=== PATIENT | female | born 1935 | race Caucasian/White ===

== ENCOUNTER 2019-05-20 12:51 | Inpatient (IN) | payer OTHER ==
--- NOTE | 2019-05-20 14:21 | PDOC ---
History of Present Illness - General Chief Complaint: Respiratory Stated Complaint: COUGH Time Seen by Provider: 05/20/19 13:17 History Source: Intermediate Records - History of Present Illness Initial Comments: 05/20/19 16:15 Ms. Valencia is an 83 y/o woman with hx DM, alzheimers, schizophrenia, HTN, CAD, p/ w altered mental status from [facility]. She is unable to contribute to history due to altered mental status. They report that for the last 3 days she has had a cough, and intermittent confusion. They report that she has been intermittently disoriented to time and persons. They deny any measured fevers in the [facility], and send her for evaluation of confusion and cough with concern for pneumonia. --- Initial POC glucose - >600 Past History - Past Medical History Allergies/Adverse Reactions: Allergies Allergy/AdvReac Type Severity Reaction Status Date / Time No Known Allergies Allergy Verified 05/20/19 13:13 Home Medications: Ambulatory Orders Atorvastatin Ca [Lipitor] 40 mg PO HS #0 01/12/16 Amlodipine Besylate [Norvasc -] 5 mg PO DAILY 05/20/19 Brimonidine Tartrate [Alphagan 0.15% -] 1 drop OU BID 05/20/19 Dorzolamide HCl/Pf [Dorzolamide 2% Eye Drop] 1 drop OU BID 05/20/19 Duloxetine HCl [Cymbalta -] 30 mg PO DAILY 05/20/19 Empagliflozin [Jardiance] 10 mg PO DAILY 05/20/19 Ergocalciferol [Vitamin D2] 50,000 unit PO Q7D@1000 05/20/19 Levothyroxine Sodium 50 mcg PO DAILY 05/20/19 Losartan Potassium [Cozaar] 100 mg PO DAILY 05/20/19 Memantine HCl [Namenda -] 5 mg PO DAILY 05/20/19 Polyvinyl Alcohol [Artificial Tears] 1 drop OU BID 05/20/19 Risperidone [Risperdal -] 0.5 mg PO HS 05/20/19 metFORMIN HCL [Glucophage -] 1,000 mg PO BID 05/20/19 COPD: No Diabetes: Yes HTN: Yes Psychiatric Problems: Yes Thyroid Disease: Yes (hypo) - Psycho Social/Smoking Cessation Hx Smoking History: Never smoked Have you smoked in the past 12 months: No Hx Alcohol Use: No Drug/Substance Use Hx: No Substance Use Type: None Review of Systems - Review of Systems Able to Perform ROS?: No (AMS) *Physical Exam - Vital Signs Last Vital Signs Temp Pulse Resp BP Pulse Ox 98.2 F 87 28 H 129/66 94 L 05/20/19 13:27 05/20/19 13:04 05/20/19 13:04 05/20/19 13:04 05/20/19 13:04 - Physical Exam 05/20/19 19:57 PE: GENERAL: Disoriented, verbally responsive HEAD: No signs of trauma, normocephalic, atraumatic EYES: PERRLA, EOMI, sclera anicteric, conjunctiva clear ENT: Auricles normal inspection, hearing grossly normal, nares patent, oropharynx clear without exudates. Moist mucosa NECK: Normal ROM, supple, no lymphadenopathy, JVD, or masses LUNGS: No distress, clear to auscultation bilaterally HEART: Regular rate and rhythm, normal S1 and S2, no murmurs, rubs or gallops, peripheral pulses normal and equal bilaterally. ABDOMEN: Soft, nontender, normoactive bowel sounds. No guarding, no rebound. No masses EXTREMITIES : Normal inspection, Normal range of motion, no edema. No clubbing or cyanosis SKIN: Warm, Dry, normal turgor, no rashes or lesions noted ED Treatment Course - LABORATORY CBC & Chemistry Diagram: 05/20/19 14:55 05/20/19 14:55 - RADIOLOGY Radiology Studies Ordered: Category Date Time Status CHEST X-RAY PORTABLE* [RAD] Stat Radiology 05/20/19 14:13 Ordered Medical Decision Making - Medical Decision Making 83F w hx DM, HTN, alzheimers dementia, p/w altered mental status, POC glucose > 600 w/gap on ABG c/w DKA. Plan: CBC CMP Troponin ABG 1L IV NS EKG CXR CT Head Insulin drip pending K level KCl addition to fluid bolus pending K level ICU consult UA Urine culture Dispo: Admit, ICU 05/20/19 15:52 Finger stick glucose - "High" (unreadable) --- Blood sugar - 682 CMP resulted, K 5.4 Plan for Insulin drip 0.1mg/kg --- ABG - 7.15 pH, 7.9 HCO3 --- Case discussed with ICU team, plan for admission to ICU --- Repeat ABG - 7.15, HCO3 6.6 Discharge - Discharge Information Problems reviewed: Yes Clinical Impression/Diagnosis: DKA (diabetic ketoacidoses) Qualifiers: Diabetes mellitus type: other specified (including ANGELITO) Diabetes mellitus complication detail: without coma Qualified Code(s): E13.10 - Other specified diabetes mellitus with ketoacidosis without coma Condition: Guarded - Admission Yes - Follow up/Referral - Patient Discharge Instructions - Post Discharge Activity
[2019-05-20 14:59] LABS: BASO % 0.1 % (0-2.0); HEMATOCRIT 30.1 % (32.4-45.2); HEMOGLOBIN 9.5 GM/dL (10.7-15.3); LYMPH % 10.7 % (8-40); MCHC 31.7 g/dl (32.0-36.0); MEAN CELL VOLUME 91.4 fl (80-96); MEAN PLT VOLUME 9.2 fl (7.5-11.1); MONO % 9.6 % (3.8-10.2); NEUT % 79.6 % (42.8-82.8); PLATELET COUNT 217 K/MM3 (134-434); RBC 3.29 M/mm3 (3.60-5.2); RDW 15.5 % (11.6-15.6); WHITE BLOOD COUNT 10.1 K/mm3 (4.0-10.0)
[2019-05-20 15:22] LABS: ACTIVATED PTT 29.9 SECONDS (25.2-36.5)
[2019-05-20 15:24] LABS: ARTERIAL BLD GAS O2 SATURATION 93.8 % (95-98); ARTERIAL BLOOD GAS BASE EXCESS -19.3 meq/l (-2-2); ARTERIAL BLOOD GAS PCO2 22.2 mmHg (35-45); ARTERIAL BLOOD GAS PO2 88.1 mmHg (80-100); CARBOXYHEMOGLOBIN 1.1 % (0-2)
[2019-05-20 15:26] LABS: ARTERIAL BLOOD GAS pH 7.17 (7.35-7.45)
[2019-05-20 15:49] LABS: INR 0.87 (0.83-1.09); PROTHROMBIN TIME (PATIENT) 10.3 SEC (9.7-13.0)
[2019-05-20 15:52] LABS: BILIRUBIN,TOTAL 0.6 mg/dL (0.2-1); BLOOD UREA NITROGEN 47.9 mg/dL (7-18); CALCIUM 9.3 mg/dL (8.5-10.1); CREATININE 2.7 mg/dL (0.55-1.3); POTASSIUM 5.4 mmol/L (3.5-5.1); TOT PROT 7.6 g/dl (6.4-8.2)
[2019-05-20] MEDS ORDERED: LACTATED RINGERS SOLUTION 1000 ML INFUS.BAG IV ONE (15:52)
[2019-05-20] MEDS ORDERED: POTASSIUM CHLORIDE 20 MEQ PREMIX IVPB 100 ML IVPB ONE (15:57)
[2019-05-20] MEDS ORDERED: INSULIN REGULAR 100 UNITS in SODIUM CHLORIDE 99 ML IVPB SCH (16:00)
[2019-05-20 17:00] LABS: PHOSPHOROUS 6.8 mg/dL (2.5-4.9)
[2019-05-20 17:01] LABS: MAGNESIUM 2.2 mg/dL (1.8-2.4)
[2019-05-20] MEDS ORDERED: SODIUM CHLORIDE 0.45% 1,000 ML IV SCH (17:15)
--- NOTE | 2019-05-20 17:22 | HP ---
CHIEF COMPLAINT: PCP: HISTORY OF PRESENT ILLNESS: ER course was notable for: (1) (2) (3) Recent Travel: PAST MEDICAL HISTORY: PAST SURGICAL HISTORY: Social History: Smoking: Alcohol: Drugs: Allergies No Known Allergies Allergy (Verified 05/20/19 13:13) HOME MEDICATIONS: Home Medications Medication Instructions Recorded Atorvastatin Ca [Lipitor] 40 mg PO HS #0 01/12/16 Amlodipine Besylate [Norvasc -] 5 mg PO DAILY 05/20/19 Brimonidine Tartrate [Alphagan 1 drop OU BID 05/20/19 0.15% -] Dorzolamide HCl/Pf [Dorzolamide 2% 1 drop OU BID 05/20/19 Eye Drop] Duloxetine HCl [Cymbalta -] 30 mg PO DAILY 05/20/19 Empagliflozin [Jardiance] 10 mg PO DAILY 05/20/19 Ergocalciferol [Vitamin D2] 50,000 unit PO Q7D@1000 05/20/19 Levothyroxine Sodium 50 mcg PO DAILY 05/20/19 Losartan Potassium [Cozaar] 100 mg PO DAILY 05/20/19 Memantine HCl [Namenda -] 5 mg PO DAILY 05/20/19 Polyvinyl Alcohol [Artificial 1 drop OU BID 05/20/19 Tears] Risperidone [Risperdal -] 0.5 mg PO HS 05/20/19 metFORMIN HCL [Glucophage -] 1,000 mg PO BID 05/20/19 REVIEW OF SYSTEMS CONSTITUTIONAL: Absent: fever, chills, diaphoresis, generalized weakness, malaise, loss of appetite, weight change HEENT: Absent: rhinorrhea, nasal congestion, throat pain, throat swelling, difficulty swallowing, mouth swelling, ear pain, eye pain, visual changes CARDIOVASCULAR: Absent: chest pain, syncope, palpitations, irregular heart rate, lightheadedness , peripheral edema RESPIRATORY: Absent: cough, shortness of breath, dyspnea with exertion, orthopnea, wheezing, stridor, hemoptysis GASTROINTESTINAL: Absent: abdominal pain, abdominal distension, nausea, vomiting, diarrhea, constipation, melena, hematochezia GENITOURINARY: Absent: dysuria, frequency, urgency, hesitancy, hematuria, flank pain, genital pain MUSCULOSKELETAL: Absent: myalgia, arthralgia, joint swelling, back pain, neck pain SKIN: Absent: rash, itching, pallor HEMATOLOGIC/IMMUNOLOGIC: Absent: easy bleeding, easy bruising, lymphadenopathy, frequent infections ENDOCRINE: Absent: unexplained weight gain, unexplained weight loss, heat intolerance, cold intolerance NEUROLOGIC: Absent: headache, focal weakness or paresthesias, dizziness, unsteady gait, seizure, mental status changes, bladder or bowel incontinence PSYCHIATRIC: Absent: anxiety, depression, suicidal or homicidal ideation, hallucinations. PHYSICAL EXAMINATION Vital Signs - 24 hr 05/20/19 05/20/19 05/20/19 13:04 13:27 15:51 Temperature 98.2 F 98.8 F Pulse Rate 87 Respiratory 28 H Rate Blood Pressure 129/66 O2 Sat by Pulse 94 L Oximetry (%) GENERAL: Awake, alert, and fully oriented, in no acute distress. HEAD: Normal with no signs of trauma. EYES: Pupils equal, round and reactive to light, extraocular movements intact, sclera anicteric, conjunctiva clear. No lid lag. EARS, NOSE, THROAT: Ears normal, nares patent, oropharynx clear without exudates. Moist mucous membranes. NECK: Normal range of motion, supple without lymphadenopathy, JVD, or masses. LUNGS: Breath sounds equal, clear to auscultation bilaterally. No wheezes, and no crackles. No accessory muscle use. HEART: Regular rate and rhythm, normal S1 and S2 without murmur, rub or gallop. ABDOMEN: Soft, nontender, not distended, normoactive bowel sounds, no guarding, no rebound, no masses. No hepatomegaly or splenomegaly. MUSCULOSKELETAL: Normal range of motion at all joints. No bony deformities or tenderness. No CVA tenderness. UPPER EXTREMITIES: 2+ pulses, warm, well-perfused. No cyanosis. No clubbing. No peripheral edema. LOWER EXTREMITIES: 2+ pulses, warm, well-perfused. No calf tenderness. No peripheral edema. NEUROLOGICAL: Cranial nerves II-XII intact. Normal speech. Normal gait. PSYCHIATRIC: Cooperative. Good eye contact. Appropriate mood and affect. SKIN: Warm, dry, normal turgor, no rashes or lesions noted, normal capillary refill. Laboratory Results - last 24 hr 05/20/19 05/20/19 05/20/19 13:30 14:55 14:55 WBC 10.1 H RBC 3.29 L Hgb 9.5 L Hct 30.1 L MCV 91.4 MCH 29.0 MCHC 31.7 L RDW 15.5 Plt Count 217 MPV 9.2 D Absolute Neuts (auto) 8.0 Neutrophils % 79.6 Lymphocytes % 10.7 D Monocytes % 9.6 Eosinophils % 0.0 D Basophils % 0.1 Nucleated RBC % 0 PT with INR INR PTT (Actin FS) Anticoagulation Therapy Puncture Site ABG pH ABG pCO2 at Pt Temp ABG pO2 at Pt Temp ABG HCO3 ABG O2 Sat (Measured) ABG O2 Content ABG Base Excess Néstor Test Carboxyhemoglobin Methemoglobin O2 Delivery Device Oxygen Flow Rate Vent Mode Vent Rate Mechanical Rate Pressure Support Vent Sodium Potassium Chloride Carbon Dioxide Anion Gap BUN Creatinine Est GFR (CKD-EPI)AfAm Est GFR (CKD-EPI)NonAf POC Glucometer Random Glucose Lactic Acid Calcium Phosphorus Magnesium Total Bilirubin AST ALT Alkaline Phosphatase Creatine Kinase 172 Creatine Kinase Index 1.5 CK-MB (CK-2) 2.7 Troponin I < 0.02 Total Protein Albumin Beta-Hydroxybutyrate Influenza A (Rapid) Negative Influenza B (Rapid) Negative 05/20/19 05/20/19 05/20/19 14:55 15:00 15:00 WBC RBC Hgb Hct MCV MCH MCHC RDW Plt Count MPV Absolute Neuts (auto) Neutrophils % Lymphocytes % Monocytes % Eosinophils % Basophils % Nucleated RBC % PT with INR 10.30 INR 0.87 PTT (Actin FS) 29.9 Anticoagulation Therapy No Result Required. Puncture Site No Result Required. ABG pH 7.17 L* ABG pCO2 at Pt Temp 22.2 L ABG pO2 at Pt Temp 88.1 ABG HCO3 7.8 L ABG O2 Sat (Measured) 93.8 L ABG O2 Content 12.3 ABG Base Excess -19.3 L Néstor Test No Result Required. Carboxyhemoglobin 1.1 Methemoglobin < 1.0 O2 Delivery Device No Result Required. Oxygen Flow Rate No Result Required. Vent Mode No Result Required. Vent Rate No Result Required. Mechanical Rate No Result Required. Pressure Support Vent No Result Required. Sodium 132 L Potassium 5.4 H Chloride 98 Carbon Dioxide 9 L Anion Gap 25 H BUN 47.9 H Creatinine 2.7 H Est GFR (CKD-EPI)AfAm 18.41 Est GFR (CKD-EPI)NonAf 15.89 POC Glucometer Random Glucose 682 H* Lactic Acid Calcium 9.3 Phosphorus 6.8 H Magnesium 2.2 Total Bilirubin 0.6 AST 25 ALT 22 Alkaline Phosphatase 68 Creatine Kinase Creatine Kinase Index CK-MB (CK-2) Troponin I Total Protein 7.6 Albumin 3.0 L Beta-Hydroxybutyrate 100.7 H Influenza A (Rapid) Influenza B (Rapid) 05/20/19 05/20/19 15:00 15:47 WBC RBC Hgb Hct MCV MCH MCHC RDW Plt Count MPV Absolute Neuts (auto) Neutrophils % Lymphocytes % Monocytes % Eosinophils % Basophils % Nucleated RBC % PT with INR INR PTT (Actin FS) Anticoagulation Therapy Puncture Site ABG pH ABG pCO2 at Pt Temp ABG pO2 at Pt Temp ABG HCO3 ABG O2 Sat (Measured) ABG O2 Content ABG Base Excess Néstor Test Carboxyhemoglobin Methemoglobin O2 Delivery Device Oxygen Flow Rate Vent Mode Vent Rate Mechanical Rate Pressure Support Vent Sodium Potassium Chloride Carbon Dioxide Anion Gap BUN Creatinine Est GFR (CKD-EPI)AfAm Est GFR (CKD-EPI)NonAf POC Glucometer > 600 Random Glucose Lactic Acid 1.2 Calcium Phosphorus Magnesium Total Bilirubin AST ALT Alkaline Phosphatase Creatine Kinase Creatine Kinase Index CK-MB (CK-2) Troponin I Total Protein Albumin Beta-Hydroxybutyrate Influenza A (Rapid) Influenza B (Rapid) ASSESSMENT/PLAN: ATTENDING PHYSICIAN STATEMENT I saw and evaluated the patient. I reviewed the resident's note and discussed the case with the resident. I agree with the resident's findings and plan as documented. SUBJECTIVE: OBJECTIVE: ASSESSMENT AND PLAN:
[2019-05-20 17:48] LABS: URINE APPEARANCE CLEAR; URINE BILIRUBIN NEGATIVE (NEGATIVE); URINE COLOR YELLOW; URINE GLUCOSE (UA) 3+ (NEGATIVE); URINE KETONE 2+ (NEGATIVE); URINE LEUK ESTERASE NEGATIVE (NEGATIVE); URINE NITRITE NEGATIVE (NEGATIVE); URINE PROTEIN TRACE (NEGATIVE); URINE UROBILINOGEN 0.2 mg/dL (0.2-1.0)
--- NOTE | 2019-05-20 18:35 | CONSULT ---
Consultation: REQUESTING PROVIDER: Dr. Talbot CONSULT REQUEST: We have been asked to medically evaluate this patient for diabetic ketoacidosis. HISTORY OF PRESENT ILLNESS: 83F w/ pmhx of alzheimers dementia, schizophrenia, hypothyroidism, DM, HTN, HLD , CAD, who presents in the ED from [facility]. She presents with altered mental status, is unable to be oriented and is not able to provide much history. From alf report and ED sign out, she has had suspected pneumonia at home and confusion which led patient to be transferred to ED. In the ED she was found to have point of care glucose >600 and was started on Insulin Drip at 0.1 mg/kg with a loading dose, and given 1L bolus of LR. Patient denies any chest pain, shortness of breath, abdominal pain, nausea, and vomiting. Patient endorses appetite. REVIEW OF SYSTEMS: CONSTITUTIONAL: Absent: fever, chills, diaphoresis, generalized weakness, malaise, loss of appetite, weight change HEENT: Absent: rhinorrhea, nasal congestion, throat pain, throat swelling, difficulty swallowing, mouth swelling, ear pain, eye pain, visual changes CARDIOVASCULAR: Absent: chest pain, syncope, palpitations, irregular heart rate, lightheadedness , peripheral edema RESPIRATORY: Absent: cough, shortness of breath, dyspnea with exertion, orthopnea, wheezing, stridor, hemoptysis GASTROINTESTINAL: Absent: abdominal pain, abdominal distension, nausea, vomiting, diarrhea, constipation, melena, hematochezia GENITOURINARY: Absent: dysuria, frequency, urgency, hesitancy, hematuria, flank pain, genital pain MUSCULOSKELETAL: Absent: myalgia, arthralgia, joint swelling, back pain, neck pain SKIN: Absent: rash, itching, pallor HEMATOLOGIC/IMMUNOLOGIC: Absent: easy bleeding, easy bruising, lymphadenopathy, frequent infections ENDOCRINE: Absent: unexplained weight gain, unexplained weight loss, heat intolerance, cold intolerance NEUROLOGIC: Absent: headache, focal weakness or paresthesias, dizziness, unsteady gait, seizure, mental status changes, bladder or bowel incontinence PSYCHIATRIC: Absent: anxiety, depression, suicidal or homicidal ideation, hallucinations. PHYSICAL EXAMINATION Vital Signs - 24 hr 05/20/19 05/20/19 05/20/19 13:04 13:27 15:51 Temperature 98.2 F 98.8 F Pulse Rate 87 Respiratory 28 H Rate Blood Pressure 129/66 O2 Sat by Pulse 94 L Oximetry (%) GENERAL: Awake, alert, and oriented to self. Answers some questions, continues to be somewhat drowsy. HEAD: Normal with no signs of trauma. EYES: Pupils equal, round and reactive to light, extraocular movements intact, sclera anicteric, conjunctiva clear. EARS, NOSE, THROAT: Ears normal, nares patent, oropharynx clear without exudates. Moist mucous membranes. NECK: Supple. No lymphadenopathy, no JVD. LUNGS: Breath sounds equal, clear to auscultation bilaterally. No wheezes, and no crackles. No accessory muscle use. HEART: RRR normal S1 and S2 without murmur, rub or gallop. ABDOMEN: Soft, nontender, not distended, normoactive bowel sounds, no guarding, no rebound, no masses. MUSCULOSKELETAL: Normal range of motion at all joints. No bony deformities or tenderness. UPPER EXTREMITIES: 2+ pulses, warm, well-perfused. No cyanosis. No clubbing. Cap refill <2 seconds. No peripheral edema. LOWER EXTREMITIES: 2+ pulses, warm, well-perfused. No calf tenderness. No peripheral edema. NEUROLOGICAL: Patient unable to follow command for complete neuro exam. PSYCHIATRIC: Cooperative. Good eye contact. Appropriate mood and affect. SKIN: Warm, dry, normal turgor, no rashes or lesions noted. Laboratory Results - last 24 hr 05/20/19 05/20/19 05/20/19 13:30 14:55 14:55 WBC 10.1 H RBC 3.29 L Hgb 9.5 L Hct 30.1 L MCV 91.4 MCH 29.0 MCHC 31.7 L RDW 15.5 Plt Count 217 MPV 9.2 D Absolute Neuts (auto) 8.0 Neutrophils % 79.6 Lymphocytes % 10.7 D Monocytes % 9.6 Eosinophils % 0.0 D Basophils % 0.1 Nucleated RBC % 0 PT with INR INR PTT (Actin FS) Anticoagulation Therapy Puncture Site ABG pH ABG pCO2 at Pt Temp ABG pO2 at Pt Temp ABG HCO3 ABG O2 Sat (Measured) ABG O2 Content ABG Base Excess Néstor Test Carboxyhemoglobin Methemoglobin O2 Delivery Device Oxygen Flow Rate Vent Mode Vent Rate Mechanical Rate Pressure Support Vent Sodium Potassium Chloride Carbon Dioxide Anion Gap BUN Creatinine Est GFR (CKD-EPI)AfAm Est GFR (CKD-EPI)NonAf POC Glucometer Random Glucose Lactic Acid Calcium Phosphorus Magnesium Total Bilirubin AST ALT Alkaline Phosphatase Creatine Kinase 172 Creatine Kinase Index 1.5 CK-MB (CK-2) 2.7 Troponin I < 0.02 Total Protein Albumin Beta-Hydroxybutyrate Influenza A (Rapid) Negative Influenza B (Rapid) Negative 05/20/19 05/20/19 05/20/19 14:55 15:00 15:00 WBC RBC Hgb Hct MCV MCH MCHC RDW Plt Count MPV Absolute Neuts (auto) Neutrophils % Lymphocytes % Monocytes % Eosinophils % Basophils % Nucleated RBC % PT with INR 10.30 INR 0.87 PTT (Actin FS) 29.9 Anticoagulation Therapy No Result Required. Puncture Site No Result Required. ABG pH 7.17 L* ABG pCO2 at Pt Temp 22.2 L ABG pO2 at Pt Temp 88.1 ABG HCO3 7.8 L ABG O2 Sat (Measured) 93.8 L ABG O2 Content 12.3 ABG Base Excess -19.3 L Néstor Test No Result Required. Carboxyhemoglobin 1.1 Methemoglobin < 1.0 O2 Delivery Device No Result Required. Oxygen Flow Rate No Result Required. Vent Mode No Result Required. Vent Rate No Result Required. Mechanical Rate No Result Required. Pressure Support Vent No Result Required. Sodium 132 L Potassium 5.4 H Chloride 98 Carbon Dioxide 9 L Anion Gap 25 H BUN 47.9 H Creatinine 2.7 H Est GFR (CKD-EPI)AfAm 18.41 Est GFR (CKD-EPI)NonAf 15.89 POC Glucometer Random Glucose 682 H* Lactic Acid Calcium 9.3 Phosphorus 6.8 H Magnesium 2.2 Total Bilirubin 0.6 AST 25 ALT 22 Alkaline Phosphatase 68 Creatine Kinase Creatine Kinase Index CK-MB (CK-2) Troponin I Total Protein 7.6 Albumin 3.0 L Beta-Hydroxybutyrate 100.7 H Influenza A (Rapid) Influenza B (Rapid) 05/20/19 05/20/19 15:00 15:47 WBC RBC Hgb Hct MCV MCH MCHC RDW Plt Count MPV Absolute Neuts (auto) Neutrophils % Lymphocytes % Monocytes % Eosinophils % Basophils % Nucleated RBC % PT with INR INR PTT (Actin FS) Anticoagulation Therapy Puncture Site ABG pH ABG pCO2 at Pt Temp ABG pO2 at Pt Temp ABG HCO3 ABG O2 Sat (Measured) ABG O2 Content ABG Base Excess Néstor Test Carboxyhemoglobin Methemoglobin O2 Delivery Device Oxygen Flow Rate Vent Mode Vent Rate Mechanical Rate Pressure Support Vent Sodium Potassium Chloride Carbon Dioxide Anion Gap BUN Creatinine Est GFR (CKD-EPI)AfAm Est GFR (CKD-EPI)NonAf POC Glucometer > 600 Random Glucose Lactic Acid 1.2 Calcium Phosphorus Magnesium Total Bilirubin AST ALT Alkaline Phosphatase Creatine Kinase Creatine Kinase Index CK-MB (CK-2) Troponin I Total Protein Albumin Beta-Hydroxybutyrate Influenza A (Rapid) Influenza B (Rapid) Active Medications Generic Name Dose Route Start Last Admin Trade Name Freq PRN Reason Stop Dose Admin Chlorhexidine Gluconate 1 applic 05/20/19 22:00 Hibiclens For Decolonization - TP HS SAM Insulin Human Regular 100 100 mls @ 7 mls/hr 05/20/19 16:00 units/ Sodium Chloride IVPB TITR SAM Protocol 0.1 UNITS/KG/HR Sodium Chloride 1,000 mls @ 125 mls/hr 05/20/19 17:15 1/2 Normal Saline IV ASDIR SAM Mupirocin 1 applic 05/20/19 22:00 Bactroban Ointment (For Decolonization) - NS 05/25/19 21:59 BID [facility] ASSESSMENT/PLAN: 83F w/ pmhx of alzheimers dementia, schizophrenia, hypothyroidism, DM, HTN, HLD , CAD who presents with AMS likely due to DKA. Neuro Acute Metabolic Encephalopathy -Patient has baseline Dementia, but has been more confused recently. -Currently AAOX1 -Continue home Cymbalta 30 mg Daily, Memantine 5 mg Daily, Risperidone 0.5 mg HS -Head CT ordered; pending report Endocrine Diabetic Ketoacidosis Glaucoma Hypothyroidism -Unknown compliance with home medications of: Metformin 1000 mg BID, Jardiance 10 mg BID -Glucose of 682, pH 7.17, beta-hydroxybutarate of 100.7, AG 25, HCO3 9. Urine ketones positive (2+), glucosuria (3+). -A1c ordered (per records, last A1c 6.6% - unknown date) -Started on Insulin drip; 0.1U/kg/hr (goal is decrease of 50-70 within 1st hour , if not, will double IV dose) -On 1/2 NS @ 125 ml/hr (corrected Na 141); will change to D5 1/2 NS once Glu reaches 200 -F/U BMP Q2H; once AG <12, will start regular insulin SQ 0.02 U/kg/hr and give food with BMP monitoring Q2H -F/U POC BGM Q1H -Continue Brimonidine, timolol, and artificial tears drops. -continue home dose levothyroxine 50 mcg daily. -Endocrinology consulted Cardio Hx of CAD Hx of HTN -EKG is NSR, LVH, Qtc 428. No peaked T waves or ST-T changes. -Continue home meds: Amlodipine 5mg Daily, Losartan 100 mg daily, Atorvastatin 40 HS. -Echo ordered (last known echo 01/17 - LVSF nl, impaired LV relaxation, mild MR, mild aortic sclerosis); will get repeat to assess Pulm -Patient was suspected pneumonia vs URTI at living facility, although afebrile with mild leukocytosis that may be reactive. -Continue monitoring. Hold off on IV abx for now -CXR unchanged since 01/17; R granuloma present, stable. GI -Patient has no GI symptoms at present. Will continue monitoring. -NPO for now Renal NIKOLE -BUN/Creatinine is 47.9/2.7 -Renal U/S Heme Anemia -H/H of 9.5/30.5 -Follow up CBC -FOBT/Iron studies -Hold AC for now FEN: -1/2 NS @ 125 cc/hr -Trend BMP -NPO until glucose is under control DVT Prophylaxis: SCDs for now; will hold off on AC due to present anemia Dispo: ICU monitoring. We will continue to follow the patient. Thank you for this consultative opportunity. Visit type - Emergency Visit Emergency Visit: Yes ED Registration Date: 05/20/19 Care time: The patient presented to the Emergency Department on the above date and was hospitalized for further evaluation of their emergent condition. - New Patient This patient is new to me today: Yes Date on this admission: 05/20/19 - Critical Care Critical Care patient: Yes Total Critical Care Time (in minutes): 45 Critical Care Statement: The care of this patient involved high complexity decision making to prevent further life threatening deterioration of the patient 's condition and/or to evaluate & treat vital organ system(s) failure or risk of failure. ATTENDING PHYSICIAN STATEMENT I saw and evaluated the patient. I reviewed the resident's note and discussed the case with the resident. I agree with the resident's findings and plan as documented. SUBJECTIVE: OBJECTIVE: ASSESSMENT AND PLAN:
[2019-05-20 19:41] LABS: ARTERIAL BLOOD GAS BASE EXCESS -20.9 meq/l (-2-2); ARTERIAL BLOOD GAS PCO2 19.7 mmHg (35-45)
[2019-05-20 19:42] LABS: ALLENS TEST POSITIVE
[2019-05-20 19:43] LABS: ARTERIAL BLOOD GAS pH 7.15 (7.35-7.45)
[2019-05-20 20:26] LABS: BLOOD UREA NITROGEN 46.4 mg/dL (7-18); CALCIUM 8.8 mg/dL (8.5-10.1); CREATININE 2.6 mg/dL (0.55-1.3)
[2019-05-20] MEDS ORDERED: SODIUM CHLORIDE 1,000 ML with POTASSIUM CHLORIDE 40 MEQ IV SCH (21:15)
[2019-05-20] MEDS ORDERED: SODIUM CHLORIDE 1,000 ML IV SCH (21:15)
[2019-05-20] MEDS ORDERED: SODIUM CHLORIDE 0.45% 1,000 ML with POTASSIUM CHLORIDE 40 MEQ IV SCH (21:45)
--- NOTE | 2019-05-20 21:58 | HP ---
CHIEF COMPLAINT: AMS PCP: Dr. Ray HISTORY OF PRESENT ILLNESS: Ms. Valencia is an 83 year old female with PMH of alzheimers, schizophrenia, HTN, DM2, hypothyroidism, CAD HLD, HHD (LVH), glaucooma, depression who presents from [facility] for cough and AMS. Pt is unable to contribute to hx given AMS. Per retirement report, pt has had progressive confusion over past 3 days. At baseline, she is A&O x2 (not oriented to time). However, she has developed worsening confusion, and not oriented to place or person intermittently. Pt also had developed a mild productive cough over the past 3 days. No reported fevers at Assisted Living Facility, but she was sent to ED for evaluation of possible PNA. On arrival in the ED, pt's POC glucose was >600. She was started on an insulin drop at 0.1 mg/kg with a loading dose and given 1L bolus of lactated ringer. On questioning, pt denies any chest pain , SOB, abd pain, nausea, vomiting, headaches. ER course was notable for: (1) Initial POC glucose >600, K 5.4; AB.15 pH, 7.8 HCO3; beta- hydroxybutarate: 100.7, AG 25, Urine ketones positive (2+), glucosuria (3+). (2) 2 large US-guided IVs placed. Started on insulin drip @ 0.1 mg/kg and given 20meq KCl (3) Recent Travel: denies PAST MEDICAL HISTORY: As per HPI PAST SURGICAL HISTORY: Cataract and glaucoma surgeries [facility] Social History: Smoking: denies Alcohol: denies Drugs: denies Allergies No Known Allergies Allergy (Verified 05/20/19 13:13) HOME MEDICATIONS: Home Medications Medication Instructions Recorded Atorvastatin Ca [Lipitor] 40 mg PO HS #0 01/12/16 Amlodipine Besylate [Norvasc -] 5 mg PO DAILY 05/20/19 Brimonidine Tartrate [Alphagan 1 drop OU BID 05/20/19 0.15% -] Dorzolamide HCl/Pf [Dorzolamide 2% 1 drop OU BID 05/20/19 Eye Drop] Duloxetine HCl [Cymbalta -] 30 mg PO DAILY 05/20/19 Empagliflozin [Jardiance] 10 mg PO DAILY 05/20/19 Ergocalciferol [Vitamin D2] 50,000 unit PO Q7D@1000 05/20/19 Levothyroxine Sodium 50 mcg PO DAILY 05/20/19 Losartan Potassium [Cozaar] 100 mg PO DAILY 05/20/19 Memantine HCl [Namenda -] 5 mg PO DAILY 05/20/19 Polyvinyl Alcohol [Artificial 1 drop OU BID 05/20/19 Tears] Risperidone [Risperdal -] 0.5 mg PO HS 05/20/19 metFORMIN HCL [Glucophage -] 1,000 mg PO BID 05/20/19 REVIEW OF SYSTEMS CONSTITUTIONAL: Absent: fever, chills, diaphoresis, generalized weakness, malaise, loss of appetite, weight change HEENT: Absent: rhinorrhea, nasal congestion, throat pain, throat swelling, difficulty swallowing, mouth swelling, ear pain, eye pain, visual changes CARDIOVASCULAR: Absent: chest pain, syncope, palpitations, irregular heart rate, lightheadedness , peripheral edema RESPIRATORY: cough Absent: shortness of breath, dyspnea with exertion, orthopnea, wheezing, stridor , hemoptysis GASTROINTESTINAL: Absent: abdominal pain, abdominal distension, nausea, vomiting, diarrhea, constipation, melena, hematochezia GENITOURINARY: Absent: dysuria, frequency, urgency, hesitancy, hematuria, flank pain, genital pain MUSCULOSKELETAL: Absent: myalgia, arthralgia, joint swelling, back pain, neck pain SKIN: Absent: rash, itching, pallor HEMATOLOGIC/IMMUNOLOGIC: Absent: easy bleeding, easy bruising, lymphadenopathy, frequent infections ENDOCRINE: Absent: unexplained weight gain, unexplained weight loss, heat intolerance, cold intolerance NEUROLOGIC: mental status changes Absent: headache, focal weakness or paresthesias, dizziness, unsteady gait, seizure, bladder or bowel incontinence PSYCHIATRIC: Absent: anxiety, depression, suicidal or homicidal ideation, hallucinations. PHYSICAL EXAMINATION Vital Signs - 24 hr 05/20/19 05/20/19 05/20/19 13:04 13:27 15:51 Temperature 98.2 F 98.8 F Pulse Rate 87 Pulse Rate [ Apical] Respiratory 28 H Rate Blood Pressure 129/66 Blood Pressure [Left Arm] O2 Sat by Pulse 94 L Oximetry (%) 05/20/19 05/20/19 05/20/19 17:04 19:53 19:55 Temperature Pulse Rate Pulse Rate [ 91 H 96 H Apical] Respiratory 28 H 26 H Rate Blood Pressure Blood Pressure 122/59 L [Left Arm] O2 Sat by Pulse 97 97 98 Oximetry (%) GENERAL: Oriented to person. Somnolent but arousable and verbally responsive. HEAD: Normal with no signs of trauma. EYES: Pupils equal, round and reactive to light, extraocular movements intact, sclera anicteric, conjunctiva clear. No lid lag. EARS, NOSE, THROAT: Ears normal, nares patent, oropharynx clear without exudates. Moist mucous membranes. NECK: Normal range of motion, supple without lymphadenopathy, JVD, or masses. LUNGS: Tachypneic. Breath sounds equal, clear to auscultation bilaterally. No wheezes, and no crackles. No accessory muscle use. HEART: Tachycardic, regular rhythm, normal S1 and S2 without murmur, rub or gallop. ABDOMEN: Soft, nontender, not distended, normoactive bowel sounds, no guarding, no rebound, no masses. No hepatomegaly or splenomegaly. UPPER EXTREMITIES: 2+ pulses, warm, well-perfused. No cyanosis. No clubbing. No peripheral edema. LOWER EXTREMITIES: 2+ pulses, warm, well-perfused. No calf tenderness. Trace peripheral edema. NEUROLOGICAL: Unable to complete full exam 2/2 pt's AMS SKIN: Warm, dry, normal turgor, no rashes or lesions noted, normal capillary refill. Laboratory Results - last 24 hr WBC 10.1 K/mm3 (4.0-10.0) H RBC 3.29 M/mm3 (3.60-5.2) L Hgb 9.5 GM/dL (10.7-15.3) L Hct 30.1 % (32.4-45.2) L MCV 91.4 fl (80-96) MCH 29.0 pg (25.7-33.7) MCHC 31.7 g/dl (32.0-36.0) L RDW 15.5 % (11.6-15.6) Plt Count 217 K/MM3 (134-434) MPV 9.2 fl (7.5-11.1) D Absolute Neuts (auto) 8.0 K/mm3 (1.5-8.0) Neutrophils % 79.6 % (42.8-82.8) Lymphocytes % 10.7 % (8-40) D Monocytes % 9.6 % (3.8-10.2) Eosinophils % 0.0 % (0-4.5) D Basophils % 0.1 % (0-2.0) Nucleated RBC % 0 % (0-0) Sodium 136 mmol/L (136-145) Potassium 5.0 mmol/L (3.5-5.1) Chloride 105 mmol/L (98-107) Carbon Dioxide 8 mmol/L (21-32) L Anion Gap 22 MMOL/L (8-16) H BUN 46.4 mg/dL (7-18) H Creatinine 2.6 mg/dL (0.55-1.3) H Est GFR (CKD-EPI)AfAm 19.27 Est GFR (CKD-EPI)NonAf 16.63 POC Glucometer 486 UNITS (80-120) Random Glucose 562 mg/dL (74-106) H* Lactic Acid 1.2 mmol/L (0.4-2.0) Calcium 8.8 mg/dL (8.5-10.1) Phosphorus 6.8 mg/dL (2.5-4.9) H Magnesium 2.2 mg/dL (1.8-2.4) Iron 17 ug/dL (50-175) L TIBC 238 ug/dL (250-450) L Iron Saturation 7 % (17.5-39) L Unsaturated IBC 221 ug/dL (200-275) Ferritin 139.3 ng/ml (8-388) Total Bilirubin 0.6 mg/dL (0.2-1) AST 25 U/L (15-37) ALT 22 U/L (13-61) Alkaline Phosphatase 68 U/L (45-117) Creatine Kinase 172 U/L (26-192) Creatine Kinase Index 1.5 % (0.0-5.0) CK-MB (CK-2) 2.7 ng/mL (0.5-3.6) Troponin I < 0.02 ng/ml (0.00-0.05) Total Protein 7.6 g/dl (6.4-8.2) Albumin 3.0 g/dl (3.4-5.0) L Beta-Hydroxybutyrate 100.7 mg/dL (0.2-2.8) H ASSESSMENT/PLAN: Ms. Valencia is a critically ill 83 year old female with PMH of alzheimers, schizophrenia, HTN, DM2, hypothyroidism, CAD, HLD, HHD (LVH), glaucoma, depression who presents from [facility] who presents with AMS likely 2/2 DKA. #High anion gap metabolic acidosis 2/2 DKA Likely precipitated by infection vs med-noncompliance Pt afebrile, mild leukocytosis likely reactive. UA neg for infection. However, productive cough and possible infiltrate on CXR Rapid influenza neg Home meds: metformin 1000mg BID, jardiance 10mg BID - unknown compliance Started on insulin drop of 0.1 units/kg/hr. Once AG <12, will bridge over to insulin SQ 0.02 U/kg/hr and advance diet Received 1L LR in ED, will cont with maintenance of D5-1/2NS + 40Meq KCl @ 125ml/kg --> switch to NS when AG closes F/u Hgb A1C (last reported but unknown date: 6.6%) POC glucose Q1H BMP and Mg, Ph Q2H Endocrinology consulted (Dr. Titus) Will monitor in ICU #PNA vs URTI Pt sent for productive cough CXR: possible LLL infiltrate per our read. 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 Chronic mod periventricular and subcortical white matter microvascular ischemic gliosis Consider MRI if pt does not improve to baseline Consider neuro consult #NIKOLE BUN/Cr: 47.9/2.7 (baseline Cr 1.1 in 2016) Consider renal US Maintenance fluids with D5-1/2NS + 40Meq KCl @ 125ml/kg #Normocytic anemia likely 2/2 chronic disease H&H of 9.5, 30.5 Iron: 17, TIBC: 238, iron sat 7%, ferritin 139.3 F/u stool guaiac Hold AC for now #HTN and CAD Cont home meds: Amlodipine 5mg Daily, Losartan 100 mg daily, Atorvastatin 40 HS EKG is NSR, LVH, Qtc 428. No peaked T waves or ST-T changes Last known echo Jan 2016: LV function normal, impaired relaxation, mild MR, mild F/u repeat echo in am #Hypothyroidism Cont home levothyroxine 50mcg daily F/u TSH #Glaucoma Cont briminodine and timolol eye drops #FEN D5-1/2NS + 40Meq KCl @ 125ml/kg Closely monitor lytes as above NPO until pt improves, then advance as tolerated #DVT ppx SCDs, hold ppx due to current anemia #Dispo Monitor in ICU Visit type - Emergency Visit Emergency Visit: Yes ED Registration Date: 05/20/19 Care time: The patient presented to the Emergency Department on the above date and was hospitalized for further evaluation of their emergent condition. - New Patient This patient is new to me today: Yes Date on this admission: 07/19/19 - Critical Care Critical Care patient: No ATTENDING PHYSICIAN STATEMENT I saw and evaluated the patient. I reviewed the resident's note and discussed the case with the resident. I agree with the resident's findings and plan as documented. SUBJECTIVE: OBJECTIVE: ASSESSMENT AND PLAN:
[2019-05-20] MEDS ORDERED: CHLORHEXIDINE GLUCONATE 4% CLEANSER FOR DECOLONIZATION TP SCH (22:00)
[2019-05-20] MEDS ORDERED: PATIENT'S OWN MEDICATION (NON-FORMULARY) (Dorzolamide Hcl/Pf [Dorzolamide 2% Eye Drop] 1 D OU SCH (22:00)
--- NOTE | 2019-05-20 22:04 | PN ---
Teaching Attending Note Name of Resident: Afshan Gold ATTENDING PHYSICIAN STATEMENT I saw and evaluated the patient. I reviewed the resident's note and discussed the case with the resident. I agree with the resident's findings and plan as documented. SUBJECTIVE: Critically ill 83 y/o woman with hx DM, alzheimers, schizophrenia, HTN, CAD, Resident of [facility], brought in for suspected worsening mental status and cough for the past 3 days with worsening spells of confusion, was disoriented to time and persons which is a change from her baseline. Patient noted to have severe hyperglycemia in the emergency room of 682 mg/dL and was started immediately on insulin drip. OBJECTIVE: Last Vital Signs Temp Pulse Resp BP Pulse Ox 98.4 F 70 22 H 115/69 98 05/20/19 22:00 05/21/19 00:00 05/21/19 00:00 05/21/19 00:00 05/20/19 21:15 GENERAL: Well developed, well nourished. Awake and alert. No acute distress. HEENT: Normocephalic, atraumatic. PERRLA, EOMI. No conjunctival pallor. Sclera are non- icteric. Dry oral mucosa NECK: Supple. Full ROM. No JVD. Carotid pulses 2+ and symmetric, without bruits. No thyromegaly. No lymphadenopathy. CARDIOVASCULAR: Regular rate and rhythm. No murmurs, rubs, or gallops. Distal pulses are 2+ and symmetric. PULMONARY: No evidence of respiratory distress. Lungs clear to auscultation bilaterally. No wheezing, rales or rhonchi. ABDOMINAL: Soft. Non-tender. Non-distended. No rebound or guarding. No organomegaly. Normoactive bowel sounds. MUSCULOSKELETAL Normal range of motion at all joints. No bony deformities or tenderness. No CVA tenderness. EXTREMITIES: No cyanosis. No clubbing. No edema. No calf tenderness. SKIN: Warm and dry. Normal capillary refill. No rashes. No jaundice. PSYCHIATRIC: Underlying dementia, not cooperative Abnormal Lab Results 05/20/19 05/20/19 05/20/19 14:55 14:55 15:00 WBC 10.1 H RBC 3.29 L Hgb 9.5 L Hct 30.1 L MCHC 31.7 L ABG pH 7.17 L* ABG pCO2 at Pt Temp 22.2 L ABG HCO3 7.8 L ABG O2 Sat (Measured) 93.8 L ABG Base Excess -19.3 L Sodium 132 L Potassium 5.4 H Chloride Carbon Dioxide 9 L Anion Gap 25 H BUN 47.9 H Creatinine 2.7 H Random Glucose 682 H* Phosphorus 6.8 H Iron TIBC Iron Saturation Albumin 3.0 L Beta-Hydroxybutyrate 100.7 H Urine Glucose (UA) Urine Ketones 05/20/19 05/20/19 05/20/19 16:50 19:30 19:33 WBC RBC Hgb Hct MCHC ABG pH 7.15 L* ABG pCO2 at Pt Temp 19.7 L ABG HCO3 6.6 L ABG O2 Sat (Measured) 93.0 L ABG Base Excess -20.9 L Sodium Potassium Chloride Carbon Dioxide 8 L Anion Gap 22 H BUN 46.4 H Creatinine 2.6 H Random Glucose 562 H* Phosphorus Iron 17 L TIBC 238 L Iron Saturation 7 L Albumin Beta-Hydroxybutyrate Urine Glucose (UA) 3+ H Urine Ketones 2+ H 05/20/19 05/20/19 22:20 22:30 WBC RBC Hgb Hct MCHC ABG pH 7.23 L ABG pCO2 at Pt Temp 26.0 L ABG HCO3 10.5 L ABG O2 Sat (Measured) 94.0 L ABG Base Excess -15.5 L Sodium Potassium Chloride 110 H Carbon Dioxide 13 L Anion Gap 19 H BUN 44.1 H Creatinine 2.5 H Random Glucose 372 H Phosphorus Iron TIBC Iron Saturation Albumin Beta-Hydroxybutyrate Urine Glucose (UA) Urine Ketones Imaging studies reviewed Head CT was reviewed, small left cerebellar infarcts were noted posteriorly that are likely chronic in nature and were discussed in 2016 MRI report. Remaining left cerebellar infarcts are too small to actually characterize on current exam. Chest x-ray reviewed by me, appears to be overpenetrated, rotated cannot exclude infiltrates on right lung base ASSESSMENT AND PLAN: Critically ill 83-year-old woman with diabetic ketoacidosis, high anion gap metabolic acidosis, extremely high beta hydroxybutyrate level of 100, he UA was positive for ketones and glucose. Severe metabolic acidosis, pH was 7.15 on ABG with respiratory compensation versus mixed acid-base disorder. Would obtain delta delta gap to discern and evaluate for possible mixed acid-base disorder. Initial hyperkalemia however anticipate sharp drop in potassium and possibly phosphorus with insulin drip. Possible causes of DKA include medication noncompliance versus instigating factors such as upper respiratory infection or bacterial pneumonia. Suspect NIKOLE on CKD, likely secondary to prerenal azotemia from severe intravascular volume depletion. Head CT showed some small left cerebellar infarcts which are likely chronic however remaining infarcts were too small to characterize. Patient may benefit from MRI once stabilizedEspecially in light of recent altered mental status. Suspect mental status changes are likely secondary to metabolic encephalopathy in setting of DKA. Suspect mild leukocytosis may be secondary to possible pneumonia.History of hypothyroidism. Admit to ICU IV fluid hydration As patient is severely dehydrated intravascularly Continue insulin drip Check BGM's regularly as per DKA protocol Normal saline with supplemental potassium Check electrolytes including magnesium and phosphate and replete PRN I's and O's Daily weights Ruiz catheter When anion gap closes bridge with long-acting insulin Blood cultures Sputum culture Urine Legionella antigen Streptococcal urine antigen Ceftriaxone and azithromycin for for possible community-acquired pneumonia coverage Consider neurology evaluation if no resolution in altered mental status with treatment of DKA Consider MRI if no resolution in altered mental status changes and or if patient has focal neurological deficits Will need repeat ABG to ensure correction of severe acid-base disturbances Keep n.p.o. for now and advance diet as tolerated Renal sonogram Continue with home dose levothyroxine Continue rest of home dose medications except for oral hypoglycemic meds DVT prophylaxis 40 mins spent on this critically ill patient
[2019-05-20 22:26] LABS: ARTERIAL BLOOD GAS BASE EXCESS -15.5 meq/l (-2-2); ARTERIAL BLOOD GAS PO2 81.6 mmHg (80-100); ARTERIAL BLOOD GAS pH 7.23 (7.35-7.45)
[2019-05-20 22:27] LABS: ALLENS TEST POSITIVE
[2019-05-20 23:01] LABS: MAGNESIUM 2.1 mg/dL (1.8-2.4); PHOSPHOROUS 4.5 mg/dL (2.5-4.9)
[2019-05-20] MEDS: AZITHROMYCIN IVPB 500 MG/250 ML BAG IVPB SCH (23:11)
[2019-05-20] MEDS: MUPIROCIN 2% TOPICAL OINTMENT FOR DECOLONIZATION NS SCH (23:12)
[2019-05-20] MEDS: ATORVASTATIN CA 40 MG TABLET (FP) PO SCH (23:12)
[2019-05-20] MEDS: ARTIFICIAL TEARS (POLYVINYL ALCOHOL) OPTH DROPS OU SCH (23:21)
[2019-05-20] MEDS: BRIMONIDINE TARTRATE 0.15% OPHTHALMIC 5 ML BOTTLE OU SCH (23:21)
[2019-05-20] MEDS: DORZOLAMIDE 2% HCL OPHTHALMIC SOLUTION 10 ML BOTTLE OU SCH (23:37)
[2019-05-21 00:07] LABS: BLOOD UREA NITROGEN 44.1 mg/dL (7-18); CALCIUM 8.8 mg/dL (8.5-10.1); CREATININE 2.5 mg/dL (0.55-1.3); POTASSIUM 4.3 mmol/L (3.5-5.1)
[2019-05-21 02:53] LABS: BLOOD UREA NITROGEN 42.6 mg/dL (7-18); CREATININE 2.4 mg/dL (0.55-1.3); MAGNESIUM 2.1 mg/dL (1.8-2.4); PHOSPHOROUS 3.3 mg/dL (2.5-4.9); POTASSIUM 4.2 mmol/L (3.5-5.1)
[2019-05-21] MEDS ORDERED: INSULIN REGULAR 100 UNITS in SODIUM CHLORIDE 99 ML IVPB SCH (03:32)
[2019-05-21] MEDS ORDERED: INSULIN (LEVEMIR) 100 UNITS/ML UNITS SQ ONE (03:35)
[2019-05-21] MEDS ORDERED: D5-1/2NS+40 MEQ KCL - 40 MEQ/1,000 ML INFUS.BAG IV SCH ×2 (03:45→10:30)
[2019-05-21] MEDS: LEVOTHYROXINE NA 50 MCG TABLET (FP) PO SCH (06:15)
[2019-05-21] MEDS ORDERED: PT OWN MED DRAWER 7, Y5N ONE ×2 (08:52→10:09)
[2019-05-21] MEDS ORDERED: DEXTROSE 5%-WATER - 50 ML IVPB ONE (08:53)
[2019-05-21] MEDS ORDERED: cefTRIAXone SODIUM 1 GM VIAL ONE (08:53)
[2019-05-21 08:58] LABS: BASO % 0.2 % (0-2.0); HEMATOCRIT 28.4 % (32.4-45.2); HEMOGLOBIN 9.3 GM/dL (10.7-15.3); MCH 28.9 pg (25.7-33.7); MCHC 32.6 g/dl (32.0-36.0); MEAN CELL VOLUME 88.5 fl (80-96); MEAN PLT VOLUME 8.2 fl (7.5-11.1); MONO % 12.3 % (3.8-10.2); NEUT % 77.5 % (42.8-82.8); PLATELET COUNT 224 K/MM3 (134-434); RBC 3.21 M/mm3 (3.60-5.2); RDW 15.1 % (11.6-15.6); WHITE BLOOD COUNT 10.7 K/mm3 (4.0-10.0)
[2019-05-21 09:32] LABS: ALBUMIN 2.6 g/dl (3.4-5.0); BILIRUBIN,TOTAL 0.3 mg/dL (0.2-1); CALCIUM 9.2 mg/dL (8.5-10.1); CREATININE 2.1 mg/dL (0.55-1.3); MAGNESIUM 2.2 mg/dL (1.8-2.4); PHOSPHOROUS 2.8 mg/dL (2.5-4.9); POTASSIUM 4.4 mmol/L (3.5-5.1); TOT PROT 6.9 g/dl (6.4-8.2)
[2019-05-21] MEDS: CEFTRIAXONE 1 GM in DEXTROSE 5%-WATER - 50 ML IVPB SCH (09:47)
[2019-05-21] MEDS: AZITHROMYCIN IVPB 500 MG/250 ML BAG IVPB SCH (09:51)
[2019-05-21] MEDS: LOSARTAN POTASSIUM 50 MG TABLET (FP) PO SCH (09:53)
[2019-05-21] MEDS: amLODIPine BESYLATE 5 MG TABLET (FP) PO SCH (09:54)
[2019-05-21] MEDS: DULoxetine HCL 30 MG CAPSULE.DR PO SCH (09:54)
[2019-05-21] MEDS: ARTIFICIAL TEARS (POLYVINYL ALCOHOL) OPTH DROPS OU SCH ×2 (09:55→21:34)
[2019-05-21] MEDS: BRIMONIDINE TARTRATE 0.15% OPHTHALMIC 5 ML BOTTLE OU SCH ×2 (09:55→21:34)
[2019-05-21] MEDS: MUPIROCIN 2% TOPICAL OINTMENT FOR DECOLONIZATION NS SCH ×2 (09:55→21:36)
[2019-05-21] MEDS: DORZOLAMIDE 2% HCL OPHTHALMIC SOLUTION 10 ML BOTTLE OU SCH ×2 (09:56→21:34)
--- NOTE | 2019-05-21 10:35 | CONSULT ---
Consult Consult Specialty:: Endocrinology Referred by:: Joyce Sierra Reason for Consultation:: DKA - History of Present Illness Chief Complaint: AMS History of Present Illness: This is an 83 y/o F with h/o DM, alzheimers, schizophrenia, HTN, CAD, p/w altered mental status from [facility] [place]. She is unable to contribute to history due to altered mental status. They report that for the last 3 days she has had a cough, and intermittent confusion. They report that she has been intermittently disoriented to time and persons. They deny any measured fevers in the [facility], and send her for evaluation of confusion and cough with concern for pneumonia. Pt referred for management of DKA - History Source History Provided By: Medical Record - Past Medical History Cardio/Vascular: Yes: HTN Endocrine: Yes: Diabetes Mellitus - Alcohol/Substance Use Hx Alcohol Use: No - Smoking History Smoking history: Never smoked Have you smoked in the past 12 months: No - Social History ADL: Independent History of Recent Travel: No Home Medications - Allergies Allergies/Adverse Reactions: Allergies Allergy/AdvReac Type Severity Reaction Status Date / Time No Known Allergies Allergy Verified 05/20/19 13:13 - Home Medications Home Medications: Ambulatory Orders Atorvastatin Ca [Lipitor] 40 mg PO HS #0 01/12/16 Amlodipine Besylate [Norvasc -] 5 mg PO DAILY 05/20/19 Brimonidine Tartrate [Alphagan 0.15% -] 1 drop OU BID 05/20/19 Dorzolamide HCl/Pf [Dorzolamide 2% Eye Drop] 1 drop OU BID 05/20/19 Duloxetine HCl [Cymbalta -] 30 mg PO DAILY 05/20/19 Empagliflozin [Jardiance] 10 mg PO DAILY 05/20/19 Ergocalciferol [Vitamin D2] 50,000 unit PO Q7D@1000 05/20/19 Levothyroxine Sodium 50 mcg PO DAILY 05/20/19 Losartan Potassium [Cozaar] 100 mg PO DAILY 05/20/19 Memantine HCl [Namenda -] 5 mg PO DAILY 05/20/19 Polyvinyl Alcohol [Artificial Tears] 1 drop OU BID 05/20/19 Risperidone [Risperdal -] 0.5 mg PO HS 05/20/19 metFORMIN HCL [Glucophage -] 1,000 mg PO BID 05/20/19 Review of Systems - Review of Systems Constitutional: reports: No Symptoms Eyes: reports: No Symptoms HENT: reports: No Symptoms Neck: reports: No Symptoms Cardiovascular: reports: No Symptoms Respiratory: reports: Cough Gastrointestinal: reports: No Symptoms Genitourinary: reports: No Symptoms Musculoskeletal: reports: No Symptoms Integumentary: reports: No Symptoms Neurological: reports: No Symptoms Endocrine: reports: No Symptoms Physical Exam Vital Signs: Vital Signs Temperature 98.2 F 05/21/19 06:00 Pulse Rate 69 05/21/19 08:00 Respiratory Rate 21 H 05/21/19 08:00 Blood Pressure 136/65 05/21/19 08:00 O2 Sat by Pulse Oximetry (%) 98 05/20/19 21:15 Constitutional: Yes: Anxious Eyes: Yes: Conjunctiva Clear HENT: Yes: Atraumatic, Normocephalic Neck: Yes: Supple, Trachea Midline Cardiovascular: Yes: Regular Rate and Rhythm Respiratory: Yes: Regular, CTA Bilaterally, Cough Gastrointestinal: Yes: Normal Bowel Sounds, Soft Extremities: Yes: WNL Edema: No Labs: CBC, BMP 05/21/19 08:35 05/21/19 08:35 Assessment/Plan AP: DKA improving: ? related to Jardiance T2DM Pneumonia vs Acute Bronchitis Acute Kidney Injury CAD HTN Hyperlipidemia Hypothyroidism Anemia Schizophrenia Dementia Got Levemir 30 units at 3 AM Levemir 15 units daily at HS NOvolog SS coverage Restart Insulin drip if A gap rises or CO2 drops to less than 18 Monitor electrolytes Replace electrolytes as necessary on empiric antibiotics
[2019-05-21] MEDS: INSULIN SLIDING SCALE (NOVOLOG) 1 VIAL SQ SCH ×3 (10:41→21:35)
[2019-05-21] MEDS ORDERED: SODIUM CHLORIDE 1,000 ML IV SCH (11:30)
[2019-05-21 12:06] LABS: ANISOCYTOSIS 1+; MACROCYTOSIS 0; PLATELET ESTIMATE NORMAL
--- NOTE | 2019-05-21 12:34 | PN ---
Teaching Attending Note Name of Resident: Neel Benitez ATTENDING PHYSICIAN STATEMENT I saw and evaluated the patient. I reviewed the resident's note and discussed the case with the resident. I agree with the resident's findings and plan as documented. SUBJECTIVE: Feels better. Still has productive cough - white sputum. No hemoptysis. No fever/chills. OBJECTIVE: Afebrile, Hemodynamically Stable. AAO x 1. Last Vital Signs Temp Pulse Resp BP Pulse Ox 98.2 F 69 21 H 136/65 98 05/21/19 06:00 05/21/19 08:00 05/21/19 08:00 05/21/19 08:00 05/20/19 21:15 HEENT- Atraumatic, Normocephalic. Heart - S1, S2, soft SM Lungs - bibasal crackles. Abdomen - Soft, non-tender. Bowel Sounds normal. Extremities -no edema, no calf tenderness. Laboratory Results - last 24 hr 05/20/19 05/20/19 05/20/19 13:30 14:55 14:55 WBC 10.1 H RBC 3.29 L Hgb 9.5 L Hct 30.1 L MCV 91.4 MCH 29.0 MCHC 31.7 L RDW 15.5 Plt Count 217 MPV 9.2 D Absolute Neuts (auto) 8.0 Neutrophils % 79.6 Lymphocytes % 10.7 D Monocytes % 9.6 Eosinophils % 0.0 D Basophils % 0.1 Nucleated RBC % 0 PT with INR INR PTT (Actin FS) Anticoagulation Therapy Puncture Site ABG pH ABG pCO2 at Pt Temp ABG pO2 at Pt Temp ABG HCO3 ABG O2 Sat (Measured) ABG O2 Content ABG Base Excess Néstor Test Carboxyhemoglobin Methemoglobin O2 Delivery Device Oxygen Flow Rate Vent Mode Vent Rate Mechanical Rate Pressure Support Vent Sodium Potassium Chloride Carbon Dioxide Anion Gap BUN Creatinine Est GFR (CKD-EPI)AfAm Est GFR (CKD-EPI)NonAf POC Glucometer Random Glucose Hemoglobin A1c % Lactic Acid Calcium Phosphorus Magnesium Iron TIBC Iron Saturation Unsaturated IBC Ferritin Total Bilirubin AST ALT Alkaline Phosphatase Creatine Kinase 172 Creatine Kinase Index 1.5 CK-MB (CK-2) 2.7 Troponin I < 0.02 Total Protein Albumin Beta-Hydroxybutyrate TSH Urine Color Urine Appearance Urine pH Ur Specific [place] Urine Protein Urine Glucose (UA) Urine Ketones Urine Blood Urine Nitrite Urine Bilirubin Urine Urobilinogen Ur Leukocyte Esterase Influenza A (Rapid) Negative Influenza B (Rapid) Negative 05/20/19 05/20/19 05/20/19 14:55 15:00 15:00 WBC RBC Hgb Hct MCV MCH MCHC RDW Plt Count MPV Absolute Neuts (auto) Neutrophils % Lymphocytes % Monocytes % Eosinophils % Basophils % Nucleated RBC % PT with INR 10.30 INR 0.87 PTT (Actin FS) 29.9 Anticoagulation Therapy No Result Required. Puncture Site No Result Required. ABG pH 7.17 L* ABG pCO2 at Pt Temp 22.2 L ABG pO2 at Pt Temp 88.1 ABG HCO3 7.8 L ABG O2 Sat (Measured) 93.8 L ABG O2 Content 12.3 ABG Base Excess -19.3 L Néstor Test No Result Required. Carboxyhemoglobin 1.1 Methemoglobin < 1.0 O2 Delivery Device No Result Required. Oxygen Flow Rate No Result Required. Vent Mode No Result Required. Vent Rate No Result Required. Mechanical Rate No Result Required. Pressure Support Vent No Result Required. Sodium 132 L Potassium 5.4 H Chloride 98 Carbon Dioxide 9 L Anion Gap 25 H BUN 47.9 H Creatinine 2.7 H Est GFR (CKD-EPI)AfAm 18.41 Est GFR (CKD-EPI)NonAf 15.89 POC Glucometer Random Glucose 682 H* Hemoglobin A1c % Lactic Acid Calcium 9.3 Phosphorus 6.8 H Magnesium 2.2 Iron TIBC Iron Saturation Unsaturated IBC Ferritin Total Bilirubin 0.6 AST 25 ALT 22 Alkaline Phosphatase 68 Creatine Kinase Creatine Kinase Index CK-MB (CK-2) Troponin I Total Protein 7.6 Albumin 3.0 L Beta-Hydroxybutyrate 100.7 H TSH Urine Color Urine Appearance Urine pH Ur Specific [place] Urine Protein Urine Glucose (UA) Urine Ketones Urine Blood Urine Nitrite Urine Bilirubin Urine Urobilinogen Ur Leukocyte Esterase Influenza A (Rapid) Influenza B (Rapid) 05/20/19 05/20/19 05/20/19 15:00 15:47 16:50 WBC RBC Hgb Hct MCV MCH MCHC RDW Plt Count MPV Absolute Neuts (auto) Neutrophils % Lymphocytes % Monocytes % Eosinophils % Basophils % Nucleated RBC % PT with INR INR PTT (Actin FS) Anticoagulation Therapy Puncture Site ABG pH ABG pCO2 at Pt Temp ABG pO2 at Pt Temp ABG HCO3 ABG O2 Sat (Measured) ABG O2 Content ABG Base Excess Néstor Test Carboxyhemoglobin Methemoglobin O2 Delivery Device Oxygen Flow Rate Vent Mode Vent Rate Mechanical Rate Pressure Support Vent Sodium Potassium Chloride Carbon Dioxide Anion Gap BUN Creatinine Est GFR (CKD-EPI)AfAm Est GFR (CKD-EPI)NonAf POC Glucometer > 600 Random Glucose Hemoglobin A1c % Lactic Acid 1.2 Calcium Phosphorus Magnesium Iron TIBC Iron Saturation Unsaturated IBC Ferritin Total Bilirubin AST ALT Alkaline Phosphatase Creatine Kinase Creatine Kinase Index CK-MB (CK-2) Troponin I Total Protein Albumin Beta-Hydroxybutyrate TSH Urine Color Yellow Urine Appearance Clear Urine pH 5.0 Ur Specific [place] 1.023 Urine Protein Trace Urine Glucose (UA) 3+ H Urine Ketones 2+ H Urine Blood Negative Urine Nitrite Negative Urine Bilirubin Negative Urine Urobilinogen 0.2 Ur Leukocyte Esterase Negative Influenza A (Rapid) Influenza B (Rapid) 05/20/19 05/20/19 05/20/19 18:42 18:55 19:30 WBC RBC Hgb Hct MCV MCH MCHC RDW Plt Count MPV Absolute Neuts (auto) Neutrophils % Lymphocytes % Monocytes % Eosinophils % Basophils % Nucleated RBC % PT with INR INR PTT (Actin FS) Anticoagulation Therapy Puncture Site ABG pH ABG pCO2 at Pt Temp ABG pO2 at Pt Temp ABG HCO3 ABG O2 Sat (Measured) ABG O2 Content ABG Base Excess Néstor Test Carboxyhemoglobin Methemoglobin O2 Delivery Device Oxygen Flow Rate Vent Mode Vent Rate Mechanical Rate Pressure Support Vent Sodium 136 Potassium 5.0 Chloride 105 Carbon Dioxide 8 L Anion Gap 22 H BUN 46.4 H Creatinine 2.6 H Est GFR (CKD-EPI)AfAm 19.27 Est GFR (CKD-EPI)NonAf 16.63 POC Glucometer 573 Random Glucose 562 H* Hemoglobin A1c % 11.1 H Lactic Acid Calcium 8.8 Phosphorus Magnesium Iron 17 L TIBC 238 L Iron Saturation 7 L Unsaturated IBC 221 Ferritin 139.3 Total Bilirubin AST ALT Alkaline Phosphatase Creatine Kinase Creatine Kinase Index CK-MB (CK-2) Troponin I Total Protein Albumin Beta-Hydroxybutyrate TSH Urine Color Urine Appearance Urine pH Ur Specific [place] Urine Protein Urine Glucose (UA) Urine Ketones Urine Blood Urine Nitrite Urine Bilirubin Urine Urobilinogen Ur Leukocyte Esterase Influenza A (Rapid) Influenza B (Rapid) 05/20/19 05/20/19 05/20/19 19:33 19:33 20:29 WBC RBC Hgb Hct MCV MCH MCHC RDW Plt Count MPV Absolute Neuts (auto) Neutrophils % Lymphocytes % Monocytes % Eosinophils % Basophils % Nucleated RBC % PT with INR INR PTT (Actin FS) Anticoagulation Therapy No Result Required. Puncture Site Right radial ABG pH 7.15 L* ABG pCO2 at Pt Temp 19.7 L ABG pO2 at Pt Temp 85.0 ABG HCO3 6.6 L ABG O2 Sat (Measured) 93.0 L ABG O2 Content 11.9 ABG Base Excess -20.9 L Néstor Test Positive Carboxyhemoglobin Methemoglobin O2 Delivery Device No Result Required. Oxygen Flow Rate Room air Vent Mode No Result Required. Vent Rate No Result Required. Mechanical Rate No Result Required. Pressure Support Vent No Result Required. Sodium Potassium Chloride Carbon Dioxide Anion Gap BUN Creatinine Est GFR (CKD-EPI)AfAm Est GFR (CKD-EPI)NonAf POC Glucometer 506 486 Random Glucose Hemoglobin A1c % Lactic Acid Calcium Phosphorus Magnesium Iron TIBC Iron Saturation Unsaturated IBC Ferritin Total Bilirubin AST ALT Alkaline Phosphatase Creatine Kinase Creatine Kinase Index CK-MB (CK-2) Troponin I Total Protein Albumin Beta-Hydroxybutyrate TSH Urine Color Urine Appearance Urine pH Ur Specific [place] Urine Protein Urine Glucose (UA) Urine Ketones Urine Blood Urine Nitrite Urine Bilirubin Urine Urobilinogen Ur Leukocyte Esterase Influenza A (Rapid) Influenza B (Rapid) 05/20/19 05/20/19 05/20/19 21:23 22:20 22:23 WBC RBC Hgb Hct MCV MCH MCHC RDW Plt Count MPV Absolute Neuts (auto) Neutrophils % Lymphocytes % Monocytes % Eosinophils % Basophils % Nucleated RBC % PT with INR INR PTT (Actin FS) Anticoagulation Therapy No Result Required. Puncture Site Right radial ABG pH 7.23 L ABG pCO2 at Pt Temp 26.0 L ABG pO2 at Pt Temp 81.6 ABG HCO3 10.5 L ABG O2 Sat (Measured) 94.0 L ABG O2 Content 12.5 ABG Base Excess -15.5 L Néstor Test Positive Carboxyhemoglobin Methemoglobin O2 Delivery Device No Result Required. Oxygen Flow Rate Nasal Vent Mode No Result Required. Vent Rate No Result Required. Mechanical Rate No Result Required. Pressure Support Vent No Result Required. Sodium Potassium Chloride Carbon Dioxide Anion Gap BUN Creatinine Est GFR (CKD-EPI)AfAm Est GFR (CKD-EPI)NonAf POC Glucometer 360 351 Random Glucose Hemoglobin A1c % Lactic Acid Calcium Phosphorus Magnesium Iron TIBC Iron Saturation Unsaturated IBC Ferritin Total Bilirubin AST ALT Alkaline Phosphatase Creatine Kinase Creatine Kinase Index CK-MB (CK-2) Troponin I Total Protein Albumin Beta-Hydroxybutyrate TSH Urine Color Urine Appearance Urine pH Ur Specific [place] Urine Protein Urine Glucose (UA) Urine Ketones Urine Blood Urine Nitrite Urine Bilirubin Urine Urobilinogen Ur Leukocyte Esterase Influenza A (Rapid) Influenza B (Rapid) 05/20/19 05/20/19 05/20/19 22:30 22:35 23:35 WBC RBC Hgb Hct MCV MCH MCHC RDW Plt Count MPV Absolute Neuts (auto) Neutrophils % Lymphocytes % Monocytes % Eosinophils % Basophils % Nucleated RBC % PT with INR INR PTT (Actin FS) Anticoagulation Therapy Puncture Site ABG pH ABG pCO2 at Pt Temp ABG pO2 at Pt Temp ABG HCO3 ABG O2 Sat (Measured) ABG O2 Content ABG Base Excess Néstor Test Carboxyhemoglobin Methemoglobin O2 Delivery Device Oxygen Flow Rate Vent Mode Vent Rate Mechanical Rate Pressure Support Vent Sodium 143 Potassium 4.3 Chloride 110 H Carbon Dioxide 13 L Anion Gap 19 H BUN 44.1 H Creatinine 2.5 H Est GFR (CKD-EPI)AfAm 20.21 Est GFR (CKD-EPI)NonAf 17.44 POC Glucometer 307 Random Glucose 372 H Hemoglobin A1c % Lactic Acid Calcium 8.8 Phosphorus 4.5 Magnesium 2.1 Iron TIBC Iron Saturation Unsaturated IBC Ferritin Total Bilirubin AST ALT Alkaline Phosphatase Creatine Kinase Creatine Kinase Index CK-MB (CK-2) Troponin I Total Protein Albumin Beta-Hydroxybutyrate TSH Urine Color Urine Appearance Urine pH Ur Specific [place] Urine Protein Urine Glucose (UA) Urine Ketones Urine Blood Urine Nitrite Urine Bilirubin Urine Urobilinogen Ur Leukocyte Esterase Influenza A (Rapid) Influenza B (Rapid) 05/21/19 05/21/19 05/21/19 01:03 02:00 02:02 WBC RBC Hgb Hct MCV MCH MCHC RDW Plt Count MPV Absolute Neuts (auto) Neutrophils % Lymphocytes % Monocytes % Eosinophils % Basophils % Nucleated RBC % PT with INR INR PTT (Actin FS) Anticoagulation Therapy Puncture Site ABG pH ABG pCO2 at Pt Temp ABG pO2 at Pt Temp ABG HCO3 ABG O2 Sat (Measured) ABG O2 Content ABG Base Excess Néstor Test Carboxyhemoglobin Methemoglobin O2 Delivery Device Oxygen Flow Rate Vent Mode Vent Rate Mechanical Rate Pressure Support Vent Sodium 145 Potassium 4.2 Chloride 116 H Carbon Dioxide 19 L Anion Gap 11 BUN 42.6 H Creatinine 2.4 H Est GFR (CKD-EPI)AfAm 21.23 Est GFR (CKD-EPI)NonAf 18.32 POC Glucometer 238 209 Random Glucose 224 H Hemoglobin A1c % Lactic Acid Calcium 9.0 Phosphorus 3.3 Magnesium 2.1 Iron TIBC Iron Saturation Unsaturated IBC Ferritin Total Bilirubin AST ALT Alkaline Phosphatase Creatine Kinase Creatine Kinase Index CK-MB (CK-2) Troponin I Total Protein Albumin Beta-Hydroxybutyrate TSH Urine Color Urine Appearance Urine pH Ur Specific [place] Urine Protein Urine Glucose (UA) Urine Ketones Urine Blood Urine Nitrite Urine Bilirubin Urine Urobilinogen Ur Leukocyte Esterase Influenza A (Rapid) Influenza B (Rapid) 05/21/19 05/21/19 05/21/19 03:37 04:53 06:16 WBC RBC Hgb Hct MCV MCH MCHC RDW Plt Count MPV Absolute Neuts (auto) Neutrophils % Lymphocytes % Monocytes % Eosinophils % Basophils % Nucleated RBC % PT with INR INR PTT (Actin FS) Anticoagulation Therapy Puncture Site ABG pH ABG pCO2 at Pt Temp ABG pO2 at Pt Temp ABG HCO3 ABG O2 Sat (Measured) ABG O2 Content ABG Base Excess Néstor Test Carboxyhemoglobin Methemoglobin O2 Delivery Device Oxygen Flow Rate Vent Mode Vent Rate Mechanical Rate Pressure Support Vent Sodium Potassium Chloride Carbon Dioxide Anion Gap BUN Creatinine Est GFR (CKD-EPI)AfAm Est GFR (CKD-EPI)NonAf POC Glucometer 181 178 157 Random Glucose Hemoglobin A1c % Lactic Acid Calcium Phosphorus Magnesium Iron TIBC Iron Saturation Unsaturated IBC Ferritin Total Bilirubin AST ALT Alkaline Phosphatase Creatine Kinase Creatine Kinase Index CK-MB (CK-2) Troponin I Total Protein Albumin Beta-Hydroxybutyrate TSH Urine Color Urine Appearance Urine pH Ur Specific [place] Urine Protein Urine Glucose (UA) Urine Ketones Urine Blood Urine Nitrite Urine Bilirubin Urine Urobilinogen Ur Leukocyte Esterase Influenza A (Rapid) Influenza B (Rapid) 05/21/19 05/21/19 05/21/19 08:05 08:35 08:35 WBC 10.7 H RBC 3.21 L Hgb 9.3 L Hct 28.4 L MCV 88.5 MCH 28.9 MCHC 32.6 RDW 15.1 Plt Count 224 MPV 8.2 D Absolute Neuts (auto) 8.3 H Neutrophils % 77.5 Lymphocytes % 10.0 Monocytes % 12.3 H Eosinophils % 0.0 Basophils % 0.2 Nucleated RBC % 0 PT with INR INR PTT (Actin FS) Anticoagulation Therapy Puncture Site ABG pH ABG pCO2 at Pt Temp ABG pO2 at Pt Temp ABG HCO3 ABG O2 Sat (Measured) ABG O2 Content ABG Base Excess Néstor Test Carboxyhemoglobin Methemoglobin O2 Delivery Device Oxygen Flow Rate Vent Mode Vent Rate Mechanical Rate Pressure Support Vent Sodium 147 H Potassium 4.4 Chloride 117 H Carbon Dioxide 19 L Anion Gap 11 BUN 38.0 H Creatinine 2.1 H Est GFR (CKD-EPI)AfAm 24.95 Est GFR (CKD-EPI)NonAf 21.53 POC Glucometer 173 Random Glucose 184 H Hemoglobin A1c % Lactic Acid Calcium 9.2 Phosphorus 2.8 Magnesium 2.2 Iron TIBC Iron Saturation Unsaturated IBC Ferritin Total Bilirubin 0.3 AST 17 ALT 18 Alkaline Phosphatase 57 Creatine Kinase Creatine Kinase Index CK-MB (CK-2) Troponin I Total Protein 6.9 Albumin 2.6 L Beta-Hydroxybutyrate TSH 4.31 H Urine Color Urine Appearance Urine pH Ur Specific [place] Urine Protein Urine Glucose (UA) Urine Ketones Urine Blood Urine Nitrite Urine Bilirubin Urine Urobilinogen Ur Leukocyte Esterase Influenza A (Rapid) Influenza B (Rapid) 05/21/19 10:54 WBC RBC Hgb Hct MCV MCH MCHC RDW Plt Count MPV Absolute Neuts (auto) Neutrophils % Lymphocytes % Monocytes % Eosinophils % Basophils % Nucleated RBC % PT with INR INR PTT (Actin FS) Anticoagulation Therapy Puncture Site ABG pH ABG pCO2 at Pt Temp ABG pO2 at Pt Temp ABG HCO3 ABG O2 Sat (Measured) ABG O2 Content ABG Base Excess Néstor Test Carboxyhemoglobin Methemoglobin O2 Delivery Device Oxygen Flow Rate Vent Mode Vent Rate Mechanical Rate Pressure Support Vent Sodium Potassium Chloride Carbon Dioxide Anion Gap BUN Creatinine Est GFR (CKD-EPI)AfAm Est GFR (CKD-EPI)NonAf POC Glucometer 330 Random Glucose Hemoglobin A1c % Lactic Acid Calcium Phosphorus Magnesium Iron TIBC Iron Saturation Unsaturated IBC Ferritin Total Bilirubin AST ALT Alkaline Phosphatase Creatine Kinase Creatine Kinase Index CK-MB (CK-2) Troponin I Total Protein Albumin Beta-Hydroxybutyrate TSH Urine Color Urine Appearance Urine pH Ur Specific [place] Urine Protein Urine Glucose (UA) Urine Ketones Urine Blood Urine Nitrite Urine Bilirubin Urine Urobilinogen Ur Leukocyte Esterase Influenza A (Rapid) Influenza B (Rapid) Current Medications Generic Name Dose Route Start Last Admin Trade Name Trina PRN Reason Stop Dose Admin Amlodipine Besylate 5 mg 05/21/19 10:00 05/21/19 09:54 Norvasc - PO 5 mg DAILY SAM Administration Artificial Tears 1 drop 05/20/19 22:00 05/21/19 09:55 Artificial Tears OU 1 drop BID SAM Administration Atorvastatin Calcium 40 mg 05/20/19 22:00 05/20/19 23:12 Lipitor - PO 40 mg HS SAM Administration Brimonidine Tartrate 1 drop 05/20/19 22:00 05/21/19 09:55 Alphagan 0.15% - OU 1 drop BID SAM Administration Dorzolamide HCl 1 drop 05/20/19 23:30 05/21/19 09:56 Trusopt 2% OU 1 drop BID SAM Administration Duloxetine HCl 30 mg 05/21/19 10:00 05/21/19 09:54 Cymbalta - PO 30 mg DAILY SAM Administration Azithromycin 500 mg in 250 mls @ 250 mls/hr 05/20/19 21:15 05/21/19 09:51 Zithromax 500mg Ivpb (Pre-Docked) IVPB 250 mls/hr DAILY SAM Administration Ceftriaxone Sodium 1 gm/ 50 mls @ 100 mls/hr 05/21/19 10:00 05/21/19 09:47 Dextrose IVPB 100 mls/hr DAILY SAM Administration Protocol Sodium Chloride 1,000 mls @ 75 mls/hr 05/21/19 11:30 Normal Saline - IV ASDIR SAM Insulin Aspart 1 vial 05/21/19 11:00 05/21/19 10:41 Novolog Vial Sliding Scale - SQ 8 units ACHS SAM Administration Protocol Insulin Detemir 15 units 05/21/19 22:00 Levemir Vial SQ HS SAM Levothyroxine Sodium 50 mcg 05/21/19 07:00 05/21/19 06:15 Synthroid - PO 50 mcg DAILY@0700 SAM Administration Losartan Potassium 100 mg 05/21/19 10:00 05/21/19 09:53 Cozaar - PO 100 mg DAILY SAM Administration Memantine 5 mg 05/21/19 10:00 Namenda - PO DAILY SAM Mupirocin 1 applic 05/20/19 22:00 05/21/19 09:55 Bactroban Ointment (For Decolonization) - NS 05/25/19 21:59 1 applic BID SAM Administration Home Medications Medication Instructions Recorded Atorvastatin Ca [Lipitor] 40 mg PO HS #0 01/12/16 Amlodipine Besylate [Norvasc -] 5 mg PO DAILY 05/20/19 Brimonidine Tartrate [Alphagan 1 drop OU BID 05/20/19 0.15% -] Dorzolamide HCl/Pf [Dorzolamide 2% 1 drop OU BID 05/20/19 Eye Drop] Duloxetine HCl [Cymbalta -] 30 mg PO DAILY 05/20/19 Empagliflozin [Jardiance] 10 mg PO DAILY 05/20/19 Ergocalciferol [Vitamin D2] 50,000 unit PO Q7D@1000 05/20/19 Levothyroxine Sodium 50 mcg PO DAILY 05/20/19 Losartan Potassium [Cozaar] 100 mg PO DAILY 05/20/19 Memantine HCl [Namenda -] 5 mg PO DAILY 05/20/19 Polyvinyl Alcohol [Artificial 1 drop OU BID 05/20/19 Tears] Risperidone [Risperdal -] 0.5 mg PO HS 05/20/19 metFORMIN HCL [Glucophage -] 1,000 mg PO BID 05/20/19 ASSESSMENT/PLAN: 83 year old female with history of DM 2, Alzheimer's Disease, Schizophrenia, HTN , CAD, 83 y/o woman with hx DM 2, alzheimers, schizophrenia, HTN, CAD, [facility], admitted for 3 day history of increasing confusion and cough. Noted to be hyperglycemic with DKA on presentation. 1. Acute DKA, baseline Uncontrolled DM 2, A1C 11.2 pH 7.15, Bicarb 8, AG 22 on presentation, now resolved. Transitioned off Insulin drip on to SQ Levemir/Sliding scale. Metformin and Jardiance held. Tolerating diet. Endocrinology consulted. Etiology unclear, being treated for Pneumonia, Blood and Urine Cx pending. 2. CAP - Continue Ceftriaxone/Azithromycin Afebrile, Hemodynamically Stable. Flu negative Urine legionella requested. 3. Acute metabolic Encephalopathy atop baseline Alzheimer's Dementia/ Schizophrenia AAO x 1. Will need to find out baseline mental status. 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 Remaining left cerebellar infarcts are too small to actually characterize on current exam. MRI Brain to exclude acute infarct. Echo requested. Continue Risperidone, Namenda, Cymbalta 4. NIKOLE on CKD 3 - Creat down to 2.1 from 2.7 Renal US requested. Will attempt to get medical record for baseline Creat. IV hydration ongoing. 5. Hypothyroidism, TSH 4.31. continue Synthroid at current dose. Out-patient follow up for repeat Thyroid Function. 6. HTN - continue Losartan, Norvasc. 7. Normocytic Anemia, etiology multifactorial (ALESSANDRO, Chronic Disease, CKD) - Iron Sat 7%/Ferritin 132. No evidence of acute bleeding. For out-patient GI and Nephrology follow up. DVT Px - Heparin SQ
[2019-05-21 12:35] LABS: BLOOD UREA NITROGEN 34.1 mg/dL (7-18); MAGNESIUM 2.1 mg/dL (1.8-2.4); POTASSIUM 4.6 mmol/L (3.5-5.1)
--- NOTE | 2019-05-21 12:38 | EKG ---
Test Reason : Blood Pressure : / mmHG Vent. Rate : 088 BPM Atrial Rate : 088 BPM P-R Int : 142 ms QRS Dur : 094 ms QT Int : 354 ms P-R-T Axes : 029 003 066 degrees QTc Int : 428 ms NORMAL SINUS RHYTHM POSSIBLE LEFT ATRIAL ENLARGEMENT LEFT VENTRICULAR HYPERTROPHY ABNORMAL ECG WHEN COMPARED WITH ECG OF 10-JAN-2016 18:47, VENT. RATE HAS INCREASED BY 30 BPM T WAVE AMPLITUDE HAS INCREASED IN ANTERIOR LEADS Confirmed by DOMINIQUE NOLAND, RUSSELL ([id number]) on 05/21/2019 12:38:46 PM Referred By: Confirmed By:RUSSELL FOX MD
--- NOTE | 2019-05-21 12:52 | PN ---
Teaching Attending Note Name of Resident: Mikie Feliz ATTENDING PHYSICIAN STATEMENT I saw and evaluated the patient. I reviewed the resident's note and discussed the case with the resident. I agree with the resident's findings and plan as documented. SUBJECTIVE: Pt seen and examined in the ICU. Feels better. +nonproductive cough. Off insulin gtt. Tolerating PO. OBJECTIVE: Vital Signs Period Temp Pulse Resp BP Sys/Peña Pulse Ox Last 24 Hr 98.2 F-98.8 F 50-96 18-28 93-136/47-75 94-98 Intake & Output 05/18/19 05/19/19 05/20/19 05/21/19 23:59 23:59 23:59 23:59 Intake Total 1679 Output Total 0 Balance 0 1679 Weight 63.106 kg 63.14 kg Gen: NAD in chair Heart: RRR Lung: decreased breath sounds at the bases Abd: soft, nontender Ext: no edema CBC, BMP 05/21/19 08:35 05/21/19 11:35 Active Medications Amlodipine Besylate (Norvasc -) 5 mg PO DAILY [facility] Last Admin: 05/21/19 09:54 Dose: 5 mg Artificial Tears (Artificial Tears) 1 drop OU BID SAM Last Admin: 05/21/19 09:55 Dose: 1 drop Atorvastatin Calcium (Lipitor -) 40 mg PO HS SAM Last Admin: 05/20/19 23:12 Dose: 40 mg Brimonidine Tartrate (Alphagan 0.15% -) 1 drop OU BID SAM Last Admin: 05/21/19 09:55 Dose: 1 drop Dorzolamide HCl (Trusopt 2%) 1 drop OU BID SAM Last Admin: 05/21/19 09:56 Dose: 1 drop Duloxetine HCl (Cymbalta -) 30 mg PO DAILY SAM Last Admin: 05/21/19 09:54 Dose: 30 mg Azithromycin (Zithromax 500mg Ivpb (Pre-Docked)) 500 mg in 250 mls @ 250 mls/ hr IVPB DAILY [facility] Last Admin: 05/21/19 09:51 Dose: 250 mls/hr Ceftriaxone Sodium 1 gm/ (Dextrose) 50 mls @ 100 mls/hr IVPB DAILY [facility]; Protocol Last Admin: 05/21/19 09:47 Dose: 100 mls/hr Sodium Chloride (Normal Saline -) 1,000 mls @ 75 mls/hr IV ASDIR [facility] Insulin Aspart (Novolog Vial Sliding Scale -) 1 vial SQ ACHS [facility]; Protocol Last Admin: 05/21/19 10:41 Dose: 8 units Insulin Detemir (Levemir Vial) 15 units SQ HS [facility] Levothyroxine Sodium (Synthroid -) 50 mcg PO DAILY@0700 [facility] Last Admin: 05/21/19 06:15 Dose: 50 mcg Losartan Potassium (Cozaar -) 100 mg PO DAILY [facility] Last Admin: 05/21/19 09:53 Dose: 100 mg Memantine (Namenda -) 5 mg PO DAILY [facility] Mupirocin (Bactroban Ointment (For Decolonization) -) 1 applic NS BID [facility] Stop: 05/25/19 21:59 Last Admin: 05/21/19 09:55 Dose: 1 applic ASSESSMENT AND PLAN: Diabetic Ketoacidosis improving r/o Pneumonia vs Acute Bronchitis Acute Kidney Injury CAD HTN DM Hyperlipidemia Hypothyroidism Anemia Schizophrenia Dementia - glucose control - on empiric antibiotics - f/u cultures - IVF - monitor urine output, creatinine - PO as tolerated - DVT prophylaxis - can monitor on floor
[2019-05-21] MEDS: MEMANTINE HCL 5 MG TABLET (UD) PO SCH (13:05)
--- NOTE | 2019-05-21 13:10 | ECHO ---
Name: CATALINA JAY Exam:Adult Echocardiogram Study Date: 05/21/2019 07:40 AM Age: 83 yrs Reason For Study: CHF Height: 63 in Weight: 139 lb BSA: 1.7 m2 MMode/2D Measurements & Calculations IVSd: 1.3 cm Ao root diam: 3.2 cm LVIDd: 4.5 cm LA dimension: 2.7 cm LVIDs: 3.3 cm LVPWd: 1.1 cm EDV(Teich): 91.7 ml LVOT diam: 2.0 cm ESV(Teich): 43.6 ml Doppler Measurements & Calculations MV E max travon: 61.1 cm/sec Ao V2 max: 205.6 cm/sec MV A max travon: 119.8 cm/sec Ao max P.9 mmHg MV E/A: 0.51 Ao V2 mean: 137.6 cm/sec MV dec time: 0.24 sec Ao mean P.9 mmHg Ao V2 VTI: 33.9 cm BEULAH(I,D): 1.5 cm2 AI P1/2t: 402.2 msec BEULAH(V,D): 1.8 cm2 AI max travon: 312.4 cm/sec LV V1 max P.6 mmHg AI max P.4 mmHg LV V1 mean P.2 mmHg AI dec slope: 227.5 cm/sec2 LV V1 max: 117.9 cm/sec LV V1 mean: 63.1 cm/sec LV V1 VTI: 16.0 cm MR max travon: 445.2 cm/sec SV(LVOT): 50.6 ml MR max P.3 mmHg TR max travon: 243.4 cm/sec PA V2 max: 116.7 cm/sec TR max P.8 mmHg PA max P.5 mmHg Med Peak E' Travon: 5.7 cm/sec PI Vmax: 182.6 cm/sec Med E/e': 10.8 Lat Peak E' Travon: 6.1 cm/sec Lat E/e': 10.0 Procedure A two-dimensional transthoracic echocardiogram with color flow and Doppler was performed. Left Ventricle The left ventricular size, thickness and function are normal. The left ventricular ejection fraction is normal. E/A reversal consistent with but not diagnostic of poor LV compliance. The left ventricular w all motion is normal. Right Ventricle The right ventricle is normal in size and function. Atria Normal left and right atrial size and function. Mitral Valve The mitral valve is normal in structure and function. There is no mitral valve stenosis. There is tra ce to mild mitral regurgitation. Tricuspid Valve The tricuspid valve is normal in structure and function. There is no tricuspid stenosis. There is Tra ce to mild tricuspid regurgitation. Right ventricular systolic pressure is normal. Aortic Valve The aortic valve is normal in structure and function. No hemodynamically significant valvular aortic stenosis. Mild aortic regurgitation. Pulmonic Valve The pulmonic valve is not well visualized. There is no pulmonic valvular stenosis. Mild pulmonic valv ular regurgitation. Great Vessels The aortic root is normal size. Pericardium/Pleura There is no pericardial effusion. Interpretation Summary The left ventricular size, thickness and function are normal The left ventricular ejection fraction is normal. The left ventricular wall motion is normal. Mild aortic regurgitation. There is Trace to mild tricuspid regurgitation. Right ventricular systolic pressure is normal. There is trace to mild mitral regurgitation. E/A reversal consistent with but not diagnostic of poor LV compliance MD Tim Welch 05/21/2019 01:09 PM
--- NOTE | 2019-05-21 13:55 | PDOC ---
Documentation entered by Veena Malone SCRIBE, acting as scribe for Dorothy Talbot MD. Dorothy Talbot MD: This documentation has been prepared by the Faisal barone Nirvannie, SCRIBE, under my direction and personally reviewed by me in its entirety. I confirm that the documentation accurately reflects all work, treatment, procedures, and medical decision making performed by me. Attending Attestation - Resident Resident Name: Rios Hoyt - ED Attending Attestation I have performed the following: I have examined & evaluated the patient, The case was reviewed & discussed with the resident, I agree w/resident's findings & plan, Exceptions are as noted - HPI HPI: 05/20/19 14:27 The patient is an 83 year old female, with a significant past medical history of CVA, HTN, diabetes and hypothyroidism, who presents to the emergency department via EMS from [facility] with 1 day of AMS to time. As per NH, patient is usually alert and orientated but today an aid found her to be disoriented to time. [facility] staff notes patient has been experiencing a cough for a few days and would like her evaluated for possible pneumonia. History is limited secondary to patients clinical condition. Allergies: NKDA - Physicial Exam PE: 05/21/19 13:52 AGree with resident exam Lungs clear - Medical Decision Making 05/21/19 13:52 83yo F presents to the ED from assisted living due to disorientation and rapid breathing, found to be in DKA CXR clear, UA negative, pt rectally afebrile - no obvious source of infection at this time Insulin gtt started at 0.1units/kg, pt admitted to ICU for further mgmt
--- NOTE | 2019-05-21 14:13 | PN ---
Physical Exam: SUBJECTIVE: Patient seen and examined at the bedside. Patient endorsed a productive cough and felt weak. Appeared confused but was able to follow commands and respond to questions. Denied cp, sob, abd pain, n/v/c/d, fever, chills, lightheadedness, dizziness. OBJECTIVE: Vital Signs Period Temp Pulse Resp BP Sys/Peña Pulse Ox Last 24 Hr 98.0 F-98.8 F 50-96 18-28 93-136/47-77 97-98 GENERAL: The patient is awake, alert, and oriented to self and occasionall "hospital", in mild acute distress. HEAD: Normal with no signs of trauma. EYES: PERRL, extraocular movements intact, sclera anicteric, conjunctiva clear. ENT: Oropharynx clear without exudates, dry mucous membranes. NECK: Trachea midline, full range of motion, supple. LUNGS: Breath sounds equal, with bibasilar crackles. No noted wheezes. HEART: Regular rate and rhythm, S1, S2 without murmur, rub. ABDOMEN: Soft, nontender, nondistended, normoactive bowel sounds, no guarding, no rebound, no masses. EXTREMITIES: 2+ pulses, warm, well-perfused, no edema. NEUROLOGICAL: Cranial nerves II through XII grossly intact. 4/5 muscle strength upper and lower extremities bilaterally. PSYCH: Confused but responsive. SKIN: Warm, dry, no rashes or lesions noted Laboratory Results - last 24 hr 05/20/19 05/20/19 05/20/19 14:55 14:55 14:55 WBC 10.1 H RBC 3.29 L Hgb 9.5 L Hct 30.1 L MCV 91.4 MCH 29.0 MCHC 31.7 L RDW 15.5 Plt Count 217 MPV 9.2 D Absolute Neuts (auto) 8.0 Neutrophils % 79.6 Neutrophils % (Manual) Band Neutrophils % Lymphocytes % 10.7 D Lymphocytes % (Manual) Monocytes % 9.6 Monocytes % (Manual) Eosinophils % 0.0 D Eosinophils % (Manual) Basophils % 0.1 Basophils % (Manual) Myelocytes % (Man) Promyelocytes % (Man) Blast Cells % (Manual) Nucleated RBC % 0 Metamyelocytes Hypochromia Platelet Estimate Polychromasia Poikilocytosis Anisocytosis Microcytosis Macrocytosis PT with INR INR PTT (Actin FS) Anticoagulation Therapy Puncture Site ABG pH ABG pCO2 at Pt Temp ABG pO2 at Pt Temp ABG HCO3 ABG O2 Sat (Measured) ABG O2 Content ABG Base Excess Néstor Test Carboxyhemoglobin Methemoglobin O2 Delivery Device Oxygen Flow Rate Vent Mode Vent Rate Mechanical Rate Pressure Support Vent Sodium 132 L Potassium 5.4 H Chloride 98 Carbon Dioxide 9 L Anion Gap 25 H BUN 47.9 H Creatinine 2.7 H Est GFR (CKD-EPI)AfAm 18.41 Est GFR (CKD-EPI)NonAf 15.89 POC Glucometer Random Glucose 682 H* Hemoglobin A1c % Lactic Acid Calcium 9.3 Phosphorus 6.8 H Magnesium 2.2 Iron TIBC Iron Saturation Unsaturated IBC Ferritin Total Bilirubin 0.6 AST 25 ALT 22 Alkaline Phosphatase 68 Creatine Kinase 172 Creatine Kinase Index 1.5 CK-MB (CK-2) 2.7 Troponin I < 0.02 Total Protein 7.6 Albumin 3.0 L Beta-Hydroxybutyrate 100.7 H TSH Urine Color Urine Appearance Urine pH Ur Specific [place] Urine Protein Urine Glucose (UA) Urine Ketones Urine Blood Urine Nitrite Urine Bilirubin Urine Urobilinogen Ur Leukocyte Esterase 05/20/19 05/20/19 05/20/19 15:00 15:00 15:00 WBC RBC Hgb Hct MCV MCH MCHC RDW Plt Count MPV Absolute Neuts (auto) Neutrophils % Neutrophils % (Manual) Band Neutrophils % Lymphocytes % Lymphocytes % (Manual) Monocytes % Monocytes % (Manual) Eosinophils % Eosinophils % (Manual) Basophils % Basophils % (Manual) Myelocytes % (Man) Promyelocytes % (Man) Blast Cells % (Manual) Nucleated RBC % Metamyelocytes Hypochromia Platelet Estimate Polychromasia Poikilocytosis Anisocytosis Microcytosis Macrocytosis PT with INR 10.30 INR 0.87 PTT (Actin FS) 29.9 Anticoagulation Therapy No Result Required. Puncture Site No Result Required. ABG pH 7.17 L* ABG pCO2 at Pt Temp 22.2 L ABG pO2 at Pt Temp 88.1 ABG HCO3 7.8 L ABG O2 Sat (Measured) 93.8 L ABG O2 Content 12.3 ABG Base Excess -19.3 L Néstor Test No Result Required. Carboxyhemoglobin 1.1 Methemoglobin < 1.0 O2 Delivery Device No Result Required. Oxygen Flow Rate No Result Required. Vent Mode No Result Required. Vent Rate No Result Required. Mechanical Rate No Result Required. Pressure Support Vent No Result Required. Sodium Potassium Chloride Carbon Dioxide Anion Gap BUN Creatinine Est GFR (CKD-EPI)AfAm Est GFR (CKD-EPI)NonAf POC Glucometer Random Glucose Hemoglobin A1c % Lactic Acid 1.2 Calcium Phosphorus Magnesium Iron TIBC Iron Saturation Unsaturated IBC Ferritin Total Bilirubin AST ALT Alkaline Phosphatase Creatine Kinase Creatine Kinase Index CK-MB (CK-2) Troponin I Total Protein Albumin Beta-Hydroxybutyrate TSH Urine Color Urine Appearance Urine pH Ur Specific [place] Urine Protein Urine Glucose (UA) Urine Ketones Urine Blood Urine Nitrite Urine Bilirubin Urine Urobilinogen Ur Leukocyte Esterase 05/20/19 05/20/19 05/20/19 15:47 16:50 18:42 WBC RBC Hgb Hct MCV MCH MCHC RDW Plt Count MPV Absolute Neuts (auto) Neutrophils % Neutrophils % (Manual) Band Neutrophils % Lymphocytes % Lymphocytes % (Manual) Monocytes % Monocytes % (Manual) Eosinophils % Eosinophils % (Manual) Basophils % Basophils % (Manual) Myelocytes % (Man) Promyelocytes % (Man) Blast Cells % (Manual) Nucleated RBC % Metamyelocytes Hypochromia Platelet Estimate Polychromasia Poikilocytosis Anisocytosis Microcytosis Macrocytosis PT with INR INR PTT (Actin FS) Anticoagulation Therapy Puncture Site ABG pH ABG pCO2 at Pt Temp ABG pO2 at Pt Temp ABG HCO3 ABG O2 Sat (Measured) ABG O2 Content ABG Base Excess Néstor Test Carboxyhemoglobin Methemoglobin O2 Delivery Device Oxygen Flow Rate Vent Mode Vent Rate Mechanical Rate Pressure Support Vent Sodium Potassium Chloride Carbon Dioxide Anion Gap BUN Creatinine Est GFR (CKD-EPI)AfAm Est GFR (CKD-EPI)NonAf POC Glucometer > 600 573 Random Glucose Hemoglobin A1c % Lactic Acid Calcium Phosphorus Magnesium Iron TIBC Iron Saturation Unsaturated IBC Ferritin Total Bilirubin AST ALT Alkaline Phosphatase Creatine Kinase Creatine Kinase Index CK-MB (CK-2) Troponin I Total Protein Albumin Beta-Hydroxybutyrate TSH Urine Color Yellow Urine Appearance Clear Urine pH 5.0 Ur Specific [place] 1.023 Urine Protein Trace Urine Glucose (UA) 3+ H Urine Ketones 2+ H Urine Blood Negative Urine Nitrite Negative Urine Bilirubin Negative Urine Urobilinogen 0.2 Ur Leukocyte Esterase Negative 05/20/19 05/20/19 05/20/19 18:55 19:30 19:33 WBC RBC Hgb Hct MCV MCH MCHC RDW Plt Count MPV Absolute Neuts (auto) Neutrophils % Neutrophils % (Manual) Band Neutrophils % Lymphocytes % Lymphocytes % (Manual) Monocytes % Monocytes % (Manual) Eosinophils % Eosinophils % (Manual) Basophils % Basophils % (Manual) Myelocytes % (Man) Promyelocytes % (Man) Blast Cells % (Manual) Nucleated RBC % Metamyelocytes Hypochromia Platelet Estimate Polychromasia Poikilocytosis Anisocytosis Microcytosis Macrocytosis PT with INR INR PTT (Actin FS) Anticoagulation Therapy No Result Required. Puncture Site Right radial ABG pH 7.15 L* ABG pCO2 at Pt Temp 19.7 L ABG pO2 at Pt Temp 85.0 ABG HCO3 6.6 L ABG O2 Sat (Measured) 93.0 L ABG O2 Content 11.9 ABG Base Excess -20.9 L Néstor Test Positive Carboxyhemoglobin Methemoglobin O2 Delivery Device No Result Required. Oxygen Flow Rate Room air Vent Mode No Result Required. Vent Rate No Result Required. Mechanical Rate No Result Required. Pressure Support Vent No Result Required. Sodium 136 Potassium 5.0 Chloride 105 Carbon Dioxide 8 L Anion Gap 22 H BUN 46.4 H Creatinine 2.6 H Est GFR (CKD-EPI)AfAm 19.27 Est GFR (CKD-EPI)NonAf 16.63 POC Glucometer Random Glucose 562 H* Hemoglobin A1c % 11.1 H Lactic Acid Calcium 8.8 Phosphorus Magnesium Iron 17 L TIBC 238 L Iron Saturation 7 L Unsaturated IBC 221 Ferritin 139.3 Total Bilirubin AST ALT Alkaline Phosphatase Creatine Kinase Creatine Kinase Index CK-MB (CK-2) Troponin I Total Protein Albumin Beta-Hydroxybutyrate TSH Urine Color Urine Appearance Urine pH Ur Specific [place] Urine Protein Urine Glucose (UA) Urine Ketones Urine Blood Urine Nitrite Urine Bilirubin Urine Urobilinogen Ur Leukocyte Esterase 05/20/19 05/20/19 05/20/19 19:33 20:29 21:23 WBC RBC Hgb Hct MCV MCH MCHC RDW Plt Count MPV Absolute Neuts (auto) Neutrophils % Neutrophils % (Manual) Band Neutrophils % Lymphocytes % Lymphocytes % (Manual) Monocytes % Monocytes % (Manual) Eosinophils % Eosinophils % (Manual) Basophils % Basophils % (Manual) Myelocytes % (Man) Promyelocytes % (Man) Blast Cells % (Manual) Nucleated RBC % Metamyelocytes Hypochromia Platelet Estimate Polychromasia Poikilocytosis Anisocytosis Microcytosis Macrocytosis PT with INR INR PTT (Actin FS) Anticoagulation Therapy Puncture Site ABG pH ABG pCO2 at Pt Temp ABG pO2 at Pt Temp ABG HCO3 ABG O2 Sat (Measured) ABG O2 Content ABG Base Excess Néstor Test Carboxyhemoglobin Methemoglobin O2 Delivery Device Oxygen Flow Rate Vent Mode Vent Rate Mechanical Rate Pressure Support Vent Sodium Potassium Chloride Carbon Dioxide Anion Gap BUN Creatinine Est GFR (CKD-EPI)AfAm Est GFR (CKD-EPI)NonAf POC Glucometer [phone] Random Glucose Hemoglobin A1c % Lactic Acid Calcium Phosphorus Magnesium Iron TIBC Iron Saturation Unsaturated IBC Ferritin Total Bilirubin AST ALT Alkaline Phosphatase Creatine Kinase Creatine Kinase Index CK-MB (CK-2) Troponin I Total Protein Albumin Beta-Hydroxybutyrate TSH Urine Color Urine Appearance Urine pH Ur Specific [place] Urine Protein Urine Glucose (UA) Urine Ketones Urine Blood Urine Nitrite Urine Bilirubin Urine Urobilinogen Ur Leukocyte Esterase 05/20/19 05/20/19 05/20/19 22:20 22:23 22:30 WBC RBC Hgb Hct MCV MCH MCHC RDW Plt Count MPV Absolute Neuts (auto) Neutrophils % Neutrophils % (Manual) Band Neutrophils % Lymphocytes % Lymphocytes % (Manual) Monocytes % Monocytes % (Manual) Eosinophils % Eosinophils % (Manual) Basophils % Basophils % (Manual) Myelocytes % (Man) Promyelocytes % (Man) Blast Cells % (Manual) Nucleated RBC % Metamyelocytes Hypochromia Platelet Estimate Polychromasia Poikilocytosis Anisocytosis Microcytosis Macrocytosis PT with INR INR PTT (Actin FS) Anticoagulation Therapy No Result Required. Puncture Site Right radial ABG pH 7.23 L ABG pCO2 at Pt Temp 26.0 L ABG pO2 at Pt Temp 81.6 ABG HCO3 10.5 L ABG O2 Sat (Measured) 94.0 L ABG O2 Content 12.5 ABG Base Excess -15.5 L Néstor Test Positive Carboxyhemoglobin Methemoglobin O2 Delivery Device No Result Required. Oxygen Flow Rate Nasal Vent Mode No Result Required. Vent Rate No Result Required. Mechanical Rate No Result Required. Pressure Support Vent No Result Required. Sodium 143 Potassium 4.3 Chloride 110 H Carbon Dioxide 13 L Anion Gap 19 H BUN 44.1 H Creatinine 2.5 H Est GFR (CKD-EPI)AfAm 20.21 Est GFR (CKD-EPI)NonAf 17.44 POC Glucometer 351 Random Glucose 372 H Hemoglobin A1c % Lactic Acid Calcium 8.8 Phosphorus Magnesium Iron TIBC Iron Saturation Unsaturated IBC Ferritin Total Bilirubin AST ALT Alkaline Phosphatase Creatine Kinase Creatine Kinase Index CK-MB (CK-2) Troponin I Total Protein Albumin Beta-Hydroxybutyrate TSH Urine Color Urine Appearance Urine pH Ur Specific [place] Urine Protein Urine Glucose (UA) Urine Ketones Urine Blood Urine Nitrite Urine Bilirubin Urine Urobilinogen Ur Leukocyte Esterase 05/20/19 05/20/19 05/21/19 22:35 23:35 01:03 WBC RBC Hgb Hct MCV MCH MCHC RDW Plt Count MPV Absolute Neuts (auto) Neutrophils % Neutrophils % (Manual) Band Neutrophils % Lymphocytes % Lymphocytes % (Manual) Monocytes % Monocytes % (Manual) Eosinophils % Eosinophils % (Manual) Basophils % Basophils % (Manual) Myelocytes % (Man) Promyelocytes % (Man) Blast Cells % (Manual) Nucleated RBC % Metamyelocytes Hypochromia Platelet Estimate Polychromasia Poikilocytosis Anisocytosis Microcytosis Macrocytosis PT with INR INR PTT (Actin FS) Anticoagulation Therapy Puncture Site ABG pH ABG pCO2 at Pt Temp ABG pO2 at Pt Temp ABG HCO3 ABG O2 Sat (Measured) ABG O2 Content ABG Base Excess Néstor Test Carboxyhemoglobin Methemoglobin O2 Delivery Device Oxygen Flow Rate Vent Mode Vent Rate Mechanical Rate Pressure Support Vent Sodium Potassium Chloride Carbon Dioxide Anion Gap BUN Creatinine Est GFR (CKD-EPI)AfAm Est GFR (CKD-EPI)NonAf POC Glucometer 307 238 Random Glucose Hemoglobin A1c % Lactic Acid Calcium Phosphorus 4.5 Magnesium 2.1 Iron TIBC Iron Saturation Unsaturated IBC Ferritin Total Bilirubin AST ALT Alkaline Phosphatase Creatine Kinase Creatine Kinase Index CK-MB (CK-2) Troponin I Total Protein Albumin Beta-Hydroxybutyrate TSH Urine Color Urine Appearance Urine pH Ur Specific [place] Urine Protein Urine Glucose (UA) Urine Ketones Urine Blood Urine Nitrite Urine Bilirubin Urine Urobilinogen Ur Leukocyte Esterase 05/21/19 05/21/19 05/21/19 02:00 02:02 03:37 WBC RBC Hgb Hct MCV MCH MCHC RDW Plt Count MPV Absolute Neuts (auto) Neutrophils % Neutrophils % (Manual) Band Neutrophils % Lymphocytes % Lymphocytes % (Manual) Monocytes % Monocytes % (Manual) Eosinophils % Eosinophils % (Manual) Basophils % Basophils % (Manual) Myelocytes % (Man) Promyelocytes % (Man) Blast Cells % (Manual) Nucleated RBC % Metamyelocytes Hypochromia Platelet Estimate Polychromasia Poikilocytosis Anisocytosis Microcytosis Macrocytosis PT with INR INR PTT (Actin FS) Anticoagulation Therapy Puncture Site ABG pH ABG pCO2 at Pt Temp ABG pO2 at Pt Temp ABG HCO3 ABG O2 Sat (Measured) ABG O2 Content ABG Base Excess Néstor Test Carboxyhemoglobin Methemoglobin O2 Delivery Device Oxygen Flow Rate Vent Mode Vent Rate Mechanical Rate Pressure Support Vent Sodium 145 Potassium 4.2 Chloride 116 H Carbon Dioxide 19 L Anion Gap 11 BUN 42.6 H Creatinine 2.4 H Est GFR (CKD-EPI)AfAm 21.23 Est GFR (CKD-EPI)NonAf 18.32 POC Glucometer 209 181 Random Glucose 224 H Hemoglobin A1c % Lactic Acid Calcium 9.0 Phosphorus 3.3 Magnesium 2.1 Iron TIBC Iron Saturation Unsaturated IBC Ferritin Total Bilirubin AST ALT Alkaline Phosphatase Creatine Kinase Creatine Kinase Index CK-MB (CK-2) Troponin I Total Protein Albumin Beta-Hydroxybutyrate TSH Urine Color Urine Appearance Urine pH Ur Specific [place] Urine Protein Urine Glucose (UA) Urine Ketones Urine Blood Urine Nitrite Urine Bilirubin Urine Urobilinogen Ur Leukocyte Esterase 05/21/19 05/21/19 05/21/19 04:53 06:16 08:05 WBC RBC Hgb Hct MCV MCH MCHC RDW Plt Count MPV Absolute Neuts (auto) Neutrophils % Neutrophils % (Manual) Band Neutrophils % Lymphocytes % Lymphocytes % (Manual) Monocytes % Monocytes % (Manual) Eosinophils % Eosinophils % (Manual) Basophils % Basophils % (Manual) Myelocytes % (Man) Promyelocytes % (Man) Blast Cells % (Manual) Nucleated RBC % Metamyelocytes Hypochromia Platelet Estimate Polychromasia Poikilocytosis Anisocytosis Microcytosis Macrocytosis PT with INR INR PTT (Actin FS) Anticoagulation Therapy Puncture Site ABG pH ABG pCO2 at Pt Temp ABG pO2 at Pt Temp ABG HCO3 ABG O2 Sat (Measured) ABG O2 Content ABG Base Excess Néstor Test Carboxyhemoglobin Methemoglobin O2 Delivery Device Oxygen Flow Rate Vent Mode Vent Rate Mechanical Rate Pressure Support Vent Sodium Potassium Chloride Carbon Dioxide Anion Gap BUN Creatinine Est GFR (CKD-EPI)AfAm Est GFR (CKD-EPI)NonAf POC Glucometer 178 157 173 Random Glucose Hemoglobin A1c % Lactic Acid Calcium Phosphorus Magnesium Iron TIBC Iron Saturation Unsaturated IBC Ferritin Total Bilirubin AST ALT Alkaline Phosphatase Creatine Kinase Creatine Kinase Index CK-MB (CK-2) Troponin I Total Protein Albumin Beta-Hydroxybutyrate TSH Urine Color Urine Appearance Urine pH Ur Specific [place] Urine Protein Urine Glucose (UA) Urine Ketones Urine Blood Urine Nitrite Urine Bilirubin Urine Urobilinogen Ur Leukocyte Esterase 05/21/19 05/21/19 05/21/19 08:35 08:35 10:54 WBC 10.7 H RBC 3.21 L Hgb 9.3 L Hct 28.4 L MCV 88.5 MCH 28.9 MCHC 32.6 RDW 15.1 Plt Count 224 MPV 8.2 D Absolute Neuts (auto) 8.3 H Neutrophils % 77.5 Neutrophils % (Manual) 72.2 Band Neutrophils % 0.0 Lymphocytes % 10.0 Lymphocytes % (Manual) 15.5 Monocytes % 12.3 H Monocytes % (Manual) 9 Eosinophils % 0.0 Eosinophils % (Manual) 0.0 Basophils % 0.2 Basophils % (Manual) 1.0 Myelocytes % (Man) 0 Promyelocytes % (Man) 0 Blast Cells % (Manual) 0 Nucleated RBC % 0 Metamyelocytes 2 Hypochromia 0 Platelet Estimate Normal Polychromasia 0 Poikilocytosis 1+ Anisocytosis 1+ Microcytosis 1+ Macrocytosis 0 PT with INR INR PTT (Actin FS) Anticoagulation Therapy Puncture Site ABG pH ABG pCO2 at Pt Temp ABG pO2 at Pt Temp ABG HCO3 ABG O2 Sat (Measured) ABG O2 Content ABG Base Excess Néstor Test Carboxyhemoglobin Methemoglobin O2 Delivery Device Oxygen Flow Rate Vent Mode Vent Rate Mechanical Rate Pressure Support Vent Sodium 147 H Potassium 4.4 Chloride 117 H Carbon Dioxide 19 L Anion Gap 11 BUN 38.0 H Creatinine 2.1 H Est GFR (CKD-EPI)AfAm 24.95 Est GFR (CKD-EPI)NonAf 21.53 POC Glucometer 330 Random Glucose 184 H Hemoglobin A1c % Lactic Acid Calcium 9.2 Phosphorus 2.8 Magnesium 2.2 Iron TIBC Iron Saturation Unsaturated IBC Ferritin Total Bilirubin 0.3 AST 17 ALT 18 Alkaline Phosphatase 57 Creatine Kinase Creatine Kinase Index CK-MB (CK-2) Troponin I Total Protein 6.9 Albumin 2.6 L Beta-Hydroxybutyrate TSH 4.31 H Urine Color Urine Appearance Urine pH Ur Specific [place] Urine Protein Urine Glucose (UA) Urine Ketones Urine Blood Urine Nitrite Urine Bilirubin Urine Urobilinogen Ur Leukocyte Esterase 05/21/19 11:35 WBC RBC Hgb Hct MCV MCH MCHC RDW Plt Count MPV Absolute Neuts (auto) Neutrophils % Neutrophils % (Manual) Band Neutrophils % Lymphocytes % Lymphocytes % (Manual) Monocytes % Monocytes % (Manual) Eosinophils % Eosinophils % (Manual) Basophils % Basophils % (Manual) Myelocytes % (Man) Promyelocytes % (Man) Blast Cells % (Manual) Nucleated RBC % Metamyelocytes Hypochromia Platelet Estimate Polychromasia Poikilocytosis Anisocytosis Microcytosis Macrocytosis PT with INR INR PTT (Actin FS) Anticoagulation Therapy Puncture Site ABG pH ABG pCO2 at Pt Temp ABG pO2 at Pt Temp ABG HCO3 ABG O2 Sat (Measured) ABG O2 Content ABG Base Excess Néstor Test Carboxyhemoglobin Methemoglobin O2 Delivery Device Oxygen Flow Rate Vent Mode Vent Rate Mechanical Rate Pressure Support Vent Sodium 141 Potassium 4.6 Chloride 111 H Carbon Dioxide 17 L Anion Gap 13 BUN 34.1 H Creatinine 2.0 H Est GFR (CKD-EPI)AfAm 26.47 Est GFR (CKD-EPI)NonAf 22.84 POC Glucometer Random Glucose 372 H Hemoglobin A1c % Lactic Acid Calcium 9.0 Phosphorus 3.0 Magnesium 2.1 Iron TIBC Iron Saturation Unsaturated IBC Ferritin Total Bilirubin AST ALT Alkaline Phosphatase Creatine Kinase Creatine Kinase Index CK-MB (CK-2) Troponin I Total Protein Albumin Beta-Hydroxybutyrate TSH Urine Color Urine Appearance Urine pH Ur Specific [place] Urine Protein Urine Glucose (UA) Urine Ketones Urine Blood Urine Nitrite Urine Bilirubin Urine Urobilinogen Ur Leukocyte Esterase Active Medications Generic Name Dose Route Start Last Admin Trade Name Freq PRN Reason Stop Dose Admin Amlodipine Besylate 5 mg 05/21/19 10:00 05/21/19 09:54 Norvasc - PO 5 mg DAILY SAM Administration Artificial Tears 1 drop 05/20/19 22:00 05/21/19 09:55 Artificial Tears OU 1 drop BID SAM Administration Atorvastatin Calcium 40 mg 05/20/19 22:00 05/20/19 23:12 Lipitor - PO 40 mg HS SAM Administration Brimonidine Tartrate 1 drop 05/20/19 22:00 05/21/19 09:55 Alphagan 0.15% - OU 1 drop BID SAM Administration Dorzolamide HCl 1 drop 05/20/19 23:30 05/21/19 09:56 Trusopt 2% OU 1 drop BID SAM Administration Duloxetine HCl 30 mg 05/21/19 10:00 05/21/19 09:54 Cymbalta - PO 30 mg DAILY SAM Administration Heparin Sodium (Porcine) 5,000 unit 05/21/19 14:00 Heparin - SQ TID SAM Azithromycin 500 mg in 250 mls @ 250 mls/hr 05/20/19 21:15 05/21/19 09:51 Zithromax 500mg Ivpb (Pre-Docked) IVPB 250 mls/hr DAILY SAM Administration Ceftriaxone Sodium 1 gm/ 50 mls @ 100 mls/hr 05/21/19 10:00 05/21/19 09:47 Dextrose IVPB 100 mls/hr DAILY SAM Administration Protocol Sodium Chloride 1,000 mls @ 75 mls/hr 05/21/19 11:30 05/21/19 13:06 Normal Saline - IV 75 mls/hr ASDIR SAM Administration Insulin Aspart 1 vial 05/21/19 11:00 05/21/19 10:41 Novolog Vial Sliding Scale - SQ 8 units ACHS SAM Administration Protocol Insulin Detemir 15 units 05/21/19 22:00 Levemir Vial SQ HS SAM Levothyroxine Sodium 50 mcg 05/21/19 07:00 05/21/19 06:15 Synthroid - PO 50 mcg DAILY@0700 SAM Administration Losartan Potassium 100 mg 05/21/19 10:00 05/21/19 09:53 Cozaar - PO 100 mg DAILY SAM Administration Memantine 5 mg 05/21/19 10:00 05/21/19 13:05 Namenda - PO 5 mg DAILY SAM Administration Mupirocin 1 applic 05/20/19 22:00 05/21/19 09:55 Bactroban Ointment (For Decolonization) - NS 05/25/19 21:59 1 applic BID SAM Administration ASSESSMENT/PLAN: Mallory Valencia is an 83 year old female with a past medical history of alzheimers, schizophrenia, HTN, DM2, hypothyroidism, CAD, HLD, HHD (LVH), glaucoma, depression who presents from [facility] [place] who was admitted with AMS likely secondary to DKA. High anion gap metabolic acidosis 2/2 DKA - Likely precipitated by infection - Home meds: metformin 1000mg BID, jardiance 10mg BID - unknown compliance - Started on insulin drip and was bridged with 30 units of Levemir and drip was shut off - Levemir 15 units hs - monitor anion gap - received fluids and currently on NS at 75cc/hr - A1C 11.1 - BGM - ISS - Endocrinology consulted (Dr. Titus), recs appreciated - currently on diet PNA vs URTI - Rapid influenza neg - CXR: possible LLL infiltrate per our read. 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 Chronic mod periventricular and subcortical white matter microvascular ischemic gliosis - MRI to evaluate cerebellar infarcts NIKOLE - baseline CRE in 2016 at 1.1, attempted to contact assisted living and home uncertain of baseline - renal US with no acute pathology, noted renal cyst on L - NS at 75cc/hr, caution with fluids due to crackles in lungs Normocytic anemia likely 2/2 chronic disease - Hgb 9.3 today - Iron: 17, TIBC: 238, iron sat 7%, ferritin 139.3 - F/u stool guaiac HTN and CAD - Cont home meds: Amlodipine 5mg Daily, Losartan 100 mg daily, Atorvastatin 40 HS - Last known echo Jan 2016: LV function normal, impaired relaxation, mild MR, mild - echo here noting normal LV size, function, thickness, normal EF, mild aortic regurg, trace to mild tricuspid regurg, trace to mild mitral regurg, possible poor LV compliance Hypothyroidism - Cont home levothyroxine 50mcg daily - TSH 4.31 - will require outpatient f/u Glaucoma - Cont briminodine and timolol eye drops FEN - NS at 75cc/hr - continue to monitor electrolytes and replete as necessary - Diabetic diet DVT ppx - SCDs, hold ppx due to current anemia Dispo - Monitor in ICU Visit type - Emergency Visit Emergency Visit: Yes ED Registration Date: 05/20/19 Care time: The patient presented to the Emergency Department on the above date and was hospitalized for further evaluation of their emergent condition. - New Patient This patient is new to me today: Yes Date on this admission: 05/21/19 - Critical Care Critical Care patient: Yes Total Critical Care Time (in minutes): 35 Critical Care Statement: The care of this patient involved high complexity decision making to prevent further life threatening deterioration of the patient 's condition and/or to evaluate & treat vital organ system(s) failure or risk of failure.
[2019-05-21] MEDS: HEPARIN NA (PORCINE) 5,000 UNITS/ML 1ML VIAL SQ SCH ×2 (15:15→21:34)
--- NOTE | 2019-05-21 16:53 | PN ---
Physical Exam: SUBJECTIVE: Patient seen and examined no acute complaints coughing at time of evaluation OBJECTIVE: Vital Signs Period Temp Pulse Resp BP Sys/Peña Pulse Ox Last 24 Hr 97.8 F-98.4 F 50-96 18-28 93-136/47-77 97-98 GEN: Well appearing, NAD, comfortable. alert HEENT: NC/AT, EOMI, PERRLA. No facial asymmetry. Moist mucous membranes. Normal voice. Supple neck w/ FROM. CV: S1/S2, RRR, no m/r/g LUNG: rales bilaterally, coughing. GI: soft, ndnt, +BS, no guarding, no rebound. Neg CVAT b/l. No masses. EXTREMITIES: 2+ distal pulses. No LE edema. No obvious deformities of all extremities. SKIN: warm, dry, normal turgor NEURO: Moving all extremities well. Laboratory Results - last 24 hr 05/20/19 05/20/19 05/20/19 14:55 16:50 18:42 WBC RBC Hgb Hct MCV MCH MCHC RDW Plt Count MPV Absolute Neuts (auto) Neutrophils % Neutrophils % (Manual) Band Neutrophils % Lymphocytes % Lymphocytes % (Manual) Monocytes % Monocytes % (Manual) Eosinophils % Eosinophils % (Manual) Basophils % Basophils % (Manual) Myelocytes % (Man) Promyelocytes % (Man) Blast Cells % (Manual) Nucleated RBC % Metamyelocytes Hypochromia Platelet Estimate Polychromasia Poikilocytosis Anisocytosis Microcytosis Macrocytosis Anticoagulation Therapy Puncture Site ABG pH ABG pCO2 at Pt Temp ABG pO2 at Pt Temp ABG HCO3 ABG O2 Sat (Measured) ABG O2 Content ABG Base Excess Néstor Test O2 Delivery Device Oxygen Flow Rate Vent Mode Vent Rate Mechanical Rate Pressure Support Vent Sodium Potassium Chloride Carbon Dioxide Anion Gap BUN Creatinine Est GFR (CKD-EPI)AfAm Est GFR (CKD-EPI)NonAf POC Glucometer 573 Random Glucose Hemoglobin A1c % Calcium Phosphorus 6.8 H Magnesium 2.2 Iron TIBC Iron Saturation Unsaturated IBC Ferritin Total Bilirubin AST ALT Alkaline Phosphatase Total Protein Albumin Beta-Hydroxybutyrate 100.7 H TSH Urine Color Yellow Urine Appearance Clear Urine pH 5.0 Ur Specific Mccormick 1.023 Urine Protein Trace Urine Glucose (UA) 3+ H Urine Ketones 2+ H Urine Blood Negative Urine Nitrite Negative Urine Bilirubin Negative Urine Urobilinogen 0.2 Ur Leukocyte Esterase Negative 05/20/19 05/20/19 05/20/19 18:55 19:30 19:33 WBC RBC Hgb Hct MCV MCH MCHC RDW Plt Count MPV Absolute Neuts (auto) Neutrophils % Neutrophils % (Manual) Band Neutrophils % Lymphocytes % Lymphocytes % (Manual) Monocytes % Monocytes % (Manual) Eosinophils % Eosinophils % (Manual) Basophils % Basophils % (Manual) Myelocytes % (Man) Promyelocytes % (Man) Blast Cells % (Manual) Nucleated RBC % Metamyelocytes Hypochromia Platelet Estimate Polychromasia Poikilocytosis Anisocytosis Microcytosis Macrocytosis Anticoagulation Therapy No Result Required. Puncture Site Right radial ABG pH 7.15 L* ABG pCO2 at Pt Temp 19.7 L ABG pO2 at Pt Temp 85.0 ABG HCO3 6.6 L ABG O2 Sat (Measured) 93.0 L ABG O2 Content 11.9 ABG Base Excess -20.9 L Néstor Test Positive O2 Delivery Device No Result Required. Oxygen Flow Rate Room air Vent Mode No Result Required. Vent Rate No Result Required. Mechanical Rate No Result Required. Pressure Support Vent No Result Required. Sodium 136 Potassium 5.0 Chloride 105 Carbon Dioxide 8 L Anion Gap 22 H BUN 46.4 H Creatinine 2.6 H Est GFR (CKD-EPI)AfAm 19.27 Est GFR (CKD-EPI)NonAf 16.63 POC Glucometer Random Glucose 562 H* Hemoglobin A1c % 11.1 H Calcium 8.8 Phosphorus Magnesium Iron 17 L TIBC 238 L Iron Saturation 7 L Unsaturated IBC 221 Ferritin 139.3 Total Bilirubin AST ALT Alkaline Phosphatase Total Protein Albumin Beta-Hydroxybutyrate TSH Urine Color Urine Appearance Urine pH Ur Specific Mccormick Urine Protein Urine Glucose (UA) Urine Ketones Urine Blood Urine Nitrite Urine Bilirubin Urine Urobilinogen Ur Leukocyte Esterase 05/20/19 05/20/19 05/20/19 19:33 20:29 21:23 WBC RBC Hgb Hct MCV MCH MCHC RDW Plt Count MPV Absolute Neuts (auto) Neutrophils % Neutrophils % (Manual) Band Neutrophils % Lymphocytes % Lymphocytes % (Manual) Monocytes % Monocytes % (Manual) Eosinophils % Eosinophils % (Manual) Basophils % Basophils % (Manual) Myelocytes % (Man) Promyelocytes % (Man) Blast Cells % (Manual) Nucleated RBC % Metamyelocytes Hypochromia Platelet Estimate Polychromasia Poikilocytosis Anisocytosis Microcytosis Macrocytosis Anticoagulation Therapy Puncture Site ABG pH ABG pCO2 at Pt Temp ABG pO2 at Pt Temp ABG HCO3 ABG O2 Sat (Measured) ABG O2 Content ABG Base Excess Néstor Test O2 Delivery Device Oxygen Flow Rate Vent Mode Vent Rate Mechanical Rate Pressure Support Vent Sodium Potassium Chloride Carbon Dioxide Anion Gap BUN Creatinine Est GFR (CKD-EPI)AfAm Est GFR (CKD-EPI)NonAf POC Glucometer [phone] Random Glucose Hemoglobin A1c % Calcium Phosphorus Magnesium Iron TIBC Iron Saturation Unsaturated IBC Ferritin Total Bilirubin AST ALT Alkaline Phosphatase Total Protein Albumin Beta-Hydroxybutyrate TSH Urine Color Urine Appearance Urine pH Ur Specific Mccormick Urine Protein Urine Glucose (UA) Urine Ketones Urine Blood Urine Nitrite Urine Bilirubin Urine Urobilinogen Ur Leukocyte Esterase 05/20/19 05/20/19 05/20/19 22:20 22:23 22:30 WBC RBC Hgb Hct MCV MCH MCHC RDW Plt Count MPV Absolute Neuts (auto) Neutrophils % Neutrophils % (Manual) Band Neutrophils % Lymphocytes % Lymphocytes % (Manual) Monocytes % Monocytes % (Manual) Eosinophils % Eosinophils % (Manual) Basophils % Basophils % (Manual) Myelocytes % (Man) Promyelocytes % (Man) Blast Cells % (Manual) Nucleated RBC % Metamyelocytes Hypochromia Platelet Estimate Polychromasia Poikilocytosis Anisocytosis Microcytosis Macrocytosis Anticoagulation Therapy No Result Required. Puncture Site Right radial ABG pH 7.23 L ABG pCO2 at Pt Temp 26.0 L ABG pO2 at Pt Temp 81.6 ABG HCO3 10.5 L ABG O2 Sat (Measured) 94.0 L ABG O2 Content 12.5 ABG Base Excess -15.5 L Néstor Test Positive O2 Delivery Device No Result Required. Oxygen Flow Rate Nasal Vent Mode No Result Required. Vent Rate No Result Required. Mechanical Rate No Result Required. Pressure Support Vent No Result Required. Sodium 143 Potassium 4.3 Chloride 110 H Carbon Dioxide 13 L Anion Gap 19 H BUN 44.1 H Creatinine 2.5 H Est GFR (CKD-EPI)AfAm 20.21 Est GFR (CKD-EPI)NonAf 17.44 POC Glucometer 351 Random Glucose 372 H Hemoglobin A1c % Calcium 8.8 Phosphorus Magnesium Iron TIBC Iron Saturation Unsaturated IBC Ferritin Total Bilirubin AST ALT Alkaline Phosphatase Total Protein Albumin Beta-Hydroxybutyrate TSH Urine Color Urine Appearance Urine pH Ur Specific Mccormick Urine Protein Urine Glucose (UA) Urine Ketones Urine Blood Urine Nitrite Urine Bilirubin Urine Urobilinogen Ur Leukocyte Esterase 05/20/19 05/20/19 05/21/19 22:35 23:35 01:03 WBC RBC Hgb Hct MCV MCH MCHC RDW Plt Count MPV Absolute Neuts (auto) Neutrophils % Neutrophils % (Manual) Band Neutrophils % Lymphocytes % Lymphocytes % (Manual) Monocytes % Monocytes % (Manual) Eosinophils % Eosinophils % (Manual) Basophils % Basophils % (Manual) Myelocytes % (Man) Promyelocytes % (Man) Blast Cells % (Manual) Nucleated RBC % Metamyelocytes Hypochromia Platelet Estimate Polychromasia Poikilocytosis Anisocytosis Microcytosis Macrocytosis Anticoagulation Therapy Puncture Site ABG pH ABG pCO2 at Pt Temp ABG pO2 at Pt Temp ABG HCO3 ABG O2 Sat (Measured) ABG O2 Content ABG Base Excess Néstor Test O2 Delivery Device Oxygen Flow Rate Vent Mode Vent Rate Mechanical Rate Pressure Support Vent Sodium Potassium Chloride Carbon Dioxide Anion Gap BUN Creatinine Est GFR (CKD-EPI)AfAm Est GFR (CKD-EPI)NonAf POC Glucometer 307 238 Random Glucose Hemoglobin A1c % Calcium Phosphorus 4.5 Magnesium 2.1 Iron TIBC Iron Saturation Unsaturated IBC Ferritin Total Bilirubin AST ALT Alkaline Phosphatase Total Protein Albumin Beta-Hydroxybutyrate TSH Urine Color Urine Appearance Urine pH Ur Specific Mccormick Urine Protein Urine Glucose (UA) Urine Ketones Urine Blood Urine Nitrite Urine Bilirubin Urine Urobilinogen Ur Leukocyte Esterase 05/21/19 05/21/19 05/21/19 02:00 02:02 03:37 WBC RBC Hgb Hct MCV MCH MCHC RDW Plt Count MPV Absolute Neuts (auto) Neutrophils % Neutrophils % (Manual) Band Neutrophils % Lymphocytes % Lymphocytes % (Manual) Monocytes % Monocytes % (Manual) Eosinophils % Eosinophils % (Manual) Basophils % Basophils % (Manual) Myelocytes % (Man) Promyelocytes % (Man) Blast Cells % (Manual) Nucleated RBC % Metamyelocytes Hypochromia Platelet Estimate Polychromasia Poikilocytosis Anisocytosis Microcytosis Macrocytosis Anticoagulation Therapy Puncture Site ABG pH ABG pCO2 at Pt Temp ABG pO2 at Pt Temp ABG HCO3 ABG O2 Sat (Measured) ABG O2 Content ABG Base Excess Néstor Test O2 Delivery Device Oxygen Flow Rate Vent Mode Vent Rate Mechanical Rate Pressure Support Vent Sodium 145 Potassium 4.2 Chloride 116 H Carbon Dioxide 19 L Anion Gap 11 BUN 42.6 H Creatinine 2.4 H Est GFR (CKD-EPI)AfAm 21.23 Est GFR (CKD-EPI)NonAf 18.32 POC Glucometer 209 181 Random Glucose 224 H Hemoglobin A1c % Calcium 9.0 Phosphorus 3.3 Magnesium 2.1 Iron TIBC Iron Saturation Unsaturated IBC Ferritin Total Bilirubin AST ALT Alkaline Phosphatase Total Protein Albumin Beta-Hydroxybutyrate TSH Urine Color Urine Appearance Urine pH Ur Specific Mccormick Urine Protein Urine Glucose (UA) Urine Ketones Urine Blood Urine Nitrite Urine Bilirubin Urine Urobilinogen Ur Leukocyte Esterase 05/21/19 05/21/19 05/21/19 04:53 06:16 08:05 WBC RBC Hgb Hct MCV MCH MCHC RDW Plt Count MPV Absolute Neuts (auto) Neutrophils % Neutrophils % (Manual) Band Neutrophils % Lymphocytes % Lymphocytes % (Manual) Monocytes % Monocytes % (Manual) Eosinophils % Eosinophils % (Manual) Basophils % Basophils % (Manual) Myelocytes % (Man) Promyelocytes % (Man) Blast Cells % (Manual) Nucleated RBC % Metamyelocytes Hypochromia Platelet Estimate Polychromasia Poikilocytosis Anisocytosis Microcytosis Macrocytosis Anticoagulation Therapy Puncture Site ABG pH ABG pCO2 at Pt Temp ABG pO2 at Pt Temp ABG HCO3 ABG O2 Sat (Measured) ABG O2 Content ABG Base Excess Néstor Test O2 Delivery Device Oxygen Flow Rate Vent Mode Vent Rate Mechanical Rate Pressure Support Vent Sodium Potassium Chloride Carbon Dioxide Anion Gap BUN Creatinine Est GFR (CKD-EPI)AfAm Est GFR (CKD-EPI)NonAf POC Glucometer 178 157 173 Random Glucose Hemoglobin A1c % Calcium Phosphorus Magnesium Iron TIBC Iron Saturation Unsaturated IBC Ferritin Total Bilirubin AST ALT Alkaline Phosphatase Total Protein Albumin Beta-Hydroxybutyrate TSH Urine Color Urine Appearance Urine pH Ur Specific Mccormick Urine Protein Urine Glucose (UA) Urine Ketones Urine Blood Urine Nitrite Urine Bilirubin Urine Urobilinogen Ur Leukocyte Esterase 05/21/19 05/21/19 05/21/19 08:35 08:35 10:54 WBC 10.7 H RBC 3.21 L Hgb 9.3 L Hct 28.4 L MCV 88.5 MCH 28.9 MCHC 32.6 RDW 15.1 Plt Count 224 MPV 8.2 D Absolute Neuts (auto) 8.3 H Neutrophils % 77.5 Neutrophils % (Manual) 72.2 Band Neutrophils % 0.0 Lymphocytes % 10.0 Lymphocytes % (Manual) 15.5 Monocytes % 12.3 H Monocytes % (Manual) 9 Eosinophils % 0.0 Eosinophils % (Manual) 0.0 Basophils % 0.2 Basophils % (Manual) 1.0 Myelocytes % (Man) 0 Promyelocytes % (Man) 0 Blast Cells % (Manual) 0 Nucleated RBC % 0 Metamyelocytes 2 Hypochromia 0 Platelet Estimate Normal Polychromasia 0 Poikilocytosis 1+ Anisocytosis 1+ Microcytosis 1+ Macrocytosis 0 Anticoagulation Therapy Puncture Site ABG pH ABG pCO2 at Pt Temp ABG pO2 at Pt Temp ABG HCO3 ABG O2 Sat (Measured) ABG O2 Content ABG Base Excess Néstor Test O2 Delivery Device Oxygen Flow Rate Vent Mode Vent Rate Mechanical Rate Pressure Support Vent Sodium 147 H Potassium 4.4 Chloride 117 H Carbon Dioxide 19 L Anion Gap 11 BUN 38.0 H Creatinine 2.1 H Est GFR (CKD-EPI)AfAm 24.95 Est GFR (CKD-EPI)NonAf 21.53 POC Glucometer 330 Random Glucose 184 H Hemoglobin A1c % Calcium 9.2 Phosphorus 2.8 Magnesium 2.2 Iron TIBC Iron Saturation Unsaturated IBC Ferritin Total Bilirubin 0.3 AST 17 ALT 18 Alkaline Phosphatase 57 Total Protein 6.9 Albumin 2.6 L Beta-Hydroxybutyrate TSH 4.31 H Urine Color Urine Appearance Urine pH Ur Specific Mccormick Urine Protein Urine Glucose (UA) Urine Ketones Urine Blood Urine Nitrite Urine Bilirubin Urine Urobilinogen Ur Leukocyte Esterase 05/21/19 05/21/19 11:35 16:47 WBC RBC Hgb Hct MCV MCH MCHC RDW Plt Count MPV Absolute Neuts (auto) Neutrophils % Neutrophils % (Manual) Band Neutrophils % Lymphocytes % Lymphocytes % (Manual) Monocytes % Monocytes % (Manual) Eosinophils % Eosinophils % (Manual) Basophils % Basophils % (Manual) Myelocytes % (Man) Promyelocytes % (Man) Blast Cells % (Manual) Nucleated RBC % Metamyelocytes Hypochromia Platelet Estimate Polychromasia Poikilocytosis Anisocytosis Microcytosis Macrocytosis Anticoagulation Therapy Puncture Site ABG pH ABG pCO2 at Pt Temp ABG pO2 at Pt Temp ABG HCO3 ABG O2 Sat (Measured) ABG O2 Content ABG Base Excess Néstor Test O2 Delivery Device Oxygen Flow Rate Vent Mode Vent Rate Mechanical Rate Pressure Support Vent Sodium 141 Potassium 4.6 Chloride 111 H Carbon Dioxide 17 L Anion Gap 13 BUN 34.1 H Creatinine 2.0 H Est GFR (CKD-EPI)AfAm 26.47 Est GFR (CKD-EPI)NonAf 22.84 POC Glucometer 356 Random Glucose 372 H Hemoglobin A1c % Calcium 9.0 Phosphorus 3.0 Magnesium 2.1 Iron TIBC Iron Saturation Unsaturated IBC Ferritin Total Bilirubin AST ALT Alkaline Phosphatase Total Protein Albumin Beta-Hydroxybutyrate TSH Urine Color Urine Appearance Urine pH Ur Specific Mccormick Urine Protein Urine Glucose (UA) Urine Ketones Urine Blood Urine Nitrite Urine Bilirubin Urine Urobilinogen Ur Leukocyte Esterase Active Medications Generic Name Dose Route Start Last Admin Trade Name Freq PRN Reason Stop Dose Admin Amlodipine Besylate 5 mg 05/21/19 10:00 05/21/19 09:54 Norvasc - PO 5 mg DAILY SAM Administration Artificial Tears 1 drop 05/20/19 22:00 05/21/19 09:55 Artificial Tears OU 1 drop BID SAM Administration Atorvastatin Calcium 40 mg 05/20/19 22:00 05/20/19 23:12 Lipitor - PO 40 mg HS SAM Administration Brimonidine Tartrate 1 drop 05/20/19 22:00 05/21/19 09:55 Alphagan 0.15% - OU 1 drop BID SAM Administration Dorzolamide HCl 1 drop 05/20/19 23:30 05/21/19 09:56 Trusopt 2% OU 1 drop BID SAM Administration Duloxetine HCl 30 mg 05/21/19 10:00 05/21/19 09:54 Cymbalta - PO 30 mg DAILY SAM Administration Ergocalciferol 50,000 unit 05/28/19 10:00 Drisdol - PO Q7D@1000 SAM Heparin Sodium (Porcine) 5,000 unit 05/21/19 14:00 05/21/19 15:15 Heparin - SQ 5,000 unit TID SAM Administration Azithromycin 500 mg in 250 mls @ 250 mls/hr 05/20/19 21:15 05/21/19 09:51 Zithromax 500mg Ivpb (Pre-Docked) IVPB 250 mls/hr DAILY SAM Administration Ceftriaxone Sodium 1 gm/ 50 mls @ 100 mls/hr 05/21/19 10:00 05/21/19 09:47 Dextrose IVPB 100 mls/hr DAILY SAM Administration Protocol Sodium Chloride 1,000 mls @ 75 mls/hr 05/21/19 11:30 05/21/19 13:06 Normal Saline - IV 75 mls/hr ASDIR SAM Administration Insulin Aspart 1 vial 05/21/19 11:00 05/21/19 10:41 Novolog Vial Sliding Scale - SQ 8 units ACHS SAM Administration Protocol Insulin Detemir 15 units 05/21/19 22:00 Levemir Vial SQ HS SAM Levothyroxine Sodium 50 mcg 05/21/19 07:00 05/21/19 06:15 Synthroid - PO 50 mcg DAILY@0700 SAM Administration Losartan Potassium 100 mg 05/21/19 10:00 05/21/19 09:53 Cozaar - PO 100 mg DAILY SAM Administration Memantine 5 mg 05/21/19 10:00 05/21/19 13:05 Namenda - PO 5 mg DAILY SAM Administration Mupirocin 1 applic 05/20/19 22:00 05/21/19 09:55 Bactroban Ointment (For Decolonization) - NS 05/25/19 21:59 1 applic BID SAM Administration Risperidone 0.5 mg 05/21/19 22:00 Risperdal - PO HS SAM ASSESSMENT/PLAN: 83 y.o F with PMH of alzheimers, schizophrenia, HTN, DM2, hypothyroidism, CAD HLD, HHD (LVH), glaucoma,depression admitted for DKA NEURO: alert in NAD CV:CAD,HTN, HLD, PULM: pneumonia vs acute bronchitis f/u cultures on antibiotics. RENAL:NIKOLE 1/2 NS at 75 cc/hr for normal saline FENGI: ENDO:DKA, Hypothyroidism -glucose control -received 30 units levomir this at lamar 3a.m -pt will be given maintenance levomir 15 units as she is insulin naive and sliding scale as well HEME/ONC: Anemia monitor cbc ID:continue antibiotics (ceftriaxone) DVT PPX: Heparin SQ Visit type - Emergency Visit Emergency Visit: Yes ED Registration Date: 05/20/19 Care time: The patient presented to the Emergency Department on the above date and was hospitalized for further evaluation of their emergent condition. - New Patient This patient is new to me today: No - Critical Care Critical Care patient: No - Discharge Referral Referred to [facility] No ATTENDING PHYSICIAN STATEMENT I saw and evaluated the patient. I reviewed the resident's note and discussed the case with the resident. I agree with the resident's findings and plan as documented. SUBJECTIVE: OBJECTIVE: ASSESSMENT AND PLAN:
[2019-05-21 18:23] LABS: BLOOD UREA NITROGEN 29.7 mg/dL (7-18); CALCIUM 9.2 mg/dL (8.5-10.1); CREATININE 1.8 mg/dL (0.55-1.3); POTASSIUM 4.2 mmol/L (3.5-5.1)
[2019-05-21] MEDS: ATORVASTATIN CA 40 MG TABLET (FP) PO SCH (21:34)
[2019-05-21] MEDS: INSULIN (LEVEMIR) 100 UNITS/ML UNITS SQ SCH (21:35)
[2019-05-21] MEDS: risperiDONE 0.5 MG TABLET PO SCH (21:36)
[2019-05-21] MEDS ORDERED: INSULIN (LEVEMIR) 100 UNITS/ML UNITS SQ SCH (22:00)
[2019-05-22] MEDS: HEPARIN NA (PORCINE) 5,000 UNITS/ML 1ML VIAL SQ SCH ×3 (06:34→21:27)
[2019-05-22] MEDS: INSULIN SLIDING SCALE (NOVOLOG) 1 VIAL SQ SCH ×4 (06:34→21:28)
[2019-05-22] MEDS: LEVOTHYROXINE NA 50 MCG TABLET (FP) PO SCH (06:34)
[2019-05-22 06:53] LABS: HEMATOCRIT 31.1 % (32.4-45.2); HEMOGLOBIN 10.2 GM/dL (10.7-15.3); MCH 29.2 pg (25.7-33.7); MEAN CELL VOLUME 88.7 fl (80-96); MEAN PLT VOLUME 8.4 fl (7.5-11.1); PLATELET COUNT 238 K/MM3 (134-434); RBC 3.51 M/mm3 (3.60-5.2); RDW 15.5 % (11.6-15.6); WHITE BLOOD COUNT 10.7 K/mm3 (4.0-10.0)
[2019-05-22 07:20] LABS: BLOOD UREA NITROGEN 22.3 mg/dL (7-18); CALCIUM 9.3 mg/dL (8.5-10.1); CREATININE 1.4 mg/dL (0.55-1.3); MAGNESIUM 2.1 mg/dL (1.8-2.4); POTASSIUM 3.8 mmol/L (3.5-5.1)
[2019-05-22] MEDS ORDERED: SODIUM CHLORIDE 0.45% 1,000 ML IV SCH (07:45)
[2019-05-22] MEDS ORDERED: cefTRIAXone SODIUM 1 GM VIAL ONE (08:54)
[2019-05-22] MEDS ORDERED: DEXTROSE 5%-WATER - 50 ML IVPB ONE (08:55)
[2019-05-22] MEDS: LOSARTAN POTASSIUM 50 MG TABLET (FP) PO SCH (09:37)
[2019-05-22] MEDS: DULoxetine HCL 30 MG CAPSULE.DR PO SCH (09:37)
[2019-05-22] MEDS: ARTIFICIAL TEARS (POLYVINYL ALCOHOL) OPTH DROPS OU SCH ×2 (09:38→21:26)
[2019-05-22] MEDS: BRIMONIDINE TARTRATE 0.15% OPHTHALMIC 5 ML BOTTLE OU SCH ×2 (09:38→21:26)
[2019-05-22] MEDS: MUPIROCIN 2% TOPICAL OINTMENT FOR DECOLONIZATION NS SCH ×2 (09:38→21:27)
[2019-05-22] MEDS: amLODIPine BESYLATE 5 MG TABLET (FP) PO SCH (09:38)
[2019-05-22] MEDS: CEFTRIAXONE 1 GM in DEXTROSE 5%-WATER - 50 ML IVPB SCH (09:39)
[2019-05-22] MEDS: AZITHROMYCIN IVPB 500 MG/250 ML BAG IVPB SCH (09:40)
[2019-05-22] MEDS: DORZOLAMIDE 2% HCL OPHTHALMIC SOLUTION 10 ML BOTTLE OU SCH ×2 (09:40→21:26)
[2019-05-22] MEDS ORDERED: PT OWN MED DRAWER 7, Y5N ONE (10:31)
[2019-05-22] MEDS: MEMANTINE HCL 5 MG TABLET (UD) PO SCH (11:00)
--- NOTE | 2019-05-22 11:25 | PN ---
Teaching Attending Note Name of Resident: Mikie Felzi ATTENDING PHYSICIAN STATEMENT I saw and evaluated the patient. I reviewed the resident's note and discussed the case with the resident. I agree with the resident's findings and plan as documented. SUBJECTIVE: Patient seen and examined in the ICU. Feels better. Still with some nonproductive cough. Remains off Insulin drip. Tolerating PO intake. OBJECTIVE: Intake & Output 05/19/19 05/20/19 05/21/19 05/22/19 23:59 23:59 23:59 23:59 Intake Total 3029 900 Output Total 0 650 Balance 0 3029 250 Weight 139 lb 2 oz 139 lb 3.2 oz 142 lb 11.2 oz Last Vital Signs Temp Pulse Resp BP Pulse Ox 97.6 F 80 22 H 161/65 98 05/22/19 10:00 05/22/19 10:00 05/22/19 10:00 05/22/19 10:00 05/22/19 08:28 Active Medications Amlodipine Besylate (Norvasc -) 5 mg PO DAILY [facility] Last Admin: 05/22/19 09:38 Dose: 5 mg Artificial Tears (Artificial Tears) 1 drop OU BID [facility] Last Admin: 05/22/19 09:38 Dose: 1 drop Atorvastatin Calcium (Lipitor -) 40 mg PO HS [facility] Last Admin: 05/21/19 21:34 Dose: 40 mg Brimonidine Tartrate (Alphagan 0.15% -) 1 drop OU BID [facility] Last Admin: 05/22/19 09:38 Dose: 1 drop Dorzolamide HCl (Trusopt 2%) 1 drop OU BID [facility] Last Admin: 05/22/19 09:40 Dose: 1 drop Duloxetine HCl (Cymbalta -) 30 mg PO DAILY [facility] Last Admin: 05/22/19 09:37 Dose: 30 mg Ergocalciferol (Drisdol -) 50,000 unit PO Q7D@1000 [facility] Heparin Sodium (Porcine) (Heparin -) 5,000 unit SQ TID [facility] Last Admin: 05/22/19 06:34 Dose: 5,000 unit Azithromycin (Zithromax 500mg Ivpb (Pre-Docked)) 500 mg in 250 mls @ 250 mls/ hr IVPB DAILY [facility] Last Admin: 05/22/19 09:40 Dose: 250 mls/hr Ceftriaxone Sodium 1 gm/ (Dextrose) 50 mls @ 100 mls/hr IVPB DAILY [facility]; Protocol Last Admin: 05/22/19 09:39 Dose: 100 mls/hr Sodium Chloride (1/2 Normal Saline) 1,000 mls @ 75 mls/hr IV ASDIR [facility] Stop: 05/22/19 21:04 Last Admin: 05/22/19 08:06 Dose: 75 mls/hr Insulin Aspart (Novolog Vial Sliding Scale -) 1 vial SQ ACHS [facility]; Protocol Last Admin: 05/22/19 06:34 Dose: Not Given Insulin Detemir (Levemir Vial) 15 units SQ HS [facility] Last Admin: 05/21/19 21:35 Dose: 15 units Levothyroxine Sodium (Synthroid -) 50 mcg PO DAILY@0700 [facility] Last Admin: 05/22/19 06:34 Dose: 50 mcg Losartan Potassium (Cozaar -) 100 mg PO DAILY [facility] Last Admin: 05/22/19 09:37 Dose: 100 mg Memantine (Namenda -) 5 mg PO DAILY [facility] Last Admin: 05/22/19 11:00 Dose: 5 mg Mupirocin (Bactroban Ointment (For Decolonization) -) 1 applic NS BID [facility] Stop: 05/25/19 21:59 Last Admin: 05/22/19 09:38 Dose: 1 applic Risperidone (Risperdal -) 0.5 mg PO HS [facility] Last Admin: 05/21/19 21:36 Dose: 0.5 mg Gen: Awake and alert, confused, NAD Heart: RRR Lung: few scattered rhonchi, decreased breath sounds at the bases Abd: soft, nontender Ext: no edema Laboratory Results - last 24 hr 05/21/19 05/21/19 05/21/19 02:00 08:35 11:35 WBC RBC Hgb Hct MCV MCH MCHC RDW Plt Count MPV Neutrophils % (Manual) 72.2 Band Neutrophils % 0.0 Lymphocytes % (Manual) 15.5 Monocytes % (Manual) 9 Eosinophils % (Manual) 0.0 Basophils % (Manual) 1.0 Myelocytes % (Man) 0 Promyelocytes % (Man) 0 Blast Cells % (Manual) 0 Nucleated RBC % 0 Metamyelocytes 2 Hypochromia 0 Platelet Estimate Normal Polychromasia 0 Poikilocytosis 1+ Anisocytosis 1+ Microcytosis 1+ Macrocytosis 0 Sodium 141 Potassium 4.6 Chloride 111 H Carbon Dioxide 17 L Anion Gap 13 BUN 34.1 H Creatinine 2.0 H Est GFR (CKD-EPI)AfAm 26.47 Est GFR (CKD-EPI)NonAf 22.84 POC Glucometer Random Glucose 372 H Calcium 9.0 Phosphorus 3.0 Magnesium 2.1 Transferrin 188 L 05/21/19 05/21/19 05/21/19 16:47 17:15 21:33 WBC RBC Hgb Hct MCV MCH MCHC RDW Plt Count MPV Neutrophils % (Manual) Band Neutrophils % Lymphocytes % (Manual) Monocytes % (Manual) Eosinophils % (Manual) Basophils % (Manual) Myelocytes % (Man) Promyelocytes % (Man) Blast Cells % (Manual) Nucleated RBC % Metamyelocytes Hypochromia Platelet Estimate Polychromasia Poikilocytosis Anisocytosis Microcytosis Macrocytosis Sodium 142 Potassium 4.2 Chloride 113 H Carbon Dioxide 19 L Anion Gap 10 BUN 29.7 H Creatinine 1.8 H Est GFR (CKD-EPI)AfAm 30.06 Est GFR (CKD-EPI)NonAf 25.94 POC Glucometer 356 271 Random Glucose 334 H Calcium 9.2 Phosphorus Magnesium Transferrin 05/22/19 05/22/19 05/22/19 01:59 06:05 06:05 WBC 10.7 H RBC 3.51 L Hgb 10.2 L Hct 31.1 L MCV 88.7 MCH 29.2 MCHC 33.0 RDW 15.5 Plt Count 238 MPV 8.4 Neutrophils % (Manual) Band Neutrophils % Lymphocytes % (Manual) Monocytes % (Manual) Eosinophils % (Manual) Basophils % (Manual) Myelocytes % (Man) Promyelocytes % (Man) Blast Cells % (Manual) Nucleated RBC % Metamyelocytes Hypochromia Platelet Estimate Polychromasia Poikilocytosis Anisocytosis Microcytosis Macrocytosis Sodium 148 H Potassium 3.8 Chloride 120 H Carbon Dioxide 19 L Anion Gap 9 BUN 22.3 H Creatinine 1.4 H Est GFR (CKD-EPI)AfAm 40.74 Est GFR (CKD-EPI)NonAf 35.15 POC Glucometer 179 Random Glucose 155 H Calcium 9.3 Phosphorus Magnesium 2.1 Transferrin 05/22/19 05/22/19 06:11 11:13 WBC RBC Hgb Hct MCV MCH MCHC RDW Plt Count MPV Neutrophils % (Manual) Band Neutrophils % Lymphocytes % (Manual) Monocytes % (Manual) Eosinophils % (Manual) Basophils % (Manual) Myelocytes % (Man) Promyelocytes % (Man) Blast Cells % (Manual) Nucleated RBC % Metamyelocytes Hypochromia Platelet Estimate Polychromasia Poikilocytosis Anisocytosis Microcytosis Macrocytosis Sodium Potassium Chloride Carbon Dioxide Anion Gap BUN Creatinine Est GFR (CKD-EPI)AfAm Est GFR (CKD-EPI)NonAf POC Glucometer 133 271 Random Glucose Calcium Phosphorus Magnesium Transferrin ASSESSMENT AND PLAN: Diabetic Ketoacidosis Low clinical suspicion of Pneumonia Suspected Acute Bronchitis Acute Kidney Injury CAD HTN DM Hyperlipidemia Hypothyroidism Anemia Schizophrenia Dementia - glucose control - on empiric antibiotics - f/u final cultures - IVF - monitor urine output, creatinine - PO as tolerated - DVT prophylaxis - Floor Dr Louis
--- NOTE | 2019-05-22 11:50 | PN ---
Physical Exam: SUBJECTIVE: Patient seen and examined 83 y.o F with PMH of alzheimers, schizophrenia, HTN, DM2, hypothyroidism, CAD HLD, HHD (LVH), glaucoma,depression admitted for DKA tolerating PO food well good oxygen saturation on 2L O2 nasal cannula. no acute complaints this a.m OBJECTIVE: Vital Signs Period Temp Pulse Resp BP Sys/Peña Pulse Ox Last 24 Hr 97.6 F-98.1 F 66-92 15-27 112-166/57-94 98-98 GENERAL: The patient is awake, alert, and fully oriented, in no acute distress. HEAD: Normal with no signs of trauma. EYES: extraocular movements intact, sclera anicteric, conjunctiva clear. No ptosis. ENT: Ears normal, nares patent, oropharynx clear without exudates, moist mucous membranes. NECK: Trachea midline, full range of motion, supple. LUNGS: coughing. some rales on lung exam. HEART: Regular rate and rhythm, S1, S2 without murmur, rub or gallop. ABDOMEN: Soft, nontender, nondistended, normoactive bowel sounds, no guarding, no rebound, no hepatosplenomegaly, no masses. EXTREMITIES: 2+ pulses, warm, well-perfused, no edema. NEUROLOGICAL: Cranial nerves II through XII grossly intact. Normal speech, PSYCH: Normal mood, normal affect. SKIN: Warm, dry, normal turgor, no rashes or lesions noted Laboratory Results - last 24 hr 05/21/19 05/21/19 05/21/19 02:00 08:35 11:35 WBC RBC Hgb Hct MCV MCH MCHC RDW Plt Count MPV Neutrophils % (Manual) 72.2 Band Neutrophils % 0.0 Lymphocytes % (Manual) 15.5 Monocytes % (Manual) 9 Eosinophils % (Manual) 0.0 Basophils % (Manual) 1.0 Myelocytes % (Man) 0 Promyelocytes % (Man) 0 Blast Cells % (Manual) 0 Nucleated RBC % 0 Metamyelocytes 2 Hypochromia 0 Platelet Estimate Normal Polychromasia 0 Poikilocytosis 1+ Anisocytosis 1+ Microcytosis 1+ Macrocytosis 0 Sodium 141 Potassium 4.6 Chloride 111 H Carbon Dioxide 17 L Anion Gap 13 BUN 34.1 H Creatinine 2.0 H Est GFR (CKD-EPI)AfAm 26.47 Est GFR (CKD-EPI)NonAf 22.84 POC Glucometer Random Glucose 372 H Calcium 9.0 Phosphorus 3.0 Magnesium 2.1 Transferrin 188 L 05/21/19 05/21/19 05/21/19 16:47 17:15 21:33 WBC RBC Hgb Hct MCV MCH MCHC RDW Plt Count MPV Neutrophils % (Manual) Band Neutrophils % Lymphocytes % (Manual) Monocytes % (Manual) Eosinophils % (Manual) Basophils % (Manual) Myelocytes % (Man) Promyelocytes % (Man) Blast Cells % (Manual) Nucleated RBC % Metamyelocytes Hypochromia Platelet Estimate Polychromasia Poikilocytosis Anisocytosis Microcytosis Macrocytosis Sodium 142 Potassium 4.2 Chloride 113 H Carbon Dioxide 19 L Anion Gap 10 BUN 29.7 H Creatinine 1.8 H Est GFR (CKD-EPI)AfAm 30.06 Est GFR (CKD-EPI)NonAf 25.94 POC Glucometer 356 271 Random Glucose 334 H Calcium 9.2 Phosphorus Magnesium Transferrin 05/22/19 05/22/19 05/22/19 01:59 06:05 06:05 WBC 10.7 H RBC 3.51 L Hgb 10.2 L Hct 31.1 L MCV 88.7 MCH 29.2 MCHC 33.0 RDW 15.5 Plt Count 238 MPV 8.4 Neutrophils % (Manual) Band Neutrophils % Lymphocytes % (Manual) Monocytes % (Manual) Eosinophils % (Manual) Basophils % (Manual) Myelocytes % (Man) Promyelocytes % (Man) Blast Cells % (Manual) Nucleated RBC % Metamyelocytes Hypochromia Platelet Estimate Polychromasia Poikilocytosis Anisocytosis Microcytosis Macrocytosis Sodium 148 H Potassium 3.8 Chloride 120 H Carbon Dioxide 19 L Anion Gap 9 BUN 22.3 H Creatinine 1.4 H Est GFR (CKD-EPI)AfAm 40.74 Est GFR (CKD-EPI)NonAf 35.15 POC Glucometer 179 Random Glucose 155 H Calcium 9.3 Phosphorus Magnesium 2.1 Transferrin 05/22/19 05/22/19 06:11 11:13 WBC RBC Hgb Hct MCV MCH MCHC RDW Plt Count MPV Neutrophils % (Manual) Band Neutrophils % Lymphocytes % (Manual) Monocytes % (Manual) Eosinophils % (Manual) Basophils % (Manual) Myelocytes % (Man) Promyelocytes % (Man) Blast Cells % (Manual) Nucleated RBC % Metamyelocytes Hypochromia Platelet Estimate Polychromasia Poikilocytosis Anisocytosis Microcytosis Macrocytosis Sodium Potassium Chloride Carbon Dioxide Anion Gap BUN Creatinine Est GFR (CKD-EPI)AfAm Est GFR (CKD-EPI)NonAf POC Glucometer 133 271 Random Glucose Calcium Phosphorus Magnesium Transferrin Active Medications Generic Name Dose Route Start Last Admin Trade Name Freq PRN Reason Stop Dose Admin Amlodipine Besylate 5 mg 05/21/19 10:00 05/22/19 09:38 Norvasc - PO 5 mg DAILY SAM Administration Artificial Tears 1 drop 05/20/19 22:00 05/22/19 09:38 Artificial Tears OU 1 drop BID SAM Administration Atorvastatin Calcium 40 mg 05/20/19 22:00 05/21/19 21:34 Lipitor - PO 40 mg HS SAM Administration Brimonidine Tartrate 1 drop 05/20/19 22:00 05/22/19 09:38 Alphagan 0.15% - OU 1 drop BID SAM Administration Dorzolamide HCl 1 drop 05/20/19 23:30 05/22/19 09:40 Trusopt 2% OU 1 drop BID SAM Administration Duloxetine HCl 30 mg 05/21/19 10:00 05/22/19 09:37 Cymbalta - PO 30 mg DAILY SAM Administration Ergocalciferol 50,000 unit 05/28/19 10:00 Drisdol - PO Q7D@1000 SAM Heparin Sodium (Porcine) 5,000 unit 05/21/19 14:00 05/22/19 06:34 Heparin - SQ 5,000 unit TID SAM Administration Azithromycin 500 mg in 250 mls @ 250 mls/hr 05/20/19 21:15 05/22/19 09:40 Zithromax 500mg Ivpb (Pre-Docked) IVPB 250 mls/hr DAILY SAM Administration Ceftriaxone Sodium 1 gm/ 50 mls @ 100 mls/hr 05/21/19 10:00 05/22/19 09:39 Dextrose IVPB 100 mls/hr DAILY SAM Administration Protocol Sodium Chloride 1,000 mls @ 75 mls/hr 05/22/19 07:45 05/22/19 08:06 1/2 Normal Saline IV 05/22/19 21:04 75 mls/hr ASDIR SAM Administration Insulin Aspart 1 vial 05/21/19 11:00 05/22/19 06:34 Novolog Vial Sliding Scale - SQ Not Given ACHS [facility] Protocol Insulin Detemir 15 units 05/21/19 22:00 05/21/19 21:35 Levemir Vial SQ 15 units HS SAM Administration Levothyroxine Sodium 50 mcg 05/21/19 07:00 05/22/19 06:34 Synthroid - PO 50 mcg DAILY@0700 SAM Administration Losartan Potassium 100 mg 05/21/19 10:00 05/22/19 09:37 Cozaar - PO 100 mg DAILY SAM Administration Memantine 5 mg 05/21/19 10:00 05/22/19 11:00 Namenda - PO 5 mg DAILY SAM Administration Mupirocin 1 applic 05/20/19 22:00 05/22/19 09:38 Bactroban Ointment (For Decolonization) - NS 05/25/19 21:59 1 applic BID SAM Administration Risperidone 0.5 mg 05/21/19 22:00 05/21/19 21:36 Risperdal - PO 0.5 mg HS SAM Administration ASSESSMENT/PLAN: 83 y.o F with PMH of alzheimers, schizophrenia, HTN, DM2, hypothyroidism, CAD HLD, HHD (LVH), glaucoma,depression admitted for DKA NEURO: alert in NAD CV:CAD,HTN, HLD, PULM: pneumonia vs acute bronchitis f/u cultures on antibiotics. RENAL:NIKOLE 1/2 NS at 75 cc/hr. Stop normal saline FENGI: Hypernatremic 1/2 NS at 75cc hr instead of normal saline ENDO:DKA, Hypothyroidism -glucose control receiving levomir long acting insulin and sliding scale HEME/ONC: Anemia monitor cbc ID:continue antibiotics (ceftriaxone and azithromycin) DVT PPX: Heparin SQ Transfer to floor results came back positive for legionella Visit type - Emergency Visit Emergency Visit: Yes ED Registration Date: 05/20/19 Care time: The patient presented to the Emergency Department on the above date and was hospitalized for further evaluation of their emergent condition. - New Patient This patient is new to me today: No - Critical Care Critical Care patient: No - Discharge Referral Referred to [facility] No ATTENDING PHYSICIAN STATEMENT I saw and evaluated the patient. I reviewed the resident's note and discussed the case with the resident. I agree with the resident's findings and plan as documented. SUBJECTIVE: OBJECTIVE: ASSESSMENT AND PLAN:
--- NOTE | 2019-05-22 13:34 | PN ---
Progress Note (short form) - Note Progress Note: Denies any complaints Vital Signs Period Temp Pulse Resp BP Sys/Peña Pulse Ox Last 24 Hr 97.6 F-98.1 F 66-92 15-27 112-166/57-94 98-98 PE: Awake HEENT: EOMI Neck: Supple NO JVD Lungs: CTA CVS: S1S2 Abd: Benign Ext: No edema CMP Sodium 148 mmol/L (136-145) H 05/22/19 06:05 Potassium 3.8 mmol/L (3.5-5.1) 05/22/19 06:05 Chloride 120 mmol/L (98-107) H 05/22/19 06:05 Carbon Dioxide 19 mmol/L (21-32) L 05/22/19 06:05 Anion Gap 9 MMOL/L (8-16) 05/22/19 06:05 BUN 22.3 mg/dL (7-18) H 05/22/19 06:05 Creatinine 1.4 mg/dL (0.55-1.3) H 05/22/19 06:05 Est GFR (CKD-EPI)AfAm 40.74 05/22/19 06:05 Est GFR (CKD-EPI)NonAf 35.15 05/22/19 06:05 POC Glucometer 271 UNITS (80-120) 05/22/19 11:13 Random Glucose 155 mg/dL (74-106) H 05/22/19 06:05 Hemoglobin A1c % 11.1 % (4.2-6.3) H 05/20/19 18:55 Lactic Acid 1.2 mmol/L (0.4-2.0) 05/20/19 15:00 Calcium 9.3 mg/dL (8.5-10.1) 05/22/19 06:05 Phosphorus 3.0 mg/dL (2.5-4.9) 05/21/19 11:35 Magnesium 2.1 mg/dL (1.8-2.4) 05/22/19 06:05 Iron 17 ug/dL (50-175) L 05/20/19 19:30 TIBC 238 ug/dL (250-450) L 05/20/19 19:30 Iron Saturation 7 % (17.5-39) L 05/20/19 19:30 Unsaturated IBC 221 ug/dL (200-275) 05/20/19 19:30 Transferrin 188 mg/dL (200-370) L 05/21/19 02:00 Ferritin 139.3 ng/ml (8-388) 05/20/19 19:30 Total Bilirubin 0.3 mg/dL (0.2-1) 05/21/19 08:35 AST 17 U/L (15-37) 05/21/19 08:35 ALT 18 U/L (13-61) 05/21/19 08:35 Alkaline Phosphatase 57 U/L (45-117) 05/21/19 08:35 Creatine Kinase 172 U/L (26-192) 05/20/19 14:55 Creatine Kinase Index 1.5 % (0.0-5.0) 05/20/19 14:55 CK-MB (CK-2) 2.7 ng/mL (0.5-3.6) 05/20/19 14:55 Troponin I < 0.02 ng/ml (0.00-0.05) 05/20/19 14:55 Total Protein 6.9 g/dl (6.4-8.2) 05/21/19 08:35 Albumin 2.6 g/dl (3.4-5.0) L 05/21/19 08:35 Beta-Hydroxybutyrate 100.7 mg/dL (0.2-2.8) H 05/20/19 14:55 TSH 4.31 uIU/ml (0.358-3.74) H 05/21/19 08:35 Current Medications Generic Name Dose Route Start Last Admin Trade Name Crescencioq PRN Reason Stop Dose Admin Amlodipine Besylate 5 mg 05/21/19 10:00 05/22/19 09:38 Norvasc - PO 5 mg DAILY SAM Administration Artificial Tears 1 drop 05/20/19 22:00 05/22/19 09:38 Artificial Tears OU 1 drop BID SAM Administration Atorvastatin Calcium 40 mg 05/20/19 22:00 05/21/19 21:34 Lipitor - PO 40 mg HS SAM Administration Brimonidine Tartrate 1 drop 05/20/19 22:00 05/22/19 09:38 Alphagan 0.15% - OU 1 drop BID SAM Administration Dorzolamide HCl 1 drop 05/20/19 23:30 05/22/19 09:40 Trusopt 2% OU 1 drop BID SAM Administration Duloxetine HCl 30 mg 05/21/19 10:00 05/22/19 09:37 Cymbalta - PO 30 mg DAILY SAM Administration Ergocalciferol 50,000 unit 05/28/19 10:00 Drisdol - PO Q7D@1000 SAM Heparin Sodium (Porcine) 5,000 unit 05/21/19 14:00 05/22/19 06:34 Heparin - SQ 5,000 unit TID SAM Administration Azithromycin 500 mg in 250 mls @ 250 mls/hr 05/20/19 21:15 05/22/19 09:40 Zithromax 500mg Ivpb (Pre-Docked) IVPB 250 mls/hr DAILY SAM Administration Ceftriaxone Sodium 1 gm/ 50 mls @ 100 mls/hr 05/21/19 10:00 05/22/19 09:39 Dextrose IVPB 100 mls/hr DAILY SAM Administration Protocol Sodium Chloride 1,000 mls @ 75 mls/hr 05/22/19 07:45 05/22/19 08:06 1/2 Normal Saline IV 05/22/19 21:04 75 mls/hr ASDIR SAM Administration Insulin Aspart 1 vial 05/21/19 11:00 05/22/19 12:00 Novolog Vial Sliding Scale - SQ 6 units ACHS SAM Administration Protocol Insulin Detemir 15 units 05/21/19 22:00 05/21/19 21:35 Levemir Vial SQ 15 units HS SAM Administration Levothyroxine Sodium 50 mcg 05/21/19 07:00 05/22/19 06:34 Synthroid - PO 50 mcg DAILY@0700 SAM Administration Losartan Potassium 100 mg 05/21/19 10:00 05/22/19 09:37 Cozaar - PO 100 mg DAILY SAM Administration Memantine 5 mg 05/21/19 10:00 05/22/19 11:00 Namenda - PO 5 mg DAILY SAM Administration Mupirocin 1 applic 05/20/19 22:00 05/22/19 09:38 Bactroban Ointment (For Decolonization) - NS 05/25/19 21:59 1 applic BID SAM Administration Risperidone 0.5 mg 05/21/19 22:00 05/21/19 21:36 Risperdal - PO 0.5 mg HS SAM Administration AP: DKA resolved? related to Jardiance T2DM Pneumonia vs Acute Bronchitis Acute Kidney Injury CAD HTN Hyperlipidemia Hypothyroidism Anemia Schizophrenia Dementia Continue Levemir 15 units daily at HS, May use Lantus 15 untis daily at HS at Assisted living NOvolog SS coverage in hospital. May need Premeal Insulin also if it can be done at the facility. 4 units Novolog or HUmalog TID with meals Metformin may be restarted if renal function normalizes No Jardiance or other SGLT2s in the future b/o DKA Labs for C peptide and MIKE should be done as outpt to determine if she can be weaned off Insulin Monitor electrolytes Replace electrolytes as necessary on empiric antibiotics Levothyroxine 50 c=mcg QD
[2019-05-22 14:08] VITALS: BMI 25.1
--- NOTE | 2019-05-22 14:33 | PN ---
Physical Exam: SUBJECTIVE: Patient seen and examined at the bedside. Patient is more awake and alert today. She was eager to get out of bed and move around. Denied acute complaints of cp, sob, abd pain, n/v/c/d, fever, chills, headaches, dizziness, lightheadedness, numbness, tingling. OBJECTIVE: Vital Signs Period Temp Pulse Resp BP Sys/Peña Pulse Ox Last 24 Hr 97.6 F-98.1 F 66-92 15-24 112-166/57-94 98-98 GENERAL: The patient is awake, alert, and oriented to self and "hospital", in no acute distress. HEAD: Normal with no signs of trauma. EYES: PERRL, extraocular movements intact, sclera anicteric, conjunctiva clear. ENT: Oropharynx clear without exudates, dry mucous membranes. NECK: Trachea midline, full range of motion, supple. LUNGS: Breath sounds equal, with bibasilar crackles. No noted wheezes. HEART: Regular rate and rhythm, S1, S2 without murmur, rub. ABDOMEN: Soft, nontender, nondistended, normoactive bowel sounds, no guarding, no rebound, no masses. EXTREMITIES: 2+ pulses, warm, well-perfused, no edema. NEUROLOGICAL: Cranial nerves II through XII grossly intact. 4/5 muscle strength upper and lower extremities bilaterally. PSYCH: Mildly confused but responding appropriately. Easily reoriented. SKIN: Warm, dry, no rashes or lesions noted Laboratory Results - last 24 hr 05/21/19 05/21/19 05/21/19 02:00 16:47 17:15 WBC RBC Hgb Hct MCV MCH MCHC RDW Plt Count MPV Sodium 142 Potassium 4.2 Chloride 113 H Carbon Dioxide 19 L Anion Gap 10 BUN 29.7 H Creatinine 1.8 H Est GFR (CKD-EPI)AfAm 30.06 Est GFR (CKD-EPI)NonAf 25.94 POC Glucometer 356 Random Glucose 334 H Calcium 9.2 Magnesium Transferrin 188 L 05/21/19 05/22/19 05/22/19 21:33 01:59 06:05 WBC 10.7 H RBC 3.51 L Hgb 10.2 L Hct 31.1 L MCV 88.7 MCH 29.2 MCHC 33.0 RDW 15.5 Plt Count 238 MPV 8.4 Sodium Potassium Chloride Carbon Dioxide Anion Gap BUN Creatinine Est GFR (CKD-EPI)AfAm Est GFR (CKD-EPI)NonAf POC Glucometer 271 179 Random Glucose Calcium Magnesium Transferrin 05/22/19 05/22/19 05/22/19 06:05 06:11 11:13 WBC RBC Hgb Hct MCV MCH MCHC RDW Plt Count MPV Sodium 148 H Potassium 3.8 Chloride 120 H Carbon Dioxide 19 L Anion Gap 9 BUN 22.3 H Creatinine 1.4 H Est GFR (CKD-EPI)AfAm 40.74 Est GFR (CKD-EPI)NonAf 35.15 POC Glucometer 133 271 Random Glucose 155 H Calcium 9.3 Magnesium 2.1 Transferrin Active Medications Generic Name Dose Route Start Last Admin Trade Name Freq PRN Reason Stop Dose Admin Amlodipine Besylate 5 mg 05/21/19 10:00 05/22/19 09:38 Norvasc - PO 5 mg DAILY SAM Administration Artificial Tears 1 drop 05/20/19 22:00 05/22/19 09:38 Artificial Tears OU 1 drop BID SAM Administration Atorvastatin Calcium 40 mg 05/20/19 22:00 05/21/19 21:34 Lipitor - PO 40 mg HS SAM Administration Brimonidine Tartrate 1 drop 05/20/19 22:00 05/22/19 09:38 Alphagan 0.15% - OU 1 drop BID SAM Administration Dorzolamide HCl 1 drop 05/20/19 23:30 05/22/19 09:40 Trusopt 2% OU 1 drop BID SAM Administration Duloxetine HCl 30 mg 05/21/19 10:00 05/22/19 09:37 Cymbalta - PO 30 mg DAILY SAM Administration Ergocalciferol 50,000 unit 05/28/19 10:00 Drisdol - PO Q7D@1000 SAM Heparin Sodium (Porcine) 5,000 unit 05/21/19 14:00 05/22/19 14:22 Heparin - SQ 5,000 unit TID SAM Administration Azithromycin 500 mg in 250 mls @ 250 mls/hr 05/20/19 21:15 05/22/19 09:40 Zithromax 500mg Ivpb (Pre-Docked) IVPB 250 mls/hr DAILY SAM Administration Ceftriaxone Sodium 1 gm/ 50 mls @ 100 mls/hr 05/21/19 10:00 05/22/19 09:39 Dextrose IVPB 100 mls/hr DAILY SAM Administration Protocol Sodium Chloride 1,000 mls @ 75 mls/hr 05/22/19 07:45 05/22/19 08:06 1/2 Normal Saline IV 05/22/19 21:04 75 mls/hr ASDIR SAM Administration Insulin Aspart 1 vial 05/21/19 11:00 05/22/19 12:00 Novolog Vial Sliding Scale - SQ 6 units ACHS SAM Administration Protocol Insulin Detemir 15 units 05/21/19 22:00 05/21/19 21:35 Levemir Vial SQ 15 units HS SAM Administration Levothyroxine Sodium 50 mcg 05/21/19 07:00 05/22/19 06:34 Synthroid - PO 50 mcg DAILY@0700 SAM Administration Losartan Potassium 100 mg 05/21/19 10:00 05/22/19 09:37 Cozaar - PO 100 mg DAILY SAM Administration Memantine 5 mg 05/21/19 10:00 05/22/19 11:00 Namenda - PO 5 mg DAILY SAM Administration Mupirocin 1 applic 05/20/19 22:00 05/22/19 09:38 Bactroban Ointment (For Decolonization) - NS 05/25/19 21:59 1 applic BID SAM Administration Risperidone 0.5 mg 05/21/19 22:00 05/21/19 21:36 Risperdal - PO 0.5 mg HS SAM Administration ASSESSMENT/PLAN: Mallory Valencia is an 83 year old female with a past medical history of alzheimers, schizophrenia, HTN, DM2, hypothyroidism, CAD, HLD, HHD (LVH), glaucoma, depression who presents from [facility] [place] who was admitted with AMS likely secondary to DKA. High anion gap metabolic acidosis 2/2 DKA - Likely precipitated by infection - Home meds: metformin 1000mg BID, jardiance 10mg BID - discontinue Jardiance outpatient in setting of DKA - Started on insulin drip and was bridged with 30 units of Levemir and drip was shut off - Levemir 15 units hs to be transitioned to Lantus 15 units at her facility as Levemir not covered - anion gap closed - 1/2 NS at 75cc/hr for one bag - A1C 11.1 - BGM - ISS - Endocrinology consulted (Dr. Titus), recs appreciated - currently on diabetic diet - will need outpatient measurement of C-peptide and MIKE antibody PNA vs URTI - Rapid influenza neg - CXR: possible LLL infiltrate per our read. 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 Chronic mod periventricular and subcortical white matter microvascular ischemic gliosis - MRI to evaluate cerebellar infarcts NIKOLE on CKD - baseline CRE 1.3 in December as per Dr. Inderjit Spangler - today CRE 1.4, improved from admission - renal US with no acute pathology, noted renal cyst on L - 1/2 at 75cc/hr for one bag, caution with fluids due to crackles in lungs Normocytic anemia likely 2/2 chronic disease - chronic anemia, baseline in December 10.5 - Hgb 10.2 today - Iron: 17, TIBC: 238, iron sat 7%, ferritin 139.3 - F/u stool guaiac HTN and CAD - Cont home meds: Amlodipine 5mg Daily, Losartan 100 mg daily, Atorvastatin 40 HS - Last known echo Jan 2016: LV function normal, impaired relaxation, mild MR, mild - echo here noting normal LV size, function, thickness, normal EF, mild aortic regurg, trace to mild tricuspid regurg, trace to mild mitral regurg, possible poor LV compliance Hypothyroidism - Continue home levothyroxine 50mcg daily - TSH 4.31 - will require outpatient f/u Glaucoma - Continue briminodine and timolol eye drops FEN - 1/2 NS at 75cc/hr for one bag, afterwards no standing fluids - continue to monitor electrolytes and replete as necessary - Diabetic diet DVT ppx - SCDs, hold ppx due to current anemia Dispo - stable for transfer to floors Visit type - Emergency Visit Emergency Visit: Yes ED Registration Date: 05/20/19 Care time: The patient presented to the Emergency Department on the above date and was hospitalized for further evaluation of their emergent condition. - New Patient This patient is new to me today: No - Critical Care Critical Care patient: No
--- NOTE | 2019-05-22 15:12 | PN ---
Teaching Attending Note Name of Resident: Neel Benitez ATTENDING PHYSICIAN STATEMENT I saw and evaluated the patient. I reviewed the resident's note and discussed the case with the resident. I agree with the resident's findings and plan as documented. SUBJECTIVE: Feels better. Still has productive cough - white sputum. No hemoptysis. No fever/chills. OBJECTIVE: Afebrile, Hemodynamically Stable. AAO x 1 - 2 Last Vital Signs Temp Pulse Resp BP Pulse Ox 98.4 F 72 20 126/75 98 05/22/19 14:00 05/22/19 14:00 05/22/19 14:00 05/22/19 14:00 05/22/19 08:28 Heart - S1, S2, soft SM Lungs - bibasal crackles. Abdomen - Soft, non-tender. Bowel Sounds normal. Extremities - no edema, no calf tenderness. Laboratory Results - last 24 hr 05/21/19 05/21/19 05/21/19 02:00 16:47 17:15 WBC RBC Hgb Hct MCV MCH MCHC RDW Plt Count MPV Sodium 142 Potassium 4.2 Chloride 113 H Carbon Dioxide 19 L Anion Gap 10 BUN 29.7 H Creatinine 1.8 H Est GFR (CKD-EPI)AfAm 30.06 Est GFR (CKD-EPI)NonAf 25.94 POC Glucometer 356 Random Glucose 334 H Calcium 9.2 Magnesium Transferrin 188 L 05/21/19 05/22/19 05/22/19 21:33 01:59 06:05 WBC 10.7 H RBC 3.51 L Hgb 10.2 L Hct 31.1 L MCV 88.7 MCH 29.2 MCHC 33.0 RDW 15.5 Plt Count 238 MPV 8.4 Sodium Potassium Chloride Carbon Dioxide Anion Gap BUN Creatinine Est GFR (CKD-EPI)AfAm Est GFR (CKD-EPI)NonAf POC Glucometer 271 179 Random Glucose Calcium Magnesium Transferrin 05/22/19 05/22/19 05/22/19 06:05 06:11 11:13 WBC RBC Hgb Hct MCV MCH MCHC RDW Plt Count MPV Sodium 148 H Potassium 3.8 Chloride 120 H Carbon Dioxide 19 L Anion Gap 9 BUN 22.3 H Creatinine 1.4 H Est GFR (CKD-EPI)AfAm 40.74 Est GFR (CKD-EPI)NonAf 35.15 POC Glucometer 133 271 Random Glucose 155 H Calcium 9.3 Magnesium 2.1 Transferrin 05/22/19 14:46 WBC RBC Hgb Hct MCV MCH MCHC RDW Plt Count MPV Sodium Potassium Chloride Carbon Dioxide Anion Gap BUN Creatinine Est GFR (CKD-EPI)AfAm Est GFR (CKD-EPI)NonAf POC Glucometer 237 Random Glucose Calcium Magnesium Transferrin Current Medications Generic Name Dose Route Start Last Admin Trade Name Freq PRN Reason Stop Dose Admin Amlodipine Besylate 5 mg 05/21/19 10:00 05/22/19 09:38 Norvasc - PO 5 mg DAILY SAM Administration Artificial Tears 1 drop 05/20/19 22:00 05/22/19 09:38 Artificial Tears OU 1 drop BID SAM Administration Atorvastatin Calcium 40 mg 05/20/19 22:00 05/21/19 21:34 Lipitor - PO 40 mg HS SAM Administration Brimonidine Tartrate 1 drop 05/20/19 22:00 05/22/19 09:38 Alphagan 0.15% - OU 1 drop BID SAM Administration Dorzolamide HCl 1 drop 05/20/19 23:30 05/22/19 09:40 Trusopt 2% OU 1 drop BID SAM Administration Duloxetine HCl 30 mg 05/21/19 10:00 05/22/19 09:37 Cymbalta - PO 30 mg DAILY SAM Administration Ergocalciferol 50,000 unit 05/28/19 10:00 Drisdol - PO Q7D@1000 SAM Heparin Sodium (Porcine) 5,000 unit 05/21/19 14:00 05/22/19 14:22 Heparin - SQ 5,000 unit TID SAM Administration Azithromycin 500 mg in 250 mls @ 250 mls/hr 05/20/19 21:15 05/22/19 09:40 Zithromax 500mg Ivpb (Pre-Docked) IVPB 250 mls/hr DAILY SAM Administration Ceftriaxone Sodium 1 gm/ 50 mls @ 100 mls/hr 05/21/19 10:00 05/22/19 09:39 Dextrose IVPB 100 mls/hr DAILY SAM Administration Protocol Sodium Chloride 1,000 mls @ 75 mls/hr 05/22/19 07:45 05/22/19 08:06 1/2 Normal Saline IV 05/22/19 21:04 75 mls/hr ASDIR SAM Administration Insulin Aspart 1 vial 05/21/19 11:00 05/22/19 12:00 Novolog Vial Sliding Scale - SQ 6 units ACHS SAM Administration Protocol Insulin Detemir 15 units 05/21/19 22:00 05/21/19 21:35 Levemir Vial SQ 15 units HS SAM Administration Levothyroxine Sodium 50 mcg 05/21/19 07:00 05/22/19 06:34 Synthroid - PO 50 mcg DAILY@0700 SAM Administration Losartan Potassium 100 mg 05/21/19 10:00 05/22/19 09:37 Cozaar - PO 100 mg DAILY SAM Administration Memantine 5 mg 05/21/19 10:00 05/22/19 11:00 Namenda - PO 5 mg DAILY SAM Administration Mupirocin 1 applic 05/20/19 22:00 05/22/19 09:38 Bactroban Ointment (For Decolonization) - NS 05/25/19 21:59 1 applic BID SAM Administration Risperidone 0.5 mg 05/21/19 22:00 05/21/19 21:36 Risperdal - PO 0.5 mg HS SAM Administration Home Medications Medication Instructions Recorded Atorvastatin Ca [Lipitor] 40 mg PO HS #0 01/12/16 Amlodipine Besylate [Norvasc -] 5 mg PO DAILY 05/20/19 Brimonidine Tartrate [Alphagan 1 drop OU BID 05/20/19 0.15% -] Dorzolamide HCl/Pf [Dorzolamide 2% 1 drop OU BID 05/20/19 Eye Drop] Duloxetine HCl [Cymbalta -] 30 mg PO DAILY 05/20/19 Ergocalciferol [Vitamin D2] 50,000 unit PO Q7D@1000 05/20/19 Levothyroxine Sodium 50 mcg PO DAILY 05/20/19 Losartan Potassium [Cozaar] 100 mg PO DAILY 05/20/19 Memantine HCl [Namenda -] 5 mg PO DAILY 05/20/19 Polyvinyl Alcohol [Artificial 1 drop OU BID 05/20/19 Tears] Risperidone [Risperdal -] 0.5 mg PO HS 05/20/19 metFORMIN HCL [Glucophage -] 1,000 mg PO BID 05/20/19 Cefuroxime Axetil [Cefuroxime] 500 mg PO BID #8 tablet 05/22/19 Insulin Glargine,Hum.rec.anlog 15 unit SQ HS #5 vial 05/22/19 [Lantus] Lispro as per sliding scale. 05/22/19 ASSESSMENT/PLAN: 83 year old female with history of DM 2, Alzheimer's Disease, Schizophrenia, HTN , CAD, 83 y/o woman with hx DM 2, alzheimers, schizophrenia, HTN, CAD, [facility], admitted for 3 day history of increasing confusion and cough. Noted to be hyperglycemic with DKA on presentation. 1. Acute DKA, baseline Uncontrolled DM 2, A1C 11.2 pH 7.15, Bicarb 8, AG 22 on presentation, now resolved. Transitioned off Insulin drip on to SQ Levemir/Sliding scale. Metformin to resume on discharge. Hold Jardiance as per endo. Tolerating diet. Endocrinology input appreciated - follow up as outpatient. 2. CAP - Continue Ceftriaxone/Azithromycin Afebrile, Hemodynamically Stable. Flu negative Urine Strep Ag positive. Continue oral cephalosporin for 7 days. 3. Acute metabolic Encephalopathy atop baseline Alzheimer's Dementia/ Schizophrenia AAO x 1. Will need to find out baseline mental status. 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 Remaining left cerebellar infarcts are too small to actually characterize on current exam. Echo - normal. MRI Brain ordered Continue Risperidone, Namenda, Cymbalta 4. NIKOLE on CKD 3 - resolving, Creat down to 1.4 from 2.7 Renal US - L renal cyst 9 x 8mm Oral intake encouraged. 5. Hypothyroidism, TSH 4.31. Continue Synthroid at current dose. Out-patient follow up for repeat Thyroid Function. 6. HTN - continue Losartan, Norvasc. 7. Normocytic Anemia, etiology multifactorial (ALESSANDRO, Chronic Disease, CKD) - Iron Sat 7%/Ferritin 132. No evidence of acute bleeding. For out-patient GI and Nephrology follow up. Iron supplemewntation. Medically optimized, clinically improved. Awaiting PT eval prior to discharge back to SNF/Assisted Living.
[2019-05-22] MEDS: ATORVASTATIN CA 40 MG TABLET (FP) PO SCH (21:27)
[2019-05-22] MEDS: INSULIN (LEVEMIR) 100 UNITS/ML UNITS SQ SCH (21:28)
[2019-05-22] MEDS: risperiDONE 0.5 MG TABLET PO SCH (21:30)
[2019-05-23] MEDS: HEPARIN NA (PORCINE) 5,000 UNITS/ML 1ML VIAL SQ SCH ×3 (05:51→21:54)
[2019-05-23] MEDS: LEVOTHYROXINE NA 50 MCG TABLET (FP) PO SCH (06:00)
[2019-05-23] MEDS: INSULIN SLIDING SCALE (NOVOLOG) 1 VIAL SQ SCH ×4 (06:14→22:00)
[2019-05-23 06:59] LABS: HEMATOCRIT 27.5 % (32.4-45.2); HEMOGLOBIN 9.2 GM/dL (10.7-15.3); MCH 28.9 pg (25.7-33.7); MCHC 33.4 g/dl (32.0-36.0); MEAN CELL VOLUME 86.7 fl (80-96); MEAN PLT VOLUME 8.4 fl (7.5-11.1); PLATELET COUNT 251 K/MM3 (134-434); RBC 3.17 M/mm3 (3.60-5.2); RDW 15.4 % (11.6-15.6); WHITE BLOOD COUNT 8.9 K/mm3 (4.0-10.0)
[2019-05-23 07:26] LABS: BLOOD UREA NITROGEN 21.2 mg/dL (7-18); CALCIUM 9.3 mg/dL (8.5-10.1); CREATININE 1.3 mg/dL (0.55-1.3); MAGNESIUM 1.8 mg/dL (1.8-2.4); PHOSPHOROUS 2.9 mg/dL (2.5-4.9); POTASSIUM 3.9 mmol/L (3.5-5.1)
[2019-05-23] MEDS ORDERED: FLU VACCINE QUAD 60 MCG/0.5 ML (MDV 19-20) IM ONE (08:48)
[2019-05-23] MEDS ORDERED: PNEUMOC 13-VAL CONJ-DIP CRM/PF 0.5 ML DISP.SYRIN IM ONE (08:48)
[2019-05-23] MEDS ORDERED: PT OWN MED DRAWER 7, Y5N ONE ×3 (09:27→20:35)
[2019-05-23] MEDS ORDERED: MAGNESIUM SULF 50% (8.12 MEQ/2 ML-1 GM VIAL) IVPB ONE (09:45)
--- NOTE | 2019-05-23 10:32 | PN ---
Teaching Attending Note Name of Resident: Joyce Sierra ATTENDING PHYSICIAN STATEMENT I saw and evaluated the patient. I reviewed the resident's note and discussed the case with the resident. I agree with the resident's findings and plan as documented. SUBJECTIVE: Patient seen and examined in the ICU. Remains mildly confused. Oriented to person and hospital. Remains off Insulin drip. Tolerating PO intake. OBJECTIVE: Intake & Output 05/20/19 05/21/19 05/22/19 05/23/19 23:59 23:59 23:59 23:59 Intake Total 3029 1950 700 Output Total 0 1550 1000 Balance 0 3029 400 -300 Weight 139 lb 2 oz 139 lb 3.2 oz 142 lb Last Vital Signs Temp Pulse Resp BP Pulse Ox 98.5 F 73 21 H 130/84 98 05/23/19 10:00 05/23/19 10:00 05/23/19 10:00 05/23/19 10:00 05/22/19 19:40 Active Medications Amlodipine Besylate (Norvasc -) 5 mg PO DAILY [facility] Last Admin: 05/22/19 09:38 Dose: 5 mg Artificial Tears (Artificial Tears) 1 drop OU BID [facility] Last Admin: 05/22/19 21:26 Dose: 1 drop Atorvastatin Calcium (Lipitor -) 40 mg PO HS [facility] Last Admin: 05/22/19 21:27 Dose: 40 mg Brimonidine Tartrate (Alphagan 0.15% -) 1 drop OU BID [facility] Last Admin: 05/22/19 21:26 Dose: 1 drop Dorzolamide HCl (Trusopt 2%) 1 drop OU BID [facility] Last Admin: 05/22/19 21:26 Dose: 1 drop Duloxetine HCl (Cymbalta -) 30 mg PO DAILY [facility] Last Admin: 05/22/19 09:37 Dose: 30 mg Ergocalciferol (Drisdol -) 50,000 unit PO Q7D@1000 SAM Heparin Sodium (Porcine) (Heparin -) 5,000 unit SQ TID [facility] Last Admin: 05/23/19 05:51 Dose: 5,000 unit Ceftriaxone Sodium 1 gm/ (Dextrose) 50 mls @ 100 mls/hr IVPB DAILY [facility]; Protocol Last Admin: 05/22/19 09:39 Dose: 100 mls/hr Insulin Aspart (Novolog Vial Sliding Scale -) 1 vial SQ ACHS SAM; Protocol Last Admin: 05/23/19 06:14 Dose: 2 units Insulin Detemir (Levemir Vial) 15 units SQ HS [facility] Last Admin: 05/22/19 21:28 Dose: 15 units Levothyroxine Sodium (Synthroid -) 50 mcg PO DAILY@0700 [facility] Last Admin: 05/23/19 06:00 Dose: 50 mcg Losartan Potassium (Cozaar -) 100 mg PO DAILY [facility] Last Admin: 05/22/19 09:37 Dose: 100 mg Memantine (Namenda -) 5 mg PO DAILY [facility] Last Admin: 05/22/19 11:00 Dose: 5 mg Mupirocin (Bactroban Ointment (For Decolonization) -) 1 applic NS BID [facility] Stop: 05/25/19 21:59 Last Admin: 05/22/19 21:27 Dose: 1 applic Risperidone (Risperdal -) 0.5 mg PO HS [facility] Last Admin: 05/22/19 21:30 Dose: 0.5 mg Gen: Awake and alert, mildly confused, NAD Heart: RRR Lung: few scattered rhonchi, decreased breath sounds at the bases Abd: soft, nontender Ext: no edema Laboratory Results - last 24 hr 05/22/19 05/22/19 05/22/19 11:13 14:46 18:30 WBC RBC Hgb Hct MCV MCH MCHC RDW Plt Count MPV Sodium Potassium Chloride Carbon Dioxide Anion Gap BUN Creatinine Est GFR (CKD-EPI)AfAm Est GFR (CKD-EPI)NonAf POC Glucometer 271 237 142 Random Glucose Calcium Phosphorus Magnesium 05/22/19 05/23/19 05/23/19 21:15 05:52 05:52 WBC 8.9 RBC 3.17 L Hgb 9.2 L Hct 27.5 L MCV 86.7 MCH 28.9 MCHC 33.4 RDW 15.4 Plt Count 251 MPV 8.4 Sodium 146 H Potassium 3.9 Chloride 115 H Carbon Dioxide 23 Anion Gap 8 BUN 21.2 H Creatinine 1.3 Est GFR (CKD-EPI)AfAm 44.56 Est GFR (CKD-EPI)NonAf 38.44 POC Glucometer 274 Random Glucose 191 H Calcium 9.3 Phosphorus 2.9 Magnesium 1.8 05/23/19 06:00 WBC RBC Hgb Hct MCV MCH MCHC RDW Plt Count MPV Sodium Potassium Chloride Carbon Dioxide Anion Gap BUN Creatinine Est GFR (CKD-EPI)AfAm Est GFR (CKD-EPI)NonAf POC Glucometer 169 Random Glucose Calcium Phosphorus Magnesium ASSESSMENT AND PLAN: Diabetic Ketoacidosis Low clinical suspicion of Pneumonia Suspected Acute Bronchitis Acute Kidney Injury CAD HTN DM Hyperlipidemia Hypothyroidism Anemia Schizophrenia Dementia - glucose control - on empiric antibiotics - f/u final cultures - IVF - monitor urine output, creatinine - PO as tolerated - DVT prophylaxis - Floor Dr Louis
[2019-05-23] MEDS ORDERED: cefTRIAXone SODIUM 1 GM VIAL ONE (10:37)
[2019-05-23] MEDS ORDERED: DEXTROSE 5%-WATER - 50 ML IVPB ONE (10:37)
[2019-05-23] MEDS: CEFTRIAXONE 1 GM in DEXTROSE 5%-WATER - 50 ML IVPB SCH (10:38)
[2019-05-23] MEDS: MUPIROCIN 2% TOPICAL OINTMENT FOR DECOLONIZATION NS SCH (10:59)
[2019-05-23] MEDS: BRIMONIDINE TARTRATE 0.15% OPHTHALMIC 5 ML BOTTLE OU SCH ×2 (10:59→21:52)
[2019-05-23] MEDS: ARTIFICIAL TEARS (POLYVINYL ALCOHOL) OPTH DROPS OU SCH ×2 (10:59→21:53)
[2019-05-23] MEDS: LOSARTAN POTASSIUM 50 MG TABLET (FP) PO SCH (11:00)
[2019-05-23] MEDS: DULoxetine HCL 30 MG CAPSULE.DR PO SCH (11:01)
[2019-05-23] MEDS: amLODIPine BESYLATE 5 MG TABLET (FP) PO SCH (11:01)
[2019-05-23] MEDS: DORZOLAMIDE 2% HCL OPHTHALMIC SOLUTION 10 ML BOTTLE OU SCH ×2 (11:01→21:52)
[2019-05-23] MEDS: MEMANTINE HCL 5 MG TABLET (UD) PO SCH (11:03)
--- NOTE | 2019-05-23 11:21 | PN ---
Physical Exam: SUBJECTIVE: Patient seen and examined in the morning. No acute events overnight. No events on cardiac monitoring. Patient has no complaints of chest pain, shortness of breath, abdominal pain, nausea, vomiting, diarrhea. OBJECTIVE: Vital Signs Period Temp Pulse Resp BP Sys/Peña Pulse Ox Last 24 Hr 98 F-98.5 F 72-94 18-25 120-157/68-92 98 GENERAL: Awake, alert, and oriented to self and place. Answers some questions, continues to be drowsy today HEAD: Normal with no signs of trauma. EYES: Pupils equal, round and reactive to light, extraocular movements intact, sclera anicteric, conjunctiva clear. EARS, NOSE, THROAT: Ears normal, nares patent, oropharynx clear without exudates. Moist mucous membranes. NECK: Supple. No lymphadenopathy, no JVD. LUNGS: Breath sounds equal, clear to auscultation bilaterally. No wheezes, and no crackles. No accessory muscle use. HEART: Normal S1 and S2 without murmur, rub or gallop. ABDOMEN: Soft, nontender, not distended, normoactive bowel sounds, no guarding, no rebound, no masses. MUSCULOSKELETAL: Normal range of motion at all joints. No bony deformities or tenderness. EXTREMITIES: 2+ pulses, warm, well-perfused. No cyanosis. No clubbing. Cap refill <2 seconds. No peripheral edema. NEUROLOGICAL: Unable to follow enough commands to complete exam. PSYCHIATRIC: Cooperative. Good eye contact. Appropriate mood and affect. SKIN: Warm, dry, normal turgor, no rashes or lesions noted. Laboratory Results - last 24 hr 05/22/19 05/22/19 05/22/19 11:13 14:46 18:30 WBC RBC Hgb Hct MCV MCH MCHC RDW Plt Count MPV Sodium Potassium Chloride Carbon Dioxide Anion Gap BUN Creatinine Est GFR (CKD-EPI)AfAm Est GFR (CKD-EPI)NonAf POC Glucometer 271 237 142 Random Glucose Calcium Phosphorus Magnesium 05/22/19 05/23/19 05/23/19 21:15 05:52 05:52 WBC 8.9 RBC 3.17 L Hgb 9.2 L Hct 27.5 L MCV 86.7 MCH 28.9 MCHC 33.4 RDW 15.4 Plt Count 251 MPV 8.4 Sodium 146 H Potassium 3.9 Chloride 115 H Carbon Dioxide 23 Anion Gap 8 BUN 21.2 H Creatinine 1.3 Est GFR (CKD-EPI)AfAm 44.56 Est GFR (CKD-EPI)NonAf 38.44 POC Glucometer 274 Random Glucose 191 H Calcium 9.3 Phosphorus 2.9 Magnesium 1.8 05/23/19 06:00 WBC RBC Hgb Hct MCV MCH MCHC RDW Plt Count MPV Sodium Potassium Chloride Carbon Dioxide Anion Gap BUN Creatinine Est GFR (CKD-EPI)AfAm Est GFR (CKD-EPI)NonAf POC Glucometer 169 Random Glucose Calcium Phosphorus Magnesium Active Medications Generic Name Dose Route Start Last Admin Trade Name Freq PRN Reason Stop Dose Admin Amlodipine Besylate 5 mg 05/21/19 10:00 05/23/19 11:01 Norvasc - PO 5 mg DAILY SAM Administration Artificial Tears 1 drop 05/20/19 22:00 05/23/19 10:59 Artificial Tears OU 1 drop BID SAM Administration Atorvastatin Calcium 40 mg 05/20/19 22:00 05/22/19 21:27 Lipitor - PO 40 mg HS SAM Administration Brimonidine Tartrate 1 drop 05/20/19 22:00 05/23/19 10:59 Alphagan 0.15% - OU 1 drop BID SAM Administration Dorzolamide HCl 1 drop 05/20/19 23:30 05/23/19 11:01 Trusopt 2% OU 1 drop BID SAM Administration Duloxetine HCl 30 mg 05/21/19 10:00 05/23/19 11:01 Cymbalta - PO 30 mg DAILY SAM Administration Ergocalciferol 50,000 unit 05/28/19 10:00 Drisdol - PO Q7D@1000 SAM Heparin Sodium (Porcine) 5,000 unit 05/21/19 14:00 05/23/19 05:51 Heparin - SQ 5,000 unit TID SAM Administration Ceftriaxone Sodium 1 gm/ 50 mls @ 100 mls/hr 05/21/19 10:00 05/23/19 10:38 Dextrose IVPB 100 mls/hr DAILY SAM Administration Protocol Insulin Aspart 1 vial 05/21/19 11:00 05/23/19 06:14 Novolog Vial Sliding Scale - SQ 2 units ACHS SAM Administration Protocol Insulin Detemir 15 units 05/21/19 22:00 05/22/19 21:28 Levemir Vial SQ 15 units HS SAM Administration Levothyroxine Sodium 50 mcg 05/21/19 07:00 05/23/19 06:00 Synthroid - PO 50 mcg DAILY@0700 SAM Administration Losartan Potassium 100 mg 05/21/19 10:00 05/23/19 11:00 Cozaar - PO 100 mg DAILY SAM Administration Memantine 5 mg 05/21/19 10:00 05/22/19 11:00 Namenda - PO 5 mg DAILY SAM Administration Mupirocin 1 applic 05/20/19 22:00 05/23/19 10:59 Bactroban Ointment (For Decolonization) - NS 05/25/19 21:59 1 applic BID SAM Administration Risperidone 0.5 mg 05/21/19 22:00 05/22/19 21:30 Risperdal - PO 0.5 mg HS SAM Administration ASSESSMENT/PLAN: 83F w/ pmhx of alzheimers dementia, schizophrenia, hypothyroidism, DM, HTN, HLD , CAD who presents with AMS likely due to DKA. Neuro Acute Metabolic Encephalopathy -Patient has baseline Dementia, but is more alert and oriented today. -Currently alert and oriented to self and that she is in a hospital. -Continue home Cymbalta 30 mg Daily, Memantine 5 mg Daily, Risperidone 0.5 mg HS -Head CT ordered; report shows that there are chronic infarcts present. No mass lesions present. -MRI pending. Endocrine Diabetic Ketoacidosis Glaucoma Hypothyroidism -Anion gap closed. -Patient on sliding scale insulin -Levemir 15 units HS -Continue Brimonidine, timolol, and artificial tears drops. -continue home dose levothyroxine 50 mcg daily. -Endocrinology consulted Cardio Hx of CAD Hx of HTN -EKG is NSR, LVH, Qtc 428. No peaked T waves or ST-T changes. -Continue home meds: Amlodipine 5mg Daily, Losartan 100 mg daily, Atorvastatin 40 HS. -Echo ordered shows LV normal, mild AR, trace MR, trace TR Pulm -Treating for pneumonia -Cultures pending -Ceftriaxone 1 gram daily GI -Patient has no GI symptoms at present. Will continue monitoring. -Diabetic diet Renal NIKOLE -BUN/Creatinine is 47.9/2.7 -Renal U/S unremarkable. Left renal cyst present 9x8 mm. Heme Anemia -H/H stable FEN: F:Oral hydration E:Trend BMP N:NPO until glucose is under control DVT Prophylaxis: Heparin 5000 unit TID SQ Dispo: Transfer to med surg. Visit type - Emergency Visit Emergency Visit: Yes ED Registration Date: 05/20/19 Care time: The patient presented to the Emergency Department on the above date and was hospitalized for further evaluation of their emergent condition. - New Patient This patient is new to me today: No - Critical Care Critical Care patient: Yes Total Critical Care Time (in minutes): 45 Critical Care Statement: The care of this patient involved high complexity decision making to prevent further life threatening deterioration of the patient 's condition and/or to evaluate & treat vital organ system(s) failure or risk of failure. ATTENDING PHYSICIAN STATEMENT I saw and evaluated the patient. I reviewed the resident's note and discussed the case with the resident. I agree with the resident's findings and plan as documented. SUBJECTIVE: OBJECTIVE: ASSESSMENT AND PLAN:
--- NOTE | 2019-05-23 15:04 | PN ---
Physical Exam: SUBJECTIVE: Patient seen and examined at the bedside. Continued to be confused intermittently but currently denying any acute pains. Endorsing a cough and noting that she wants to get out of bed and move around. Denies cp, sob, abd pain, n/v/c/d, headaches, dizziness, lightheadedness, fever, chills. OBJECTIVE: Vital Signs Period Temp Pulse Resp BP Sys/Peña Pulse Ox Last 24 Hr 98 F-98.7 F 68-94 18-27 120-157/68-91 91-98 GENERAL: The patient is awake, alert, and oriented to self and "hospital", in no acute distress. HEAD: Normal with no signs of trauma. EYES: PERRL, extraocular movements intact, sclera anicteric, conjunctiva clear. ENT: Oropharynx clear without exudates, dry mucous membranes. NECK: Trachea midline, full range of motion, supple. LUNGS: Breath sounds equal, with bibasilar crackles. No noted wheezes. HEART: Regular rate and rhythm, S1, S2 without murmur, rub. ABDOMEN: Soft, nontender, nondistended, normoactive bowel sounds, no guarding, no rebound, no masses. EXTREMITIES: 2+ pulses, warm, well-perfused, no edema. NEUROLOGICAL: Cranial nerves II through XII grossly intact. 4/5 muscle strength upper and lower extremities bilaterally. PSYCH: Mildly confused but responding appropriately. Easily reoriented. SKIN: Warm, dry, no rashes or lesions noted Laboratory Results - last 24 hr 05/22/19 05/22/19 05/23/19 18:30 21:15 05:52 WBC 8.9 RBC 3.17 L Hgb 9.2 L Hct 27.5 L MCV 86.7 MCH 28.9 MCHC 33.4 RDW 15.4 Plt Count 251 MPV 8.4 Sodium Potassium Chloride Carbon Dioxide Anion Gap BUN Creatinine Est GFR (CKD-EPI)AfAm Est GFR (CKD-EPI)NonAf POC Glucometer 142 274 Random Glucose Calcium Phosphorus Magnesium 05/23/19 05/23/19 05/23/19 05:52 06:00 12:54 WBC RBC Hgb Hct MCV MCH MCHC RDW Plt Count MPV Sodium 146 H Potassium 3.9 Chloride 115 H Carbon Dioxide 23 Anion Gap 8 BUN 21.2 H Creatinine 1.3 Est GFR (CKD-EPI)AfAm 44.56 Est GFR (CKD-EPI)NonAf 38.44 POC Glucometer 169 164 Random Glucose 191 H Calcium 9.3 Phosphorus 2.9 Magnesium 1.8 Active Medications Generic Name Dose Route Start Last Admin Trade Name Freq PRN Reason Stop Dose Admin Amlodipine Besylate 5 mg 05/21/19 10:00 05/23/19 11:01 Norvasc - PO 5 mg DAILY SAM Administration Artificial Tears 1 drop 05/20/19 22:00 05/23/19 10:59 Artificial Tears OU 1 drop BID SAM Administration Atorvastatin Calcium 40 mg 05/20/19 22:00 05/22/19 21:27 Lipitor - PO 40 mg HS SAM Administration Brimonidine Tartrate 1 drop 05/20/19 22:00 05/23/19 10:59 Alphagan 0.15% - OU 1 drop BID SAM Administration Dorzolamide HCl 1 drop 05/20/19 23:30 05/23/19 11:01 Trusopt 2% OU 1 drop BID SAM Administration Duloxetine HCl 30 mg 05/21/19 10:00 05/23/19 11:01 Cymbalta - PO 30 mg DAILY SAM Administration Ergocalciferol 50,000 unit 05/28/19 10:00 Drisdol - PO Q7D@1000 [facility] Heparin Sodium (Porcine) 5,000 unit 05/21/19 14:00 05/23/19 13:09 Heparin - SQ 5,000 unit TID SAM Administration Ceftriaxone Sodium 1 gm/ 50 mls @ 100 mls/hr 05/21/19 10:00 05/23/19 10:38 Dextrose IVPB 100 mls/hr DAILY SAM Administration Protocol Insulin Aspart 1 vial 05/21/19 11:00 05/23/19 13:08 Novolog Vial Sliding Scale - SQ 2 units ACHS SAM Administration Protocol Insulin Detemir 15 units 05/21/19 22:00 05/22/19 21:28 Levemir Vial SQ 15 units HS SAM Administration Levothyroxine Sodium 50 mcg 05/21/19 07:00 05/23/19 06:00 Synthroid - PO 50 mcg DAILY@0700 SAM Administration Losartan Potassium 100 mg 05/21/19 10:00 05/23/19 11:00 Cozaar - PO 100 mg DAILY SAM Administration Memantine 5 mg 05/21/19 10:00 05/23/19 11:03 Namenda - PO 5 mg DAILY SAM Administration Mupirocin 1 applic 05/20/19 22:00 05/23/19 10:59 Bactroban Ointment (For Decolonization) - NS 05/25/19 21:59 1 applic BID SAM Administration Risperidone 0.5 mg 05/21/19 22:00 05/22/19 21:30 Risperdal - PO 0.5 mg HS SAM Administration ASSESSMENT/PLAN: Mallory Valencia is an 83 year old female with a past medical history of alzheimers, schizophrenia, HTN, DM2, hypothyroidism, CAD, HLD, HHD (LVH), glaucoma, depression who presents from [facility] who was admitted with AMS likely secondary to DKA. High anion gap metabolic acidosis 2/2 DKA - Likely precipitated by infection - Home meds: metformin 1000mg BID, jardiance 10mg BID - discontinue Jardiance outpatient in setting of DKA - Started on insulin drip and was bridged with 30 units of Levemir and drip was shut off - Levemir 15 units hs to be transitioned to Lantus 15 units at her facility as Levemir not covered - anion gap closed - 1/2 NS at 75cc/hr for one bag - A1C 11.1 - BGM - ISS - Endocrinology consulted (Dr. Titus), recs appreciated - currently on diabetic diet - will need outpatient measurement of C-peptide and MIKE antibody PNA vs URTI - Rapid influenza neg - CXR: possible LLL infiltrate per our read. R granuloma present, stable - urine step positive, legionella negative - discontinued azithromycin - ceftriaxone 1g daily, day 3, will necessitate total of 7 days Acute metabolic encephalopathy - Pt has baseline dementia A&O x2, currently A&Ox2 - Cont home meds: cymbalta 30 mg daily, Memantine 5 mg daily, Risperidone 0.5 mg HS - CT head: small cerebellar infarcts, likely chronic in nature. Chronic mod periventricular and subcortical white matter microvascular ischemic gliosis - MRI to evaluate cerebellar infarcts, will reach out to family to obtain consent NIKOLE on CKD - baseline CRE 1.3 in December as per Dr. Inderjit Spangler (PCP at the [facility]) - today CRE 1.3, improved from admission - renal US with no acute pathology, noted renal cyst on L Normocytic anemia likely 2/2 chronic disease - chronic anemia, baseline in December 10.5 - Hgb 10.2 today - Iron: 17, TIBC: 238, iron sat 7%, ferritin 139.3 - F/u stool guaiac - iron supplementation HTN and CAD - Cont home meds: Amlodipine 5mg Daily, Losartan 100 mg daily, Atorvastatin 40 HS - Last known echo Jan 2016: LV function normal, impaired relaxation, mild MR, mild - echo here noting normal LV size, function, thickness, normal EF, mild aortic regurg, trace to mild tricuspid regurg, trace to mild mitral regurg, possible poor LV compliance Hypothyroidism - Continue home levothyroxine 50mcg daily - TSH 4.31 - will require outpatient f/u Glaucoma - Continue briminodine and timolol eye drops FEN - no standing fluids - continue to monitor electrolytes and replete as necessary - Diabetic diet DVT ppx - heparin 5000 units subq tid Dispo - stable for transfer to floors Visit type - Emergency Visit Emergency Visit: Yes ED Registration Date: 05/20/19 Care time: The patient presented to the Emergency Department on the above date and was hospitalized for further evaluation of their emergent condition. - New Patient This patient is new to me today: No - Critical Care Critical Care patient: No
--- NOTE | 2019-05-23 16:26 | PN ---
Teaching Attending Note Name of Resident: Neel Benitez ATTENDING PHYSICIAN STATEMENT I saw and evaluated the patient. I reviewed the resident's note and discussed the case with the resident. I agree with the resident's findings and plan as documented. SUBJECTIVE: Feels better. No CP/hemoptysis. No fever/chills. OBJECTIVE: Afebrile, Hemodynamically Stable. AAO x 1 - 2 Last Vital Signs Temp Pulse Resp BP Pulse Ox 98.5 F 75 27 H 129/78 94 L 05/23/19 14:00 05/23/19 14:00 05/23/19 13:13 05/23/19 14:00 05/23/19 14:18 Heart - S1, S2, soft SM Lungs - good air entry, bibasal crackles. Abdomen - Soft, non-tender. Bowel Sounds normal. Extremities - no edema, no calf tenderness. Laboratory Results - last 24 hr 05/22/19 05/22/19 05/23/19 18:30 21:15 05:52 WBC 8.9 RBC 3.17 L Hgb 9.2 L Hct 27.5 L MCV 86.7 MCH 28.9 MCHC 33.4 RDW 15.4 Plt Count 251 MPV 8.4 Sodium Potassium Chloride Carbon Dioxide Anion Gap BUN Creatinine Est GFR (CKD-EPI)AfAm Est GFR (CKD-EPI)NonAf POC Glucometer 142 274 Random Glucose Calcium Phosphorus Magnesium 05/23/19 05/23/19 05/23/19 05:52 06:00 12:54 WBC RBC Hgb Hct MCV MCH MCHC RDW Plt Count MPV Sodium 146 H Potassium 3.9 Chloride 115 H Carbon Dioxide 23 Anion Gap 8 BUN 21.2 H Creatinine 1.3 Est GFR (CKD-EPI)AfAm 44.56 Est GFR (CKD-EPI)NonAf 38.44 POC Glucometer 169 164 Random Glucose 191 H Calcium 9.3 Phosphorus 2.9 Magnesium 1.8 Current Medications Generic Name Dose Route Start Last Admin Trade Name Freq PRN Reason Stop Dose Admin Amlodipine Besylate 5 mg 05/21/19 10:00 05/23/19 11:01 Norvasc - PO 5 mg DAILY SAM Administration Artificial Tears 1 drop 05/20/19 22:00 05/23/19 10:59 Artificial Tears OU 1 drop BID SAM Administration Atorvastatin Calcium 40 mg 05/20/19 22:00 05/22/19 21:27 Lipitor - PO 40 mg HS SAM Administration Brimonidine Tartrate 1 drop 05/20/19 22:00 05/23/19 10:59 Alphagan 0.15% - OU 1 drop BID SAM Administration Dorzolamide HCl 1 drop 05/20/19 23:30 05/23/19 11:01 Trusopt 2% OU 1 drop BID SAM Administration Duloxetine HCl 30 mg 05/21/19 10:00 05/23/19 11:01 Cymbalta - PO 30 mg DAILY SAM Administration Ergocalciferol 50,000 unit 05/28/19 10:00 Drisdol - PO Q7D@1000 SAM Heparin Sodium (Porcine) 5,000 unit 05/21/19 14:00 05/23/19 13:09 Heparin - SQ 5,000 unit TID SAM Administration Ceftriaxone Sodium 1 gm/ 50 mls @ 100 mls/hr 05/21/19 10:00 05/23/19 10:38 Dextrose IVPB 100 mls/hr DAILY SAM Administration Protocol Insulin Aspart 1 vial 05/21/19 11:00 05/23/19 13:08 Novolog Vial Sliding Scale - SQ 2 units ACHS SAM Administration Protocol Insulin Detemir 15 units 05/21/19 22:00 05/22/19 21:28 Levemir Vial SQ 15 units HS SAM Administration Levothyroxine Sodium 50 mcg 05/21/19 07:00 05/23/19 06:00 Synthroid - PO 50 mcg DAILY@0700 SAM Administration Losartan Potassium 100 mg 05/21/19 10:00 05/23/19 11:00 Cozaar - PO 100 mg DAILY SAM Administration Memantine 5 mg 05/21/19 10:00 05/23/19 11:03 Namenda - PO 5 mg DAILY SAM Administration Mupirocin 1 applic 05/20/19 22:00 05/23/19 10:59 Bactroban Ointment (For Decolonization) - NS 05/25/19 21:59 1 applic BID SAM Administration Risperidone 0.5 mg 05/21/19 22:00 05/22/19 21:30 Risperdal - PO 0.5 mg HS SAM Administration Home Medications Medication Instructions Recorded Atorvastatin Ca [Lipitor] 40 mg PO HS #0 01/12/16 Amlodipine Besylate [Norvasc -] 5 mg PO DAILY 05/20/19 Brimonidine Tartrate [Alphagan 1 drop OU BID 05/20/19 0.15% -] Dorzolamide HCl/Pf [Dorzolamide 2% 1 drop OU BID 05/20/19 Eye Drop] Duloxetine HCl [Cymbalta -] 30 mg PO DAILY 05/20/19 Ergocalciferol [Vitamin D2] 50,000 unit PO Q7D@1000 05/20/19 Levothyroxine Sodium 50 mcg PO DAILY 05/20/19 Losartan Potassium [Cozaar] 100 mg PO DAILY 05/20/19 Memantine HCl [Namenda -] 5 mg PO DAILY 05/20/19 Polyvinyl Alcohol [Artificial 1 drop OU BID 05/20/19 Tears] Risperidone [Risperdal -] 0.5 mg PO HS 05/20/19 metFORMIN HCL [Glucophage -] 1,000 mg PO BID 05/20/19 Cefuroxime Axetil [Cefuroxime] 500 mg PO BID #8 tablet 05/22/19 Insulin Glargine,Hum.rec.anlog 15 unit SQ HS #5 vial 05/22/19 [Lantus] Insulin Sliding Scale [Novolog See Protocol SQ ACHS #1 vial 05/22/19 Vial Sliding Scale -] ASSESSMENT/PLAN: 83 y/o woman with hx DM 2, Alzheimers, Schizophrenia, HTN, CAD, [facility], admitted for 3 day history of increasing confusion and cough. Noted to be hyperglycemic with DKA on presentation. 1. Acute DKA, baseline Uncontrolled DM 2, A1C 11.2 pH 7.15, Bicarb 8, AG 22 on presentation, now resolved. Transitioned off Insulin drip on to SQ Levemir/Sliding scale. Metformin to resume on discharge. Hold Jardiance as per Endo. Tolerating diet. Endocrinology input appreciated - follow up as outpatient. 2. LRTI - likely Acute Bronchitis Afebrile, Hemodynamically Stable. Flu negative Urine Strep Ag positive. Continue Cephalosporin for total 7 days. 3. Acute Metabolic Encephalopathy atop baseline Alzheimer's Dementia/ Schizophrenia AAO x 1. Unclear baseline mental status. 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 Remaining left cerebellar infarcts are too small to actually characterize on current exam. Echo - normal. MRI Brain ordered, but unable to give consent due to mental status. Attempting to reach family. Continue Risperidone, Namenda, Cymbalta 4. NIKOLE on CKD 3 - resolving, Creat down to 1.3 from 2.7 Renal US - L renal cyst 9 x 8mm Oral intake encouraged. 5. Hypothyroidism, TSH 4.31. Continue Synthroid at current dose. Out-patient follow up for repeat Thyroid Function. 6. HTN - continue Losartan, Norvasc. 7. Normocytic Anemia, etiology multifactorial (ALESSANDRO, Chronic Disease, CKD) - Iron Sat 7%/Ferritin 132. No evidence of acute bleeding. For out-patient GI and Nephrology follow up. Iron supplementation. Medically optimized, clinically improved. Awaiting MRI prior to discharge back to SNF/Assisted Living.
[2019-05-23] MEDS: FERROUS SO4 325 MG TABLET (FP) PO SCH (21:54)
[2019-05-23] MEDS: risperiDONE 0.5 MG TABLET PO SCH (21:54)
[2019-05-23] MEDS: ATORVASTATIN CA 40 MG TABLET (FP) PO SCH (21:54)
[2019-05-23] MEDS: INSULIN (LEVEMIR) 100 UNITS/ML UNITS SQ SCH (21:54)
[2019-05-23] MEDS ORDERED: MUPIROCIN 2% TOPICAL OINTMENT FOR DECOLONIZATION NS SCH (22:00)
[2019-05-24] MEDS: HEPARIN NA (PORCINE) 5,000 UNITS/ML 1ML VIAL SQ SCH ×3 (05:46→21:05)
[2019-05-24] MEDS: LEVOTHYROXINE NA 50 MCG TABLET (FP) PO SCH (06:42)
[2019-05-24] MEDS: INSULIN SLIDING SCALE (NOVOLOG) 1 VIAL SQ SCH ×3 (06:43→21:10)
[2019-05-24] MEDS ORDERED: DEXTROSE 5%-WATER - 50 ML IVPB ONE (10:09)
[2019-05-24] MEDS ORDERED: cefTRIAXone SODIUM 1 GM VIAL ONE (10:09)
[2019-05-24] MEDS: DORZOLAMIDE 2% HCL OPHTHALMIC SOLUTION 10 ML BOTTLE OU SCH ×2 (10:14→21:11)
[2019-05-24] MEDS: BRIMONIDINE TARTRATE 0.15% OPHTHALMIC 5 ML BOTTLE OU SCH ×2 (10:14→21:05)
[2019-05-24] MEDS: CEFTRIAXONE 1 GM in DEXTROSE 5%-WATER - 50 ML IVPB SCH (10:14)
[2019-05-24] MEDS: ARTIFICIAL TEARS (POLYVINYL ALCOHOL) OPTH DROPS OU SCH ×2 (10:14→21:05)
[2019-05-24] MEDS: DULoxetine HCL 30 MG CAPSULE.DR PO SCH (10:20)
[2019-05-24] MEDS: amLODIPine BESYLATE 5 MG TABLET (FP) PO SCH (10:20)
[2019-05-24] MEDS: FERROUS SO4 325 MG TABLET (FP) PO SCH ×2 (10:20→21:05)
[2019-05-24] MEDS: LOSARTAN POTASSIUM 50 MG TABLET (FP) PO SCH (10:20)
[2019-05-24] MEDS: MEMANTINE HCL 5 MG TABLET (UD) PO SCH (10:20)
--- NOTE | 2019-05-24 12:47 | PN ---
Teaching Attending Note Name of Resident: Jeniffer Shah ATTENDING PHYSICIAN STATEMENT I saw and evaluated the patient. I reviewed the resident's note and discussed the case with the resident. I agree with the resident's findings and plan as documented. SUBJECTIVE: Feels better. No CP/hemoptysis. No fever/chills. No complaints. OBJECTIVE: Afebrile, Hemodynamically Stable. Comfortable. AAO x 2ish Last Vital Signs Temp Pulse Resp BP Pulse Ox 98.4 F 75 17 146/80 95 05/24/19 05:00 05/24/19 05:00 05/24/19 05:00 05/24/19 05:00 05/23/19 21:00 Heart - S1, S2, soft SM Lungs - good air entry, decreased at bases. Abdomen - Soft, non-tender. Bowel Sounds normal. Extremities - no edema, no calf tenderness. Laboratory Results - last 24 hr 05/23/19 05/23/19 05/23/19 12:54 16:56 21:57 POC Glucometer 164 261 369 05/24/19 05/24/19 05:41 12:36 POC Glucometer 109 296 Current Medications Generic Name Dose Route Start Last Admin Trade Name Freq PRN Reason Stop Dose Admin Amlodipine Besylate 5 mg 05/24/19 10:00 05/24/19 10:20 Norvasc - PO 5 mg DAILY SAM Administration Artificial Tears 1 drop 05/23/19 22:00 05/24/19 10:14 Artificial Tears OU 1 drop BID SAM Administration Atorvastatin Calcium 40 mg 05/23/19 22:00 05/23/19 21:54 Lipitor - PO 40 mg HS SAM Administration Brimonidine Tartrate 1 drop 05/23/19 22:00 05/24/19 10:14 Alphagan 0.15% - OU 1 drop BID SAM Administration Dorzolamide HCl 1 drop 05/23/19 22:00 05/24/19 10:14 Trusopt 2% OU 1 drop BID SAM Administration Duloxetine HCl 30 mg 05/24/19 10:00 05/24/19 10:20 Cymbalta - PO 30 mg DAILY SAM Administration Ergocalciferol 50,000 unit 05/28/19 10:00 Drisdol - PO Q7D@1000 SAM Ferrous Sulfate 325 mg 05/23/19 22:00 05/24/19 10:20 Feosol - PO 325 mg BID SAM Administration Heparin Sodium (Porcine) 5,000 unit 05/23/19 22:00 05/24/19 05:46 Heparin - SQ 5,000 unit TID SAM Administration Ceftriaxone Sodium 1 gm/ 50 mls @ 100 mls/hr 05/24/19 10:00 05/24/19 10:14 Dextrose IVPB 100 mls/hr DAILY SAM Administration Protocol Insulin Aspart 1 vial 05/23/19 22:00 05/24/19 12:39 Novolog Vial Sliding Scale - SQ 6 units ACHS SAM Administration Protocol Insulin Detemir 15 units 05/23/19 22:00 05/23/19 21:54 Levemir Vial SQ 15 units HS SAM Administration Levothyroxine Sodium 50 mcg 05/24/19 07:00 05/24/19 06:42 Synthroid - PO 50 mcg DAILY@0700 SAM Administration Losartan Potassium 100 mg 05/24/19 10:00 05/24/19 10:20 Cozaar - PO 100 mg DAILY SAM Administration Memantine 5 mg 05/24/19 10:00 05/24/19 10:20 Namenda - PO 5 mg DAILY SAM Administration Risperidone 0.5 mg 05/23/19 22:00 05/23/19 21:54 Risperdal - PO 0.5 mg HS SAM Administration Home Medications Medication Instructions Recorded Atorvastatin Ca [Lipitor] 40 mg PO HS #0 01/12/16 Amlodipine Besylate [Norvasc -] 5 mg PO DAILY 05/20/19 Brimonidine Tartrate [Alphagan 1 drop OU BID 05/20/19 0.15% -] Dorzolamide HCl/Pf [Dorzolamide 2% 1 drop OU BID 05/20/19 Eye Drop] Duloxetine HCl [Cymbalta -] 30 mg PO DAILY 05/20/19 Ergocalciferol [Vitamin D2] 50,000 unit PO Q7D@1000 05/20/19 Levothyroxine Sodium 50 mcg PO DAILY 05/20/19 Losartan Potassium [Cozaar] 100 mg PO DAILY 05/20/19 Memantine HCl [Namenda -] 5 mg PO DAILY 05/20/19 Polyvinyl Alcohol [Artificial 1 drop OU BID 05/20/19 Tears] Risperidone [Risperdal -] 0.5 mg PO HS 05/20/19 metFORMIN HCL [Glucophage -] 1,000 mg PO BID 05/20/19 Insulin Glargine,Hum.rec.anlog 15 unit SQ HS #5 vial 05/22/19 [Lantus] Insulin Sliding Scale [Novolog See Protocol SQ ACHS #1 vial 05/22/19 Vial Sliding Scale -] Cefuroxime Axetil [Cefuroxime] 500 mg PO BID #6 tablet 05/23/19 ASSESSMENT/PLAN: 83 y/o woman with hx DM 2, Alzheimers, Schizophrenia, HTN, CAD, [facility], admitted for 3 day history of increasing confusion and cough. Noted to be hyperglycemic with DKA on presentation. 1. Acute DKA, resolved. Baseline Uncontrolled DM 2, A1C 11.2 pH 7.15, Bicarb 8, AG 22 on presentation, now resolved. Transitioned off Insulin drip on to SQ Levemir/Sliding scale. Metformin to resume on discharge. Hold Jardiance as per Endo. Tolerating diet. Endocrinology input appreciated - follow up as outpatient. 2. LRTI - likely Acute Bronchitis Afebrile, Hemodynamically Stable. Flu negative Urine Strep Ag positive. Continue Cephalosporin for total 7 days. 3. Acute Metabolic Encephalopathy atop baseline Alzheimer's Dementia/ Schizophrenia AAO x 1. Unclear baseline mental status. 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 Remaining left cerebellar infarcts are too small to actually characterize on current exam. Echo - normal. MRI Brain ordered, but unable to give consent/complete questionnaire due to mental status. Attempting to reach family. Continue Risperidone, Namenda, Cymbalta 4. NIKOLE on CKD 3 - resolving, Creat down to 1.3 from 2.7 Renal US - L renal cyst 9 x 8mm Oral intake encouraged. 5. Hypothyroidism, TSH 4.31. Continue Synthroid at current dose. Out-patient follow up for repeat Thyroid Function. 6. HTN - continue Losartan, Norvasc. 7. Normocytic Anemia, etiology multifactorial (ALESSANDRO, Chronic Disease, CKD) - Iron Sat 7%/Ferritin 132. No evidence of acute bleeding. For out-patient GI and Nephrology follow up. Iron supplementation. Medically optimized, clinically improved. Awaiting MRI prior to discharge back to SNF/Assisted Living.
--- NOTE | 2019-05-24 13:45 | PN ---
Physical Exam: SUBJECTIVE: Patient seen and examined. Able to tolerate breakfast this AM. OBJECTIVE: Vital Signs Period Temp Pulse Resp BP Sys/Peña Pulse Ox Last 24 Hr 98.2 F-99.1 F 71-82 17-20 126-146/75-84 94-95 GENERAL: A&Ox2, NAD HEAD: NCAT EYES: PERRL, EOMI ENT: MMM NECK: Supple LUNGS: Bibasilar crackles HEART: Regular rate and rhythm, S1, S2 without murmur ABDOMEN: Soft, nontender, nondistended, + bowel sounds, no guarding EXTREMITIES: No edema NEUROLOGICAL: Cranial nerves II through XII grossly intact. SKIN: Warm, dry Laboratory Results - last 24 hr 05/23/19 05/23/19 05/24/19 16:56 21:57 05:41 POC Glucometer 261 369 109 05/24/19 12:36 POC Glucometer 296 Microbiology 05/20/19 15:16 Blood - Peripheral Venous Blood Culture - Preliminary NO GROWTH OBTAINED AFTER 72 HOURS, INCUBATION TO CONTINUE FOR 2 DAYS. 05/20/19 15:00 Blood - Peripheral Venous Blood Culture - Preliminary NO GROWTH OBTAINED AFTER 72 HOURS, INCUBATION TO CONTINUE FOR 2 DAYS. 05/22/19 10:00 Urine - Urine Clean Catch Legionella Antigen - Final 05/22/19 10:00 Urine - Urine Clean Catch Streptococcus pneumoniae Antigen ( M - Final 05/20/19 16:50 Urine - Urine Clean Catch Urine Culture - Final NO GROWTH OBTAINED Active Medications Amlodipine Besylate (Norvasc -) 5 mg PO DAILY [facility] Last Admin: 05/24/19 10:20 Dose: 5 mg Artificial Tears (Artificial Tears) 1 drop OU BID [facility] Last Admin: 05/24/19 10:14 Dose: 1 drop Atorvastatin Calcium (Lipitor -) 40 mg PO HS [facility] Last Admin: 05/23/19 21:54 Dose: 40 mg Brimonidine Tartrate (Alphagan 0.15% -) 1 drop OU BID [facility] Last Admin: 05/24/19 10:14 Dose: 1 drop Dorzolamide HCl (Trusopt 2%) 1 drop OU BID [facility] Last Admin: 05/24/19 10:14 Dose: 1 drop Duloxetine HCl (Cymbalta -) 30 mg PO DAILY [facility] Last Admin: 05/24/19 10:20 Dose: 30 mg Ergocalciferol (Drisdol -) 50,000 unit PO Q7D@1000 [facility] Ferrous Sulfate (Feosol -) 325 mg PO BID [facility] Last Admin: 05/24/19 10:20 Dose: 325 mg Heparin Sodium (Porcine) (Heparin -) 5,000 unit SQ TID [facility] Last Admin: 05/24/19 05:46 Dose: 5,000 unit Ceftriaxone Sodium 1 gm/ (Dextrose) 50 mls @ 100 mls/hr IVPB DAILY [facility]; Protocol Last Admin: 05/24/19 10:14 Dose: 100 mls/hr Insulin Aspart (Novolog Vial Sliding Scale -) 1 vial SQ ACHS [facility]; Protocol Last Admin: 05/24/19 12:39 Dose: 6 units Insulin Detemir (Levemir Vial) 15 units SQ HS [facility] Last Admin: 05/23/19 21:54 Dose: 15 units Levothyroxine Sodium (Synthroid -) 50 mcg PO DAILY@0700 [facility] Last Admin: 05/24/19 06:42 Dose: 50 mcg Losartan Potassium (Cozaar -) 100 mg PO DAILY [facility] Last Admin: 05/24/19 10:20 Dose: 100 mg Memantine (Namenda -) 5 mg PO DAILY [facility] Last Admin: 05/24/19 10:20 Dose: 5 mg Risperidone (Risperdal -) 0.5 mg PO HS [facility] Last Admin: 05/23/19 21:54 Dose: 0.5 mg ASSESSMENT/PLAN: 83 y/o F with PMHx Alzheimers, schizophrenia, HTN, DM2, hypothyroidism, CAD, HLD , glaucoma, depression who presents from [facility] for AMS likely secondary to DKA. #DKA, Resolved - Likely precipitated by infection - A1C 11.1 - Advised to discontinue Jardiance once discharged - No longer on Insulin Drip; Started on 15u Long acting insulin, BGMs ISS ACHS - Levemir 15 units hs to be transitioned to Lantus 15 units at her facility as Levemir not covered - Endocrinology consulted (Dr. Titus), recs appreciated #Acute Bronchitis - urine step positive - Continue ceftriaxone 1g daily (day 4 of 7 days) #Acute metabolic encephalopathy - In the setting of baseline dementia - Cont home meds: cymbalta 30 mg daily, Memantine 5 mg daily, Risperidone 0.5 mg HS - MRI to evaluate cerebellar infarcts, will reach out to family to obtain consent however have not been successful thus far #NIKOLE on CKD - baseline CRE 1.3 in December as per Dr. Inderjit Spangler (PCP at the [facility]isted [facility]) - Encourage PO Intake #Normocytic anemia likely 2/2 chronic disease - Continue iron supplementation #HTN and CAD - Cont home meds: Amlodipine 5mg Daily, Losartan 100 mg daily, Atorvastatin 40 HS - Echo Normal #Hypothyroidism - Continue home levothyroxine 50mcg daily #Glaucoma - Continue briminodine and timolol eye drops #FEN - no standing fluids - Replete lytes PRN - Diabetic diet #PPx - DVT: heparin TID Dispo: Awaiting MRI to be done prior to discharge Visit type - Emergency Visit Emergency Visit: Yes ED Registration Date: 05/20/19 Care time: The patient presented to the Emergency Department on the above date and was hospitalized for further evaluation of their emergent condition. - New Patient This patient is new to me today: No - Critical Care Critical Care patient: No - Discharge Referral Referred to [facility] No ATTENDING PHYSICIAN STATEMENT I saw and evaluated the patient. I reviewed the resident's note and discussed the case with the resident. I agree with the resident's findings and plan as documented. SUBJECTIVE: OBJECTIVE: ASSESSMENT AND PLAN:
--- NOTE | 2019-05-24 14:15 | PN ---
Progress Note (short form) - Note Progress Note: awake alert Blood sugar fluctuating Vital Signs Period Temp Pulse Resp BP Sys/Peña Pulse Ox Last 24 Hr 98.2 F-99.1 F 71-82 17-20 126-146/75-84 94-95 PE: Awake HEENT: EOMI Neck: Supple NO JVD Lungs: CTA CVS: S1S2 Abd: Benign Ext: No edema CMP Sodium 146 mmol/L (136-145) H 05/23/19 05:52 Potassium 3.9 mmol/L (3.5-5.1) 05/23/19 05:52 Chloride 115 mmol/L (98-107) H 05/23/19 05:52 Carbon Dioxide 23 mmol/L (21-32) 05/23/19 05:52 Anion Gap 8 MMOL/L (8-16) 05/23/19 05:52 BUN 21.2 mg/dL (7-18) H 05/23/19 05:52 Creatinine 1.3 mg/dL (0.55-1.3) 05/23/19 05:52 Est GFR (CKD-EPI)AfAm 44.56 05/23/19 05:52 Est GFR (CKD-EPI)NonAf 38.44 05/23/19 05:52 POC Glucometer 296 UNITS (80-120) 05/24/19 12:36 Random Glucose 191 mg/dL (74-106) H 05/23/19 05:52 Hemoglobin A1c % 11.1 % (4.2-6.3) H 05/20/19 18:55 Lactic Acid 1.2 mmol/L (0.4-2.0) 05/20/19 15:00 Calcium 9.3 mg/dL (8.5-10.1) 05/23/19 05:52 Phosphorus 2.9 mg/dL (2.5-4.9) 05/23/19 05:52 Magnesium 1.8 mg/dL (1.8-2.4) 05/23/19 05:52 Iron 17 ug/dL (50-175) L 05/20/19 19:30 TIBC 238 ug/dL (250-450) L 05/20/19 19:30 Iron Saturation 7 % (17.5-39) L 05/20/19 19:30 Unsaturated IBC 221 ug/dL (200-275) 05/20/19 19:30 Transferrin 188 mg/dL (200-370) L 05/21/19 02:00 Ferritin 139.3 ng/ml (8-388) 05/20/19 19:30 Total Bilirubin 0.3 mg/dL (0.2-1) 05/21/19 08:35 AST 17 U/L (15-37) 05/21/19 08:35 ALT 18 U/L (13-61) 05/21/19 08:35 Alkaline Phosphatase 57 U/L (45-117) 05/21/19 08:35 Creatine Kinase 172 U/L (26-192) 05/20/19 14:55 Creatine Kinase Index 1.5 % (0.0-5.0) 05/20/19 14:55 CK-MB (CK-2) 2.7 ng/mL (0.5-3.6) 05/20/19 14:55 Troponin I < 0.02 ng/ml (0.00-0.05) 05/20/19 14:55 Total Protein 6.9 g/dl (6.4-8.2) 05/21/19 08:35 Albumin 2.6 g/dl (3.4-5.0) L 05/21/19 08:35 Beta-Hydroxybutyrate 100.7 mg/dL (0.2-2.8) H 05/20/19 14:55 TSH 4.31 uIU/ml (0.358-3.74) H 05/21/19 08:35 Current Medications Generic Name Dose Route Start Last Admin Trade Name Freq PRN Reason Stop Dose Admin Amlodipine Besylate 5 mg 05/24/19 10:00 05/24/19 10:20 Norvasc - PO 5 mg DAILY [facility] Administration Artificial Tears 1 drop 05/23/19 22:00 05/24/19 10:14 Artificial Tears OU 1 drop BID SAM Administration Atorvastatin Calcium 40 mg 05/23/19 22:00 05/23/19 21:54 Lipitor - PO 40 mg HS SAM Administration Brimonidine Tartrate 1 drop 05/23/19 22:00 05/24/19 10:14 Alphagan 0.15% - OU 1 drop BID SAM Administration Dorzolamide HCl 1 drop 05/23/19 22:00 05/24/19 10:14 Trusopt 2% OU 1 drop BID SAM Administration Duloxetine HCl 30 mg 05/24/19 10:00 05/24/19 10:20 Cymbalta - PO 30 mg DAILY [facility] Administration Ergocalciferol 50,000 unit 05/28/19 10:00 Drisdol - PO Q7D@1000 [facility] Ferrous Sulfate 325 mg 05/23/19 22:00 05/24/19 10:20 Feosol - PO 325 mg BID SAM Administration Heparin Sodium (Porcine) 5,000 unit 05/23/19 22:00 05/24/19 05:46 Heparin - SQ 5,000 unit TID SAM Administration Ceftriaxone Sodium 1 gm/ 50 mls @ 100 mls/hr 05/24/19 10:00 05/24/19 10:14 Dextrose IVPB 100 mls/hr DAILY [facility] Administration Protocol Insulin Aspart 1 vial 05/23/19 22:00 05/24/19 12:39 Novolog Vial Sliding Scale - SQ 6 units ACHS [facility] Administration Protocol Insulin Detemir 15 units 05/23/19 22:00 05/23/19 21:54 Levemir Vial SQ 15 units HS SAM Administration Levothyroxine Sodium 50 mcg 05/24/19 07:00 05/24/19 06:42 Synthroid - PO 50 mcg DAILY@0700 [facility] Administration Losartan Potassium 100 mg 05/24/19 10:00 05/24/19 10:20 Cozaar - PO 100 mg DAILY [facility] Administration Memantine 5 mg 05/24/19 10:00 05/24/19 10:20 Namenda - PO 5 mg DAILY [facility] Administration Risperidone 0.5 mg 05/23/19 22:00 05/23/19 21:54 Risperdal - PO 0.5 mg HS [facility] Administration AP: DKA resolved? related to Jardiance T2DM Pneumonia vs Acute Bronchitis Acute Kidney Injury CAD HTN Hyperlipidemia Hypothyroidism Anemia Schizophrenia Dementia Continue Levemir 15 units daily at HS, May use Lantus 15 untis daily at HS at Assisted living increase NOvolog SS coverage in hospital. May need Premeal Insulin also if it can be done at the facility. 4 units Novolog or HUmalog TID with meals Metformin may be restarted if renal function normalizes No Jardiance or other SGLT2s in the future b/o DKA Labs for C peptide and MIKE should be done as outpt to determine if she can be weaned off Insulin Monitor electrolytes Replace electrolytes as necessary on empiric antibiotics Levothyroxine 50 mcg QD
--- NOTE | 2019-05-24 14:44 | PN ---
Progress Note (short form) - Note Progress Note: PULMONARY Denies shortness of breath. Cough improving. Vital Signs Period Temp Pulse Resp BP Sys/Peña Pulse Ox Last 24 Hr 98.2 F-99.1 F 71-82 17-20 126-146/75-84 94-95 Gen: NAD at rest Heart: RRR Lung: decreased breath sounds at the bases Abd: soft, nontender Ext: no edema CBC, BMP 05/23/19 05:52 05/23/19 05:52 Active Medications Amlodipine Besylate (Norvasc -) 5 mg PO DAILY [facility] Last Admin: 05/24/19 10:20 Dose: 5 mg Artificial Tears (Artificial Tears) 1 drop OU BID [facility] Last Admin: 05/24/19 10:14 Dose: 1 drop Atorvastatin Calcium (Lipitor -) 40 mg PO HS [facility] Last Admin: 05/23/19 21:54 Dose: 40 mg Brimonidine Tartrate (Alphagan 0.15% -) 1 drop OU BID [facility] Last Admin: 05/24/19 10:14 Dose: 1 drop Dorzolamide HCl (Trusopt 2%) 1 drop OU BID [facility] Last Admin: 05/24/19 10:14 Dose: 1 drop Duloxetine HCl (Cymbalta -) 30 mg PO DAILY [facility] Last Admin: 05/24/19 10:20 Dose: 30 mg Ergocalciferol (Drisdol -) 50,000 unit PO Q7D@1000 [facility] Ferrous Sulfate (Feosol -) 325 mg PO BID [facility] Last Admin: 05/24/19 10:20 Dose: 325 mg Heparin Sodium (Porcine) (Heparin -) 5,000 unit SQ TID [facility] Last Admin: 05/24/19 05:46 Dose: 5,000 unit Ceftriaxone Sodium 1 gm/ (Dextrose) 50 mls @ 100 mls/hr IVPB DAILY [facility]; Protocol Last Admin: 05/24/19 10:14 Dose: 100 mls/hr Insulin Aspart (Novolog Vial Sliding Scale -) 1 vial SQ TIDAC [facility]; Protocol Insulin Aspart (Novolog Vial Sliding Scale -) 1 vial SQ HS [facility]; Protocol Insulin Detemir (Levemir Vial) 15 units SQ HS [facility] Last Admin: 05/23/19 21:54 Dose: 15 units Levothyroxine Sodium (Synthroid -) 50 mcg PO DAILY@0700 [facility] Last Admin: 05/24/19 06:42 Dose: 50 mcg Losartan Potassium (Cozaar -) 100 mg PO DAILY [facility] Last Admin: 05/24/19 10:20 Dose: 100 mg Memantine (Namenda -) 5 mg PO DAILY [facility] Last Admin: 05/24/19 10:20 Dose: 5 mg Risperidone (Risperdal -) 0.5 mg PO HS [facility] Last Admin: 05/23/19 21:54 Dose: 0.5 mg A/P Diabetic Ketoacidosis improved Acute Bronchitis Acute Kidney Injury CAD HTN DM Hyperlipidemia Hypothyroidism Anemia Schizophrenia Dementia - glucose control - on empiric antibiotics - monitor urine output, creatinine - PO as tolerated - DVT prophylaxis
--- NOTE | 2019-05-24 17:32 | FALL ---
Fall Exam - Event Witnessed fall: Yes Location of Fall: Patient Room Fall from: Bed - Pre-Fall Mental Status: Alert, Disoriented, Cooperative Current Medications: Current Medications Generic Name Dose Route Start Last Admin Trade Name Trina PRN Reason Stop Dose Admin Amlodipine Besylate 5 mg 05/24/19 10:00 05/24/19 10:20 Norvasc - PO 5 mg DAILY SAM Administration Artificial Tears 1 drop 05/23/19 22:00 05/24/19 10:14 Artificial Tears OU 1 drop BID SAM Administration Atorvastatin Calcium 40 mg 05/23/19 22:00 05/23/19 21:54 Lipitor - PO 40 mg HS SAM Administration Brimonidine Tartrate 1 drop 05/23/19 22:00 05/24/19 10:14 Alphagan 0.15% - OU 1 drop BID SAM Administration Dorzolamide HCl 1 drop 05/23/19 22:00 05/24/19 10:14 Trusopt 2% OU 1 drop BID SAM Administration Duloxetine HCl 30 mg 05/24/19 10:00 05/24/19 10:20 Cymbalta - PO 30 mg DAILY SAM Administration Ergocalciferol 50,000 unit 05/28/19 10:00 Drisdol - PO Q7D@1000 [facility] Ferrous Sulfate 325 mg 05/23/19 22:00 05/24/19 10:20 Feosol - PO 325 mg BID SAM Administration Heparin Sodium (Porcine) 5,000 unit 05/23/19 22:00 05/24/19 14:05 Heparin - SQ 5,000 unit TID SAM Administration Ceftriaxone Sodium 1 gm/ 50 mls @ 100 mls/hr 05/24/19 10:00 05/24/19 10:14 Dextrose IVPB 100 mls/hr DAILY SAM Administration Protocol Insulin Aspart 1 vial 05/24/19 16:30 Novolog Vial Sliding Scale - SQ TIDAC [facility] Protocol Insulin Aspart 1 vial 05/24/19 22:00 Novolog Vial Sliding Scale - SQ HS [facility] Protocol Insulin Detemir 15 units 05/23/19 22:00 05/23/19 21:54 Levemir Vial SQ 15 units HS [facility] Administration Levothyroxine Sodium 50 mcg 05/24/19 07:00 05/24/19 06:42 Synthroid - PO 50 mcg DAILY@0700 [facility] Administration Losartan Potassium 100 mg 05/24/19 10:00 05/24/19 10:20 Cozaar - PO 100 mg DAILY [facility] Administration Memantine 5 mg 05/24/19 10:00 05/24/19 10:20 Namenda - PO 5 mg DAILY [facility] Administration Risperidone 0.5 mg 05/23/19 22:00 05/23/19 21:54 Risperdal - PO 0.5 mg HS SAM Administration - Post-Fall Patient Outcome: No Injury Exam Findings: general: no acute distress. HEENT: NC/AT, MMM, EOMI. Chest: RRR , no murmur. Respiratory: CTA B/L, no wheezes, no accessory muscle use. Abd: Soft, NT, ND. Neuro: CN 2-12, sensation intact throughout, AAOx1 (only to place ). Skin: no lacerations noted Treatment: None Vital Signs: Vital Signs Temperature 98.9 F 05/24/19 13:00 Pulse Rate 84 05/24/19 13:00 Respiratory Rate 16 05/24/19 13:00 Blood Pressure 140/79 05/24/19 13:00 O2 Sat by Pulse Oximetry (%) 95 05/24/19 09:00 LOC Post-Fall: Unchanged Identify factors for HIGH RISK for Head Injury: Pt on anticoagulant
[2019-05-24] MEDS: INSULIN (LEVEMIR) 100 UNITS/ML UNITS SQ SCH (21:05)
[2019-05-24] MEDS: ATORVASTATIN CA 40 MG TABLET (FP) PO SCH (21:06)
[2019-05-24] MEDS: risperiDONE 0.5 MG TABLET PO SCH (21:11)
[2019-05-25] MEDS: LEVOTHYROXINE NA 50 MCG TABLET (FP) PO SCH (06:24)
[2019-05-25] MEDS: HEPARIN NA (PORCINE) 5,000 UNITS/ML 1ML VIAL SQ SCH ×3 (06:24→21:28)
[2019-05-25] MEDS: INSULIN SLIDING SCALE (NOVOLOG) 1 VIAL SQ SCH ×6 (06:24→21:27)
[2019-05-25 08:34] LABS: BASO % 0.5 % (0-2.0); EOS % 0.6 % (0-4.5); HEMATOCRIT 27.9 % (32.4-45.2); HEMOGLOBIN 9.2 GM/dL (10.7-15.3); LYMPH % 29.7 % (8-40); MCH 28.4 pg (25.7-33.7); MCHC 32.7 g/dl (32.0-36.0); MEAN CELL VOLUME 86.8 fl (80-96); MEAN PLT VOLUME 8.5 fl (7.5-11.1); MONO % 9.7 % (3.8-10.2); NEUT % 59.5 % (42.8-82.8); PLATELET COUNT 280 K/MM3 (134-434); RBC 3.22 M/mm3 (3.60-5.2); RDW 15.2 % (11.6-15.6); WHITE BLOOD COUNT 7.1 K/mm3 (4.0-10.0)
[2019-05-25 09:02] LABS: BLOOD UREA NITROGEN 25.8 mg/dL (7-18); CALCIUM 9.7 mg/dL (8.5-10.1); CREATININE 1.5 mg/dL (0.55-1.3); MAGNESIUM 2.4 mg/dL (1.8-2.4); PHOSPHOROUS 4.4 mg/dL (2.5-4.9)
[2019-05-25 09:38] LABS: ANISOCYTOSIS 0; MACROCYTOSIS 0; PLATELET ESTIMATE NORMAL; TARGET CELLS 1+
[2019-05-25] MEDS ORDERED: cefTRIAXone SODIUM 1 GM VIAL ONE (10:21)
[2019-05-25] MEDS ORDERED: DEXTROSE 5%-WATER - 50 ML IVPB ONE (10:21)
[2019-05-25] MEDS: FERROUS SO4 325 MG TABLET (FP) PO SCH ×2 (10:58→21:26)
[2019-05-25] MEDS: DULoxetine HCL 30 MG CAPSULE.DR PO SCH (10:58)
[2019-05-25] MEDS: CEFTRIAXONE 1 GM in DEXTROSE 5%-WATER - 50 ML IVPB SCH (10:58)
[2019-05-25] MEDS: amLODIPine BESYLATE 5 MG TABLET (FP) PO SCH (10:58)
[2019-05-25] MEDS: LOSARTAN POTASSIUM 50 MG TABLET (FP) PO SCH (10:59)
[2019-05-25] MEDS: MEMANTINE HCL 5 MG TABLET (UD) PO SCH (10:59)
[2019-05-25] MEDS: ARTIFICIAL TEARS (POLYVINYL ALCOHOL) OPTH DROPS OU SCH ×2 (11:00→21:28)
[2019-05-25] MEDS: DORZOLAMIDE 2% HCL OPHTHALMIC SOLUTION 10 ML BOTTLE OU SCH ×2 (11:00→21:29)
[2019-05-25] MEDS: BRIMONIDINE TARTRATE 0.15% OPHTHALMIC 5 ML BOTTLE OU SCH ×2 (11:01→21:28)
--- NOTE | 2019-05-25 13:40 | PN ---
Progress Note (short form) - Note Progress Note: awake alert Blood sugar fluctuating Vital Signs Period Temp Pulse Resp BP Sys/Peña Pulse Ox Last 24 Hr 97.8 F-99.2 F 70-85 17-20 123-159/72-90 94-95 PE: Awake HEENT: EOMI Neck: Supple NO JVD Lungs: CTA CVS: S1S2 Abd: Benign Ext: No edema CMP Sodium 146 mmol/L (136-145) H 05/25/19 07:05 Potassium 4.0 mmol/L (3.5-5.1) 05/25/19 07:05 Chloride 113 mmol/L (98-107) H 05/25/19 07:05 Carbon Dioxide 25 mmol/L (21-32) 05/25/19 07:05 Anion Gap 7 MMOL/L (8-16) L 05/25/19 07:05 BUN 25.8 mg/dL (7-18) H 05/25/19 07:05 Creatinine 1.5 mg/dL (0.55-1.3) H 05/25/19 07:05 Est GFR (CKD-EPI)AfAm 37.48 05/25/19 07:05 Est GFR (CKD-EPI)NonAf 32.34 05/25/19 07:05 POC Glucometer 289 UNITS (80-120) 05/25/19 11:19 Random Glucose 202 mg/dL (74-106) H 05/25/19 07:05 Hemoglobin A1c % 11.1 % (4.2-6.3) H 05/20/19 18:55 Lactic Acid 1.2 mmol/L (0.4-2.0) 05/20/19 15:00 Calcium 9.7 mg/dL (8.5-10.1) 05/25/19 07:05 Phosphorus 4.4 mg/dL (2.5-4.9) 05/25/19 07:05 Magnesium 2.4 mg/dL (1.8-2.4) 05/25/19 07:05 Iron 17 ug/dL (50-175) L 05/20/19 19:30 TIBC 238 ug/dL (250-450) L 05/20/19 19:30 Iron Saturation 7 % (17.5-39) L 05/20/19 19:30 Unsaturated IBC 221 ug/dL (200-275) 05/20/19 19:30 Transferrin 188 mg/dL (200-370) L 05/21/19 02:00 Ferritin 139.3 ng/ml (8-388) 05/20/19 19:30 Total Bilirubin 0.3 mg/dL (0.2-1) 05/21/19 08:35 AST 17 U/L (15-37) 05/21/19 08:35 ALT 18 U/L (13-61) 05/21/19 08:35 Alkaline Phosphatase 57 U/L (45-117) 05/21/19 08:35 Creatine Kinase 172 U/L (26-192) 05/20/19 14:55 Creatine Kinase Index 1.5 % (0.0-5.0) 05/20/19 14:55 CK-MB (CK-2) 2.7 ng/mL (0.5-3.6) 05/20/19 14:55 Troponin I < 0.02 ng/ml (0.00-0.05) 05/20/19 14:55 Total Protein 6.9 g/dl (6.4-8.2) 05/21/19 08:35 Albumin 2.6 g/dl (3.4-5.0) L 05/21/19 08:35 Beta-Hydroxybutyrate 100.7 mg/dL (0.2-2.8) H 05/20/19 14:55 TSH 4.31 uIU/ml (0.358-3.74) H 05/21/19 08:35 Current Medications Generic Name Dose Route Start Last Admin Trade Name Freq PRN Reason Stop Dose Admin Amlodipine Besylate 5 mg 05/24/19 10:00 05/25/19 10:58 Norvasc - PO 5 mg DAILY [facility] Administration Artificial Tears 1 drop 05/23/19 22:00 05/25/19 11:00 Artificial Tears OU 1 drop BID SAM Administration Atorvastatin Calcium 40 mg 05/23/19 22:00 05/24/19 21:06 Lipitor - PO 40 mg HS SAM Administration Brimonidine Tartrate 1 drop 05/23/19 22:00 05/25/19 11:01 Alphagan 0.15% - OU 1 drop BID [facility] Administration Dorzolamide HCl 1 drop 05/23/19 22:00 05/25/19 11:00 Trusopt 2% OU 1 drop BID SAM Administration Duloxetine HCl 30 mg 05/24/19 10:00 05/25/19 10:58 Cymbalta - PO 30 mg DAILY [facility] Administration Ergocalciferol 50,000 unit 05/28/19 10:00 Drisdol - PO Q7D@1000 [facility] Ferrous Sulfate 325 mg 05/23/19 22:00 05/25/19 10:58 Feosol - PO 325 mg BID [facility] Administration Heparin Sodium (Porcine) 5,000 unit 05/23/19 22:00 05/25/19 06:24 Heparin - SQ 5,000 unit TID [facility] Administration Ceftriaxone Sodium 1 gm/ 50 mls @ 100 mls/hr 05/24/19 10:00 05/25/19 10:58 Dextrose IVPB 100 mls/hr DAILY [facility] Administration Protocol Insulin Aspart 1 vial 05/24/19 16:30 05/25/19 12:40 Novolog Vial Sliding Scale - SQ 8 units TIDAC [facility] Administration Protocol Insulin Aspart 1 vial 05/24/19 22:00 05/24/19 21:10 Novolog Vial Sliding Scale - SQ 6 units HS [facility] Administration Protocol Insulin Detemir 15 units 05/23/19 22:00 05/24/19 21:05 Levemir Vial SQ 15 units HS [facility] Administration Levothyroxine Sodium 50 mcg 05/24/19 07:00 05/25/19 06:24 Synthroid - PO 50 mcg DAILY@0700 [facility] Administration Losartan Potassium 100 mg 05/24/19 10:00 05/25/19 10:59 Cozaar - PO 100 mg DAILY [facility] Administration Memantine 5 mg 05/24/19 10:00 05/25/19 10:59 Namenda - PO 5 mg DAILY [facility] Administration Risperidone 0.5 mg 05/23/19 22:00 05/24/19 21:11 Risperdal - PO 0.5 mg HS SAM Administration AP: DKA resolved? related to Jardiance T2DM Pneumonia vs Acute Bronchitis Acute Kidney Injury CAD HTN Hyperlipidemia Hypothyroidism Anemia Schizophrenia Dementia Increase Levemir 18 units daily at HS, May use Lantus 18 untis daily at HS at Assisted living increase NOvolog SS coverage in hospital. May need Premeal Insulin also if it can be done at the facility. 4 units Novolog or HUmalog TID with meals Metformin may be restarted if renal function normalizes No Jardiance or other SGLT2s in the future b/o DKA Labs for C peptide and MIKE should be done as outpt to determine if she can be weaned off Insulin Monitor electrolytes Replace electrolytes as necessary on empiric antibiotics Levothyroxine 50 mcg QD
--- NOTE | 2019-05-25 13:48 | PN ---
Progress Note (short form) - Note Progress Note: PULMONARY Denies shortness of breath. Cough improving. Vital Signs Period Temp Pulse Resp BP Sys/Peña Pulse Ox Last 24 Hr 97.8 F-99.2 F 70-85 17-20 123-159/72-90 94-95 Gen: NAD at rest Heart: RRR Lung: decreased breath sounds at the bases Abd: soft, nontender Ext: no edema CBC, BMP 05/25/19 07:05 05/25/19 07:05 Active Medications Amlodipine Besylate (Norvasc -) 5 mg PO DAILY [facility] Last Admin: 05/25/19 10:58 Dose: 5 mg Artificial Tears (Artificial Tears) 1 drop OU BID [facility] Last Admin: 05/25/19 11:00 Dose: 1 drop Atorvastatin Calcium (Lipitor -) 40 mg PO HS [facility] Last Admin: 05/24/19 21:06 Dose: 40 mg Brimonidine Tartrate (Alphagan 0.15% -) 1 drop OU BID [facility] Last Admin: 05/25/19 11:01 Dose: 1 drop Dorzolamide HCl (Trusopt 2%) 1 drop OU BID [facility] Last Admin: 05/25/19 11:00 Dose: 1 drop Duloxetine HCl (Cymbalta -) 30 mg PO DAILY [facility] Last Admin: 05/25/19 10:58 Dose: 30 mg Ergocalciferol (Drisdol -) 50,000 unit PO Q7D@1000 [facility] Ferrous Sulfate (Feosol -) 325 mg PO BID [facility] Last Admin: 05/25/19 10:58 Dose: 325 mg Heparin Sodium (Porcine) (Heparin -) 5,000 unit SQ TID [facility] Last Admin: 05/25/19 06:24 Dose: 5,000 unit Ceftriaxone Sodium 1 gm/ (Dextrose) 50 mls @ 100 mls/hr IVPB DAILY [facility]; Protocol Last Admin: 05/25/19 10:58 Dose: 100 mls/hr Insulin Aspart (Novolog Vial Sliding Scale -) 1 vial SQ HS [facility]; Protocol Last Admin: 05/24/19 21:10 Dose: 6 units Insulin Aspart (Novolog Vial Sliding Scale -) 1 vial SQ TIDAC [facility]; Protocol Insulin Detemir (Levemir Vial) 18 units SQ HS [facility] Levothyroxine Sodium (Synthroid -) 50 mcg PO DAILY@0700 [facility] Last Admin: 05/25/19 06:24 Dose: 50 mcg Losartan Potassium (Cozaar -) 100 mg PO DAILY [facility] Last Admin: 05/25/19 10:59 Dose: 100 mg Memantine (Namenda -) 5 mg PO DAILY [facility] Last Admin: 05/25/19 10:59 Dose: 5 mg Risperidone (Risperdal -) 0.5 mg PO HS [facility] Last Admin: 05/24/19 21:11 Dose: 0.5 mg A/P Diabetic Ketoacidosis improved Acute Bronchitis Acute Kidney Injury CAD HTN DM Hyperlipidemia Hypothyroidism Anemia Schizophrenia Dementia - glucose control - on empiric antibiotics - monitor urine output, creatinine - PO as tolerated - DVT prophylaxis
--- NOTE | 2019-05-25 17:42 | PN ---
Physical Exam: SUBJECTIVE: Patient seen and examined, no complaints, oriented to self, place, knows is May 2019. OBJECTIVE: Vital Signs Period Temp Pulse Resp BP Sys/Peña Pulse Ox Last 24 Hr 97.8 F-99.2 F 70-85 18-20 116-159/64-90 94-95 Intake & Output 05/22/19 05/23/19 05/24/19 05/25/19 23:59 23:59 23:59 23:59 Intake Total 1950 1330 830 200 Output Total 1550 1700 Balance 400 -370 830 200 Weight 142 lb GENERAL: sitting in bed, no acute distress neck: soft, supple HEENT: EOMI, PERRL Chest: decreased effort, no rales or wheezing Abdomen:Soft, NT Extremities: no edema neuro: AA, oriented to place, month, year,self and family, facial symmetry, tongue midline, EOMI, PERRL, speech slow but appropriate, moves all extremities Laboratory Results - last 24 hr 05/24/19 05/24/19 05/25/19 17:47 21:07 06:21 WBC RBC Hgb Hct MCV MCH MCHC RDW Plt Count MPV Absolute Neuts (auto) Neutrophils % Neutrophils % (Manual) Band Neutrophils % Lymphocytes % Lymphocytes % (Manual) Monocytes % Monocytes % (Manual) Eosinophils % Eosinophils % (Manual) Basophils % Basophils % (Manual) Myelocytes % (Man) Promyelocytes % (Man) Blast Cells % (Manual) Nucleated RBC % Metamyelocytes Hypochromia Platelet Estimate Polychromasia Poikilocytosis Anisocytosis Microcytosis Macrocytosis Target Cells Sodium Potassium Chloride Carbon Dioxide Anion Gap BUN Creatinine Est GFR (CKD-EPI)AfAm Est GFR (CKD-EPI)NonAf POC Glucometer 246 339 219 Random Glucose Calcium Phosphorus Magnesium 05/25/19 05/25/19 05/25/19 07:05 07:05 11:19 WBC 7.1 RBC 3.22 L Hgb 9.2 L Hct 27.9 L MCV 86.8 MCH 28.4 MCHC 32.7 RDW 15.2 Plt Count 280 MPV 8.5 Absolute Neuts (auto) 4.2 Neutrophils % 59.5 D Neutrophils % (Manual) 56.6 Band Neutrophils % 0.0 Lymphocytes % 29.7 D Lymphocytes % (Manual) 26.3 D Monocytes % 9.7 Monocytes % (Manual) 10 Eosinophils % 0.6 D Eosinophils % (Manual) 1.0 D Basophils % 0.5 Basophils % (Manual) 0.0 Myelocytes % (Man) 1 D Promyelocytes % (Man) 0 Blast Cells % (Manual) 0 Nucleated RBC % 0 Metamyelocytes 1 D Hypochromia 0 Platelet Estimate Normal Polychromasia 1+ Poikilocytosis 1+ Anisocytosis 0 Microcytosis 0 Macrocytosis 0 Target Cells 1+ Sodium 146 H Potassium 4.0 Chloride 113 H Carbon Dioxide 25 Anion Gap 7 L BUN 25.8 H Creatinine 1.5 H Est GFR (CKD-EPI)AfAm 37.48 Est GFR (CKD-EPI)NonAf 32.34 POC Glucometer 289 Random Glucose 202 H Calcium 9.7 Phosphorus 4.4 Magnesium 2.4 Home Medications Medication Instructions Recorded Atorvastatin Ca [Lipitor] 40 mg PO HS #0 01/12/16 Amlodipine Besylate [Norvasc -] 5 mg PO DAILY 05/20/19 Brimonidine Tartrate [Alphagan 1 drop OU BID 05/20/19 0.15% -] Dorzolamide HCl/Pf [Dorzolamide 2% 1 drop OU BID 05/20/19 Eye Drop] Duloxetine HCl [Cymbalta -] 30 mg PO DAILY 05/20/19 Ergocalciferol [Vitamin D2] 50,000 unit PO Q7D@1000 05/20/19 Levothyroxine Sodium 50 mcg PO DAILY 05/20/19 Losartan Potassium [Cozaar] 100 mg PO DAILY 05/20/19 Memantine HCl [Namenda -] 5 mg PO DAILY 05/20/19 Polyvinyl Alcohol [Artificial 1 drop OU BID 05/20/19 Tears] Risperidone [Risperdal -] 0.5 mg PO HS 05/20/19 metFORMIN HCL [Glucophage -] 1,000 mg PO BID 05/20/19 Insulin Glargine,Hum.rec.anlog 15 unit SQ HS #5 vial 05/22/19 [Lantus] Insulin Sliding Scale [Novolog See Protocol SQ ACHS #1 vial 05/22/19 Vial Sliding Scale -] Cefuroxime Axetil [Cefuroxime] 500 mg PO BID #6 tablet 05/23/19 Active Medications Generic Name Dose Route Start Last Admin Trade Name Freq PRN Reason Stop Dose Admin Amlodipine Besylate 5 mg 05/24/19 10:00 05/25/19 10:58 Norvasc - PO 5 mg DAILY [facility] Administration Artificial Tears 1 drop 05/23/19 22:00 05/25/19 11:00 Artificial Tears OU 1 drop BID SAM Administration Atorvastatin Calcium 40 mg 05/23/19 22:00 05/24/19 21:06 Lipitor - PO 40 mg HS SAM Administration Brimonidine Tartrate 1 drop 05/23/19 22:00 05/25/19 11:01 Alphagan 0.15% - OU 1 drop BID SAM Administration Dorzolamide HCl 1 drop 05/23/19 22:00 05/25/19 11:00 Trusopt 2% OU 1 drop BID [facility] Administration Duloxetine HCl 30 mg 05/24/19 10:00 05/25/19 10:58 Cymbalta - PO 30 mg DAILY [facility] Administration Ergocalciferol 50,000 unit 05/28/19 10:00 Drisdol - PO Q7D@1000 [facility] Ferrous Sulfate 325 mg 05/23/19 22:00 05/25/19 10:58 Feosol - PO 325 mg BID [facility] Administration Heparin Sodium (Porcine) 5,000 unit 05/23/19 22:00 05/25/19 13:48 Heparin - SQ 5,000 unit TID [facility] Administration Ceftriaxone Sodium 1 gm/ 50 mls @ 100 mls/hr 05/24/19 10:00 05/25/19 10:58 Dextrose IVPB 100 mls/hr DAILY [facility] Administration Protocol Insulin Aspart 1 vial 05/24/19 22:00 05/24/19 21:10 Novolog Vial Sliding Scale - SQ 6 units HS [facility] Administration Protocol Insulin Aspart 1 vial 05/25/19 14:00 05/25/19 17:33 Novolog Vial Sliding Scale - SQ 12 units TIDAC [facility] Administration Protocol Insulin Detemir 18 units 05/25/19 22:00 Levemir Vial SQ HS [facility] Levothyroxine Sodium 50 mcg 05/24/19 07:00 05/25/19 06:24 Synthroid - PO 50 mcg DAILY@0700 [facility] Administration Losartan Potassium 100 mg 05/24/19 10:00 05/25/19 10:59 Cozaar - PO 100 mg DAILY [facility] Administration Memantine 5 mg 05/24/19 10:00 05/25/19 10:59 Namenda - PO 5 mg DAILY [facility] Administration Risperidone 0.5 mg 05/23/19 22:00 05/24/19 21:11 Risperdal - PO 0.5 mg HS [facility] Administration Microbiology 05/20/19 15:16 Blood - Peripheral Venous Blood Culture - Final NO GROWTH AFTER 5 DAYS INCUBATION 05/20/19 15:00 Blood - Peripheral Venous Blood Culture - Final NO GROWTH AFTER 5 DAYS INCUBATION 05/22/19 10:00 Urine - Urine Clean Catch Legionella Antigen - Final 05/22/19 10:00 Urine - Urine Clean Catch Streptococcus pneumoniae Antigen ( M - Final 05/20/19 16:50 Urine - Urine Clean Catch Urine Culture - Final NO GROWTH OBTAINED ASSESSMENT/PLAN: 83 y/o woman with hx DM 2, Alzheimers, Schizophrenia, HTN, CAD, [facility], admitted for 3 day history of increasing confusion and cough. Noted to be hyperglycemic with DKA on presentation. -Acute DKA -Poorly controlled DM, A1c 11.2 -Lower respiratory tract infectino, likely acute bronchitis -Acute strep pharyngitis -Acute metabolic encephalopathy, suspect from above, superimposed on Alzheimer' s Dementia/Schizophrenia -NIKOLE on CKD stage III -Hypothyroidism -Normocytic anemia Plan: AG closed. Endocrine input noted. Metformin to resume on dc. Hold jardiance per endocrine. levemir 15 units, novolog premeal. ISS. Outpatient endocrine follow up Cephalosporine for 7 days. Mental status improved. 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 MRI brain ordered, follow up. family at bedside for screen. 2D echo noted. Continue risperidone/namenda/cymbalta. renal function improved. renal US noted. Losartan resume. TSH noted, continue synthroid. repeat thyroid function test in 4-6 weeks. Continue norvasc. Iron Sat 7%/Ferritin 132. No evidence of acute bleeding. For out-patient GI and Nephrology follow up. Iron supplementation. PT eval Dispo plan for d/c to SNF vs Assisted living in 24 hours if MRI neg for concerns and no new events. Discussed with family at bedside and nursing. Visit type - Emergency Visit Emergency Visit: Yes ED Registration Date: 05/20/19 Care time: The patient presented to the Emergency Department on the above date and was hospitalized for further evaluation of their emergent condition. - New Patient This patient is new to me today: Yes Date on this admission: 05/25/19 - Critical Care Critical Care patient: No - Discharge Referral Referred to [facility] Med P.C.: No
--- NOTE | 2019-05-25 18:35 | EKG ---
Test Reason : Blood Pressure : / mmHG Vent. Rate : 082 BPM Atrial Rate : 082 BPM P-R Int : 128 ms QRS Dur : 090 ms QT Int : 344 ms P-R-T Axes : -24 -12 001 degrees QTc Int : 401 ms NORMAL SINUS RHYTHM LEFT VENTRICULAR HYPERTROPHY WITH REPOLARIZATION ABNORMALITY ABNORMAL ECG WHEN COMPARED WITH ECG OF 20-MAY-2019 14:23, T WAVE INVERSION NOW EVIDENT IN INFERIOR LEADS Confirmed by DALIA COLLINS MD ([id number]) on 05/25/2019 6:35:34 PM Referred By: Confirmed By:DALIA COLLINS MD
[2019-05-25] MEDS: ATORVASTATIN CA 40 MG TABLET (FP) PO SCH (21:26)
[2019-05-25] MEDS: risperiDONE 0.5 MG TABLET PO SCH (21:26)
[2019-05-25] MEDS: INSULIN (LEVEMIR) 100 UNITS/ML UNITS SQ SCH (21:28)
[2019-05-26 09:29] LABS: BLOOD UREA NITROGEN 20.9 mg/dL (7-18); CALCIUM 9.5 mg/dL (8.5-10.1); CREATININE 1.3 mg/dL (0.55-1.3); MAGNESIUM 2.1 mg/dL (1.8-2.4); POTASSIUM 3.9 mmol/L (3.5-5.1)
--- NOTE | 2019-05-26 10:01 | PN ---
Progress Note (short form) - Note Progress Note: Resting in NAD. Denies shortness of breath. Cough improving. No acute events overnight. Intake & Output 05/23/19 05/24/19 05/25/19 05/26/19 23:59 23:59 23:59 23:59 Intake Total 1330 830 440 200 Output Total 1700 Balance -370 830 440 200 Last Vital Signs Temp Pulse Resp BP Pulse Ox 98.8 F 85 20 151/98 100 05/26/19 06:00 05/26/19 06:00 05/26/19 06:00 05/26/19 06:00 05/25/19 21:00 Active Medications Amlodipine Besylate (Norvasc -) 5 mg PO DAILY [facility] Last Admin: 05/25/19 10:58 Dose: 5 mg Artificial Tears (Artificial Tears) 1 drop OU BID [facility] Last Admin: 05/25/19 21:28 Dose: 1 drop Atorvastatin Calcium (Lipitor -) 40 mg PO HS [facility] Last Admin: 05/25/19 21:26 Dose: 40 mg Brimonidine Tartrate (Alphagan 0.15% -) 1 drop OU BID [facility] Last Admin: 05/25/19 21:28 Dose: 1 drop Dorzolamide HCl (Trusopt 2%) 1 drop OU BID [facility] Last Admin: 05/25/19 21:29 Dose: 1 drop Duloxetine HCl (Cymbalta -) 30 mg PO DAILY [facility] Last Admin: 05/25/19 10:58 Dose: 30 mg Ergocalciferol (Drisdol -) 50,000 unit PO Q7D@1000 [facility] Ferrous Sulfate (Feosol -) 325 mg PO BID [facility] Last Admin: 05/25/19 21:26 Dose: 325 mg Heparin Sodium (Porcine) (Heparin -) 5,000 unit SQ TID [facility] Last Admin: 05/25/19 21:28 Dose: 5,000 unit Ceftriaxone Sodium 1 gm/ (Dextrose) 50 mls @ 100 mls/hr IVPB DAILY [facility]; Protocol Last Admin: 05/25/19 10:58 Dose: 100 mls/hr Insulin Aspart (Novolog Vial Sliding Scale -) 1 vial SQ HS [facility]; Protocol Last Admin: 05/25/19 21:27 Dose: Not Given Insulin Aspart (Novolog Vial Sliding Scale -) 1 vial SQ TIDAC [facility]; Protocol Last Admin: 05/25/19 17:33 Dose: 12 units Insulin Detemir (Levemir Vial) 18 units SQ HS [facility] Last Admin: 05/25/19 21:28 Dose: 18 units Levothyroxine Sodium (Synthroid -) 50 mcg PO DAILY@0700 [facility] Last Admin: 05/25/19 06:24 Dose: 50 mcg Losartan Potassium (Cozaar -) 100 mg PO DAILY [facility] Last Admin: 05/25/19 10:59 Dose: 100 mg Memantine (Namenda -) 5 mg PO DAILY [facility] Last Admin: 05/25/19 10:59 Dose: 5 mg Risperidone (Risperdal -) 0.5 mg PO HS [facility] Last Admin: 05/25/19 21:26 Dose: 0.5 mg Gen: NAD at rest Heart: RRR Lung: decreased breath sounds at the bases Abd: soft, nontender Ext: no edema Laboratory Results - last 24 hr 05/25/19 05/25/19 05/25/19 11:19 17:31 21:23 Sodium Potassium Chloride Carbon Dioxide Anion Gap BUN Creatinine Est GFR (CKD-EPI)AfAm Est GFR (CKD-EPI)NonAf POC Glucometer 289 343 199 Random Glucose Calcium Phosphorus Magnesium 05/26/19 05/26/19 06:49 07:15 Sodium 144 Potassium 3.9 Chloride 110 H Carbon Dioxide 23 Anion Gap 11 BUN 20.9 H Creatinine 1.3 Est GFR (CKD-EPI)AfAm 44.56 Est GFR (CKD-EPI)NonAf 38.44 POC Glucometer 89 Random Glucose 78 Calcium 9.5 Phosphorus 4.0 Magnesium 2.1 A/P Diabetic Ketoacidosis improved Acute Bronchitis Acute Kidney Injury CAD HTN DM Hyperlipidemia Hypothyroidism Anemia Schizophrenia Dementia - glucose control - Consider DC ABX and observe - monitor urine output, creatinine - PO as tolerated - DVT prophylaxis Dr Louis
[2019-05-26] MEDS ORDERED: cefTRIAXone SODIUM 1 GM VIAL ONE (10:17)
[2019-05-26] MEDS ORDERED: PT OWN MED DRAWER 7, Y5N ONE ×2 (10:17→20:59)
[2019-05-26] MEDS ORDERED: DEXTROSE 5%-WATER - 50 ML IVPB ONE (10:17)
[2019-05-26] MEDS: FERROUS SO4 325 MG TABLET (FP) PO SCH (10:23)
[2019-05-26] MEDS: amLODIPine BESYLATE 5 MG TABLET (FP) PO SCH (10:23)
[2019-05-26] MEDS: LOSARTAN POTASSIUM 50 MG TABLET (FP) PO SCH (10:23)
[2019-05-26] MEDS: MEMANTINE HCL 5 MG TABLET (UD) PO SCH (10:23)
[2019-05-26] MEDS: DULoxetine HCL 30 MG CAPSULE.DR PO SCH (10:23)
[2019-05-26] MEDS: CEFTRIAXONE 1 GM in DEXTROSE 5%-WATER - 50 ML IVPB SCH (10:24)
[2019-05-26] MEDS: BRIMONIDINE TARTRATE 0.15% OPHTHALMIC 5 ML BOTTLE OU SCH ×2 (10:25→23:44)
[2019-05-26] MEDS: DORZOLAMIDE 2% HCL OPHTHALMIC SOLUTION 10 ML BOTTLE OU SCH ×2 (10:26→23:44)
[2019-05-26] MEDS: ARTIFICIAL TEARS (POLYVINYL ALCOHOL) OPTH DROPS OU SCH ×2 (10:26→23:45)
[2019-05-26] MEDS: INSULIN SLIDING SCALE (NOVOLOG) 1 VIAL SQ SCH ×3 (11:36→23:23)
--- NOTE | 2019-05-26 11:50 | PN ---
Teaching Attending Note Name of Resident: Neel Benitez ATTENDING PHYSICIAN STATEMENT I saw and evaluated the patient. I reviewed the resident's note and discussed the case with the resident. I agree with the resident's findings and plan as documented with exceptions below. SUBJECTIVE: patient seen and examined, no complaints, OBJECTIVE: Vital Signs Period Temp Pulse Resp BP Sys/Peña Pulse Ox Last 24 Hr 98.2 F-99.1 F 79-88 18-20 109-156/62-98 100-100 Intake & Output 05/23/19 05/24/19 05/25/19 05/26/19 23:59 23:59 23:59 23:59 Intake Total 1330 830 440 200 Output Total 1700 Balance -370 830 440 200 GENERAL: sitting in bed, no acute distress neck: soft, supple HEENT: EOMI, PERRL Chest: decreased effort, no rales or wheezing Abdomen:Soft, NT Extremities: no edema Neuro: AA, oriented to place, self and family, facial symmetry, tongue midline, EOMI, PERRL, speech slow but appropriate, moves all extremities Home Medications Medication Instructions Recorded Atorvastatin Ca [Lipitor] 40 mg PO HS #0 01/12/16 Amlodipine Besylate [Norvasc -] 5 mg PO DAILY 05/20/19 Brimonidine Tartrate [Alphagan 1 drop OU BID 05/20/19 0.15% -] Dorzolamide HCl/Pf [Dorzolamide 2% 1 drop OU BID 05/20/19 Eye Drop] Duloxetine HCl [Cymbalta -] 30 mg PO DAILY 05/20/19 Ergocalciferol [Vitamin D2] 50,000 unit PO Q7D@1000 05/20/19 Levothyroxine Sodium 50 mcg PO DAILY 05/20/19 Losartan Potassium [Cozaar] 100 mg PO DAILY 05/20/19 Memantine HCl [Namenda -] 5 mg PO DAILY 05/20/19 Polyvinyl Alcohol [Artificial 1 drop OU BID 05/20/19 Tears] Risperidone [Risperdal -] 0.5 mg PO HS 05/20/19 metFORMIN HCL [Glucophage -] 1,000 mg PO BID 05/20/19 Insulin Glargine,Hum.rec.anlog 15 unit SQ HS #5 vial 05/22/19 [Lantus] Insulin Sliding Scale [Novolog See Protocol SQ ACHS #1 vial 05/22/19 Vial Sliding Scale -] Cefuroxime Axetil [Cefuroxime] 500 mg PO BID #6 tablet 05/23/19 Active Medications Amlodipine Besylate (Norvasc -) 5 mg PO DAILY [facility] Last Admin: 05/26/19 10:23 Dose: 5 mg Artificial Tears (Artificial Tears) 1 drop OU BID [facility] Last Admin: 05/26/19 10:26 Dose: 1 drop Atorvastatin Calcium (Lipitor -) 40 mg PO HS [facility] Last Admin: 05/25/19 21:26 Dose: 40 mg Brimonidine Tartrate (Alphagan 0.15% -) 1 drop OU BID [facility] Last Admin: 05/26/19 10:25 Dose: 1 drop Dorzolamide HCl (Trusopt 2%) 1 drop OU BID [facility] Last Admin: 05/26/19 10:26 Dose: 1 drop Duloxetine HCl (Cymbalta -) 30 mg PO DAILY [facility] Last Admin: 05/26/19 10:23 Dose: 30 mg Ergocalciferol (Drisdol -) 50,000 unit PO Q7D@1000 [facility] Ferrous Sulfate (Feosol -) 325 mg PO BID [facility] Last Admin: 05/26/19 10:23 Dose: 325 mg Heparin Sodium (Porcine) (Heparin -) 5,000 unit SQ TID [facility] Last Admin: 05/25/19 21:28 Dose: 5,000 unit Ceftriaxone Sodium 1 gm/ (Dextrose) 50 mls @ 100 mls/hr IVPB DAILY [facility]; Protocol Last Admin: 05/26/19 10:24 Dose: 100 mls/hr Insulin Aspart (Novolog Vial Sliding Scale -) 1 vial SQ HS [facility]; Protocol Last Admin: 05/25/19 21:27 Dose: Not Given Insulin Aspart (Novolog Vial Sliding Scale -) 1 vial SQ TIDAC [facility]; Protocol Last Admin: 05/26/19 11:36 Dose: 12 units Insulin Detemir (Levemir Vial) 18 units SQ [facility] Last Admin: 05/25/19 21:28 Dose: 18 units Levothyroxine Sodium (Synthroid -) 50 mcg PO DAILY@0700 [facility] Last Admin: 05/25/19 06:24 Dose: 50 mcg Losartan Potassium (Cozaar -) 100 mg PO DAILY [facility] Last Admin: 05/26/19 10:23 Dose: 100 mg Memantine (Namenda -) 5 mg PO DAILY [facility] Last Admin: 05/26/19 10:23 Dose: 5 mg Risperidone (Risperdal -) 0.5 mg PO HS [facility] Last Admin: 05/25/19 21:26 Dose: 0.5 mg Laboratory Results - last 24 hr 05/25/19 05/25/19 05/26/19 17:31 21:23 06:49 Sodium Potassium Chloride Carbon Dioxide Anion Gap BUN Creatinine Est GFR (CKD-EPI)AfAm Est GFR (CKD-EPI)NonAf POC Glucometer 343 199 89 Random Glucose Calcium Phosphorus Magnesium 05/26/19 05/26/19 07:15 11:34 Sodium 144 Potassium 3.9 Chloride 110 H Carbon Dioxide 23 Anion Gap 11 BUN 20.9 H Creatinine 1.3 Est GFR (CKD-EPI)AfAm 44.56 Est GFR (CKD-EPI)NonAf 38.44 POC Glucometer 333 Random Glucose 78 Calcium 9.5 Phosphorus 4.0 Magnesium 2.1 ASSESSMENT AND PLAN: 83 y/o woman with hx DM 2, Alzheimers, Schizophrenia, HTN, CAD, [facility], admitted for 3 day history of increasing confusion and cough. Noted to be hyperglycemic with DKA on presentation. -Acute DKA -Poorly controlled DM, A1c 11.2 -Lower respiratory tract infectino, likely acute bronchitis -Acute strep pharyngitis -Acute metabolic encephalopathy, suspect from above, superimposed on Alzheimer' s Dementia/Schizophrenia -NIKOLE on CKD stage III -Hypothyroidism -Normocytic anemia Plan: AG closed. Endocrine input noted. Metformin to resume on dc. Hold jardiance per endocrine. levemir 15 units, novolog premeal. ISS. Outpatient endocrine follow up Cephalosporin for 7 days. Mental status improved. 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 Follow up MRI brain. 2D echo noted. Continue risperidone/namenda/cymbalta. Renal function improved. renal US noted. Losartan resumed. TSH noted, continue synthroid. repeat thyroid function test in 4-6 weeks. Continue norvasc. Iron Sat 7%/Ferritin 132. No evidence of acute bleeding. For out-patient GI and Nephrology follow up. Iron supplementation. PT eval Dispo plan for d/c to SNF vs Assisted living in 24 hours if MRI neg for concerns and no new events.
--- NOTE | 2019-05-26 13:31 | PN ---
Physical Exam: SUBJECTIVE: Patient seen and examined at the bedside. She noted that her cough was improved and felt "much better". Endorsed good appetite and was actively eating at the bedside. Denied cp, sob, abd pain, n/v/c/d, fever, chills, headaches, dizziness, lightheadedness. OBJECTIVE: Vital Signs Period Temp Pulse Resp BP Sys/Peña Pulse Ox Last 24 Hr 98.2 F-99.1 F 80-88 18-20 109-156/62-98 100-100 GENERAL: The patient is awake, alert, and oriented to self and "Crisp", in no acute distress. HEAD: Normal with no signs of trauma. EYES: PERRL, extraocular movements intact, sclera anicteric, conjunctiva clear. ENT: Oropharynx clear without exudates, dry mucous membranes. NECK: Trachea midline, full range of motion, supple. LUNGS: Breath sounds equal, with mild bibasilar crackles. No noted wheezes. HEART: Regular rate and rhythm, S1, S2 without murmur, rub. ABDOMEN: Soft, nontender, nondistended, normoactive bowel sounds, no guarding, no rebound, no masses. EXTREMITIES: 2+ pulses, warm, well-perfused, no edema. NEUROLOGICAL: Cranial nerves II through XII grossly intact. 4/5 muscle strength upper and lower extremities bilaterally. PSYCH: Normal mood and affect SKIN: Warm, dry, no rashes or lesions noted Laboratory Results - last 24 hr 05/25/19 05/25/19 05/26/19 17:31 21:23 06:49 Sodium Potassium Chloride Carbon Dioxide Anion Gap BUN Creatinine Est GFR (CKD-EPI)AfAm Est GFR (CKD-EPI)NonAf POC Glucometer 343 199 89 Random Glucose Calcium Phosphorus Magnesium 05/26/19 05/26/19 07:15 11:34 Sodium 144 Potassium 3.9 Chloride 110 H Carbon Dioxide 23 Anion Gap 11 BUN 20.9 H Creatinine 1.3 Est GFR (CKD-EPI)AfAm 44.56 Est GFR (CKD-EPI)NonAf 38.44 POC Glucometer 333 Random Glucose 78 Calcium 9.5 Phosphorus 4.0 Magnesium 2.1 Active Medications Generic Name Dose Route Start Last Admin Trade Name Freq PRN Reason Stop Dose Admin Amlodipine Besylate 5 mg 05/24/19 10:00 05/26/19 10:23 Norvasc - PO 5 mg DAILY [facility] Administration Artificial Tears 1 drop 05/23/19 22:00 05/26/19 10:26 Artificial Tears OU 1 drop BID [facility] Administration Atorvastatin Calcium 40 mg 05/23/19 22:00 05/25/19 21:26 Lipitor - PO 40 mg HS [facility] Administration Brimonidine Tartrate 1 drop 05/23/19 22:00 05/26/19 10:25 Alphagan 0.15% - OU 1 drop BID [facility] Administration Dorzolamide HCl 1 drop 05/23/19 22:00 05/26/19 10:26 Trusopt 2% OU 1 drop BID [facility] Administration Duloxetine HCl 30 mg 05/24/19 10:00 05/26/19 10:23 Cymbalta - PO 30 mg DAILY [facility] Administration Ergocalciferol 50,000 unit 05/28/19 10:00 Drisdol - PO Q7D@1000 [facility] Ferrous Sulfate 325 mg 05/23/19 22:00 05/26/19 10:23 Feosol - PO 325 mg BID [facility] Administration Heparin Sodium (Porcine) 5,000 unit 05/23/19 22:00 05/25/19 21:28 Heparin - SQ 5,000 unit TID [facility] Administration Ceftriaxone Sodium 1 gm/ 50 mls @ 100 mls/hr 05/24/19 10:00 05/26/19 10:24 Dextrose IVPB 100 mls/hr DAILY [facility] Administration Protocol Insulin Aspart 1 vial 05/24/19 22:00 05/25/19 21:27 Novolog Vial Sliding Scale - SQ Not Given HS [facility] Protocol Insulin Aspart 1 vial 05/25/19 14:00 05/26/19 11:36 Novolog Vial Sliding Scale - SQ 12 units TIDAC [facility] Administration Protocol Insulin Detemir 18 units 05/25/19 22:00 05/25/19 21:28 Levemir Vial SQ 18 units HS [facility] Administration Levothyroxine Sodium 50 mcg 05/24/19 07:00 05/25/19 06:24 Synthroid - PO 50 mcg DAILY@0700 [facility] Administration Losartan Potassium 100 mg 05/24/19 10:00 05/26/19 10:23 Cozaar - PO 100 mg DAILY [facility] Administration Memantine 5 mg 05/24/19 10:00 05/26/19 10:23 Namenda - PO 5 mg DAILY [facility] Administration Risperidone 0.5 mg 05/23/19 22:00 05/25/19 21:26 Risperdal - PO 0.5 mg HS [facility] Administration ASSESSMENT/PLAN: Mallory Valencia is an 83 year old female with a past medical history of alzheimers, schizophrenia, HTN, DM2, hypothyroidism, CAD, HLD, HHD (LVH), glaucoma, depression who presents from [facility] [place] who was admitted with AMS likely secondary to DKA. High anion gap metabolic acidosis 2/2 DKA - Likely precipitated by infection - Home meds: metformin 1000mg BID, jardiance 10mg BID - discontinue Jardiance outpatient in setting of DKA - Started on insulin drip and was bridged with 30 units of Levemir and drip was shut off - Levemir 18 units hs to be transitioned to Lantus 18 units at her facility as Levemir not covered - anion gap closed - A1C 11.1 - BGM - ISS - Endocrinology consulted (Dr. Titus), recs appreciated - currently on diabetic diet - will need outpatient measurement of C-peptide and MIKE antibody PNA vs URTI - Rapid influenza neg - CXR: possible LLL infiltrate per our read. 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 Chronic mod periventricular and subcortical white matter microvascular ischemic gliosis - MRI to evaluate cerebellar infarcts, consent obtained, pending study NIKOLE on CKD - baseline CRE 1.3 in December as per Dr. Inderjit Spangler (PCP at the [facility]) - today CRE 1.3, improved from admission - renal US with no acute pathology, noted renal cyst on L Normocytic anemia likely 2/2 chronic disease - chronic anemia, baseline in December 10.5 - Iron: 17, TIBC: 238, iron sat 7%, ferritin 139.3 - F/u stool guaiac - iron supplementation started HTN and CAD - Cont home meds: Amlodipine 5mg Daily, Losartan 100 mg daily, Atorvastatin 40 HS - Last known echo Jan 2016: LV function normal, impaired relaxation, mild MR, mild - echo here noting normal LV size, function, thickness, normal EF, mild aortic regurg, trace to mild tricuspid regurg, trace to mild mitral regurg, possible poor LV compliance Hypothyroidism - Continue home levothyroxine 50mcg daily - TSH 4.31 - will require outpatient f/u Glaucoma - Continue briminodine and timolol eye drops FEN - no standing fluids - continue to monitor electrolytes and replete as necessary - Diabetic diet DVT ppx - heparin 5000 units subq tid Dispo - continue to monitor on Med-surg - will go to SNF, pending MRI scan Visit type - Emergency Visit Emergency Visit: Yes ED Registration Date: 05/20/19 Care time: The patient presented to the Emergency Department on the above date and was hospitalized for further evaluation of their emergent condition. - New Patient This patient is new to me today: No - Critical Care Critical Care patient: No
[2019-05-26] MEDS: HEPARIN NA (PORCINE) 5,000 UNITS/ML 1ML VIAL SQ SCH ×2 (13:39→23:27)
[2019-05-26] MEDS ORDERED: ASPIRIN 81 MG CHEWABLE TABLETS PO ONE (18:07)
[2019-05-26] MEDS ORDERED: INSULIN (NOVOLOG) ASPART 100 UNITS/ML 10ML VIAL ONE (20:15)
[2019-05-26] MEDS: ATORVASTATIN CA 40 MG TABLET (FP) PO SCH (23:26)
[2019-05-26] MEDS: risperiDONE 0.5 MG TABLET PO SCH (23:26)
[2019-05-26] MEDS: INSULIN (LEVEMIR) 100 UNITS/ML UNITS SQ SCH (23:27)
[2019-05-27] MEDS: HEPARIN NA (PORCINE) 5,000 UNITS/ML 1ML VIAL SQ SCH ×4 (00:38→21:48)
[2019-05-27] MEDS: ATORVASTATIN CA 40 MG TABLET (FP) PO SCH ×2 (00:39→21:48)
[2019-05-27] MEDS: BRIMONIDINE TARTRATE 0.15% OPHTHALMIC 5 ML BOTTLE OU SCH ×3 (00:39→21:48)
[2019-05-27] MEDS: FERROUS SO4 325 MG TABLET (FP) PO SCH ×3 (00:39→21:48)
[2019-05-27] MEDS: ARTIFICIAL TEARS (POLYVINYL ALCOHOL) OPTH DROPS OU SCH ×3 (00:39→21:48)
[2019-05-27] MEDS: INSULIN (LEVEMIR) 100 UNITS/ML UNITS SQ SCH ×2 (00:39→21:54)
[2019-05-27] MEDS: LEVOTHYROXINE NA 50 MCG TABLET (FP) PO SCH ×2 (00:39→06:39)
[2019-05-27] MEDS: INSULIN SLIDING SCALE (NOVOLOG) 1 VIAL SQ SCH ×5 (00:40→21:57)
[2019-05-27] MEDS: DORZOLAMIDE 2% HCL OPHTHALMIC SOLUTION 10 ML BOTTLE OU SCH ×3 (00:40→21:48)
[2019-05-27] MEDS: risperiDONE 0.5 MG TABLET PO SCH ×2 (00:40→21:48)
[2019-05-27 08:25] LABS: CALCIUM 9.4 mg/dL (8.5-10.1); CREATININE 1.2 mg/dL (0.55-1.3); MAGNESIUM 2.2 mg/dL (1.8-2.4); POTASSIUM 4.2 mmol/L (3.5-5.1)
--- NOTE | 2019-05-27 08:53 | CON.NEURO ---
Consult Consult Specialty:: Zbigniew Referred by:: PCP Reason for Consultation:: CVA - History of Present Illness History of Present Illness: physical very pleasant 83-year-old right-handed female patient with multiple medical problem including coronary artery disease, dementia, insulin-dependent diabetes who presented to week ago with altered mental status and change in mental status patient had a history of psych disorder and the patient was admitted to the medical floor for further treatment and management on telemetry. 2 days ago patient had a CAT scan of the head with questionable results which led to an MRI of the brain which revealed questionable punctate strokes. Patient herself is a poor historian patient has been on the baby aspirin. Exam is very limited patient was seen on the telemetry. Patient was on the medical floor and then was transferred to telemetry for questionable strokes. - History Source History Provided By: Medical Record Limitations to Obtaining History: Clinical Condition - Past Medical History Cardio/Vascular: Yes: HTN Endocrine: Yes: Diabetes Mellitus - Alcohol/Substance Use Hx Alcohol Use: No - Smoking History Smoking history: Never smoked Have you smoked in the past 12 months: No - Social History ADL: Independent History of Recent Travel: No Home Medications - Allergies Allergies/Adverse Reactions: Allergies Allergy/AdvReac Type Severity Reaction Status Date / Time No Known Allergies Allergy Verified 05/20/19 13:13 - Home Medications Home Medications: Ambulatory Orders Atorvastatin Ca [Lipitor] 40 mg PO HS #0 01/12/16 Amlodipine Besylate [Norvasc -] 5 mg PO DAILY 05/20/19 Brimonidine Tartrate [Alphagan 0.15% -] 1 drop OU BID 05/20/19 Dorzolamide HCl/Pf [Dorzolamide 2% Eye Drop] 1 drop OU BID 05/20/19 Duloxetine HCl [Cymbalta -] 30 mg PO DAILY 05/20/19 Ergocalciferol [Vitamin D2] 50,000 unit PO Q7D@1000 05/20/19 Levothyroxine Sodium 50 mcg PO DAILY 05/20/19 Losartan Potassium [Cozaar] 100 mg PO DAILY 05/20/19 Memantine HCl [Namenda -] 5 mg PO DAILY 05/20/19 Polyvinyl Alcohol [Artificial Tears] 1 drop OU BID 05/20/19 Risperidone [Risperdal -] 0.5 mg PO HS 05/20/19 metFORMIN HCL [Glucophage -] 1,000 mg PO BID 05/20/19 Insulin Glargine,Hum.rec.anlog [Lantus] 15 unit SQ HS #5 vial 05/22/19 Insulin Sliding Scale [Novolog Vial Sliding Scale -] See Protocol SQ ACHS #1 vial 05/22/19 Cefuroxime Axetil [Cefuroxime] 500 mg PO BID #6 tablet 05/23/19 Ferrous Sulfate [Feosol] 325 mg PO BID #60 ud 05/26/19 Family Medical History Family History: Unable to Obtain Review of Systems Unable to obtain ROS, reason: questionable Physical Exam-Neuro Vital Signs: Vital Signs Temperature 98.5 F 05/27/19 06:00 Pulse Rate 67 05/27/19 06:00 Respiratory Rate 18 05/27/19 06:00 Blood Pressure 112/67 05/27/19 06:00 O2 Sat by Pulse Oximetry (%) 95 05/26/19 21:00 Constitutional: Yes: Well Nourished Neck: Yes: WNL Labs: CBC, BMP 05/25/19 07:05 05/27/19 06:20 INR, PTT INR 0.87 (0.83-1.09) 05/20/19 15:00 - Neuro Exam Level Of Consciousness: Yes: Oriented to Person, Oriented to Place Eyes: Yes: PERRLA Speech: WNL Dominant Hand: Right Mini Mental Exam: 20 Cranial Nerves II-XII Intact: Yes Gag: Present DTR's: 1+ Left Bicep, 1+ Right Bicep, 1+ Right Tricep, 1+ Left Brachioradialis Response to light touch: Normal Response to pain prick: Normal Response to temperature: Abnormal Response to vibration: Abnormal Motor Strength: 3/5: Left Arm, Right Arm, Left Leg, Right Leg Gait: Deferred Imaging - Results Cat Scan: Image Reviewed MRI: Image Reviewed Problem List - Problems (1) CVA (cerebral vascular accident) Assessment/Plan: 83-year-old right-handed female patient with multiple medical problem with risks of strokes including age, coronary artery disease, diabetes, high cholesterol. Patient with at least 2 punctate stroke acute questionable embolic source. 1. Continue Holter monitor. 2. Echocardiogram. 3. Carotid Doppler. 4. Continue the baby aspirin for now. 5. Homocysteine level. 6. SCDs. 7. Speech and swallow evaluation. 7. Continue Namenda the same. 8. Physical therapy at bedside. Thank you very much for allowing me to be part of this patient's neurological care. Brandee Coy MD Code(s): I63.9 - CEREBRAL INFARCTION, UNSPECIFIED
[2019-05-27] MEDS ORDERED: PT OWN MED DRAWER 7, Y5N ONE (09:33)
[2019-05-27] MEDS ORDERED: cefTRIAXone SODIUM 1 GM VIAL ONE (09:34)
[2019-05-27] MEDS ORDERED: DEXTROSE 5%-WATER - 50 ML IVPB ONE (09:34)
[2019-05-27] MEDS ORDERED: CEFTRIAXONE 1 GM in DEXTROSE 5%-WATER - 50 ML IVPB SCH (10:00)
[2019-05-27] MEDS ORDERED: ASPIRIN 81 MG CHEWABLE TABLETS PO SCH (10:00)
[2019-05-27] MEDS: amLODIPine BESYLATE 5 MG TABLET (FP) PO SCH (10:23)
[2019-05-27] MEDS: MEMANTINE HCL 5 MG TABLET (UD) PO SCH (10:23)
[2019-05-27] MEDS: DULoxetine HCL 30 MG CAPSULE.DR PO SCH (10:23)
[2019-05-27] MEDS: ASPIRIN 81 MG CHEWABLE TABLETS PO SCH (10:23)
[2019-05-27] MEDS: LOSARTAN POTASSIUM 50 MG TABLET (FP) PO SCH (10:24)
[2019-05-27] MEDS ORDERED: INSULIN (NOVOLOG) ASPART 100 UNITS/ML 10ML VIAL ONE (12:26)
--- NOTE | 2019-05-27 15:46 | PN ---
Physical Exam: SUBJECTIVE: Patient seen and examined at the bedside. States she is doing better and notes that her cough and breathing have improved. She endorses a good appetite. Denies any acute complains of cp, sob, abd pain, n/v/c/d, fever, chills, dizziness, lightheadedness, numbness, tingling. OBJECTIVE: Vital Signs Period Temp Pulse Resp BP Sys/Peña Pulse Ox Last 24 Hr 98.2 F-98.7 F 67-86 18-20 111-158/58-79 95-98 GENERAL: The patient is awake, alert, and oriented to self, "[place]" and "[place]", in no acute distress. HEAD: Normal with no signs of trauma. EYES: PERRL, extraocular movements intact, sclera anicteric, conjunctiva clear. ENT: Oropharynx clear without exudates, dry mucous membranes. NECK: Trachea midline, full range of motion, supple. LUNGS: Breath sounds equal, with mild bibasilar crackles. No noted wheezes. HEART: Regular rate and rhythm, S1, S2 without murmur, rub. ABDOMEN: Soft, nontender, nondistended, normoactive bowel sounds, no guarding, no rebound, no masses. EXTREMITIES: 2+ pulses, warm, well-perfused, no edema. NEUROLOGICAL: Cranial nerves II through XII grossly intact. 4/5 muscle strength upper and lower extremities bilaterally. PSYCH: Normal mood and affect SKIN: Warm, dry, no rashes or lesions noted Laboratory Results - last 24 hr 05/26/19 05/26/19 05/26/19 15:40 16:32 20:34 Sodium Potassium Chloride Carbon Dioxide Anion Gap BUN Creatinine Est GFR (CKD-EPI)AfAm Est GFR (CKD-EPI)NonAf POC Glucometer 259 156 Random Glucose Calcium Magnesium Triglycerides Cholesterol Total LDL Cholesterol HDL Cholesterol Stool Occult Blood Negative 05/27/19 05/27/19 05/27/19 05:39 06:20 11:44 Sodium 144 Potassium 4.2 Chloride 112 H Carbon Dioxide 25 Anion Gap 7 L BUN 22.0 H Creatinine 1.2 Est GFR (CKD-EPI)AfAm 49.08 Est GFR (CKD-EPI)NonAf 42.35 POC Glucometer 185 161 Random Glucose 174 H Calcium 9.4 Magnesium 2.2 Triglycerides 87 Cholesterol 140 Total LDL Cholesterol 75 HDL Cholesterol 41 Stool Occult Blood Active Medications Generic Name Dose Route Start Last Admin Trade Name Trina PRN Reason Stop Dose Admin Amlodipine Besylate 5 mg 05/27/19 10:00 05/27/19 10:23 Norvasc - PO 5 mg DAILY SAM Administration Artificial Tears 1 drop 05/26/19 22:00 05/27/19 10:27 Artificial Tears OU 1 drop BID SAM Administration Aspirin 81 mg 05/27/19 10:00 05/27/19 10:23 Asa - PO 81 mg DAILY SAM Administration Atorvastatin Calcium 40 mg 05/26/19 22:00 05/26/19 23:26 Lipitor - PO 40 mg HS SAM Administration Brimonidine Tartrate 1 drop 05/26/19 22:00 05/27/19 10:27 Alphagan 0.15% - OU 1 drop BID ASM Administration Dorzolamide HCl 1 drop 05/26/19 22:00 05/27/19 10:27 Trusopt 2% OU 1 drop BID SAM Administration Duloxetine HCl 30 mg 05/27/19 10:00 05/27/19 10:23 Cymbalta - PO 30 mg DAILY SAM Administration Ergocalciferol 50,000 unit 05/28/19 10:00 Drisdol - PO Q7D@1000 SAM Ferrous Sulfate 325 mg 05/27/19 10:00 05/27/19 10:23 Feosol - PO 325 mg BID SAM Administration Heparin Sodium (Porcine) 5,000 unit 05/26/19 22:00 05/27/19 15:00 Heparin - SQ 5,000 unit TID SAM Administration Ceftriaxone Sodium 1 gm/ 50 mls @ 100 mls/hr 05/27/19 10:00 05/27/19 10:22 Dextrose IVPB 100 mls/hr DAILY SAM Administration Protocol Insulin Aspart 1 vial 05/26/19 22:00 05/26/19 23:23 Novolog Vial Sliding Scale - SQ Not Given HS SAM Protocol Insulin Aspart 1 vial 05/27/19 07:00 05/27/19 12:27 Novolog Vial Sliding Scale - SQ 6 units TIDAC SAM Administration Protocol Insulin Detemir 18 units 05/26/19 22:00 05/26/19 23:27 Levemir Vial SQ 18 units HS SAM Administration Levothyroxine Sodium 50 mcg 05/27/19 07:00 05/27/19 06:39 Synthroid - PO 50 mcg DAILY@0700 SAM Administration Losartan Potassium 100 mg 05/27/19 10:00 05/27/19 10:24 Cozaar - PO 100 mg DAILY SAM Administration Memantine 5 mg 05/27/19 10:00 05/27/19 10:23 Namenda - PO 5 mg DAILY SAM Administration Risperidone 0.5 mg 05/26/19 22:00 05/26/19 23:26 Risperdal - PO 0.5 mg HS SAM Administration ASSESSMENT/PLAN: Mallory Valencia is an 83 year old female with a past medical history of alzheimers, schizophrenia, HTN, DM2, hypothyroidism, CAD, HLD, HHD (LVH), glaucoma, depression who presents from [facility] who was admitted with AMS likely secondary to DKA. High anion gap metabolic acidosis 2/2 DKA - Likely precipitated by infection - Home meds: metformin 1000mg BID, jardiance 10mg BID - discontinue Jardiance outpatient in setting of DKA - Started on insulin drip and was bridged with 30 units of Levemir and drip was shut off - Levemir 18 units hs to be transitioned to Lantus 18 units at her facility as Levemir not covered - anion gap closed - A1C 11.1 - BGM - ISS - Endocrinology consulted (Dr. Titus), recs appreciated - currently on diabetic diet - will need outpatient measurement of C-peptide and MIKE antibody PNA vs URTI - Rapid influenza neg - CXR: possible LLL infiltrate per our read. R granuloma present, stable - urine step positive, legionella negative - discontinued azithromycin - ceftriaxone 1g daily, has completed antibiotics Acute metabolic encephalopathy - Pt has baseline dementia A&O x2, currently A&Ox2 - Cont home meds: cymbalta 30 mg daily, Memantine 5 mg daily, Risperidone 0.5 mg HS - CT head: small cerebellar infarcts, likely chronic in nature. 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 Chronic mod periventricular and subcortical white matter microvascular ischemic gliosis - MRI noting punctate acute left parietal cortical infarct and possible additional parietotemporal cortical infarct as well as several chronic cerebellar infarcts - aspirin 81mg - patient already on statin - carotid dopplers noting mild atherosclerotic disease with no hemodynamically significant stenosis - neuro consulted, recs appreciated, continue holter monitor - will need neurological follow up - homocystein levels pending NIKOLE on CKD - baseline CRE 1.3 in December as per Dr. Inderjit Spangler (PCP at the [facility]) - today CRE 1.2, improved from admission - renal US with no acute pathology, noted renal cyst on L Normocytic anemia likely 2/2 chronic disease - chronic anemia, baseline in December 10.5 - Iron: 17, TIBC: 238, iron sat 7%, ferritin 139.3 - F/u stool guaiac - iron supplementation started HTN and CAD - Cont home meds: Amlodipine 5mg Daily, Losartan 100 mg daily, Atorvastatin 40 HS - Last known echo Jan 2016: LV function normal, impaired relaxation, mild MR, mild - echo here noting normal LV size, function, thickness, normal EF, mild aortic regurg, trace to mild tricuspid regurg, trace to mild mitral regurg, possible poor LV compliance Hypothyroidism - Continue home levothyroxine 50mcg daily - TSH 4.31 - will require outpatient f/u Glaucoma - Continue briminodine and timolol eye drops FEN - no standing fluids - continue to monitor electrolytes and replete as necessary - Diabetic diet DVT ppx - heparin 5000 units subq tid Dispo - continue to monitor on Med-surg - will go to SNF, pending placment Visit type - Emergency Visit Emergency Visit: Yes ED Registration Date: 05/20/19 Care time: The patient presented to the Emergency Department on the above date and was hospitalized for further evaluation of their emergent condition. - New Patient This patient is new to me today: No - Critical Care Critical Care patient: No
--- NOTE | 2019-05-27 16:47 | PN ---
Teaching Attending Note Name of Resident: Neel Benitez ATTENDING PHYSICIAN STATEMENT I saw and evaluated the patient. I reviewed the resident's note and discussed the case with the resident. I agree with the resident's findings and plan as documented with exceptions below. SUBJECTIVE: Patient seen and examined. no complaints. OBJECTIVE: Vital Signs Period Temp Pulse Resp BP Sys/Peña Pulse Ox Last 24 Hr 98.2 F-98.7 F 67-86 18-20 111-158/58-79 95-98 Intake & Output 05/24/19 05/25/19 05/26/19 05/27/19 23:59 23:59 23:59 23:59 Intake Total 830 440 250 Output Total 300 Balance 830 440 -50 GENERAL: sitting in bed, no acute distress neck: soft, supple HEENT: EOMI, PERRL Chest: decreased effort, no rales or wheezing Abdomen:Soft, NT Extremities: no edema Neuro: AA, oriented to place, self and family, facial symmetry, tongue midline, EOMI, PERRL, speech slow but appropriate, moves all extremities Home Medications Medication Instructions Recorded Atorvastatin Ca [Lipitor] 40 mg PO HS #0 01/12/16 Amlodipine Besylate [Norvasc -] 5 mg PO DAILY 05/20/19 Brimonidine Tartrate [Alphagan 1 drop OU BID 05/20/19 0.15% -] Dorzolamide HCl/Pf [Dorzolamide 2% 1 drop OU BID 05/20/19 Eye Drop] Duloxetine HCl [Cymbalta -] 30 mg PO DAILY 05/20/19 Ergocalciferol [Vitamin D2] 50,000 unit PO Q7D@1000 05/20/19 Levothyroxine Sodium 50 mcg PO DAILY 05/20/19 Losartan Potassium [Cozaar] 100 mg PO DAILY 05/20/19 Memantine HCl [Namenda -] 5 mg PO DAILY 05/20/19 Polyvinyl Alcohol [Artificial 1 drop OU BID 05/20/19 Tears] Risperidone [Risperdal -] 0.5 mg PO HS 05/20/19 metFORMIN HCL [Glucophage -] 1,000 mg PO BID 05/20/19 Insulin Glargine,Hum.rec.anlog 15 unit SQ HS #5 vial 05/22/19 [Lantus] Insulin Sliding Scale [Novolog See Protocol SQ ACHS #1 vial 05/22/19 Vial Sliding Scale -] Cefuroxime Axetil [Cefuroxime] 500 mg PO BID #6 tablet 05/23/19 Ferrous Sulfate [Feosol] 325 mg PO BID #60 ud 05/26/19 Active Medications Amlodipine Besylate (Norvasc -) 5 mg PO DAILY [facility] Last Admin: 05/27/19 10:23 Dose: 5 mg Artificial Tears (Artificial Tears) 1 drop OU BID [facility] Last Admin: 05/27/19 10:27 Dose: 1 drop Aspirin (Asa -) 81 mg PO DAILY [facility] Last Admin: 05/27/19 10:23 Dose: 81 mg Atorvastatin Calcium (Lipitor -) 40 mg PO HS [facility] Last Admin: 05/26/19 23:26 Dose: 40 mg Brimonidine Tartrate (Alphagan 0.15% -) 1 drop OU BID [facility] Last Admin: 05/27/19 10:27 Dose: 1 drop Dorzolamide HCl (Trusopt 2%) 1 drop OU BID [facility] Last Admin: 05/27/19 10:27 Dose: 1 drop Duloxetine HCl (Cymbalta -) 30 mg PO DAILY [facility] Last Admin: 05/27/19 10:23 Dose: 30 mg Ergocalciferol (Drisdol -) 50,000 unit PO Q7D@1000 [facility] Ferrous Sulfate (Feosol -) 325 mg PO BID [facility] Last Admin: 05/27/19 10:23 Dose: 325 mg Heparin Sodium (Porcine) (Heparin -) 5,000 unit SQ TID [facility] Last Admin: 05/27/19 15:00 Dose: 5,000 unit Insulin Aspart (Novolog Vial Sliding Scale -) 1 vial SQ HS [facility]; Protocol Last Admin: 05/26/19 23:23 Dose: Not Given Insulin Aspart (Novolog Vial Sliding Scale -) 1 vial SQ TIDAC [facility]; Protocol Last Admin: 05/27/19 12:27 Dose: 6 units Insulin Detemir (Levemir Vial) 18 units SQ [facility] Last Admin: 05/26/19 23:27 Dose: 18 units Levothyroxine Sodium (Synthroid -) 50 mcg PO DAILY@0700 [facility] Last Admin: 05/27/19 06:39 Dose: 50 mcg Losartan Potassium (Cozaar -) 100 mg PO DAILY [facility] Last Admin: 12/24/19 10:24 Dose: 100 mg Memantine (Namenda -) 5 mg PO DAILY [facility] Last Admin: 05/27/19 10:23 Dose: 5 mg Risperidone (Risperdal -) 0.5 mg PO HS [facility] Last Admin: 05/26/19 23:26 Dose: 0.5 mg Laboratory Results - last 24 hr 05/26/19 05/27/19 05/27/19 20:34 05:39 06:20 Sodium 144 Potassium 4.2 Chloride 112 H Carbon Dioxide 25 Anion Gap 7 L BUN 22.0 H Creatinine 1.2 Est GFR (CKD-EPI)AfAm 49.08 Est GFR (CKD-EPI)NonAf 42.35 POC Glucometer 156 185 Random Glucose 174 H Calcium 9.4 Magnesium 2.2 Triglycerides 87 Cholesterol 140 Total LDL Cholesterol 75 HDL Cholesterol 41 05/27/19 11:44 Sodium Potassium Chloride Carbon Dioxide Anion Gap BUN Creatinine Est GFR (CKD-EPI)AfAm Est GFR (CKD-EPI)NonAf POC Glucometer 161 Random Glucose Calcium Magnesium Triglycerides Cholesterol Total LDL Cholesterol HDL Cholesterol Microbiology 05/20/19 15:16 Blood - Peripheral Venous Blood Culture - Final NO GROWTH AFTER 5 DAYS INCUBATION 05/20/19 15:00 Blood - Peripheral Venous Blood Culture - Final NO GROWTH AFTER 5 DAYS INCUBATION 05/22/19 10:00 Urine - Urine Clean Catch Legionella Antigen - Final 05/22/19 10:00 Urine - Urine Clean Catch Streptococcus pneumoniae Antigen ( M - Final 05/20/19 16:50 Urine - Urine Clean Catch Urine Culture - Final NO GROWTH OBTAINED MRi brain/carotid duplex results noted. ASSESSMENT AND PLAN: 83 y/o woman with hx DM 2, Alzheimers, Schizophrenia, HTN, CAD, [facility], admitted for 3 day history of increasing confusion and cough. Noted to be hyperglycemic with DKA on presentation. -Acute left parietal/parietotemporal CVA, Chronic left temporoparietal/ cerebellar CVA -Acute DKA -Poorly controlled DM, A1c 11.2 -Lower respiratory tract infection, likely acute bronchitis -Acute strep pharyngitis -Acute metabolic encephalopathy, suspect from above, superimposed on Alzheimer' s Dementia/Schizophrenia -NIKOLE on CKD stage III -Hypothyroidism -Normocytic anemia Plan: MRI brain noted, mental status improved, overall exam non concerning. ASA/statin. Neurology input noted. 2D echo/carotid duplex noted transferred to telemetry. no events so far. Will benefit from extended holter Further AC per neuro. AG closed. Endocrine input noted. Metformin to resume on dc. Hold jardiance per endocrine. Levemir 15 units, novolog premeal. ISS. Outpatient endocrine follow up Cephalosporin for 7 days. Continue risperidone/namenda/cymbalta. Renal function improved. renal US noted. Losartan resumed. TSH noted, continue synthroid. repeat thyroid function test in 4-6 weeks. Continue norvasc. Iron Sat 7%/Ferritin 132. No evidence of acute bleeding. For out-patient GI and Nephrology follow up. Iron supplementation. PT eval Dispo plan for d/c to SNF vs Assisted living pending disposition arrangements.
[2019-05-28] MEDS: INSULIN SLIDING SCALE (NOVOLOG) 1 VIAL SQ SCH ×4 (06:08→21:49)
[2019-05-28] MEDS: HEPARIN NA (PORCINE) 5,000 UNITS/ML 1ML VIAL SQ SCH ×3 (06:08→21:09)
[2019-05-28] MEDS: LEVOTHYROXINE NA 50 MCG TABLET (FP) PO SCH (06:09)
--- NOTE | 2019-05-28 09:42 | PN ---
Progress Note, Physician History of Present Illness: pulmonary alert,comfortable,cough improving,-cp,-sob - Current Medication List Current Medications: Active Medications Amlodipine Besylate (Norvasc -) 5 mg PO DAILY [facility] Last Admin: 05/27/19 10:23 Dose: 5 mg Artificial Tears (Artificial Tears) 1 drop OU BID [facility] Last Admin: 05/27/19 21:48 Dose: 1 drop Aspirin (Asa -) 81 mg PO DAILY [facility] Last Admin: 05/27/19 10:23 Dose: 81 mg Atorvastatin Calcium (Lipitor -) 40 mg PO HS [facility] Last Admin: 05/27/19 21:48 Dose: 40 mg Brimonidine Tartrate (Alphagan 0.15% -) 1 drop OU BID [facility] Last Admin: 05/27/19 21:48 Dose: 1 drop Dorzolamide HCl (Trusopt 2%) 1 drop OU BID [facility] Last Admin: 05/27/19 21:48 Dose: 1 drop Duloxetine HCl (Cymbalta -) 30 mg PO DAILY [facility] Last Admin: 05/27/19 10:23 Dose: 30 mg Ergocalciferol (Drisdol -) 50,000 unit PO Q7D@1000 [facility] Ferrous Sulfate (Feosol -) 325 mg PO BID [facility] Last Admin: 05/27/19 21:48 Dose: 325 mg Heparin Sodium (Porcine) (Heparin -) 5,000 unit SQ TID [facility] Last Admin: 05/28/19 06:08 Dose: 5,000 unit Insulin Aspart (Novolog Vial Sliding Scale -) 1 vial SQ [facility]; Protocol Last Admin: 05/27/19 21:57 Dose: 4 unit Insulin Aspart (Novolog Vial Sliding Scale -) 1 vial SQ TIDAC [facility]; Protocol Last Admin: 05/28/19 06:08 Dose: 6 units Insulin Detemir (Levemir Vial) 18 units SQ [facility] Last Admin: 05/27/19 21:54 Dose: 18 units Levothyroxine Sodium (Synthroid -) 50 mcg PO DAILY@0700 [facility] Last Admin: 05/28/19 06:09 Dose: 50 mcg Losartan Potassium (Cozaar -) 100 mg PO DAILY [facility] Last Admin: 05/27/19 10:24 Dose: 100 mg Memantine (Namenda -) 5 mg PO DAILY [facility] Last Admin: 05/27/19 10:23 Dose: 5 mg Risperidone (Risperdal -) 0.5 mg PO HS [facility] Last Admin: 05/27/19 21:48 Dose: 0.5 mg - Objective Vital Signs: Vital Signs Temperature 98.4 F 05/28/19 05:26 Pulse Rate 71 05/28/19 05:26 Respiratory Rate 20 05/28/19 08:52 Blood Pressure 131/71 05/28/19 05:26 O2 Sat by Pulse Oximetry (%) 96 05/28/19 08:52 Constitutional: Yes: Well Nourished, Calm Eyes: Yes: WNL HENT: Yes: WNL Neck: Yes: WNL Cardiovascular: Yes: Regular Rate and Rhythm, S1, S2 Respiratory: Yes: Rhonchi (few rhonchi) Gastrointestinal: Yes: Normal Bowel Sounds, Soft Extremities: Yes: WNL Edema: No Labs: CBC, BMP Problem List - Problems (1) Bronchitis Code(s): J40 - BRONCHITIS, NOT SPECIFIED ACUTE OR CHRONIC (2) DKA (diabetic ketoacidoses) Code(s): E11.10 - TYPE 2 DIABETES MELLITUS WITH KETOACIDOSIS WITHOUT COMA Qualifiers: Diabetes mellitus type: other specified (including ANGELITO) Diabetes mellitus complication detail: without coma Qualified Code(s): E13.10 - Other specified diabetes mellitus with ketoacidosis without coma (3) CVA (cerebral vascular accident) Code(s): I63.9 - CEREBRAL INFARCTION, UNSPECIFIED (4) Diabetes mellitus Code(s): E11.9 - TYPE 2 DIABETES MELLITUS WITHOUT COMPLICATIONS (5) HLD (hyperlipidemia) Code(s): E78.5 - HYPERLIPIDEMIA, UNSPECIFIED (6) HTN (hypertension) Code(s): I10 - ESSENTIAL (PRIMARY) HYPERTENSION Assessment/Plan A/P Diabetic Ketoacidosis improved Acute Bronchitis improving Acute Kidney Injury improved CAD HTN DM Hyperlipidemia Hypothyroidism Anemia Schizophrenia Dementia CVA - glucose control - monitor urine output, creatinine - PO as tolerated - DVT prophylaxis DR ROMERO
[2019-05-28] MEDS ORDERED: ERGOCALCIFEROL (VIT D2) 50,000 UNIT (1.25 MG) CAPSULE PO SCH ×3 (10:00)
--- NOTE | 2019-05-28 10:05 | PN ---
Physical Exam: SUBJECTIVE: Patient seen and examined. Able to tolerate breakfast. No acute events overnight. OBJECTIVE: Vital Signs Period Temp Pulse Resp BP Sys/Peña Pulse Ox Last 24 Hr 97.8 F-98.6 F 65-78 20-20 111-131/63-74 96-96 GENERAL: A&Ox2, NAD HEAD: NCAT EYES: PERRL, EOMI ENT: MMM NECK: Supple LUNGS: CTAB HEART: Regular rate and rhythm, S1, S2 without murmur ABDOMEN: Soft, nontender, nondistended, + bowel sounds, no guarding EXTREMITIES: No edema NEUROLOGICAL: Cranial nerves II through XII grossly intact. SKIN: Warm, dry Laboratory Results - last 24 hr 05/27/19 05/27/19 05/27/19 11:44 17:25 21:56 POC Glucometer 161 113 276 05/28/19 05:23 POC Glucometer 160 Microbiology 05/20/19 15:16 Blood - Peripheral Venous Blood Culture - Final NO GROWTH AFTER 5 DAYS INCUBATION 05/20/19 15:00 Blood - Peripheral Venous Blood Culture - Final NO GROWTH AFTER 5 DAYS INCUBATION 05/22/19 10:00 Urine - Urine Clean Catch Legionella Antigen - Final 05/22/19 10:00 Urine - Urine Clean Catch Streptococcus pneumoniae Antigen ( M - Final 05/20/19 16:50 Urine - Urine Clean Catch Urine Culture - Final NO GROWTH OBTAINED Active Medications Amlodipine Besylate (Norvasc -) 5 mg PO DAILY [facility] Last Admin: 05/27/19 10:23 Dose: 5 mg Artificial Tears (Artificial Tears) 1 drop OU BID [facility] Last Admin: 05/27/19 21:48 Dose: 1 drop Aspirin (Asa -) 81 mg PO DAILY [facility] Last Admin: 05/27/19 10:23 Dose: 81 mg Atorvastatin Calcium (Lipitor -) 40 mg PO HS [facility] Last Admin: 05/27/19 21:48 Dose: 40 mg Brimonidine Tartrate (Alphagan 0.15% -) 1 drop OU BID [facility] Last Admin: 05/27/19 21:48 Dose: 1 drop Dorzolamide HCl (Trusopt 2%) 1 drop OU BID [facility] Last Admin: 05/27/19 21:48 Dose: 1 drop Duloxetine HCl (Cymbalta -) 30 mg PO DAILY [facility] Last Admin: 05/27/19 10:23 Dose: 30 mg Ergocalciferol (Drisdol -) 50,000 unit PO Q7D@1000 [facility] Ferrous Sulfate (Feosol -) 325 mg PO BID [facility] Last Admin: 05/27/19 21:48 Dose: 325 mg Heparin Sodium (Porcine) (Heparin -) 5,000 unit SQ TID [facility] Last Admin: 05/28/19 06:08 Dose: 5,000 unit Insulin Aspart (Novolog Vial Sliding Scale -) 1 vial SQ HS [facility]; Protocol Last Admin: 05/27/19 21:57 Dose: 4 unit Insulin Aspart (Novolog Vial Sliding Scale -) 1 vial SQ TIDAC [facility]; Protocol Last Admin: 05/28/19 06:08 Dose: 6 units Insulin Detemir (Levemir Vial) 18 units SQ HS [facility] Last Admin: 05/27/19 21:54 Dose: 18 units Levothyroxine Sodium (Synthroid -) 50 mcg PO DAILY@0700 [facility] Last Admin: 05/28/19 06:09 Dose: 50 mcg Losartan Potassium (Cozaar -) 100 mg PO DAILY [facility] Last Admin: 05/27/19 10:24 Dose: 100 mg Memantine (Namenda -) 5 mg PO DAILY [facility] Last Admin: 05/27/19 10:23 Dose: 5 mg Risperidone (Risperdal -) 0.5 mg PO HS [facility] Last Admin: 05/27/19 21:48 Dose: 0.5 mg ASSESSMENT/PLAN: 83 y/o F with PMHx Alzheimers, schizophrenia, HTN, DM2, hypothyroidism, CAD, HLD , glaucoma, depression who presents from [facility] for AMS likely secondary to DKA. #Acute Ischemic Infarcts - MRI reveals punctate acute left parietal cortical infarct and possible additional parietotemporal cortical infarct as well as several chronic cerebellar infarcts - Carotid dopplers, Echo reviewed - Continue ASA, Statin - Tele - neuro consulted, appreciate recs - homocysteine levels pending #DKA, Resolved - Likely precipitated by infection - A1C 11.1 - Advised to discontinue Jardiance once discharged - 18u Long acting insulin, BGMs ISS ACHS - Endocrinology consulted (Dr. Titus), recs appreciated #Acute Bronchitis, improved - urine step positive - Completed course of ceftriaxone #Acute metabolic encephalopathy - In the setting of baseline dementia - Cont home meds: cymbalta 30 mg daily, Memantine 5 mg daily, Risperidone 0.5 mg HS #NIKOLE on CKD, resolved - baseline CRE 1.3 in December as per Dr. Inderjit Spangler (PCP at the Assisted Living Facility) - Encourage PO Intake #Normocytic anemia likely 2/2 chronic disease - Continue iron supplementation #HTN and CAD - Cont home meds: Amlodipine 5mg Daily, Losartan 100 mg daily, Atorvastatin 40 HS #Hypothyroidism - Continue home levothyroxine 50mcg daily #Glaucoma - Continue briminodine and timolol eye drops #FEN - no standing fluids - Replete lytes PRN - Diabetic diet #PPx - DVT: heparin TID Dispo: Pending auth for SNF Placement Visit type - Emergency Visit Emergency Visit: Yes ED Registration Date: 05/20/19 Care time: The patient presented to the Emergency Department on the above date and was hospitalized for further evaluation of their emergent condition. - New Patient This patient is new to me today: Yes Date on this admission: 05/28/19 - Critical Care Critical Care patient: No ATTENDING PHYSICIAN STATEMENT I saw and evaluated the patient. I reviewed the resident's note and discussed the case with the resident. I agree with the resident's findings and plan as documented. SUBJECTIVE: OBJECTIVE: ASSESSMENT AND PLAN:
[2019-05-28] MEDS: MEMANTINE HCL 5 MG TABLET (UD) PO SCH (10:25)
[2019-05-28] MEDS: ASPIRIN 81 MG CHEWABLE TABLETS PO SCH (10:25)
[2019-05-28] MEDS: amLODIPine BESYLATE 5 MG TABLET (FP) PO SCH (10:25)
[2019-05-28] MEDS: LOSARTAN POTASSIUM 50 MG TABLET (FP) PO SCH (10:26)
[2019-05-28] MEDS: FERROUS SO4 325 MG TABLET (FP) PO SCH ×2 (10:26→21:40)
[2019-05-28] MEDS: DULoxetine HCL 30 MG CAPSULE.DR PO SCH (10:26)
[2019-05-28] MEDS: BRIMONIDINE TARTRATE 0.15% OPHTHALMIC 5 ML BOTTLE OU SCH ×2 (10:27→21:12)
[2019-05-28] MEDS: ARTIFICIAL TEARS (POLYVINYL ALCOHOL) OPTH DROPS OU SCH ×2 (10:27→21:11)
[2019-05-28] MEDS: DORZOLAMIDE 2% HCL OPHTHALMIC SOLUTION 10 ML BOTTLE OU SCH ×2 (10:27→21:12)
--- NOTE | 2019-05-28 10:29 | PN ---
Teaching Attending Note Name of Resident: Jeniffer Shah ATTENDING PHYSICIAN STATEMENT I saw and evaluated the patient. I reviewed the resident's note and discussed the case with the resident. I agree with the resident's findings and plan as documented with exceptions below. SUBJECTIVE: patient seen and examined, sleeping, arousable, no complaints. OBJECTIVE: Vital Signs Period Temp Pulse Resp BP Sys/Peña Pulse Ox Last 24 Hr 97.8 F-98.6 F 65-78 20-20 111-131/63-74 96-96 Intake & Output 05/25/19 05/26/19 05/27/19 05/28/19 23:59 23:59 23:59 23:59 Intake Total 440 250 810 0 Output Total 300 Balance 440 -50 810 0 general: lying in bed, no acute distress Chest: no rales or wheezing Abdomen:Soft, NT Extremities: no edema neuro: unchanged exam, Home Medications Medication Instructions Recorded Atorvastatin Ca [Lipitor] 40 mg PO HS #0 01/12/16 Amlodipine Besylate [Norvasc -] 5 mg PO DAILY 05/20/19 Brimonidine Tartrate [Alphagan 1 drop OU BID 05/20/19 0.15% -] Dorzolamide HCl/Pf [Dorzolamide 2% 1 drop OU BID 05/20/19 Eye Drop] Duloxetine HCl [Cymbalta -] 30 mg PO DAILY 05/20/19 Ergocalciferol [Vitamin D2] 50,000 unit PO Q7D@1000 05/20/19 Levothyroxine Sodium 50 mcg PO DAILY 05/20/19 Losartan Potassium [Cozaar] 100 mg PO DAILY 05/20/19 Memantine HCl [Namenda -] 5 mg PO DAILY 05/20/19 Polyvinyl Alcohol [Artificial 1 drop OU BID 05/20/19 Tears] Risperidone [Risperdal -] 0.5 mg PO HS 05/20/19 metFORMIN HCL [Glucophage -] 1,000 mg PO BID 05/20/19 Insulin Glargine,Hum.rec.anlog 15 unit SQ HS #5 vial 05/22/19 [Lantus] Insulin Sliding Scale [Novolog See Protocol SQ ACHS #1 vial 05/22/19 Vial Sliding Scale -] Cefuroxime Axetil [Cefuroxime] 500 mg PO BID #6 tablet 05/23/19 Ferrous Sulfate [Feosol] 325 mg PO BID #60 ud 05/26/19 Active Medications Amlodipine Besylate (Norvasc -) 5 mg PO DAILY [facility] Last Admin: 05/28/19 10:25 Dose: 5 mg Artificial Tears (Artificial Tears) 1 drop OU BID [facility] Last Admin: 05/28/19 10:27 Dose: 1 drop Aspirin (Asa -) 81 mg PO DAILY [facility] Last Admin: 05/28/19 10:25 Dose: 81 mg Atorvastatin Calcium (Lipitor -) 40 mg PO HS [facility] Last Admin: 05/27/19 21:48 Dose: 40 mg Brimonidine Tartrate (Alphagan 0.15% -) 1 drop OU BID [facility] Last Admin: 05/28/19 10:27 Dose: 1 drop Dorzolamide HCl (Trusopt 2%) 1 drop OU BID [facility] Last Admin: 05/28/19 10:27 Dose: 1 drop Duloxetine HCl (Cymbalta -) 30 mg PO DAILY [facility] Last Admin: 05/28/19 10:26 Dose: 30 mg Ergocalciferol (Drisdol -) 50,000 unit PO Q7D@1000 [facility] Last Admin: 05/28/19 10:25 Dose: 50,000 unit Ferrous Sulfate (Feosol -) 325 mg PO BID [facility] Last Admin: 05/28/19 10:26 Dose: 325 mg Heparin Sodium (Porcine) (Heparin -) 5,000 unit SQ TID [facility] Last Admin: 05/28/19 06:08 Dose: 5,000 unit Insulin Aspart (Novolog Vial Sliding Scale -) 1 vial SQ HS [facility]; Protocol Last Admin: 05/27/19 21:57 Dose: 4 unit Insulin Aspart (Novolog Vial Sliding Scale -) 1 vial SQ TIDAC [facility]; Protocol Last Admin: 05/28/19 06:08 Dose: 6 units Insulin Detemir (Levemir Vial) 18 units SQ HS [facility] Last Admin: 05/27/19 21:54 Dose: 18 units Levothyroxine Sodium (Synthroid -) 50 mcg PO DAILY@0700 [facility] Last Admin: 05/28/19 06:09 Dose: 50 mcg Losartan Potassium (Cozaar -) 100 mg PO DAILY [facility] Last Admin: 05/28/19 10:26 Dose: 100 mg Memantine (Namenda -) 5 mg PO DAILY [facility] Last Admin: 05/28/19 10:25 Dose: 5 mg Risperidone (Risperdal -) 0.5 mg PO HS [facility] Last Admin: 05/27/19 21:48 Dose: 0.5 mg Laboratory Results - last 24 hr 05/27/19 05/27/19 05/27/19 11:44 17:25 21:56 POC Glucometer 161 113 276 05/28/19 05:23 POC Glucometer 160 Carotid duplex results noted. ASSESSMENT AND PLAN: 83 y/o woman with hx DM 2, Alzheimers, Schizophrenia, HTN, CAD, [facility], admitted for 3 day history of increasing confusion and cough. Noted to be hyperglycemic with DKA on presentation. -Acute left parietal/parietotemporal CVA, Chronic left temporoparietal/ cerebellar CVA -Acute DKA -Poorly controlled DM, A1c 11.2 -Lower respiratory tract infection, likely acute bronchitis -Acute strep pharyngitis -Acute metabolic encephalopathy, suspect from above, superimposed on Alzheimer' s Dementia/Schizophrenia -NIKOLE on CKD stage III -Hypothyroidism -Normocytic anemia Plan: MRI brain noted, mental status improved, overall exam non concerning. ASA/statin. Neurology input noted. 2D echo/carotid duplex noted transferred to telemetry. no events so far. Will benefit from extended holter Further AC per neuro. AG closed. Endocrine input noted. Metformin to resume on dc. Hold jardiance per endocrine. Levemir 15 units, novolog premeal. ISS. Outpatient endocrine follow up s/p 7 days of ceftriaxone. Continue risperidone/namenda/cymbalta. Renal function improved. renal US noted. Losartan resumed. TSH noted, continue synthroid. repeat thyroid function test in 4-6 weeks. Continue norvasc. Iron Sat 7%/Ferritin 132. No evidence of acute bleeding. For out-patient GI and Nephrology follow up. Iron supplementation. PT eval Dispo awaiting SNF placement.
--- NOTE | 2019-05-28 17:08 | PN ---
Progress Note, Physician History of Present Illness: Events noted chart reviewed seen on telemetry Was sleeping again arousable does not follow one-step command No focalityto consist with the MRI results Carotid Doppler with no stenosis Tolerating the baby aspirin - Current Medication List Current Medications: Active Medications Amlodipine Besylate (Norvasc -) 5 mg PO DAILY [facility] Last Admin: 05/28/19 10:25 Dose: 5 mg Artificial Tears (Artificial Tears) 1 drop OU BID [facility] Last Admin: 05/28/19 10:27 Dose: 1 drop Aspirin (Asa -) 81 mg PO DAILY [facility] Last Admin: 05/28/19 10:25 Dose: 81 mg Atorvastatin Calcium (Lipitor -) 40 mg PO HS [facility] Last Admin: 05/27/19 21:48 Dose: 40 mg Brimonidine Tartrate (Alphagan 0.15% -) 1 drop OU BID [facility] Last Admin: 05/28/19 10:27 Dose: 1 drop Dorzolamide HCl (Trusopt 2%) 1 drop OU BID [facility] Last Admin: 05/28/19 10:27 Dose: 1 drop Duloxetine HCl (Cymbalta -) 30 mg PO DAILY [facility] Last Admin: 05/28/19 10:26 Dose: 30 mg Ergocalciferol (Drisdol -) 50,000 unit PO Q7D@1000 [facility] Last Admin: 05/28/19 10:25 Dose: 50,000 unit Ferrous Sulfate (Feosol -) 325 mg PO BID [facility] Last Admin: 05/28/19 10:26 Dose: 325 mg Heparin Sodium (Porcine) (Heparin -) 5,000 unit SQ TID [facility] Last Admin: 05/28/19 14:59 Dose: 5,000 unit Insulin Aspart (Novolog Vial Sliding Scale -) 1 vial SQ HS [facility]; Protocol Last Admin: 05/27/19 21:57 Dose: 4 unit Insulin Aspart (Novolog Vial Sliding Scale -) 1 vial SQ TIDAC [facility]; Protocol Last Admin: 05/28/19 12:27 Dose: 8 units Insulin Detemir (Levemir Vial) 18 units SQ HS [facility] Last Admin: 05/27/19 21:54 Dose: 18 units Levothyroxine Sodium (Synthroid -) 50 mcg PO DAILY@0700 [facility] Last Admin: 05/28/19 06:09 Dose: 50 mcg Losartan Potassium (Cozaar -) 100 mg PO DAILY [facility] Last Admin: 05/28/19 10:26 Dose: 100 mg Memantine (Namenda -) 5 mg PO DAILY [facility] Last Admin: 05/28/19 10:25 Dose: 5 mg Risperidone (Risperdal -) 0.5 mg PO HS [facility] Last Admin: 05/27/19 21:48 Dose: 0.5 mg - Objective Vital Signs: Vital Signs Temperature 98.2 F 05/28/19 14:01 Pulse Rate 79 05/28/19 14:01 Respiratory Rate 16 05/28/19 14:01 Blood Pressure 108/59 L 05/28/19 14:01 O2 Sat by Pulse Oximetry (%) 96 05/28/19 08:52 Constitutional: Yes: Well Nourished Eyes: Yes: WNL HENT: Yes: WNL Neurological: Yes: Alert, Oriented, Babinski positive, Dysarthria ...Motor Strength: WNL Labs: CBC, BMP 05/25/19 07:05 05/27/19 06:20 INR, PTT INR 0.87 (0.83-1.09) 05/20/19 15:00 Problem List - Problems (1) CVA (cerebral vascular accident) Assessment/Plan: 1. Stop the baby aspirin. 2. Aggrenox twice daily. 3. Statin. 4. Physical therapy at subacute rehabilitation Code(s): I63.9 - CEREBRAL INFARCTION, UNSPECIFIED
[2019-05-28] MEDS: risperiDONE 0.5 MG TABLET PO SCH (21:09)
[2019-05-28] MEDS: INSULIN (LEVEMIR) 100 UNITS/ML UNITS SQ SCH (21:15)
[2019-05-28] MEDS: ATORVASTATIN CA 40 MG TABLET (FP) PO SCH (21:39)
[2019-05-29] MEDS: LEVOTHYROXINE NA 50 MCG TABLET (FP) PO SCH (05:59)
[2019-05-29] MEDS: HEPARIN NA (PORCINE) 5,000 UNITS/ML 1ML VIAL SQ SCH ×2 (05:59→14:24)
[2019-05-29] MEDS: INSULIN SLIDING SCALE (NOVOLOG) 1 VIAL SQ SCH ×3 (06:14→16:30)
[2019-05-29 06:55] LABS: BLOOD UREA NITROGEN 23.4 mg/dL (7-18); CALCIUM 9.6 mg/dL (8.5-10.1); CREATININE 1.3 mg/dL (0.55-1.3); POTASSIUM 4.2 mmol/L (3.5-5.1)
[2019-05-29] MEDS ORDERED: ASPIRIN/DIPYRIDAMOLE 25 MG/200 MG CAPSULE PO SCH (10:00)
[2019-05-29] MEDS: FERROUS SO4 325 MG TABLET (FP) PO SCH (10:34)
[2019-05-29] MEDS: DULoxetine HCL 30 MG CAPSULE.DR PO SCH (10:34)
[2019-05-29] MEDS: amLODIPine BESYLATE 5 MG TABLET (FP) PO SCH (10:34)
[2019-05-29] MEDS: MEMANTINE HCL 5 MG TABLET (UD) PO SCH (10:34)
[2019-05-29] MEDS: BRIMONIDINE TARTRATE 0.15% OPHTHALMIC 5 ML BOTTLE OU SCH (10:35)
[2019-05-29] MEDS: ARTIFICIAL TEARS (POLYVINYL ALCOHOL) OPTH DROPS OU SCH (10:35)
[2019-05-29] MEDS: DORZOLAMIDE 2% HCL OPHTHALMIC SOLUTION 10 ML BOTTLE OU SCH (10:35)
[2019-05-29] MEDS: LOSARTAN POTASSIUM 50 MG TABLET (FP) PO SCH (10:35)
--- NOTE | 2019-05-29 12:06 | PN ---
Progress Note (short form) - Note Progress Note: awake alert Blood sugar fluctuating Vital Signs Period Temp Pulse Resp BP Sys/Peña Pulse Ox Last 24 Hr 97.3 F-98.3 F 65-79 16-20 108-138/59-76 94 PE: Awake, alert, oriented to place and person HEENT: EOMI Neck: Supple NO JVD Lungs: CTA CVS: S1S2 Abd: Benign Ext: No edema CMP Sodium 144 mmol/L (136-145) 05/29/19 05:30 Potassium 4.2 mmol/L (3.5-5.1) 05/29/19 05:30 Chloride 112 mmol/L (98-107) H 05/29/19 05:30 Carbon Dioxide 26 mmol/L (21-32) 05/29/19 05:30 Anion Gap 6 MMOL/L (8-16) L 05/29/19 05:30 BUN 23.4 mg/dL (7-18) H 05/29/19 05:30 Creatinine 1.3 mg/dL (0.55-1.3) 05/29/19 05:30 Est GFR (CKD-EPI)AfAm 44.56 05/29/19 05:30 Est GFR (CKD-EPI)NonAf 38.44 05/29/19 05:30 POC Glucometer 89 UNITS (80-120) 05/29/19 05:30 Random Glucose 88 mg/dL (74-106) 05/29/19 05:30 Hemoglobin A1c % 11.1 % (4.2-6.3) H 05/20/19 18:55 Lactic Acid 1.2 mmol/L (0.4-2.0) 05/20/19 15:00 Calcium 9.6 mg/dL (8.5-10.1) 05/29/19 05:30 Phosphorus 4.0 mg/dL (2.5-4.9) 05/26/19 07:15 Magnesium 2.2 mg/dL (1.8-2.4) 05/27/19 06:20 Iron 17 ug/dL (50-175) L 05/20/19 19:30 TIBC 238 ug/dL (250-450) L 05/20/19 19:30 Iron Saturation 7 % (17.5-39) L 05/20/19 19:30 Unsaturated IBC 221 ug/dL (200-275) 05/20/19 19:30 Transferrin 188 mg/dL (200-370) L 05/21/19 02:00 Ferritin 139.3 ng/ml (8-388) 05/20/19 19:30 Total Bilirubin 0.3 mg/dL (0.2-1) 05/21/19 08:35 AST 17 U/L (15-37) 05/21/19 08:35 ALT 18 U/L (13-61) 05/21/19 08:35 Alkaline Phosphatase 57 U/L (45-117) 05/21/19 08:35 Creatine Kinase 172 U/L (26-192) 05/20/19 14:55 Creatine Kinase Index 1.5 % (0.0-5.0) 05/20/19 14:55 CK-MB (CK-2) 2.7 ng/mL (0.5-3.6) 05/20/19 14:55 Troponin I < 0.02 ng/ml (0.00-0.05) 05/20/19 14:55 Total Protein 6.9 g/dl (6.4-8.2) 05/21/19 08:35 Albumin 2.6 g/dl (3.4-5.0) L 05/21/19 08:35 Triglycerides 87 mg/dL (0-150) 05/27/19 06:20 Cholesterol 140 mg/dL (50-200) 05/27/19 06:20 Total LDL Cholesterol 75 mg/dL (5-100) 05/27/19 06:20 HDL Cholesterol 41 mg/dL (40-60) 05/27/19 06:20 Homocysteine 16.2 umol/L (0.0-15.0) H 05/27/19 06:20 Beta-Hydroxybutyrate 100.7 mg/dL (0.2-2.8) H 05/20/19 14:55 TSH 4.31 uIU/ml (0.358-3.74) H 05/21/19 08:35 Current Medications Generic Name Dose Route Start Last Admin Trade Name Freq PRN Reason Stop Dose Admin Amlodipine Besylate 5 mg 05/27/19 10:00 05/29/19 10:34 Norvasc - PO 5 mg DAILY [facility] Administration Artificial Tears 1 drop 05/26/19 22:00 05/29/19 10:35 Artificial Tears OU 1 drop BID [facility] Administration Atorvastatin Calcium 40 mg 05/26/19 22:00 05/28/19 21:39 Lipitor - PO 40 mg HS [facility] Administration Brimonidine Tartrate 1 drop 05/26/19 22:00 05/29/19 10:35 Alphagan 0.15% - OU 1 drop BID [facility] Administration Dipyridamole/Aspirin 1 combo 05/29/19 10:00 05/29/19 10:35 Aggrenox - PO 1 combo BID [facility] Administration Dorzolamide HCl 1 drop 05/26/19 22:00 05/29/19 10:35 Trusopt 2% OU 1 drop BID [facility] Administration Duloxetine HCl 30 mg 05/27/19 10:00 05/29/19 10:34 Cymbalta - PO 30 mg DAILY [facility] Administration Ergocalciferol 50,000 unit 05/28/19 10:00 05/28/19 10:25 Drisdol - PO 50,000 unit Q7D@1000 [facility] Administration Ferrous Sulfate 325 mg 05/27/19 10:00 05/29/19 10:34 Feosol - PO 325 mg BID [facility] Administration Heparin Sodium (Porcine) 5,000 unit 05/26/19 22:00 05/29/19 05:59 Heparin - SQ 5,000 unit TID [facility] Administration Insulin Aspart 1 vial 05/26/19 22:00 05/28/19 21:49 Novolog Vial Sliding Scale - SQ 2 unit HS [facility] Administration Protocol Insulin Aspart 1 vial 05/27/19 07:00 05/29/19 06:14 Novolog Vial Sliding Scale - SQ Not Given TIDAC [facility] Protocol Insulin Detemir 18 units 05/26/19 22:00 05/28/19 21:15 Levemir Vial SQ 18 units HS [facility] Administration Levothyroxine Sodium 50 mcg 05/27/19 07:00 05/29/19 05:59 Synthroid - PO 50 mcg DAILY@0700 [facility] Administration Losartan Potassium 100 mg 05/27/19 10:00 05/29/19 10:35 Cozaar - PO 100 mg DAILY [facility] Administration Memantine 5 mg 05/27/19 10:00 05/29/19 10:34 Namenda - PO 5 mg DAILY [facility] Administration Risperidone 0.5 mg 05/26/19 22:05/28/19 21:09 Risperdal - PO 0.5 mg HS [facility] Administration AP: DKA resolved? related to Jardiance T2DM Pneumonia vs Acute Bronchitis Acute Kidney Injury CAD HTN Hyperlipidemia Hypothyroidism Anemia Schizophrenia Dementia Decrase Levemir 16 units daily at HS, May use Lantus 16 untis daily at HS at Assisted living Novolog SS coverage NOvolog SS coverage in hospital. May need Premeal Insulin also if it can be done at the facility. 4 units Novolog or HUmalog TID with meals Metformin may be restarted if renal function normalizes No Jardiance or other SGLT2s in the future b/o DKA Will get C peptide and MIKE. Lab orders sent to Pathology for approval Monitor electrolytes Replace electrolytes as necessary Levothyroxine 50 mcg QD
--- NOTE | 2019-05-29 14:01 | PN ---
Teaching Attending Note Name of Resident: Neel Benitez ATTENDING PHYSICIAN STATEMENT I saw and evaluated the patient. I reviewed the resident's note and discussed the case with the resident. I agree with the resident's findings and plan as documented with exceptions below. SUBJECTIVE: Patient seen and examined. no complaints. OBJECTIVE: Vital Signs Period Temp Pulse Resp BP Sys/Peña Pulse Ox Last 24 Hr 97.3 F-98.4 F 65-79 16-20 108-140/59-80 94-94 Intake & Output 05/26/19 05/27/19 05/28/19 05/29/19 23:59 23:59 23:59 23:59 Intake Total 641 189 7077 120 Output Total 300 Balance -50 810 1160 120 General: sleeping in bed, no acute distress chest: CTAB, no rales or wheezing Abdomen:Soft, NT Extremities: no edema Home Medications Medication Instructions Recorded Atorvastatin Ca [Lipitor] 40 mg PO HS #0 01/12/16 Amlodipine Besylate [Norvasc -] 5 mg PO DAILY 05/20/19 Brimonidine Tartrate [Alphagan 1 drop OU BID 05/20/19 0.15% -] Dorzolamide HCl/Pf [Dorzolamide 2% 1 drop OU BID 05/20/19 Eye Drop] Duloxetine HCl [Cymbalta -] 30 mg PO DAILY 05/20/19 Ergocalciferol [Vitamin D2] 50,000 unit PO Q7D@1000 05/20/19 Levothyroxine Sodium 50 mcg PO DAILY 05/20/19 Losartan Potassium [Cozaar] 100 mg PO DAILY 05/20/19 Memantine HCl [Namenda -] 5 mg PO DAILY 05/20/19 Polyvinyl Alcohol [Artificial 1 drop OU BID 05/20/19 Tears] Risperidone [Risperdal -] 0.5 mg PO HS 05/20/19 metFORMIN HCL [Glucophage -] 1,000 mg PO BID 05/20/19 Insulin Glargine,Hum.rec.anlog 15 unit SQ HS #5 vial 05/22/19 [Lantus] Insulin Sliding Scale [Novolog See Protocol SQ ACHS #1 vial 05/22/19 Vial Sliding Scale -] Ferrous Sulfate [Feosol] 325 mg PO BID #60 ud 05/26/19 Aspirin/Dipyridamole [Aggrenox -] 1 combo PO BID #60 capsule 05/29/19 Active Medications Amlodipine Besylate (Norvasc -) 5 mg PO DAILY [facility] Last Admin: 05/29/19 10:34 Dose: 5 mg Artificial Tears (Artificial Tears) 1 drop OU BID [facility] Last Admin: 05/29/19 10:35 Dose: 1 drop Atorvastatin Calcium (Lipitor -) 40 mg PO HS [facility] Last Admin: 05/28/19 21:39 Dose: 40 mg Brimonidine Tartrate (Alphagan 0.15% -) 1 drop OU BID [facility] Last Admin: 05/29/19 10:35 Dose: 1 drop Dipyridamole/Aspirin (Aggrenox -) 1 combo PO BID [facility] Last Admin: 05/29/19 10:35 Dose: 1 combo Dorzolamide HCl (Trusopt 2%) 1 drop OU BID [facility] Last Admin: 05/29/19 10:35 Dose: 1 drop Duloxetine HCl (Cymbalta -) 30 mg PO DAILY [facility] Last Admin: 05/29/19 10:34 Dose: 30 mg Ergocalciferol (Drisdol -) 50,000 unit PO Q7D@1000 [facility] Last Admin: 05/28/19 10:25 Dose: 50,000 unit Ferrous Sulfate (Feosol -) 325 mg PO BID [facility] Last Admin: 05/29/19 10:34 Dose: 325 mg Heparin Sodium (Porcine) (Heparin -) 5,000 unit SQ TID [facility] Last Admin: 05/29/19 05:59 Dose: 5,000 unit Insulin Aspart (Novolog Vial Sliding Scale -) 1 vial SQ HS [facility]; Protocol Last Admin: 05/28/19 21:49 Dose: 2 unit Insulin Aspart (Novolog Vial Sliding Scale -) 1 vial SQ TIDAC [facility]; Protocol Last Admin: 05/29/19 12:04 Dose: 8 units Insulin Detemir (Levemir Vial) 16 units SQ [facility] Levothyroxine Sodium (Synthroid -) 50 mcg PO DAILY@0700 [facility] Last Admin: 05/29/19 05:59 Dose: 50 mcg Losartan Potassium (Cozaar -) 100 mg PO DAILY [facility] Last Admin: 05/29/19 10:35 Dose: 100 mg Memantine (Namenda -) 5 mg PO DAILY [facility] Last Admin: 12/26/19 10:34 Dose: 5 mg Risperidone (Risperdal -) 0.5 mg PO HS [facility] Last Admin: 05/28/19 21:09 Dose: 0.5 mg Laboratory Results - last 24 hr 05/27/19 05/28/19 05/28/19 06:20 16:40 21:01 Sodium Potassium Chloride Carbon Dioxide Anion Gap BUN Creatinine Est GFR (CKD-EPI)AfAm Est GFR (CKD-EPI)NonAf POC Glucometer 196 245 Random Glucose Calcium Homocysteine 16.2 H 05/29/19 05/29/19 05/29/19 05:30 05:30 12:02 Sodium 144 Potassium 4.2 Chloride 112 H Carbon Dioxide 26 Anion Gap 6 L BUN 23.4 H Creatinine 1.3 Est GFR (CKD-EPI)AfAm 44.56 Est GFR (CKD-EPI)NonAf 38.44 POC Glucometer 89 225 Random Glucose 88 Calcium 9.6 Homocysteine Microbiology 05/20/19 15:16 Blood - Peripheral Venous Blood Culture - Final NO GROWTH AFTER 5 DAYS INCUBATION 05/20/19 15:00 Blood - Peripheral Venous Blood Culture - Final NO GROWTH AFTER 5 DAYS INCUBATION 05/22/19 10:00 Urine - Urine Clean Catch Legionella Antigen - Final 05/22/19 10:00 Urine - Urine Clean Catch Streptococcus pneumoniae Antigen ( M - Final 05/20/19 16:50 Urine - Urine Clean Catch Urine Culture - Final NO GROWTH OBTAINED ASSESSMENT AND PLAN: 83 y/o woman with hx DM 2, Alzheimers, Schizophrenia, HTN, CAD, [facility], admitted for 3 day history of increasing confusion and cough. Noted to be hyperglycemic with DKA on presentation. -Acute left parietal/parietotemporal CVA, Chronic left temporoparietal/ cerebellar CVA -Acute DKA -Poorly controlled DM, A1c 11.2 -Lower respiratory tract infection, likely acute bronchitis -Acute strep pharyngitis -Acute metabolic encephalopathy, suspect from above, superimposed on Alzheimer' s Dementia/Schizophrenia -NIKOLE on CKD stage III -Hypothyroidism -Normocytic anemia Plan: MRI brain noted, mental status improved, overall exam non concerning. Neurology input noted. Aggrenox/statin. 2D echo/carotid duplex noted No events on telemetry. Will benefit from extended holter AG closed. Endocrine input noted. Metformin to resume on dc. Hold jardiance per endocrine. Levemir 15 units, novolog premeal. ISS. Outpatient endocrine follow up s/p 7 days of ceftriaxone. Continue risperidone/namenda/cymbalta. Renal function improved. renal US noted. Losartan resumed. TSH noted, continue synthroid. repeat thyroid function test in 4-6 weeks. Continue norvasc. Iron Sat 7%/Ferritin 132. No evidence of acute bleeding. For out-patient GI and Nephrology follow up. Iron supplementation. PT eval noted Activity level improved, Dc back to Assisted living with outpatient follow up as above.
--- NOTE | 2019-05-29 14:51 | DS ---
Physical Exam: SUBJECTIVE: Patient seen and examined at the bedside. Stated that she felt better, noted her cough is improved, and her breathing is improved. Denied cp, sob, abd pain, n/v/c/d, fever, chills, headaches, dizziness, lightheadedness, numbness, tingling, weakness. OBJECTIVE: Vital Signs Period Temp Pulse Resp BP Sys/Peña Pulse Ox Last 24 Hr 97.3 F-98.4 F 65-77 16-20 117-140/60-80 94-94 PHYSICAL EXAM GENERAL: The patient is awake, alert, and oriented to self, "[place]" and in no acute distress. HEAD: Normal with no signs of trauma. EYES: PERRL, extraocular movements intact, sclera anicteric, conjunctiva clear. ENT: Oropharynx clear without exudates, moist mucous membranes. NECK: Trachea midline, full range of motion, supple. LUNGS: Breath sounds equal, with faint bibasilar crackles. No noted wheezes. HEART: Regular rate and rhythm, S1, S2 without murmur, rub. ABDOMEN: Soft, nontender, nondistended, normoactive bowel sounds, no guarding, no rebound, no masses. EXTREMITIES: 2+ pulses, warm, well-perfused, no edema. NEUROLOGICAL: Cranial nerves II through XII grossly intact. 5/5 muscle strength upper and lower extremities bilaterally. PSYCH: Normal mood and affect SKIN: Warm, dry, no rashes or lesions noted LABS Laboratory Results - last 24 hr 05/27/19 05/28/19 05/28/19 06:20 16:40 21:01 Sodium Potassium Chloride Carbon Dioxide Anion Gap BUN Creatinine Est GFR (CKD-EPI)AfAm Est GFR (CKD-EPI)NonAf POC Glucometer 196 245 Random Glucose Calcium Homocysteine 16.2 H 05/29/19 05/29/19 05/29/19 05:30 05:30 12:02 Sodium 144 Potassium 4.2 Chloride 112 H Carbon Dioxide 26 Anion Gap 6 L BUN 23.4 H Creatinine 1.3 Est GFR (CKD-EPI)AfAm 44.56 Est GFR (CKD-EPI)NonAf 38.44 POC Glucometer 89 225 Random Glucose 88 Calcium 9.6 Homocysteine HOSPITAL COURSE: Mallory Valencia is an 83 year old female with a past medical history of alzheimers, schizophrenia, HTN, DM2, hypothyroidism, CAD, HLD, HHD (LVH), glaucoma, depression who presents from [facility] who was admitted with AMS likely secondary to DKA which was precipitated by a pneumonia. The patient was started on an insulin drip, bridged with Levemir, had closed anion gap, and transitioned to Levemir and sliding scale insulin. The patient was seen by endocrinology who recommended an altered medication regimen which the patient is to continue taking at her assisted living consisting of long acting Lantus insulin 16 units, sliding scale as per protocol, and metformin. Patient to stop taking Jardiance. Patient is to follow up with endocrinology as an outpatient. Patient was started on antibiotics for pneumonia and had positive step pneumo antigen in the urine and was maintained on ceftriaxone and completed an antibiotic course while admitted at the hospital. Her symptoms had improved by day of discharge. Patient's mental status improved throughout the admission and she was back to her baseline mental status. Patient had a head CT which noted small cerebellar infarcts, likely chronic in nature. Chronic mod periventricular and subcortical white matter microvascular ischemic gliosis. Subsequently, the patient had an MRI performed which showed punctate acute left parietal cortical infarct and possible additional parietotemporal cortical infarct as well as several chronic cerebellar infarcts. Patient was started on Aggrenox and maintained on statin. Had carotid dopplers performed which showed mild atherosclerotic disease with no hemodynamically significant stenosis. Echo performed showed normal LV size, function, thickness, normal EF, mild aortic regurg, trace to mild tricuspid regurg, trace to mild mitral regurg, possible poor LV compliance. Neurology was consulted and recommended continuing Aggrenox and to follow up outpatient. The patient will likely require outpatient holter monitor and cardiology referral was provided. Homocysteine levels were checked and elevated. Patient to follow up with neurology outpatient. CXR showed granuloma in R base which patient is to follow up with her primary care. Renal U/s showed a cyst in the L renal pole which the patient is to follow up with her primary care. Iron studies noted that the patient had iron deficiency anemia and was started on iron supplementation. She was found with mildly elevated TSH levels and to have repeat TSH levels in the outpatient setting. Patient's facility was contacted, all medications updated and sent. Primary care physician at facility was notified about patient's condition while she was admitted at this facility and case discussed. Patient was stable for discharge back to her Assisted Living Facility. Date of Admission:05/20/19 Date of Discharge: 05/29/19 Minutes to complete discharge: 40 Discharge Summary Problems reviewed: Yes Reason For Visit: DIABETIC KETOACIDOSIS Condition: Stable - Instructions Diet, Activity, Other Instructions: You were admitted for elevated blood sugars in your blood which caused you to have confusion. You were treated with insulin and your blood sugar improved. You will leave on a different regimen of your diabetes medications to help manage your blood sugars better. You were found to have a pneumonia in your lungs as seen on a chest x-ray. You were started on antibiotics to treat the pneumonia which you will continue to take when you leave the hospital. You had a CT scan of your head which showed some abnormalities in one part of your brain. In order to evaluate these further you had an MRI of your brain done which showed that you had some recent strokes in several parts of your brain. You were started on medications to reduce your risk of further strokes from occurring. You were seen by a neurologist (brain doctor) and are recommended to continue taking aspirin, atorvastatin, have physical therapy, and to follow up with a neurologist in the outpatient clinic. MEDICATIONS STOP taking Jardiance. Do not take Jardiance or other SGLT-2 inhibitors in the future. START to take Lantus 16 units every night. Continue taking metformin. START to take sliding scale Insulin as follows: (Blood glucose check before meals and at bedtime) Before meals: BGM 100-150 - 2 units, 151-200 - 6 units, 201-250 - 8 units, 251- 301 - 10 units, 301-350 - 12 units, 351-400 - 12 units, >400 call MD Nightly: BGM 100-150 - 0 units, 151-200 - 0 units, 201-250 - 2 units, 251-301 - 4 units, 301-350 - 6 units, 351-400 - 8 units, >400 call MD START to take Aggrenox 1 tablet twice daily. START to take ferrous sulfate 325mg twice a day. Continue to take all of your other home medications as prescribed. REFERRALS Please follow up with your primary care doctor, Dr. Inderjit Spangler, within 1 week. Please follow up with the commercial light fixture assembler, Dr. Janelle Titus, within 1 week. Please follow up with the neurologist, Dr. Brandee Coy, within 1 week. Outpatient cardiology follow up to discuss extended Holter monitoring ( information for Dr. Ma provided) SPECIAL INSTRUCTIONS You will need to have a repeat Basic Metabolic Panel check in 1 week. You will need to have C-peptide level check and MIKE antibody in 1 week. You will need to have a repeat thyroid function test in 4 weeks. Keep a Blood Glucose Measurement Diary until you see the commercial light fixture assembler and bring the measurements to the appointment. You were found to have a cyst on your left kidney. You should follow up with your primary care doctor if you need any further follow up regarding this finding. You were found to have a granuloma (mass) in your right lung. You should follow up with your primary care doctor if you need any further follow up regarding this finding. Maintain high fiber diet and laxiatives as needed while on iron pills. If you have any further symptoms of confusion, vomiting, fevers, chest pain, shortness of breath, abdominal pain, inability to eat, or any other general feelings of unwellness, please call 911 or go to your nearest emergency room. Referrals: Ean Ma MD [Staff Physician] - Inderjit Spangler MD [Non Staff, Medical] - 1 Week Janelle Titus MD [Staff Physician] - 1 Week Brandee Coy MD [Staff Physician] - 1 Week Disposition: VNS/HOME HEALTH CARE - Home Medications Comprehensive Discharge Medication List: Ambulatory Orders Atorvastatin Ca [Lipitor] 40 mg PO HS #0 01/12/16 Amlodipine Besylate [Norvasc -] 5 mg PO DAILY 05/20/19 Brimonidine Tartrate [Alphagan 0.15% -] 1 drop OU BID 05/20/19 Dorzolamide HCl/Pf [Dorzolamide 2% Eye Drop] 1 drop OU BID 05/20/19 Duloxetine HCl [Cymbalta -] 30 mg PO DAILY 05/20/19 Ergocalciferol [Vitamin D2] 50,000 unit PO Q7D@1000 05/20/19 Levothyroxine Sodium 50 mcg PO DAILY 05/20/19 Losartan Potassium [Cozaar] 100 mg PO DAILY 05/20/19 Memantine HCl [Namenda -] 5 mg PO DAILY 05/20/19 Polyvinyl Alcohol [Artificial Tears] 1 drop OU BID 05/20/19 Risperidone [Risperdal -] 0.5 mg PO HS 05/20/19 metFORMIN HCL [Glucophage -] 1,000 mg PO BID 05/20/19 Ferrous Sulfate [Feosol] 325 mg PO BID #60 ud 05/26/19 Aspirin/Dipyridamole [Aggrenox -] 1 combo PO BID #60 capsule 05/29/19 Insulin Glargine,Hum.rec.anlog [Lantus] 16 unit SQ HS #1 vial 05/29/19 Insulin Sliding Scale [Novolog Vial Sliding Scale -] 1 vial SQ HS #1 vial Insulin Sliding Scale [Novolog Vial Sliding Scale -] 1 vial SQ TIDAC #1 vial Problem List - Problems (1) DKA (diabetic ketoacidoses) Code(s): E11.10 - TYPE 2 DIABETES MELLITUS WITH KETOACIDOSIS WITHOUT COMA Qualifiers: Diabetes mellitus type: other specified (including ANGELITO) Diabetes mellitus complication detail: without coma Qualified Code(s): E13.10 - Other specified diabetes mellitus with ketoacidosis without coma (2) CVA (cerebral vascular accident) Code(s): I63.9 - CEREBRAL INFARCTION, UNSPECIFIED (3) Diabetes mellitus Code(s): E11.9 - TYPE 2 DIABETES MELLITUS WITHOUT COMPLICATIONS (4) HLD (hyperlipidemia) Code(s): E78.5 - HYPERLIPIDEMIA, UNSPECIFIED (5) HTN (hypertension) Code(s): I10 - ESSENTIAL (PRIMARY) HYPERTENSION This patient is new to me today: No Emergency Visit: Yes ED Registration Date: 05/20/19 Care time: The patient presented to the Emergency Department on the above date and was hospitalized for further evaluation of their emergent condition. Critical Care patient: No - Discharge Referral Referred to [facility] Med P.C.: No
[2019-05-29 15:32] VITALS: BP 124/56; PULSE 69; TEMP 98.2
[2019-05-29] MEDS ORDERED: INSULIN (LEVEMIR) 100 UNITS/ML UNITS SQ SCH (22:00)
== END 2019-05-29 16:32 | disposition home health service (06) | DRG 637 ==
LOC: JER 12:51 → JERBED 15:51 → JICU 20:56 → J8W 05-23 15:39 → J4W 05-26 21:45
PROVIDERS: ADMIT Internal Medicine; ATTEND Hospitalist
DX: E11.10 Type 2 diabetes mellitus with ketoacidosis without coma (principal); G93.41 Metabolic encephalopathy; J18.9 Pneumonia, unspecified organism; I63.9 Cerebral infarction, unspecified; E87.2 Acidosis; N17.9 Acute kidney failure, unspecified; E03.9 Hypothyroidism, unspecified; G30.9 Alzheimer's disease, unspecified; F02.80 Dementia in other diseases classified elsewhere, unspecified severity, without behavioral disturbance, psychotic disturbance, mood disturbance, and anxiety; F20.9 Schizophrenia, unspecified; I25.10 Atherosclerotic heart disease of native coronary artery without angina pectoris; E78.5 Hyperlipidemia, unspecified; H40.9 Unspecified glaucoma; H91.93 Unspecified hearing loss, bilateral; E86.0 Dehydration; N28.1 Cyst of kidney, acquired; D63.8 Anemia in other chronic diseases classified elsewhere; J20.9 Acute bronchitis, unspecified; J02.0 Streptococcal pharyngitis; E11.65 Type 2 diabetes mellitus with hyperglycemia; I12.9 Hypertensive chronic kidney disease with stage 1 through stage 4 chronic kidney disease, or unspecified chronic kidney disease; E11.22 Type 2 diabetes mellitus with diabetic chronic kidney disease; N18.3 Chronic kidney disease, stage 3 (moderate); Z86.73 Personal history of transient ischemic attack (TIA), and cerebral infarction without residual deficits; Z91.14 Patient's other noncompliance with medication regimen
CPT/HCPCS: 36415; 36600; 70450-TC; 70551-TC; 71045-TC-FY; 76775-TC; 80048; 80053; 80061; 81003; 82010; 82272; 82375; 82550; 82553; 82728; 82803; 82962; 83036; 83050; 83090; 83540; 83550; 83605; 83721; 83735; 84100; 84443; 84466; 84484; 85025; 85027; 85610; 85730; 87040; 87086; 87804; 87899; 90670; 93005; 93010; 93306-TC; 93880-TC; 97116-GP; 97161-GP; 99285-25; G0008; G0009; J1644; J7030; Q2036

== ENCOUNTER 2019-05-29 18:29 | Inpatient (IN) | payer OTHER ==
[2019-05-29 18:50] VITALS: BMI 24.3
--- NOTE | 2019-05-29 20:07 | PDOC ---
Attending Attestation - Resident Resident Name: Domenica Simpson - ED Attending Attestation I have performed the following: I have examined & evaluated the patient, The case was reviewed & discussed with the resident, I agree w/resident's findings & plan, Exceptions are as noted - HPI HPI: 06/03/19 01:24 See resident HPI - Physicial Exam PE: 06/03/19 01:24 Agree with exam documented by resident - Medical Decision Making 05/29/19 21:19 Patient was brought back to hospital by transporting EMS when receiving facility stated that they are not equipped to take care of her chronic medical issues Social Work is aware of the bounce back and is attempting to expedite a direct admission to another care facility that has the appropriate resources Without acute complaints Dispo per clinical course, likely observation until placement SW unable to place tonight Will admit for care until placement
[2019-05-30 02:08] LABS: BASO % 1.2 % (0-2.0); EOS % 0.4 % (0-4.5); HEMATOCRIT 29.4 % (32.4-45.2); HEMOGLOBIN 9.5 GM/dL (10.7-15.3); MCH 28.5 pg (25.7-33.7); MCHC 32.1 g/dl (32.0-36.0); MEAN CELL VOLUME 88.6 fl (80-96); MONO % 6.6 % (3.8-10.2); NEUT % 75.8 % (42.8-82.8); PLATELET COUNT 450 K/MM3 (134-434); RBC 3.32 M/mm3 (3.60-5.2); RDW 15.5 % (11.6-15.6); WHITE BLOOD COUNT 9.6 K/mm3 (4.0-10.0)
[2019-05-30 02:32] LABS: BILIRUBIN,TOTAL 0.3 mg/dL (0.2-1); BLOOD UREA NITROGEN 23.9 mg/dL (7-18); CALCIUM 9.5 mg/dL (8.5-10.1); CREATININE 1.5 mg/dL (0.55-1.3); POTASSIUM 4.5 mmol/L (3.5-5.1); TOT PROT 8.2 g/dl (6.4-8.2)
--- NOTE | 2019-05-30 03:15 | PDOC ---
History of Present Illness - General Chief Complaint: Loss of Appetite Stated Complaint: FAILURE TO THRIVE Time Seen by Provider: 05/29/19 19:15 - History of Present Illness Initial Comments: HPI: 83yo F with PMH of DM, alzheimers, schizophrenia, HTN, CAD sent back by assisted living facility. Patient was discharged from this hospital today. Per note from the [facility]: "1. pt has not been on insulin before AND current insulin orders are NOT clear AND ALSO can NOT be executed in this facility. a. There is no nursing staff to administer nightly medications" Patient without acute complaints. No fevers, chills, chest pain, or shortness of breath. ROS: Constitutional: no fever, no chills HEENT: no throat pain, no dysphagia Cardiovascular: no chest pain, no palpitations Respiratory: no cough, no shortness of breath Gastrointestinal: no abdominal pain, no nausea Genitourinary: no dysuria, no hematuria Musculoskeletal: no myalgia, no arthralgia Skin: no rash, no itching Neurologic: no headache, no weakness PE: General: Awake, alert, and fully oriented, in no acute distress Head: No signs of trauma Eyes: EOMI, sclera anicteric ENT: Moist mucus membranes Neck: Normal ROM, supple Lungs: Lungs clear, Normal breath sounds Cardio: Regular rhythm, S1 and S2 present Abdomen: Soft, nontender. Extremities: Normal range of motion, Distal pulses present SKIN: Warm, Dry, normal turgor Neurologic: Cranial nerves II through XII grossly intact. Normal speech ED Course/MDM: Per note from the [facility] [place]: "1. pt has not been on insulin before AND current insulin orders are NOT clear AND ALSO can NOT be executed in this facility. a. There is no nursing staff to administer nightly medications" EKG: rate 84, Qtc 437, NSR Social admission CBC WBC 9.6 K/mm3 (4.0-10.0) 05/30/19 01:51 RBC 3.32 M/mm3 (3.60-5.2) L 05/30/19 01:51 Hgb 9.5 GM/dL (10.7-15.3) L 05/30/19 01:51 Hct 29.4 % (32.4-45.2) L 05/30/19 01:51 MCV 88.6 fl (80-96) 05/30/19 01:51 MCH 28.5 pg (25.7-33.7) 05/30/19 01:51 MCHC 32.1 g/dl (32.0-36.0) 05/30/19 01:51 RDW 15.5 % (11.6-15.6) 05/30/19 01:51 Plt Count 450 K/MM3 (134-434) H D 05/30/19 01:51 MPV 8.0 fl (7.5-11.1) 05/30/19 01:51 Absolute Neuts (auto) 7.3 K/mm3 (1.5-8.0) 05/30/19 01:51 Neutrophils % 75.8 % (42.8-82.8) D 05/30/19 01:51 Lymphocytes % 16.0 % (8-40) D 05/30/19 01:51 Monocytes % 6.6 % (3.8-10.2) 05/30/19 01:51 Eosinophils % 0.4 % (0-4.5) 05/30/19 01:51 Basophils % 1.2 % (0-2.0) 05/30/19 01:51 Nucleated RBC % 0 % (0-0) 05/30/19 01:51 No leukocytosis CMP Sodium 140 mmol/L (136-145) 05/30/19 01:51 Potassium 4.5 mmol/L (3.5-5.1) 05/30/19 01:51 Chloride 106 mmol/L (98-107) 05/30/19 01:51 Carbon Dioxide 24 mmol/L (21-32) 05/30/19 01:51 Anion Gap 9 MMOL/L (8-16) 05/30/19 01:51 BUN 23.9 mg/dL (7-18) H 05/30/19 01:51 Creatinine 1.5 mg/dL (0.55-1.3) H 05/30/19 01:51 Est GFR (CKD-EPI)AfAm 37.48 05/30/19 01:51 Est GFR (CKD-EPI)NonAf 32.34 05/30/19 01:51 Random Glucose 139 mg/dL (74-106) H 05/30/19 01:51 Calcium 9.5 mg/dL (8.5-10.1) 05/30/19 01:51 Total Bilirubin 0.3 mg/dL (0.2-1) 05/30/19 01:51 AST 76 U/L (15-37) H 05/30/19 01:51 ALT 58 U/L (13-61) 05/30/19 01:51 Alkaline Phosphatase 69 U/L (45-117) 05/30/19 01:51 Total Protein 8.2 g/dl (6.4-8.2) 05/30/19 01:51 Albumin 3.0 g/dl (3.4-5.0) L 05/30/19 01:51 Electrolytes unremarkable Cr elevated 1.5 SW unable to find placement for patient tonight. Plan for admission 05/30/19 03:15 MB sent 05/30/19 03:[address] Coronel who accepted patient for admission under Dr. Nettles 05/30/19 04:27 Past History - Past Medical History Allergies/Adverse Reactions: Allergies Allergy/AdvReac Type Severity Reaction Status Date / Time No Known Allergies Allergy Verified 05/20/19 13:13 Home Medications: Ambulatory Orders Atorvastatin Ca [Lipitor] 40 mg PO HS #0 01/12/16 Amlodipine Besylate [Norvasc -] 5 mg PO DAILY 05/20/19 Brimonidine Tartrate [Alphagan 0.15% -] 1 drop OS BID 05/20/19 Dorzolamide HCl/Pf [Dorzolamide 2% Eye Drop] 1 drop OU BID 05/20/19 Duloxetine HCl [Cymbalta -] 30 mg PO DAILY 05/20/19 Ergocalciferol [Vitamin D2] 50,000 unit PO Q7D@1000 05/20/19 Levothyroxine Sodium 50 mcg PO DAILY 05/20/19 Losartan Potassium [Cozaar] 100 mg PO DAILY 05/20/19 Memantine HCl [Namenda -] 5 mg PO DAILY 05/20/19 Polyvinyl Alcohol [Artificial Tears] 1 drop OS BID 05/20/19 Risperidone [Risperdal -] 0.5 mg PO HS 05/20/19 metFORMIN HCL [Glucophage -] 1,000 mg PO BID 05/20/19 Ferrous Sulfate [Feosol] 325 mg PO BID #60 ud 05/26/19 Aspirin/Dipyridamole [Aggrenox -] 1 combo PO BID #60 capsule 05/29/19 Insulin Glargine,Hum.rec.anlog [Lantus] 16 unit SQ HS #1 vial 05/29/19 Insulin Sliding Scale [Novolog Vial Sliding Scale -] 1 vial SQ HS #1 vial Insulin Sliding Scale [Novolog Vial Sliding Scale -] 1 vial SQ TIDAC #1 vial Acetaminophen [Pain Relief] 500 mg PO TID PRN 05/30/19 Naproxen [Naprosyn -] 500 mg PO BID 05/30/19 COPD: No Diabetes: Yes HTN: Yes Psychiatric Problems: Yes Thyroid Disease: Yes (hypo) - Psycho Social/Smoking Cessation Hx Smoking History: Never smoked Have you smoked in the past 12 months: No Information on smoking cessation initiated: No Hx Alcohol Use: No Drug/Substance Use Hx: No Substance Use Type: None *Physical Exam - Vital Signs Last Vital Signs Temp Pulse Resp BP Pulse Ox 98.2 F 77 16 119/71 96 05/29/19 18:29 05/29/19 18:29 05/29/19 18:29 05/29/19 18:29 05/29/19 18:29 ED Treatment Course - LABORATORY CBC & Chemistry Diagram: 05/30/19 01:51 05/30/19 01:51 - ADDITIONAL ORDERS Additional order review: Laboratory Results 05/30/19 01:51 Sodium 140 Potassium 4.5 Chloride 106 Carbon Dioxide 24 Anion Gap 9 BUN 23.9 H Creatinine 1.5 H Est GFR (CKD-EPI)AfAm 37.48 Est GFR (CKD-EPI)NonAf 32.34 Random Glucose 139 H Calcium 9.5 Total Bilirubin 0.3 AST 76 H ALT 58 Alkaline Phosphatase 69 Total Protein 8.2 Albumin 3.0 L 05/30/19 01:51 RBC 3.32 L MCV 88.6 MCHC 32.1 RDW 15.5 MPV 8.0 Neutrophils % 75.8 D Lymphocytes % 16.0 D Monocytes % 6.6 Eosinophils % 0.4 Basophils % 1.2 Discharge - Discharge Information Problems reviewed: Yes Clinical Impression/Diagnosis: Hyperglycemia Condition: Guarded - Admission Yes - Follow up/Referral Referrals: Clark Ray MD [Primary Care Provider] - - Patient Discharge Instructions - Post Discharge Activity
[2019-05-30 03:29] LABS: PLATELET ESTIMATE ADEQUATE
--- NOTE | 2019-05-30 05:43 | PN ---
Teaching Attending Note Name of Resident: Orlando Coronel ATTENDING PHYSICIAN STATEMENT I saw and evaluated the patient. I reviewed the resident's note and discussed the case with the resident. I agree with the resident's findings and plan as documented. SUBJECTIVE: Patient is a 83 year old woman with a PMH of DM, Alzheimer's dementia, Schizophrenia, HTN and CAD sent back by assisted living facility because for among other reasons, there is no body to give her the prescribed insulin at night. Patient was discharged from this hospital today after being hospitalized for DKA. Per note from the Assisted Living facility at [place]: "1. Patient has not been on insulin before AND current insulin orders are NOT clear AND ALSO can NOT be executed in this facility. There is no nursing staff to administer nightly medications". Patient without acute complaints. No fevers, chills, chest pain, or shortness of breath. Denies alcohol, tobacco or illicit drug use. OBJECTIVE: Alert Vital Signs Period Temp Pulse Resp BP Sys/Peña Pulse Ox Last 24 Hr 98.2 F-98.2 F 69-77 16-17 119-142/71-78 96-98 HEENT: No Jaundice, eye redness or discharge, PERRLA, EOMI. Normocephalic, atraumatic. External ears are normal. No nasal discharge. Neck: Supple, nontender. No palpable adenopathy or thyromegaly. No JVD Chest: Good effort. Clear to auscultation and percussion. Heart: Regular. No S3, rub or murmur Abdomen: Not distended, soft, nontender and no HSM. No rebound or guarding. Normal bowel sounds. Ext: Peripheral pulses intact. No leg edema. Skin: Warm and dry. No petechiae, rash or ecchymosis. Neuro: Alert. Oriented to person. Unable to follow command for a complete neurological examination. Moves all limbs. Psych: Unable to assess. Current Medications Generic Name Dose Route Start Last Admin Trade Name Freq PRN Reason Stop Dose Admin Acetaminophen 500 mg 05/30/19 05:46 Tylenol - PO TID PRN PAIN Amlodipine Besylate 5 mg 05/30/19 10:00 Norvasc - PO DAILY SAM Artificial Tears 1 drop 05/30/19 10:00 Artificial Tears OS BID SAM Atorvastatin Calcium 40 mg 05/30/19 22:00 Lipitor - PO HS SAM Brimonidine Tartrate 1 drop 05/30/19 10:00 Alphagan 0.15% - OS BID REPLACED BY [facility] Dipyridamole/Aspirin 1 combo 05/30/19 10:00 Aggrenox - PO BID SAM Duloxetine HCl 30 mg 05/30/19 10:00 Cymbalta - PO DAILY REPLACED BY [facility] Ergocalciferol 50,000 unit 05/30/19 10:00 Drisdol - PO Q7D@1000 REPLACED BY [facility] Ferrous Sulfate 325 mg 05/30/19 10:00 Feosol - PO BID REPLACED BY [facility] Insulin Aspart 1 vial 05/30/19 07:00 Novolog Vial Sliding Scale - SQ ACHS REPLACED BY [facility] Protocol Levothyroxine Sodium 50 mcg 05/30/19 07:00 Synthroid - PO DAILY@0700 REPLACED BY [facility] Losartan Potassium 100 mg 05/30/19 10:00 Cozaar - PO DAILY REPLACED BY [facility] Memantine 5 mg 05/30/19 10:00 Namenda - PO DAILY REPLACED BY [facility] Metformin HCl 1,000 mg 05/30/19 07:00 Glucophage - PO BIDAC REPLACED BY [facility] Naproxen 500 mg 05/30/19 10:00 Naprosyn - PO BID REPLACED BY [facility] Non-Formulary Medication 1 drop 05/30/19 10:00 Dorzolamide Hcl/Pf [Dorzolamide 2% Eye Drop] OU BID REPLACED BY [facility] Risperidone 0.5 mg 05/30/19 22:00 Risperdal - PO HS REPLACED BY [facility] Home Medications Medication Instructions Recorded Atorvastatin Ca [Lipitor] 40 mg PO HS #0 01/12/16 Amlodipine Besylate [Norvasc -] 5 mg PO DAILY 05/20/19 Brimonidine Tartrate [Alphagan 1 drop OS BID 05/20/19 0.15% -] Dorzolamide HCl/Pf [Dorzolamide 2% 1 drop OU BID 05/20/19 Eye Drop] Duloxetine HCl [Cymbalta -] 30 mg PO DAILY 05/20/19 Ergocalciferol [Vitamin D2] 50,000 unit PO Q7D@1000 05/20/19 Levothyroxine Sodium 50 mcg PO DAILY 05/20/19 Losartan Potassium [Cozaar] 100 mg PO DAILY 05/20/19 Memantine HCl [Namenda -] 5 mg PO DAILY 05/20/19 Polyvinyl Alcohol [Artificial 1 drop OS BID 05/20/19 Tears] Risperidone [Risperdal -] 0.5 mg PO HS 05/20/19 metFORMIN HCL [Glucophage -] 1,000 mg PO BID 05/20/19 Ferrous Sulfate [Feosol] 325 mg PO BID #60 ud 05/26/19 Aspirin/Dipyridamole [Aggrenox -] 1 combo PO BID #60 capsule 05/29/19 Insulin Glargine,Hum.rec.anlog 16 unit SQ HS #1 vial 05/29/19 [Lantus] Insulin Sliding Scale [Novolog 1 vial SQ HS #1 vial 05/29/19 Vial Sliding Scale -] Insulin Sliding Scale [Novolog 1 vial SQ TIDAC #1 vial 05/29/19 Vial Sliding Scale -] Acetaminophen [Pain Relief] 500 mg PO TID PRN 05/30/19 Naproxen [Naprosyn -] 500 mg PO BID 05/30/19 Abnormal Lab Results 05/30/19 05/30/19 01:51 01:51 RBC 3.32 L Hgb 9.5 L Hct 29.4 L Plt Count 450 H D BUN 23.9 H Creatinine 1.5 H Random Glucose 139 H AST 76 H Albumin 3.0 L ASSESSMENT AND PLAN: 1. Placement in SNF - Patient with insulin-treated DM and Alzheimer's dementia needs placement in appropriate SNF that can administer insulin. For now, we will hold the home diabetes drugs and implement sliding scale insulin regimen. Provide comprehensive diabetes care with patient teaching and counseling about the importance of adherence to prescribed diabetes regimen, euglycemia, eye care and foot care. Will continue comprehensive care for all of patients comorbid conditions. 2. Hypoalbuminemia - Possibly due to combined effects of malnutrition and inflammation associated with comorbid chronic conditions. Will ensure adequate dietary protein intake and also consult fashion director. UA pending. 3. CKD - Has risk factors for CKD. Will consult nephrology and avoid nephrotoxic agents such as NSAIDS, aminoglycosides, contrast dyes and certain Alternative medicine products. 4. Anemia - Likely partly due to CKD. Do basic anemia work up including serial stool guaiacs, reticulocyte count and iron studies. Would benefit from Procrit therapy once iron replete. 5. Hypertension - Restart suitable outpatient antihypertensive drugs when clinically appropriate. Revise regimen to ensure [id number] excellent BP control and delinquency counselor patient on the injurious effects of uncontrolled hypertension. Nonpharmacologic measures to control hypertension like weight loss , salt restriction and exercise discussed. Importance of adherence to treatment regimen and attainment of normotension emphasized. 6. DVT prophylaxis - Heparin 5000u sq tid. 7. Advance directives - Full code
[2019-05-30] MEDS ORDERED: ACETAMINOPHEN 500 MG TABLET (FP) PO PRN (05:46)
--- NOTE | 2019-05-30 05:49 | HP ---
CHIEF COMPLAINT: PCP: HISTORY OF PRESENT ILLNESS: Pt. is an 83 y.o F PMHx. of Alzheimers, schizophrenia, HTN, DM2, hypothyroidism, CAD HLD, HHD (LVH), glaucooma, depression who presents from [facility] for a social admission. Per EMS report and confirmation with Pt. NH was unable to understand discharge instructions. NH states that they are unable to give Insulin at night or check BGMs. Pt. was recently admitted for DKA and discharged on Insulin. Pt. denies any acute complaints. ER course was notable for: (1)CBC, CMP (2) (3) Recent Travel: denies PAST MEDICAL HISTORY: As per HPI PAST SURGICAL HISTORY: Cataract and glaucoma surgeries [facility] Social History: Smoking: denies Alcohol: denies Drugs: denies Allergies No Known Allergies Allergy (Verified 05/20/19 13:13) HOME MEDICATIONS: Home Medications Medication Instructions Recorded Atorvastatin Ca [Lipitor] 40 mg PO HS #0 01/12/16 Amlodipine Besylate [Norvasc -] 5 mg PO DAILY 05/20/19 Brimonidine Tartrate [Alphagan 1 drop OS BID 05/20/19 0.15% -] Dorzolamide HCl/Pf [Dorzolamide 2% 1 drop OU BID 05/20/19 Eye Drop] Duloxetine HCl [Cymbalta -] 30 mg PO DAILY 05/20/19 Ergocalciferol [Vitamin D2] 50,000 unit PO Q7D@1000 05/20/19 Levothyroxine Sodium 50 mcg PO DAILY 05/20/19 Losartan Potassium [Cozaar] 100 mg PO DAILY 05/20/19 Memantine HCl [Namenda -] 5 mg PO DAILY 05/20/19 Polyvinyl Alcohol [Artificial 1 drop OS BID 05/20/19 Tears] Risperidone [Risperdal -] 0.5 mg PO HS 05/20/19 metFORMIN HCL [Glucophage -] 1,000 mg PO BID 05/20/19 Ferrous Sulfate [Feosol] 325 mg PO BID #60 ud 05/26/19 Aspirin/Dipyridamole [Aggrenox -] 1 combo PO BID #60 capsule 05/29/19 Insulin Glargine,Hum.rec.anlog 16 unit SQ HS #1 vial 05/29/19 [Lantus] Insulin Sliding Scale [Novolog 1 vial SQ HS #1 vial 05/29/19 Vial Sliding Scale -] Insulin Sliding Scale [Novolog 1 vial SQ TIDAC #1 vial 05/29/19 Vial Sliding Scale -] Acetaminophen [Pain Relief] 500 mg PO TID PRN 05/30/19 Naproxen [Naprosyn -] 500 mg PO BID 05/30/19 REVIEW OF SYSTEMS As above PHYSICAL EXAMINATION Vital Signs - 24 hr 05/29/19 05/30/19 18:29 04:17 Temperature 98.2 F 98.2 F Pulse Rate 77 Pulse Rate [ 69 Right] Respiratory 16 17 Rate Blood Pressure 119/71 Blood Pressure 142/78 [Left Arm] O2 Sat by Pulse 96 98 Oximetry (%) A&O x 1 to name only nml S1 S2, RRR CTAB nontender, soft, BS+ 2+ radial pulses, warm, no edema Laboratory Results - last 24 hr 05/30/19 05/30/19 01:51 01:51 WBC 9.6 RBC 3.32 L Hgb 9.5 L Hct 29.4 L MCV 88.6 MCH 28.5 MCHC 32.1 RDW 15.5 Plt Count 450 H D MPV 8.0 Absolute Neuts (auto) 7.3 Total Counted 100 Neutrophils % 75.8 D Neutrophils % (Manual) 72.0 Band Neutrophils % 5.0 Lymphocytes % 16.0 D Lymphocytes % (Manual) 18.0 D Monocytes % 6.6 Monocytes % (Manual) 5 Eosinophils % 0.4 Basophils % 1.2 Nucleated RBC % 0 Hypochromia 1+ Platelet Estimate Adequate Platelet Comment Large platelets Sodium 140 Potassium 4.5 Chloride 106 Carbon Dioxide 24 Anion Gap 9 BUN 23.9 H Creatinine 1.5 H Est GFR (CKD-EPI)AfAm 37.48 Est GFR (CKD-EPI)NonAf 32.34 Random Glucose 139 H Calcium 9.5 Total Bilirubin 0.3 AST 76 H ALT 58 Alkaline Phosphatase 69 Total Protein 8.2 Albumin 3.0 L ASSESSMENT/PLAN: Pt. is an 83 y.o F PMHx. of Alzheimers, schizophrenia, HTN, DM2, hypothyroidism , CAD HLD, HHD (LVH), glaucooma, depression who presents from [facility] for a social admission. #Unsafe Discharge and Chronic Co-morbidities c/w home dose of medications Will need social work to find another NH if unable to adjust medications to the requirements of [facility] #FEN no IVf, encourage PO intake monitor and replete as needed Diabetic Sodium restricted Diet #DVT PPx. SCDs TEDs Visit type - Emergency Visit Emergency Visit: Yes ED Registration Date: 05/30/19 Care time: The patient presented to the Emergency Department on the above date and was hospitalized for further evaluation of their emergent condition. - New Patient This patient is new to me today: Yes Date on this admission: 05/30/19 - Critical Care Critical Care patient: No ATTENDING PHYSICIAN STATEMENT I saw and evaluated the patient. I reviewed the resident's note and discussed the case with the resident. I agree with the resident's findings and plan as documented. SUBJECTIVE: OBJECTIVE: ASSESSMENT AND PLAN:
[2019-05-30] MEDS ORDERED: LEVOTHYROXINE NA 50 MCG TABLET (FP) PO SCH (07:00)
[2019-05-30] MEDS ORDERED: LEVOTHYROXINE NA 25 MCG TABLET (FP) ONE (07:21)
[2019-05-30] MEDS ORDERED: metFORMIN HCL 500 MG TABLET (FP) ONE ×2 (07:21→15:33)
[2019-05-30] MEDS ORDERED: INSULIN (LEVEMIR) 100 UNITS/ML UNITS SQ SCH ×2 (07:30→22:00)
[2019-05-30] MEDS: metFORMIN HCL 500 MG TABLET (FP) PO SCH ×2 (07:33→15:37)
[2019-05-30] MEDS: INSULIN SLIDING SCALE (NOVOLOG) 1 VIAL SQ SCH ×3 (07:34→15:37)
[2019-05-30] MEDS ORDERED: amLODIPine BESYLATE 5 MG TABLET (FP) ONE (09:46)
[2019-05-30] MEDS ORDERED: LOSARTAN POTASSIUM 50 MG TABLET (FP) ONE (09:47)
[2019-05-30] MEDS ORDERED: DULoxetine HCL 30 MG CAPSULE.DR PO ONE (09:47)
[2019-05-30] MEDS ORDERED: FERROUS SO4 325 MG TABLET (FP) ONE (09:47)
[2019-05-30] MEDS ORDERED: ASPIRIN/DIPYRIDAMOLE 25 MG/200 MG CAPSULE ONE (09:47)
[2019-05-30] MEDS ORDERED: MEMANTINE HCL 5 MG TABLET (UD) PO SCH (10:00)
[2019-05-30] MEDS ORDERED: BRIMONIDINE TARTRATE 0.15% OPHTHALMIC 5 ML BOTTLE OS SCH (10:00)
[2019-05-30] MEDS ORDERED: DORZOLAMIDE 2% HCL OPHTHALMIC SOLUTION 10 ML BOTTLE OU SCH (10:00)
[2019-05-30] MEDS ORDERED: FERROUS SO4 325 MG TABLET (FP) PO SCH (10:00)
[2019-05-30] MEDS ORDERED: ARTIFICIAL TEARS (POLYVINYL ALCOHOL) OPTH DROPS OS SCH (10:00)
[2019-05-30] MEDS ORDERED: ASPIRIN/DIPYRIDAMOLE 25 MG/200 MG CAPSULE PO SCH (10:00)
[2019-05-30] MEDS ORDERED: amLODIPine BESYLATE 5 MG TABLET (FP) PO SCH (10:00)
[2019-05-30] MEDS ORDERED: ERGOCALCIFEROL (VIT D2) 50,000 UNIT (1.25 MG) CAPSULE PO SCH (10:00)
[2019-05-30] MEDS ORDERED: DULoxetine HCL 30 MG CAPSULE.DR PO SCH (10:00)
[2019-05-30] MEDS ORDERED: LOSARTAN POTASSIUM 50 MG TABLET (FP) PO SCH (10:00)
[2019-05-30] MEDS ORDERED: NAPROXEN 250 MG TABLET (FP) PO SCH (10:00)
[2019-05-30 11:30] LABS: HEMATOCRIT 28.4 % (32.4-45.2); HEMOGLOBIN 9.5 GM/dL (10.7-15.3); MCH 29.3 pg (25.7-33.7); MCHC 33.3 g/dl (32.0-36.0); MEAN CELL VOLUME 88.1 fl (80-96); PLATELET COUNT 432 K/MM3 (134-434); RBC 3.23 M/mm3 (3.60-5.2); RDW 15.3 % (11.6-15.6); WHITE BLOOD COUNT 7.6 K/mm3 (4.0-10.0)
[2019-05-30 11:53] LABS: BLOOD UREA NITROGEN 19.6 mg/dL (7-18); CALCIUM 9.6 mg/dL (8.5-10.1); CREATININE 1.3 mg/dL (0.55-1.3); PHOSPHOROUS 4.1 mg/dL (2.5-4.9); POTASSIUM 4.5 mmol/L (3.5-5.1)
--- NOTE | 2019-05-30 13:57 | EKG ---
Test Reason : Blood Pressure : / mmHG Vent. Rate : 084 BPM Atrial Rate : 084 BPM P-R Int : 154 ms QRS Dur : 090 ms QT Int : 370 ms P-R-T Axes : 034 018 060 degrees QTc Int : 437 ms NORMAL SINUS RHYTHM NORMAL ECG WHEN COMPARED WITH ECG OF 24-MAY-2019 18:49, T WAVE INVERSION NO LONGER EVIDENT IN INFERIOR LEADS Confirmed by UMANG SALDANA MD ([id number]) on 05/30/2019 1:57:10 PM Referred By: Confirmed By:UMANG SALDANA MD
--- NOTE | 2019-05-30 14:28 | PN ---
Teaching Attending Note Name of Resident: Neel Benitez ATTENDING PHYSICIAN STATEMENT I saw and evaluated the patient. I reviewed the resident's note and discussed the case with the resident. I agree with the resident's findings and plan as documented with exceptions below. SUBJECTIVE: patient seen and examined, no complaints, eager to go home OBJECTIVE: Vital Signs Period Temp Pulse Resp BP Sys/Peña Pulse Ox Last 24 Hr 98.0 F-98.2 F 69-78 16-18 119-142/71-96 96-98 Intake & Output 05/27/19 05/28/19 05/29/19 05/30/19 23:59 23:59 23:59 23:59 Weight 137 lb General: lying in bed in no acute distress Chest: CTAb, Abdomen: soft, NT Extremities: no edema Home Medications Medication Instructions Recorded Atorvastatin Ca [Lipitor] 40 mg PO HS #0 01/12/16 Amlodipine Besylate [Norvasc -] 5 mg PO DAILY 05/20/19 Brimonidine Tartrate [Alphagan 1 drop OS BID 05/20/19 0.15% -] Dorzolamide HCl/Pf [Dorzolamide 2% 1 drop OU BID 05/20/19 Eye Drop] Duloxetine HCl [Cymbalta -] 30 mg PO DAILY 05/20/19 Ergocalciferol [Vitamin D2] 50,000 unit PO Q7D@1000 05/20/19 Levothyroxine Sodium 50 mcg PO DAILY 05/20/19 Losartan Potassium [Cozaar] 100 mg PO DAILY 05/20/19 Memantine HCl [Namenda -] 5 mg PO DAILY 05/20/19 Polyvinyl Alcohol [Artificial 1 drop OS BID 05/20/19 Tears] Risperidone [Risperdal -] 0.5 mg PO HS 05/20/19 Ferrous Sulfate [Feosol] 325 mg PO BID #60 ud 05/26/19 Aspirin/Dipyridamole [Aggrenox -] 1 combo PO BID #60 capsule 05/29/19 Acetaminophen [Pain Relief] 500 mg PO TID PRN 05/30/19 Insulin Glargine,Hum.rec.anlog 16 unit SQ AM #1 vial 05/30/19 [Lantus] Repaglinide [Prandin -] 1 mg PO BID #60 tablet 05/30/19 Active Medications Acetaminophen (Tylenol -) 500 mg PO TID PRN PRN Reason: PAIN 1-3 Amlodipine Besylate (Norvasc -) 5 mg PO DAILY [facility] Last Admin: 05/30/19 09:48 Dose: 5 mg Artificial Tears (Artificial Tears) 1 drop OS BID [facility] Last Admin: 05/30/19 09:48 Dose: 1 drop Atorvastatin Calcium (Lipitor -) 40 mg PO [facility] Brimonidine Tartrate (Alphagan 0.15% -) 1 drop OS BID [facility] Last Admin: 05/30/19 09:48 Dose: 1 drop Dipyridamole/Aspirin (Aggrenox -) 1 combo PO BID [facility] Last Admin: 05/30/19 09:48 Dose: 1 combo Dorzolamide HCl (Trusopt 2%) 1 drop OU BID [facility] Last Admin: 05/30/19 09:47 Dose: 1 drop Duloxetine HCl (Cymbalta -) 30 mg PO DAILY [facility] Last Admin: 05/30/19 09:48 Dose: 30 mg Ergocalciferol (Drisdol -) 50,000 unit PO Fr@1000 [facility] Last Admin: 05/30/19 09:49 Dose: 50,000 unit Ferrous Sulfate (Feosol -) 325 mg PO BID [facility] Last Admin: 05/30/19 09:48 Dose: 325 mg Insulin Aspart (Novolog Vial Sliding Scale -) 1 vial SQ [facility]; Protocol Last Admin: 05/30/19 11:12 Dose: Not Given Insulin Detemir (Levemir Vial) 16 units SQ 0700 [facility] Last Admin: 05/30/19 07:35 Dose: 16 unit Levothyroxine Sodium (Synthroid -) 50 mcg PO DAILY@0700 [facility] Last Admin: 05/30/19 07:34 Dose: 50 mcg Losartan Potassium (Cozaar -) 100 mg PO DAILY [facility] Last Admin: 05/30/19 09:48 Dose: 100 mg Memantine (Namenda -) 5 mg PO DAILY [facility] Last Admin: 05/30/19 09:49 Dose: 5 mg Metformin HCl (Glucophage -) 1,000 mg PO BIDAC [facility] Last Admin: 05/30/19 07:33 Dose: 1,000 mg Risperidone (Risperdal -) 0.5 mg PO [facility] Laboratory Results - last 24 hr 05/30/19 05/30/19 05/30/19 01:51 01:51 11:10 WBC 9.6 7.6 RBC 3.32 L 3.23 L Hgb 9.5 L 9.5 L Hct 29.4 L 28.4 L MCV 88.6 88.1 MCH 28.5 29.3 MCHC 32.1 33.3 RDW 15.5 15.3 Plt Count 450 H D 432 MPV 8.0 8.0 Absolute Neuts (auto) 7.3 Total Counted 100 Neutrophils % 75.8 D Neutrophils % (Manual) 72.0 Band Neutrophils % 5.0 Lymphocytes % 16.0 D Lymphocytes % (Manual) 18.0 D Monocytes % 6.6 Monocytes % (Manual) 5 Eosinophils % 0.4 Basophils % 1.2 Nucleated RBC % 0 Hypochromia 1+ Platelet Estimate Adequate Platelet Comment Large platelets Sodium 140 Potassium 4.5 Chloride 106 Carbon Dioxide 24 Anion Gap 9 BUN 23.9 H Creatinine 1.5 H Est GFR (CKD-EPI)AfAm 37.48 Est GFR (CKD-EPI)NonAf 32.34 Random Glucose 139 H Calcium 9.5 Phosphorus Magnesium Total Bilirubin 0.3 AST 76 H ALT 58 Alkaline Phosphatase 69 Total Protein 8.2 Albumin 3.0 L 05/30/19 11:10 WBC RBC Hgb Hct MCV MCH MCHC RDW Plt Count MPV Absolute Neuts (auto) Total Counted Neutrophils % Neutrophils % (Manual) Band Neutrophils % Lymphocytes % Lymphocytes % (Manual) Monocytes % Monocytes % (Manual) Eosinophils % Basophils % Nucleated RBC % Hypochromia Platelet Estimate Platelet Comment Sodium 141 Potassium 4.5 Chloride 110 H Carbon Dioxide 25 Anion Gap 6 L BUN 19.6 H Creatinine 1.3 Est GFR (CKD-EPI)AfAm 44.56 Est GFR (CKD-EPI)NonAf 38.44 Random Glucose 99 Calcium 9.6 Phosphorus 4.1 Magnesium 2.0 Total Bilirubin AST ALT Alkaline Phosphatase Total Protein Albumin ASSESSMENT AND PLAN: 83 y/o woman with hx DM 2, Alzheimers, Schizophrenia, HTN, CAD, [facility], admitted with DKA/AMS/CVA, d/meg to Assisted living on 05/29, sent back to Ed after nursing at assisted living confused about home insulin needs. -Recent Acute left parietal/parietotemporal CVA, Chronic left temporoparietal/ cerebellar CVA -Recent Acute DKA, now resolved -Poorly controlled DM, A1c 11.2 -Lower respiratory tract infection, likely acute bronchitis -Acute strep pharyngitis -Acute metabolic encephalopathy, suspect from above, superimposed on Alzheimer' s Dementia/Schizophrenia -NIKOLE on CKD stage III -Hypothyroidism -Normocytic anemia Plan: Social work at Assisted living facility had confirmed facility's ability to administer insulin and sliding scale, prior to dc on 05/29. Sent back to ED as nursing unable to ?administer insulin at night. Change lantus to AM. Discussed with Dr. Titus. Stop metformin. Start prandin BID. Confirmed again the ability of the facility to administer insulin and meds. Also BGM 1-2 times premeals if able, Close endocrine follow up outpatient. Dc back to facility today Discussed with patient.
--- NOTE | 2019-05-30 14:57 | DS ---
Physical Exam: SUBJECTIVE: Patient seen and examined at the bedside. Patient was awake and alert and denied any acute complaints of cp, sob, abd pain, n/v/c/d, cough, fever, chills, headaches, dizziness, lightheadedness, numbness, tingling. OBJECTIVE: Vital Signs Period Temp Pulse Resp BP Sys/Peña Pulse Ox Last 24 Hr 98.0 F-98.2 F 69-78 16-18 119-142/71-96 96-98 PHYSICAL EXAM GENERAL: The patient is awake, alert, and oriented to self, location, and "May", in no acute distress. HEAD: Normal with no signs of trauma. EYES: PERRL, extraocular movements intact, sclera anicteric, conjunctiva clear. ENT: Oropharynx clear without exudates, moist mucous membranes. LUNGS: Breath sounds equal, mild crackles noted at bases, no wheezes no accessory muscle use. HEART: Regular rate and rhythm, S1, S2 without murmur, rub. ABDOMEN: Soft, nontender, nondistended, normoactive bowel sounds, no guarding, no rebound, no masses. EXTREMITIES: 2+ pulses, warm, well-perfused, no edema. NEUROLOGICAL: Cranial nerves II through XII grossly intact. 4/5 muscle strength bilaterally, upper and lower extremities. PSYCH: Normal mood, normal affect. SKIN: Warm, dry, normal turgor, no rashes or lesions noted. LABS Laboratory Results - last 24 hr 05/30/19 05/30/19 05/30/19 01:51 01:51 11:10 WBC 9.6 7.6 RBC 3.32 L 3.23 L Hgb 9.5 L 9.5 L Hct 29.4 L 28.4 L MCV 88.6 88.1 MCH 28.5 29.3 MCHC 32.1 33.3 RDW 15.5 15.3 Plt Count 450 H D 432 MPV 8.0 8.0 Absolute Neuts (auto) 7.3 Total Counted 100 Neutrophils % 75.8 D Neutrophils % (Manual) 72.0 Band Neutrophils % 5.0 Lymphocytes % 16.0 D Lymphocytes % (Manual) 18.0 D Monocytes % 6.6 Monocytes % (Manual) 5 Eosinophils % 0.4 Basophils % 1.2 Nucleated RBC % 0 Hypochromia 1+ Platelet Estimate Adequate Platelet Comment Large platelets Sodium 140 Potassium 4.5 Chloride 106 Carbon Dioxide 24 Anion Gap 9 BUN 23.9 H Creatinine 1.5 H Est GFR (CKD-EPI)AfAm 37.48 Est GFR (CKD-EPI)NonAf 32.34 Random Glucose 139 H Calcium 9.5 Phosphorus Magnesium Total Bilirubin 0.3 AST 76 H ALT 58 Alkaline Phosphatase 69 Total Protein 8.2 Albumin 3.0 L 05/30/19 11:10 WBC RBC Hgb Hct MCV MCH MCHC RDW Plt Count MPV Absolute Neuts (auto) Total Counted Neutrophils % Neutrophils % (Manual) Band Neutrophils % Lymphocytes % Lymphocytes % (Manual) Monocytes % Monocytes % (Manual) Eosinophils % Basophils % Nucleated RBC % Hypochromia Platelet Estimate Platelet Comment Sodium 141 Potassium 4.5 Chloride 110 H Carbon Dioxide 25 Anion Gap 6 L BUN 19.6 H Creatinine 1.3 Est GFR (CKD-EPI)AfAm 44.56 Est GFR (CKD-EPI)NonAf 38.44 Random Glucose 99 Calcium 9.6 Phosphorus 4.1 Magnesium 2.0 Total Bilirubin AST ALT Alkaline Phosphatase Total Protein Albumin HOSPITAL COURSE: Mallory Valencia is an 83 year old female with a past medical history of alzheimers, schizophrenia, HTN, DM2, hypothyroidism, CAD, HLD, HHD (LVH), glaucoma, depression who presents from [facility] after being discharged from this facility previously for AMS likely secondary to DKA which was precipitated by a pneumonia. As per the longterm, there was difficulty in administering the insulin at specified times at the [facility] and a physician was unable to be reached. On this admission, insulin dosing was adjusted to best suit the abilities of the Assisted Living. Patient is to take Lantus 16 units in the morning and Prandin 1mg twice daily before meals. Patient is to have BGMs 2-3 times per day and have a BGM diary to take to her endocrinology appointments. Patient is to stop taking Jardiance and metformin. Patient is to follow up with endocrinology as an outpatient. On previous admission, patient had completed antibiotics for pneumonia. On previous admission, patient was noted with strokes and started on Aggrenox, continued on statin. Had carotid dopplers performed which showed mild atherosclerotic disease with no hemodynamically significant stenosis. Echo performed showed normal LV size, function, thickness, normal EF, mild aortic regurg, trace to mild tricuspid regurg, trace to mild mitral regurg, possible poor LV compliance. Neurology was consulted and recommended continuing Aggrenox and to follow up outpatient. The patient will likely require outpatient holter monitor and cardiology referral was provided. Homocysteine levels were checked and elevated. Patient to follow up with neurology outpatient. CXR showed granuloma in R base which patient is to follow up with her primary care. Renal U/s showed a cyst in the L renal pole which the patient is to follow up with her primary care. Iron studies noted that the patient had iron deficiency anemia and was started on iron supplementation. She was found with mildly elevated TSH levels and to have repeat TSH levels in the outpatient setting. Patient's facility was contacted, all medications updated and sent. Primary care physician at facility was notified about patient's condition on previous admission, and case was discussed. Johnna, binder caser, at [facility], was spoken to regarding changes in patient's medications and all questions answered. Paperwork for transfer back to facility was filled out and sent. Patient was stable for discharge back to her Assisted Living Facility. Date of Admission:05/30/19 Date of Discharge: 05/30/19 Minutes to complete discharge: 37 Discharge Summary Problems reviewed: Yes Reason For Visit: HYPERGLYCEMIA Current Active Problems Hyperglycemia (Chronic) Condition: Stable - Instructions Diet, Activity, Other Instructions: You were admitted for elevated blood sugars in your blood which caused you to have confusion. You were treated with insulin and your blood sugar improved. You will leave on a different regimen of your diabetes medications to help manage your blood sugars better. You were found to have a pneumonia in your lungs as seen on a chest x-ray. You were started on antibiotics to treat the pneumonia which you have completed in the hospital. You had a CT scan of your head which showed some abnormalities in one part of your brain. In order to evaluate these further you had an MRI of your brain done which showed that you had some recent strokes in several parts of your brain. You were started on medications to reduce your risk of further strokes from occurring. You were seen by a neurologist (brain doctor) and are recommended to continue taking Aggrenox, atorvastatin, and to follow up with a neurologist in the outpatient clinic. MEDICATIONS STOP taking Jardiance. Do not take Jardiance or other SGLT-2 inhibitors in the future. STOP taking Metformin. STOP taking Naproxen. START to take Lantus 16 units in the morning. START Prandin 1 mg twice daily before meals in the morning and in PM. START to take Aggrenox 1 tablet twice daily. START to take ferrous sulfate 325mg twice a day. Continue to take all of your other home medications as prescribed. REFERRALS Please follow up with your primary care doctor, Dr. Inderjit Spangler, within 1 week. Please follow up with the sales development associate, Dr. Janelle Titus, within 1 week. Please follow up with the neurologist, Dr. Brandee Coy, within 1 week. Outpatient cardiology follow up to discuss extended Holter monitoring ( information for Dr. Ma provided) SPECIAL INSTRUCTIONS Check your Blood Glucose twice a day, in the morning and at lunch time and keep a Blood Glucose Measurement Diary until you see the sales development associate and bring the measurements to the appointment. You will need to have a repeat Basic Metabolic Panel check in 1 week. You will need to have C-peptide level check and MIKE antibody in 1 week. You will need to have a repeat thyroid function test in 4-6 weeks. Keep a Blood Glucose Measurement Diary until you see the sales development associate and bring the measurements to the appointment. You were found to have a cyst on your left kidney. You should follow up with your primary care doctor if you need any further follow up regarding this finding. You were found to have a granuloma (mass) in your right lung. You should follow up with your primary care doctor if you need any further follow up regarding this finding. Maintain high fiber diet and laxatives as needed while on iron pills. If you have any further symptoms of confusion, vomiting, fevers, chest pain, shortness of breath, abdominal pain, inability to eat, or any other general feelings of unwellness, please call 911 or go to your nearest emergency room. Referrals: Ean Ma MD [Staff Physician] - 1 Week Inderjit Spangler MD [Non Staff, Medical] - 1 Week Janelle Titus MD [Staff Physician] - 1 Week Brandee Coy MD [Staff Physician] - 1 Week Disposition: HOME - Home Medications Comprehensive Discharge Medication List: Ambulatory Orders Atorvastatin Ca [Lipitor] 40 mg PO HS #0 01/12/16 Amlodipine Besylate [Norvasc -] 5 mg PO DAILY 05/20/19 Brimonidine Tartrate [Alphagan 0.15% -] 1 drop OS BID 05/20/19 Dorzolamide HCl/Pf [Dorzolamide 2% Eye Drop] 1 drop OU BID 05/20/19 Duloxetine HCl [Cymbalta -] 30 mg PO DAILY 05/20/19 Ergocalciferol [Vitamin D2] 50,000 unit PO Q7D@1000 05/20/19 Levothyroxine Sodium 50 mcg PO DAILY 05/20/19 Losartan Potassium [Cozaar] 100 mg PO DAILY 05/20/19 Memantine HCl [Namenda -] 5 mg PO DAILY 05/20/19 Polyvinyl Alcohol [Artificial Tears] 1 drop OS BID 05/20/19 Risperidone [Risperdal -] 0.5 mg PO HS 05/20/19 Ferrous Sulfate [Feosol] 325 mg PO BID #60 ud 05/26/19 Aspirin/Dipyridamole [Aggrenox -] 1 combo PO BID #60 capsule 05/29/19 Acetaminophen [Pain Relief] 500 mg PO TID PRN 05/30/19 Insulin Glargine,Hum.rec.anlog [Lantus] 16 unit SQ AM #1 vial 05/30/19 Repaglinide [Prandin -] 1 mg PO BID #60 tablet 05/30/19 Problem List - Problems (1) Hyperglycemia Code(s): R73.9 - HYPERGLYCEMIA, UNSPECIFIED (2) CVA (cerebral vascular accident) Code(s): I63.9 - CEREBRAL INFARCTION, UNSPECIFIED (3) Diabetes mellitus Code(s): E11.9 - TYPE 2 DIABETES MELLITUS WITHOUT COMPLICATIONS (4) HLD (hyperlipidemia) Code(s): E78.5 - HYPERLIPIDEMIA, UNSPECIFIED (5) HTN (hypertension) Code(s): I10 - ESSENTIAL (PRIMARY) HYPERTENSION This patient is new to me today: Yes Date on this admission: 05/30/19 Emergency Visit: Yes ED Registration Date: 05/30/19 Care time: The patient presented to the Emergency Department on the above date and was hospitalized for further evaluation of their emergent condition. Critical Care patient: No - Discharge Referral Referred to [facility] No
[2019-05-30 15:53] VITALS: BP 111/60; PULSE 71; TEMP 98.5
[2019-05-30] MEDS ORDERED: risperiDONE 0.5 MG TABLET (FP) PO SCH (22:00)
[2019-05-30] MEDS ORDERED: ATORVASTATIN CA 40 MG TABLET (FP) PO SCH (22:00)
[2019-05-30] MEDS ORDERED: [UNRECOGNIZED DRUG - OTHER] SQ SCH (22:00)
[2019-05-30] MEDS ORDERED: INSULIN GLARGINE HUM REC ANLOG 16 UNIT SQ SCH (22:00)
== END 2019-05-30 16:30 | disposition home or self-care (01) | DRG 637 ==
LOC: JER 18:29 → JERBED 05-30 03:51
PROVIDERS: ADMIT Internal Medicine; ATTEND Hospitalist
DX: E11.65 Type 2 diabetes mellitus with hyperglycemia (principal); E11.10 Type 2 diabetes mellitus with ketoacidosis without coma; N17.9 Acute kidney failure, unspecified; R62.7 Adult failure to thrive; Z68.24 Body mass index [BMI] 24.0-24.9, adult; G30.9 Alzheimer's disease, unspecified; F02.80 Dementia in other diseases classified elsewhere, unspecified severity, without behavioral disturbance, psychotic disturbance, mood disturbance, and anxiety; I25.10 Atherosclerotic heart disease of native coronary artery without angina pectoris; F20.9 Schizophrenia, unspecified; E03.9 Hypothyroidism, unspecified; D64.9 Anemia, unspecified; I12.9 Hypertensive chronic kidney disease with stage 1 through stage 4 chronic kidney disease, or unspecified chronic kidney disease; E11.22 Type 2 diabetes mellitus with diabetic chronic kidney disease; N18.3 Chronic kidney disease, stage 3 (moderate); H40.9 Unspecified glaucoma; H91.93 Unspecified hearing loss, bilateral; F32.9 Major depressive disorder, single episode, unspecified; Z86.73 Personal history of transient ischemic attack (TIA), and cerebral infarction without residual deficits
CPT/HCPCS: 36415; 80048; 80053; 82962; 83735; 84100; 85025; 85027; 93005; 93010; 99284-25

== ENCOUNTER 2020-07-07 08:23 | Emergency (ER) | payer OTHER ==
[2020-07-07 09:14] VITALS: BP 170/96; PULSE 64; TEMP 98.2; BMI 26.3
== END 2020-07-07 12:57 ==
LOC: JER 08:23
DX: M25.561 Pain in right knee (principal); M25.562 Pain in left knee
CPT/HCPCS: 70450-TC; 72170-TC-FY; 73562-TC-LT-FY; 73562-TC-RT-FY; 99285-25